=== PATIENT | female | born 1940 | race Caucasian/White ===

== ENCOUNTER 2023-04-29 16:02 | Emergency (ER) | payer MEDICARE, OTHER, SELFPAY ==
[2023-04-29 16:06] VITALS: BP 123/63
[2023-04-29 16:35] LABS: % Basophils 0.8 % (0-2); % Eosinophils 0.3 % (0-6); % Immature Granulocytes 0.6 % (0-0.5); % Lymphocytes 11.9 % (20.5-51.1); % Monocytes 7.8 % (1.7-9.3); % Neutrophils 78.6 % (42.2-75.2); Absolute Basophils 0.1 10^3/uL (0-0.2); Absolute Immature Granulocytes 0.1 10^3/uL (0-0.05); Absolute Lymphocytes 1.1 10^3/uL (1.2-3.4); Absolute Monocytes 0.7 10^3/uL (0.1-0.6); Absolute Neutrophils 7.4 10^3/uL (1.4-6.5); Hematocrit 37.6 % (37.0-47.0); Hemoglobin 12.2 g/dL (12.0-16.0); Mean Corp Hgb Conc. 32.4 g/dL (33.0-37.0); Mean Corpuscular Hgb 29.8 pg (27.0-31.0); Mean Corpuscular Volume 91.7 fL (81.0-99.0); Mean Platelet Volume 9.8 fL (7.4-10.4); Nucleated Red Blood Cells % 0 %; Platelet Count 305 10^3/uL (130-400); Red Cell Dist. Width 14.9 % (11.5-14.5); White Blood Cell Count 9.5 10^3/uL (4.8-10.8)
[2023-04-29 16:47] LABS: ALT (SGPT) 20 U/L (0-35); AST (SGOT) 37 U/L (14-36); Albumin 4.5 g/dl (3.5-5.0); Alkaline Phosphatase 100 U/L (38-126); Blood Urea Nitrogen 12 mg/dl (7-17); Calcium 9.3 mg/dl (8.4-10.2); Carbon Dioxide 21 mmol/L (22-30); Chloride 101 mmol/L (98-107); Glucose 126 mg/dl (70-99); Lipase 121 U/L (23-300); Potassium 3.8 mmol/L (3.5-5.1); Sodium 135 mmol/L (135-145); Total Bilirubin 0.6 mg/dl (0.2-1.3); Total Protein 6.8 g/dl (6.3-8.2); eGFR > 60.00
--- NOTE | 2023-04-29 17:27 | ED.GENMED ---
History of Present Illness
General
Chief Complaint: Breathing Problem
Source: patient
Time Seen by Provider: 04/29/23 17:11
Travel History
Have you had any contact with someone who has COVID-19?: No
Do you have any symptoms of coronavirus? Fever > 100 degrees, chills, cough, shortness of breath, sore throat, loss of taste or smell, muscle aches, or headache?: No
History of Present Illness
History of Present Illness:
82-year-old female presents to the emergency room complaining of abdominal pain and frequent belching that occurs after she eats. Over the past month or so the patient has noted the symptoms to be quite pronounced after every meal. Today she had
lunch with her daughter who was dismayed by her room level of discomfort after eating. Patient states that the discomfort does not seem to be related to any particular type of food but just when she eats anything solid. She is able to tolerate
liquids that much problem. She does have a history of significant reflux. Patient denies any nausea or vomiting. Pain is located in the upper abdomen and radiates to the chest.
Past History
Past History
ED Past Medical History: COPD (Chronic bronchitis)
Social History
Tobacco: Non-smoker
Alcohol: None
Drug: None
Living: with family
Phy Exam
Physical Exam
Physical Exam:
General: Awake, Alert, Oriented X3. No acute distress.
Vitals: unremarkable
Head: Atraumatic
Eyes: Pupils equal, EOMI
Throat: Airway intact, no exudates
Neck: Trachea midline
Lungs: Clear and equal b/l
Heart: Regular rate, no murmurs
Abd: Soft, mild tenderness palpation upper abdomen, No pulsatile mass
Neuro: Nonfocal
Skin: Warm, dry, no rash
Extremities: pulses equal b/l, no edema
Scores
Heart Failure Risk
Heart Failure Risk Score: Not Applicable
Course
Orders/Labs/Results
Orders:
Orders
04/29/23 16:11
Electrocardiogram (*1) Urgent
Reason for Study: Shortness of Breath
EKG- Treatment ONCE
04/29/23 16:19
Complete Blood Count/With Diff Urgent
Comprehensive Metabolic Panel Urgent
Lipase Urgent
04/29/23 17:24
Famotidine [Pepcid] 20 mg IV NOW STA
Mag Hydrox/Al Hydrox/Simeth [Maalox] 30 ml Phenobarb/Hyoscy/Atropine/Scop [] 10 ml Viscous Lidocaine 2% [Xylocaine Viscous Cup] 10 ml PO NOW
Ondansetron Injectable [Zofran] 4 mg IV NOW STA
04/29/23 17:26
CT Abd/Pel (IV only)-DH only Urgent
Comment:
Reason For Exam: abdominal pain, nausea
04/29/23 17:37
Mag Hydrox/Al Hydrox/Simeth [Maalox] 30 ml .ROUTE .STK-MED ONE
Phenobarb/Hyoscy/Atropine/Scop [] 10 ml .ROUTE .STK-MED ONE
Viscous Lidocaine 2% [Xylocaine Viscous Cup] 15 ml .ROUTE .STK-MED ONE
04/29/23 19:22
Sucralfate Suspension [Carafate Suspension] 1 gm PO NOW STA
Abnormal Lab Results
04/29/23
16:19
RBC 4.10 L 10^6/uL
(4.20-5.40)
MCHC 32.4 L g/dL
(33.0-37.0)
RDW 14.9 H %
(11.5-14.5)
Abs Immat Gran (auto) 0.1 H 10^3/uL
(0-0.05)
Absolute Neuts (auto) 7.4 H 10^3/uL
(1.4-6.5)
Absolute Lymphs (auto) 1.1 L 10^3/uL
(1.2-3.4)
Absolute Monos (auto) 0.7 H 10^3/uL
(0.1-0.6)
Immature Gran % 0.6 H %
(0-0.5)
Neutrophils % 78.6 H %
(42.2-75.2)
Lymphocytes % 11.9 L %
(20.5-51.1)
Carbon Dioxide 21 L mmol/L
(22-30)
Glucose 126 H mg/dl
(70-99)
AST 37 H U/L
(14-36)
04/29/23 16:19
04/29/23 16:19
Vital Signs
Initial and Last Documented VS:
Initial Vital Signs
Temp Pulse Resp BP Pulse Ox
98.2 F 80 16 123/63 98
04/29/23 16:06 04/29/23 16:06 04/29/23 16:06 04/29/23 16:06 04/29/23 16:06
Last Documented Vital Signs
Temp Pulse Resp BP Pulse Ox
98.2 F 74 16 140/68 99
04/29/23 16:06 04/29/23 19:27 04/29/23 19:27 04/29/23 19:27 04/29/23 19:27
MDM/Problems Addressed
Differential Diagnosis Includes:
Severe gastritis, severe GERD, gastric outlet obstruction
MDM/Problems Addressed:
Patient presents with significant pain and belching. Abdominal exam is fairly benign. Labs are unremarkable. Imaging shows no acute abnormality. Patient has a large hiatal hernia as well as findings concerning for esophagitis. This is something
that has been noted in the past. Radiology recommends direct visualization to exclude neoplasm.
*Pulse Oximetry
Patient hypoxic: no
*EKG
Interpreted by ED Provider?: Yes
Interpretation: normal
Heart Rate: 74
Rate: normal
Rhythm: other (Atrial sensed, ventricularly paced)
QRS Pattern: left bundle branch block
Ischemia: no ischemia
*Cigarette Examiner Interpretation
Rate: normal
Rhythm: sinus
*Critical Care Note
Total Time (30-74mins, 75-104mins- exclusive of procedures): Not Applicable
ED Attending Note
-
Portions of this chart may have been created with voice recognition software.� Occasional wrong word or��sound alike� substitutions may have occurred due to the inherent limitations of voice recognition software.
Discharge Plan
Departure
Patient Disposition: Home (Routine Discharge)
Date of Disposition: 04/29/23
Time of Disposition: 19:32
Patient with high blood pressure during this ER visit?: Yes
Condition: Good
Discharge Problem:
GERD with esophagitis
Instructions: Esophagitis
Prescriptions:
New
pantoprazole 40 mg tablet,delayed release (DR/EC)
40 mg PO DAILY Qty: 30 0RF
sucralfate [Carafate] 1 gram tablet
1 g PO ACHS 28 Days Qty: 112 0RF
No Action
atorvastatin 10 mg Tablet
10 mg PO QPM
donepezil 10 mg Tablet
10 mg PO DAILY@1700
sertraline 100 mg Tablet
100 mg PO DAILY@0900
spironolactone 25 mg Tablet
25 mg PO DAILY
levothyroxine 88 mcg Tablet
88 mcg PO DAILY
metoprolol succinate [Toprol XL] 25 mg Tablet Extended Release 24 Hr
25 mg PO DAILY
albuterol sulfate 90 mcg/actuation Hfa Aerosol Inhaler
1 inh INHALATION R Q4 PRN (Reason: asthma)
Entresto 49-51 mg Tablet
1 tab PO BID
multivitamin [TAB A ESTRELLITA] Tablet
1 tab PO DAILY
pantoprazole 40 mg Tablet,Delayed Release (Dr/Ec)
40 mg PO DAILY
ibuprofen 200 mg Tablet
200 mg PO Q8H PRN (Reason: joint aches/pain)
aspirin 81 mg Tablet,Chewable
81 mg PO DAILY
furosemide 20 mg Tablet
20 mg PO DAILY
fluticasone propion-salmeterol 100-50 mcg/dose Blister With Device
1 inh INHALATION R BID
bupropion HCl 150 mg Tablet Extended Release 24 Hr
150 mg PO BID@0900,1700
Rx Instructions:
Listed on Paperwork as Bupropion XL
memantine 10 mg Tablet
10 mg PO BID@0900,1700
Spiriva Respimat 2.5 mcg/actuation Mist
2 inh INHALATION R DAILY
potassium chloride 20 mEq Tablet Extended Release
20 meq PO DAILY
Jardiance 10 mg Tablet
10 mg PO DAILY
Referrals:
Bernardo Saavedra MD [Family Provider] -
Interventions
Interventions:
*Risk Screen - Suicide Last Done: 04/29/23 17:29
*General Assessment Last Done: 04/29/23 17:29
*Neglect/Abuse Screening Last Done: 04/29/23 17:29
ED- Fall Risk Assessment Last Done: 04/29/23 19:46
*ED COVID-19 Vaccine History Last Done: 04/29/23 16:06
*Nursing Disposition Last Done: 04/29/23 19:46
ED- Cardiac Assessment Last Done: 04/29/23 17:30
ED- Pulmonary Assessment Last Done: 04/29/23 17:30
[2023-04-29 17:33] VITALS: BP 117/66
[2023-04-29] MEDS: PEPCID 20 MG IV (17:41)
[2023-04-29] MEDS: MAALOX 50 PO (17:41)
[2023-04-29] MEDS: ZOFRAN 4 MG IV (17:41)
[2023-04-29] MEDS: CARAFATE SUSPENSION 1 GM PO (19:24)
[2023-04-29 19:27] VITALS: BP 140/68
--- NOTE | 2023-05-09 09:56 | OID.L.PAT ---
Pulmonary Nodule Pat Letter
- -
05/09/23
JACOB BOSS
[address]
[place] [facility] [place], [place] [address]
Rosalee JAMES,
A pulmonary nodule was seen on an imaging study done by [facility]. This was reviewed by the [facility] Pulmonary Nodule Advisory Board and the following recommendation was made:
Recommendation: Follow up Chest CT - now
If you have any questions, please do not hesitate to contact your primary care physician. If you are in need of a Physician, you can go to [email or web address] and click on 'Find a Provider'. Type 'Family Medicine' in the search.
Oncology Nurse Navigator
[facility]
[phone]
--- NOTE | 2023-05-09 09:57 | OID.L.REC ---
Pulmonary Nodule Follow Up
- Recommendation
05/09/23
Pulmonary Nodule Review Recommendations
Your patient, JACOB BOSS, had a pulmonary nodule seen on a CT Abdomen/Pelvis done on 04/29/23 in the [facility] Emergency Room.
This was reviewed by the [facility] Pulmonary Nodule Advisory Board and the following recommendation was made:
Recommendation: Follow up Chest CT - now
If you have any questions please do not hesitate to contact us.
Sincerely,
Oncology Nurse Navigator
[facility]
[phone]
== END 2023-04-29 19:56 | disposition home or self-care (01) ==
LOC: EMR 16:02
PROVIDERS: EMERGENCY PHYSICIAN Emergency Medicine; FAMILY PHYSICIAN Internal Medicine
DX: K21.00 Gastro-esophageal reflux disease with esophagitis, without bleeding (principal); R03.0 Elevated blood-pressure reading, without diagnosis of hypertension; I44.7 Left bundle-branch block, unspecified; K44.9 Diaphragmatic hernia without obstruction or gangrene; Z79.82 Long term (current) use of aspirin; J44.9 Chronic obstructive pulmonary disease, unspecified
CPT/HCPCS: 99285; 96375; 96374; 74177; 80053; 83690; 85025; 93005; Q9967

== ENCOUNTER 2023-05-23 23:55 | Inpatient (IN) | payer MEDICARE, OTHER, SELFPAY ==
[2023-05-23 19:28] VITALS: BP 145/85; BMI 40.0
[2023-05-23 19:29] VITALS: BP 145/85
[2023-05-23 19:55] LABS: % Basophils 0.6 % (0-2); % Eosinophils 1.5 % (0-6); % Immature Granulocytes 0.6 % (0-0.5); % Lymphocytes 15.9 % (20.5-51.1); % Monocytes 11.7 % (1.7-9.3); % Neutrophils 69.7 % (42.2-75.2); Absolute Eosinophils 0.1 10^3/uL (0-0.7); Absolute Lymphocytes 1.1 10^3/uL (1.2-3.4); Absolute Monocytes 0.8 10^3/uL (0.1-0.6); Hematocrit 35.3 % (37.0-47.0); Hemoglobin 11.3 g/dL (12.0-16.0); Mean Corpuscular Hgb 28.6 pg (27.0-31.0); Mean Corpuscular Volume 89.4 fL (81.0-99.0); Nucleated Red Blood Cells % 0 %; Platelet Count 259 10^3/uL (130-400); Red Blood Cell Count 3.95 10^6/uL (4.20-5.40); Red Cell Dist. Width 14.5 % (11.5-14.5); White Blood Cell Count 7.2 10^3/uL (4.8-10.8)
[2023-05-23 20:00] VITALS: BP 139/66
[2023-05-23 20:12] LABS: ALT (SGPT) 18 U/L (0-35); AST (SGOT) 35 U/L (14-36); Albumin 4.2 g/dl (3.5-5.0); Alkaline Phosphatase 126 U/L (38-126); Blood Urea Nitrogen 19 mg/dl (7-17); Calcium 9.2 mg/dl (8.4-10.2); Carbon Dioxide 26 mmol/L (22-30); Chloride 101 mmol/L (98-107); Estimated Creatinine Clearance 39 ml/min; Glucose 114 mg/dl (70-99); Potassium 3.8 mmol/L (3.5-5.1); Sodium 134 mmol/L (135-145); Total Bilirubin 0.5 mg/dl (0.2-1.3); Total Protein 6.4 g/dl (6.3-8.2); eGFR 49.86
[2023-05-23 21:00] VITALS: BP 139/67
[2023-05-23 22:00] VITALS: BP 144/65
--- NOTE | 2023-05-23 22:24 | EDRN ---
Pt.'s [employer] pacemaker interrogated per verbal MD orders.
--- NOTE | 2023-05-23 22:39 | ED.GENMED ---
History of Present Illness
General
Chief Complaint: Change Level of Consciousness
Source: patient and family
Exam Limitations: dementia
Time Seen by Provider: 05/23/23 22:00
Travel History
Have you had any contact with someone who has COVID-19?: No
Do you have any symptoms of coronavirus? Fever > 100 degrees, chills, cough, shortness of breath, sore throat, loss of taste or smell, muscle aches, or headache?: No
History of Present Illness
History of Present Illness:
This is an 82-year-old female presents with family who is concerned because her daughter states that she came to see her and she was sitting with her friends. Patient's daughter states that usually they dispersed by them but she was having fun and
mention she was having a good time. She then changed in level of consciousness and looked like she slumped over and then her daughter saw her defibrillator kickoff. The patient offers no complaints and does not recall the event. The patient's
daughter states that it also went off a few weeks ago. Patient does not recall that event either. Patient currently denies chest pain or shortness of breath.
Past History
Past History
ED Past Medical History: CHF, COPD (Chronic bronchitis), GERD, HTN and Other (Cardiomyopathy, ICD/pacemaker, obesity, dementia, anxiety, depression)
Social History
Tobacco: Non-smoker
Drug: None
Living: with family
Phy Exam
Physical Exam
Physical Exam:
CONSTITUTIONAL Patient alert and oriented to person. Well-appearing. Vital signs reviewed.
HEAD atraumatic, normocephalic.
EYES eyelids normal to inspection, Extraocular muscles intact, Conjunctiva normal, Sclera normal.
NECK normal range of motion, Trachea midline, no jugular venous distention.
RESPIRATORY CHEST No respiratory distress noted, Chest expansion equal, Bilateral breath sounds clear.
CARDIOVASCULAR regular rate and rhythm, Heart sounds normal.
ABDOMEN No distention.
BACK normal inspection, no obvious deformities
UPPER EXTREMITY range of motion normal, Motor strength normal, no cyanosis, no edema.
LOWER EXTREMITY range of motion normal, Motor strength normal, no cyanosis, no edema.
NEURO Speech normal, No focal motor deficits, poor memory, cranial Nerves intact to screening exam.
SKIN skin warm, dry, and normal in color.
Course
Orders/Labs/Results
Orders:
Orders
05/23/23 19:30
Electrocardiogram (*1) Urgent
Reason for Study: Syncope
EKG- Treatment ONCE
05/23/23 19:37
CMP [Comprehensive Metabolic Panel] Urgent
Complete Blood Count/With Diff Urgent
05/23/23 22:02
Urinalysis Reflex To Culture Urgent
Abnormal Lab Results
05/23/23
19:37
RBC 3.95 L 10^6/uL
(4.20-5.40)
Hgb 11.3 L g/dL
(12.0-16.0)
Hct 35.3 L %
(37.0-47.0)
MCHC 32.0 L g/dL
(33.0-37.0)
Absolute Lymphs (auto) 1.1 L 10^3/uL
(1.2-3.4)
Absolute Monos (auto) 0.8 H 10^3/uL
(0.1-0.6)
Immature Gran % 0.6 H %
(0-0.5)
Lymphocytes % 15.9 L %
(20.5-51.1)
Monocytes % 11.7 H %
(1.7-9.3)
Sodium 134 L mmol/L
(135-145)
BUN 19 H mg/dl
(7-17)
Creatinine 1.1 H mg/dL
(0.6-1.0)
Glucose 114 H mg/dl
(70-99)
05/23/23 19:37
05/23/23 19:37
Vital Signs
Initial and Last Documented VS:
Initial Vital Signs
Temp Pulse Resp BP Pulse Ox
97.9 F 60 16 145/85 97
05/23/23 19:28 05/23/23 19:28 05/23/23 19:28 05/23/23 19:28 05/23/23 19:28
Last Documented Vital Signs
Temp Pulse Resp BP Pulse Ox
97.9 F 71 25 144/65 93
05/23/23 19:28 05/23/23 22:30 05/23/23 22:30 05/23/23 22:00 05/23/23 22:15
MDM/Problems Addressed
MDM/Problems Addressed:
VF, ICD firing, chronic dementia
*Pulse Oximetry
Patient hypoxic: no
*EKG
Interpreted by ED Provider?: Yes
Interpretation: abnormal
Rhythm: av sequential
Ischemia: non-specific ST changes
*Filler Shredder Machine Interpretation
Rate: normal
Heart Rate: 60
Rhythm: av sequential
*Critical Care Note
Total Time (30-74mins, 75-104mins- exclusive of procedures): Not Applicable
Data Reviewed
Review of Other/Old Records Reveals: Discharge Summary (Prior discharge summary from October 2021 reviewed)
Source: patient
Prescriptions/Medications Considered But Not Given:
Considered IV amiodarone but patient already on amiodarone. Will discuss with cardiology
Patient Management
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
Escalation/DeEscalation of care consider admission/obs:
Multiple shocks recently in this 82-year-old female. Case discussed with cardiology. For now we will admit. She is currently stable. I was able to read a note by Dr. Randolph that seems to point to the idea that there will be very conservative
management. It is a little concerning she is getting so many shocks.
Update Note
Update Note:
[employer] report :
-9 treated VF episodes, 6 shocks since december
-today shocked at 6:40p, also yesterday and the day before. today in VF. with over and under sensing.
-also treated on 05/18,, 03/23.
ED Attending Note
-
Portions of this chart may have been created with voice recognition software.� Occasional wrong word or��sound alike� substitutions may have occurred due to the inherent limitations of voice recognition software.
Discharge Plan
Departure
Patient Disposition: Admit
Date of Disposition: 05/23/23
Time of Disposition: 22:56
Admit to: Telemetry
Presentation/result/management discussed w/ accepting MD/DO: Hospitalist
Discharge Problem:
Paroxysmal ventricular fibrillation, chronic cardiomyopathy
Prescriptions:
No Action
atorvastatin 10 mg Tablet
10 mg PO QPM
donepezil 10 mg Tablet
10 mg PO DAILY@1700
spironolactone 25 mg Tablet
12.5 mg PO DAILY
metoprolol succinate [Toprol XL] 25 mg Tablet Extended Release 24 Hr
25 mg PO HS
albuterol sulfate 90 mcg/actuation Hfa Aerosol Inhaler
1 inh INHALATION R Q4 PRN (Reason: asthma)
Entresto 49-51 mg Tablet
1 tab PO BID
multivitamin [TAB A ESTRELLITA] Tablet
1 tab PO DAILY
pantoprazole 40 mg Tablet,Delayed Release (Dr/Ec)
40 mg PO DAILY
ibuprofen 200 mg Tablet
200 mg PO Q8H PRN (Reason: joint aches/pain)
aspirin 81 mg Tablet,Chewable
81 mg PO DAILY
furosemide 20 mg Tablet
20 mg PO DAILY
fluticasone propion-salmeterol 100-50 mcg/dose Blister With Device
1 inh INHALATION R BID
memantine 10 mg Tablet
10 mg PO BID@0900,1700
Spiriva Respimat 2.5 mcg/actuation Mist
2 inh INHALATION R DAILY
potassium chloride 20 mEq Tablet Extended Release
20 meq PO DAILY
Jardiance 10 mg Tablet
10 mg PO DAILY
sucralfate [Carafate] 1 gram tablet
1 g PO ACHS 28 Days Qty: 112 0RF
amiodarone 200 mg Tablet
200 mg PO DAILY
acetaminophen 650 mg Tablet Extended Release
1,300 mg PO BID
levothyroxine 100 mcg Tablet
100 mcg PO DAILY
magnesium hydroxide [Milk of Magnesia] 400 mg/5 mL Suspension
30 ml PO DAILY PRN (Reason: constipation)
lidocaine 5 % Adhesive Patch,Medicated
1 patch TOPICAL DAILY
Rx Instructions:
pply to lower back
duloxetine 30 mg Capsule,Delayed Release(Dr/Ec)
90 mg PO DAILY
Referrals:
Bernardo Saavedra MD [Family Provider] -
Interventions
Interventions:
*General Assessment Last Done: 05/23/23 19:28
*ED COVID-19 Vaccine History Last Done: 05/23/23 19:28
ED- Cardiac Assessment Last Done: 05/23/23 19:40
ED- Neurological Assessment Last Done: 05/23/23 19:40
ED-Psychological Assessment Last Done: 05/23/23 21:23
ED- Pulmonary Assessment Last Done: 05/23/23 19:40
[2023-05-23 23:00] VITALS: BP 154/62
[2023-05-23] MEDS: PACERONE 200 MG PO (23:25)
--- NOTE | 2023-05-23 23:52 | HPS.HSE ---
Addendum entered and electronically signed by Yahaira Harris MD 05/24/23 00:08:
Patient seen and examined independently with PA. 82-year-old female past medical history of HFrEF, nonischemic cardiomyopathy, V. tach/V-fib status post ICD, daily alcohol use, hypertension, hypothyroidism, GERD, dementia, obesity,
anxiety/depression, brought in because she was sitting and suddenly slumped over and defibrillator shocked her. This is also happened a few weeks ago. Patient currently denies any symptoms.
EKG shows dual paced rhythm. Interrogation of ICD shows episode of V-fib today. There have been 9 V-fib episodes, 13 V. tach episodes. Device appears to be over sensing on the ventricular lead. Continue amiodarone with extra dose. Cardiology
consulted. Replete potassium to keep potassium greater than 4, magnesium greater than 2.
Alcohol withdrawal protocol.
Original Note:
Family Physician
-
Family Physician: Bernardo Saavedra
Chief Complaint
-
Syncope
History of Present Illness
Patient is an 82 y/o female with PMH of dementia, CHF, and recurrent episodes of ventricular tachycardia and ventricular fibrillation and has ICD/pacemaker who presents following an episode of change of level of consciousness. Patient is limited
historian, daughter at bedside provided most of history. Patient had a syncopal episode today while sitting in a chair. With the acute change her daughter brought her to the emergency department for evaluation. Interrogation of her device revealed
that patient was shocked today at 6:40p, also yesterday and the day before which occurred overnight. She has had 9 treated VF episodes and 6 shocks since December. Daughter says patient drinks liquor daily and has encouraged patient to reduce alcohol
consumption in attempt to reduce these episodes. Patient is denies chest pain, SOB, palpitations, and lower extremity edema.
Medical History
Past Medical History
Past Medical History: Reports Other
Additional Past Medical History:
Chronic Systolic Heart Failure
Non-Ischemic Cardiomyopathy
Essential Hypertension
COPD
Dementia
Depression
Hypothyroidism
GERD
Past Surgical History: Reports Other
Additional Past Surgical History:
Hysterectomy
Pacemaker
Social History
Tobacco: Non-smoker
Alcohol: Daily
Family History
Family History: Not pertinent
Allergies / Home Medications
Allergies reflects when Allergies were last updated in [facility].
Home Medications with original date entered in [facility]
Allergy/Medication List:
Allergies
Allergy/AdvReac Type Severity Reaction Status Date / Time
No Known Drug Allergies Allergy Unknown Verified 05/23/23 19:35
Home Medications
albuterol sulfate 90 mcg/actuation aerosol inhaler 1 inh inhalation R Q4 PRN asthma 11/11/21
atorvastatin 10 mg tablet 10 mg PO QPM High cholesterol 11/11/21
donepezil 10 mg tablet 10 mg PO DAILY@1700 dementia 11/11/21
metoprolol succinate 25 mg tablet,extended release 24 hr (Toprol XL) 25 mg PO HS Blood pressure 11/11/21
sacubitril 49 mg-valsartan 51 mg tablet (Entresto) 1 tab PO BID Heart Failure 11/11/21
spironolactone 25 mg tablet 12.5 mg PO DAILY Fluid retention/Swelling 11/11/21
aspirin 81 mg chewable tablet 81 mg PO DAILY 09/13/22
empagliflozin 10 mg tablet (Jardiance) 10 mg PO DAILY 09/13/22
fluticasone 100 mcg-salmeterol 50 mcg/dose blistr powdr for inhalation 1 inh inhalation R BID 09/13/22
furosemide 20 mg tablet 20 mg PO DAILY 09/13/22
ibuprofen 200 mg tablet 200 mg PO Q8H PRN joint aches/pain 09/13/22
memantine 10 mg tablet 10 mg PO BID@0900,1700 09/13/22
multivitamin 1 tab PO DAILY 09/13/22
pantoprazole 40 mg tablet,delayed release 40 mg PO DAILY 09/13/22
potassium chloride 20 mEq tablet,extended release 20 meq PO DAILY 09/13/22
tiotropium bromide 2.5 mcg/actuation mist for inhalation (Spiriva Respimat) 2 inh inhalation R DAILY 09/13/22
sucralfate 1 gram tablet (Carafate) 1 g PO ACHS 4 weeks #112 tabs 04/29/23
acetaminophen 650 mg tablet,extended release 1,300 mg PO BID 05/23/23
amiodarone 200 mg tablet 200 mg PO DAILY 05/23/23
duloxetine 30 mg capsule,delayed release 90 mg PO DAILY 05/23/23
levothyroxine 100 mcg tablet 100 mcg PO DAILY 05/23/23
lidocaine 5 % topical patch 1 patch topical DAILY 05/23/23
magnesium hydroxide 400 mg/5 mL oral suspension (Milk of Magnesia) 30 ml PO DAILY PRN constipation 05/23/23
Review of Systems
-
Unable to obtain full review of systems at this time due to: Dementia
Physical Exam
Vital Signs
Vital Signs
Temp Pulse Resp BP Pulse Ox
97.9 F 60 25 154/62 93
05/23/23 19:28 05/23/23 23:25 05/23/23 22:30 05/23/23 23:25 05/23/23 22:15
Physical Exam
General: Comfortable and Conversant
HEENT: Anicteric and Moist mucous membranes
Respiratory: Clear and Non Labored Respirations
Cardiac: S1/S2 and Regular Rhythm
GI: Soft and Non Tender
Rectal: Deferred by Provider
Musculoskeletal: No Clubbing, No Cyanosis and No Edema
Skin: Warm and Dry
Neuro: Awake, Alert and Nonfocal/grossly intact
Psych: Apparent Dementia
Laboratory Results
-
05/23/23 19:37
05/23/23 19:37
Laboratory Results
Total Bilirubin 0.5 mg/dl (0.2-1.3) 03/04/24 19:37
AST 35 U/L (14-36) 05/23/23 19:37
ALT 18 U/L (0-35) 05/23/23 19:37
Alkaline Phosphatase 126 U/L (38-126) 05/23/23 19:37
Data Reviewed
-
Lab Data: Labs Reviewed by me
Impression/Plan
-
Recurrent VT/VF Event requiring defibrillation
-Pacemaker interrogation revealed 9 episodes of VF treated with shock (most recent today) and 13 episodes of NSVT
-Consult Cardiology
-Monitor closely in IVU
-Continue amiodarone
-Keep potassium greater than 4 and magnesium greater than 2
Chronic Systolic Heart Failure
-Continue Lasix and Spironolactone
-Continue Entresto
Essential Hypertension
-Continue Toprol XL
Hyperlipidemia
-Continue atorvastatin
COPD, no acute exacerbation
-Continue fluticasone/salmeterol and Spiriva
Dementia
-Continue Aricept and Namenda
-Monitor for mood/behavior changes during hospitalization
Depression
-Continue duloxetine
Hypothyroidism
-Continue levothyroxine
GERD
-Continue Protonix
DVT proph: SC Heparin
Code Status: Full Code
[2023-05-24] VITALS (12 sets, daily range): BP systolic 115–152; BP diastolic 52–84; BMI 39.0
[2023-05-24] MEDS: KCL ELIXIR 20 MEQ PO (00:40)
[2023-05-24 01:18] LABS: Urine Albumin Negative (Neg - Trace); Urine Bilirubin Negative (Negative); Urine Character Slightly Cloudy (Clear); Urine Color Yellow; Urine Glucose 3+ (Negative); Urine Ketone 1+ (Negative); Urine Leukocyte Trace (Negative); Urine Nitrite Positive (Negative); Urine Occult Blood Negative (Negative); Urine Specific Gravity 1.015 (<1.030); Urine Urobilinogen 1+ (Neg - 1+)
[2023-05-24 01:25] LABS: Urine Squamous Cell >30 /LPF (Few)
[2023-05-24 01:26] LABS: Urine Red Blood Cell 0-2 /HPF (0-2)
[2023-05-24 01:27] LABS: Urine Bacteria Many (Negative)
--- NOTE | 2023-05-24 02:12 | PTCARENOTE ---
Received pt from ED RN. Pt is AAOx2 (time), MSAS per protocol (pt states she drinks 1 drink daily), confused/forgetful. AV paced on the monitor. On RA O2 sat 95%, lungs clear. Pw in place for incont. Skin c/d/i. CHG bath provided. Bed alarm in
place. Pt is laying comfortable in bed with call in reach.
[2023-05-24] MEDS: SYNTHROID 100 MCG PO (05:44)
[2023-05-24 06:28] LABS: Hematocrit 32.3 % (37.0-47.0); Hemoglobin 10.2 g/dL (12.0-16.0); Mean Corp Hgb Conc. 31.6 g/dL (33.0-37.0); Mean Corpuscular Hgb 28.7 pg (27.0-31.0); Mean Corpuscular Volume 90.7 fL (81.0-99.0); Mean Platelet Volume 10.1 fL (7.4-10.4); Platelet Count 233 10^3/uL (130-400); Red Blood Cell Count 3.56 10^6/uL (4.20-5.40); Red Cell Dist. Width 14.2 % (11.5-14.5); White Blood Cell Count 5.6 10^3/uL (4.8-10.8)
[2023-05-24 06:39] LABS: APTT 29.7 Sec (23.4-35.0)
[2023-05-24 06:54] LABS: Blood Urea Nitrogen 15 mg/dl (7-17); Calcium 8.9 mg/dl (8.4-10.2); Carbon Dioxide 24 mmol/L (22-30); Chloride 105 mmol/L (98-107); Estimated Creatinine Clearance 53 ml/min; Glucose 106 mg/dl (70-99); Potassium 3.8 mmol/L (3.5-5.1); Sodium 135 mmol/L (135-145); eGFR > 60.00
[2023-05-24 07:11] LABS: INR 1.02; PT 13.2 Sec (11.4-14.6)
[2023-05-24] MEDS: ALDACTONE 12.5 MG PO (07:36)
[2023-05-24] MEDS: LASIX 20 MG PO (07:36)
[2023-05-24] MEDS: CYMBALTA DELAYED RELEASE 90 MG PO (07:36)
[2023-05-24] MEDS: ENTRESTO 49 MG/51 MG 1 TAB PO ×2 (07:36→19:42)
[2023-05-24] MEDS: JARDIANCE 10 MG PO (07:37)
[2023-05-24] MEDS: CARAFATE 1 GRAM PO ×4 (07:37→21:46)
[2023-05-24] MEDS: LIDOCAINE 4% PATCH 1 PATCH TOPICAL (07:37)
[2023-05-24] MEDS: FOLVITE 1 MG PO (07:37)
[2023-05-24] MEDS: PROTONIX 40 MG PO (07:37)
[2023-05-24] MEDS: KCL 20 MEQ PO (07:37)
[2023-05-24] MEDS: PACERONE 200 MG PO ×3 (07:37→21:46)
[2023-05-24] MEDS: THIAMINE INJECTION 200 MG IV ×2 (07:38→19:42)
[2023-05-24] MEDS: HEPARIN 5000 UNITS SC (07:38)
[2023-05-24] MEDS: SPIRIVA RESPIMAT 2.5 MCG 2 PUFF INH (08:23)
[2023-05-24] MEDS: ADVAIR HFA 45/21 MCG INHALER 2 PUFF INH ×2 (08:24→19:55)
--- NOTE | 2023-05-24 08:28 | W.PN.HOSP.TC ---
Today's Communication/Plan
-
see A/P
Assessment / Plan
Assessment / Plan
82 y/o female with PMH of dementia, CHF, and recurrent episodes of ventricular tachycardia and ventricular fibrillation and has ICD/pacemaker who presented following an episode of change of level of consciousness. Patient is limited historian,
daughter at bedside provided most of history. Patient had a syncopal episode on DOA while sitting in a chair.� With the acute change, her daughter brought her to the emergency department for evaluation. Interrogation of her device revealed that
patient was shocked on DOA at 6:40pm, also the 2 days prior. She has had 9 treated VF episodes and 6 shocks since December. Daughter says patient drinks liquor daily and has encouraged patient to reduce alcohol consumption in attempt to reduce these
episodes. Patient denied to chest pain, SOB, palpitations, and lower extremity edema.
A/P:
# Recurrent VT/VF events requiring defibrillation
ICD interrogation revealed 9 episodes of VF treated with shock (most recent on DOA) and 13 episodes of NSVT
Consult Cardiology
Continue COMPOSITION WEATHERBOARD INSTALLER amiodarone
Aim to keep potassium greater than 4 and magnesium greater than 2
No tele event noted
# Chronic alcohol drinking
Cont Alcohol withdrawal protocol for in case of withdrawal
# Chronic Systolic Heart Failure
# Essential Hypertension
Continue COMPOSITION WEATHERBOARD INSTALLER Lasix, Toprol, Spironolactone, Entresto, Jardiance
# Hyperlipidemia
Continue atorvastatin
# COPD, no acute exacerbation
Continue fluticasone/salmeterol and Spiriva
# Dementia
Pt is awake, cannot remember the President
Continue Aricept and Namenda
Monitor for mood/behavior changes during hospitalization
# Depression
Continue duloxetine
# Hypothyroidism
Continue levothyroxine
# GERD
Continue Protonix
DVT proph: Lovenox SQ
Code Status: Full Code
DW daughter at bedside
DW RN
Anticipated Discharge: 24 - 48 hours
Subjective/Interval History
-
Date of Service: May 24, 2023
Objective Data
-
Labs:
Laboratory Results
05/24/23
05:43
WBC 5.6
Hgb 10.2 L
Hct 32.3 L
Plt Count 233
PT 13.2
INR 1.02
APTT 29.7
Sodium 135
Potassium 3.8
Chloride 105
Carbon Dioxide 24
BUN 15
Creatinine 0.8
Glucose 106 H
Calcium 8.9
Vital Signs:
Vital Signs
Temp Pulse Resp BP Pulse Ox
36.7 C 60 10 118/52 93
05/24/23 04:18 05/24/23 06:00 05/24/23 06:00 05/24/23 06:00 05/24/23 06:00
I&O
05/23/23 05/24/23 05/25/23
06:59 06:59 06:59
Intake Total 200 / 200
Output Total 230 / 230
Balance -30 / -30
Review of Systems
-
All other systems: Reviewed and negative
Physical Exam
-
General: Well Developed, Well Nourished, No Apparent Distress, Comfortable, Conversant and Obese; Negative Respiratory Distress
HEENT: Normocephalic, Atraumatic, Nose Appears Normal and Ears Appear Normal; Negative Oxygen
Respiratory: Clear to Auscultation and Non Labored Respirations; Negative Accessory Resp Muscle Use
Cardiac: Regular Rhythm and S1/S2
GI: Soft, Nontender, Nondistended and Normal Bowel Sounds
Skin: Warm and Dry
Neuro: Awake, Alert and Oriented
Psych: Calm
Data Reviewed
-
Labs: Labs Reviewed by me
[2023-05-24] MEDS: NAMENDA 10 MG PO ×2 (10:10→18:00)
--- NOTE | 2023-05-24 10:34 | PTCARENOTE ---
Assumed care of patient at beginning of this shift from previous RN. Ox2, forgetful to time. Monitor showing av-paced, a-paced rhythm. Patient c/o reflux after taking morning meds that was relieved after some chapo collin. Ordered echo today.
Patient's daughter at bedside and updated on plan of care. See worklist for full assessment and vital signs; see MAR for med administration.
[2023-05-24 11:19] LABS: NT-proBNP 838 pg/ml; Troponin I < 0.012 ng/ml
--- NOTE | 2023-05-24 11:34 | CM ---
CM met with pt and aber/Jazzy
Pt was alert and oriented during meeting
Pt resides at [facility]
Notes independence with ambulation and personal care without any ADs
Denies use of DMEs
Pt has hx with [facility] manages and administers all medications
PCP- Bernardo Saavedra
Rx- [facility]
Call with nursing/Marion at [facility]
She confirmed all info
Notes pt can return at a 1 person assist with services through [facility]
If two people or more, will require SNF on dc
CM consult for ETOH use
Pt notes she typically drink about 2 drinks each evening of liquor
Dtr has removed all alcohol from her room and pt has not had a drink in approx a week
Pt declined [facility] resources at this time, dtr will assist with sobriety support
Discharge Disposition- return to [facility], watch for VN needs
--- NOTE | 2023-05-24 14:24 | CON.CAR ---
Addendum entered and electronically signed by Catalino Dotson DO 05/24/23 15:21:
I saw and examined the patient.
The Store Sales Manager's note was reviewed and I agree with the note.
Comment:
Plan:
HPI: DHER last night after a witnessed ICD shock for VT and now cardiology has been consulted. Patient previously lived in [place] and moved locally to live at [facility] around 04/2021. Prior to following with our office the patient had a h/o NICM
with nonobstructive CAD by cath in 2018 in [place]. Patient had a Medtronic SENIOR MEDICAL WRITER-D placed and her EF was as low as 10-15% at that time, but by most recent echo 11/17/21 her EF had improved to 50-55%. CM regimen includes Toprol XL and spironolactone.
Patient then had an ICD shock 03/01/23, but according to patient's daughter and the memory care staff the patient felt fine. Patient was loaded with amiodarone 200 mg BID at that time. Patient then had another episode of VT that terminated with ATP
on 03/13/23 and then VT requiring ICD shock on 03/15/24. Patient had her amiodarone increased back to BID. Patient now with additional ICD shocks 05/18/23, 05/19/23, 05/22/23 and 05/23/23 despite amiodarone load and ongoing 200 mg daily dosing. Potassium
3.8 on admission and magnesium 2.0. Troponin undetectable x1. Patient lives in the memory care section of [facility] and has a group of friends, her daughter helps with making medical decisions.
Plan:
With recurrent VT with appropriate ICD shocks discussed increasing Amiodarone 200 mg TID.
Check echo. Hx recovered CM. Cont GDMT.
Appears euvolemic, cont oral lasix.
Electrolytes normal. Troponin negative and EKG without ischemic changes.
Medtronic device interrogation.
Reviewed code status and pt daughter would like to continue with therapies and with full code.
Pt was encouraged to reduce alcohol intake.
Original Note:
Consultation
Consultation Request
Date/Time Consultation Requested: 05/24/23
Date/Time Consultation Performed: 05/24/23
Requesting Provider: Dr. Donnelly
Performing Provider: Dr. Dotson
Reason for Consultation: Recurrent VT and shocks
Medical History
-
History of Present Illness:
[facility] after a witnessed ICD shock for VT and now cardiology has been consulted. Patient previously lived in [place] and moved locally to live at [facility] around 04/2021. Prior to following with our office the patient had
a h/o NICM with nonobstructive CAD by cath in 2019 in [place]. Patient had a Medtronic SENIOR MEDICAL WRITER-D placed and her EF was as low as 10-15% at that time, but by most recent echo 11/17/21 her EF had improved to 50-55%. CM regimen includes Toprol XL and
spironolactone. Patient then had an ICD shock 03/01/23, but according to patient's daughter and the memory care staff the patient felt fine. Patient was loaded with amiodarone 200 mg BID at that time. Patient then had another episode of VT that
terminated with ATP on 03/13/23 and then VT requiring ICD shock on 03/15/24. Patient had her amiodarone increased back to BID. Patient now with additional ICD shocks 05/18/23, 05/19/23, 05/22/23 and 05/23/23 despite amiodarone load and ongoing 200 mg
daily dosing. Potassium 3.8 on admission and magnesium 2.0. Troponin undetectable x1. Patient lives in the memory care section of [facility] and has a group of friends, her daughter helps with making medical decisions.
PMH:
Recurrent VT/VF and ICD shocks
shocked for VT 03/01/23, 03/15/24, 05/18/23, 05/19/23, 05/22/23, 05/23/23
Medtronic SENIOR MEDICAL WRITER-D
NICM EF previously as low as 30-35% by echo 09/2020, then improved to 50-55% by echo 11/17/21
Nonobstructive CAD by cath in [place] 2018
Chronic HFimpEF
Daily ETOH
HTN
Hyperlipidemia
Echo 11/17/21: EF 50-55%, apical septal wall motion abnormality from pacing, normal RV
Plan:
-
Past Medical History
Past Medical History: Other (in HPI)
Past Surgical History: Cardiac (ICD), Gynecological (hysterectomy) and Orthopedic
Social History
Tobacco: Non-Smoker
Alcohol: Daily (one shot a day)
Drug: None
Living: Assisted Living (memory care)
Family History
Family History: CAD
Allergies / Home Medications
Allergy/AdvReac Type Severity Reaction Status Date / Time
No Known Drug Allergies Allergy Unknown Verified 05/23/23 19:35
Medication Instructions Recorded Confirmed Type
albuterol sulfate 90 mcg/actuation 1 inh inhalation R Q4 PRN asthma 11/11/21 05/23/23 History
aerosol inhaler
atorvastatin 10 mg tablet 10 mg PO QPM High cholesterol 11/11/21 05/23/23 History
donepezil 10 mg tablet 10 mg PO DAILY@1700 dementia 11/11/21 05/23/23 History
metoprolol succinate 25 mg 25 mg PO HS Blood pressure 11/11/21 05/23/23 History
tablet,extended release 24 hr
(Toprol XL)
sacubitril 49 mg-valsartan 51 mg 1 tab PO BID Heart Failure 11/11/21 05/23/23 History
tablet (Entresto)
spironolactone 25 mg tablet 12.5 mg PO DAILY Fluid 11/11/21 05/23/23 History
retention/Swelling
aspirin 81 mg chewable tablet 81 mg PO DAILY Blood Clot 09/13/22 05/23/23 History
Prevention/Tx
empagliflozin 10 mg tablet 10 mg PO DAILY Diabetes 09/13/22 05/23/23 History
(Jardiance)
fluticasone 100 mcg-salmeterol 50 1 inh inhalation R BID 09/13/22 05/23/23 History
mcg/dose blistr powdr for Lung/Breathing Issues
inhalation
furosemide 20 mg tablet 20 mg PO DAILY Fluid 09/13/22 05/23/23 History
Retention/Swelling
ibuprofen 200 mg tablet 200 mg PO Q8H PRN joint aches/pain 09/13/22 05/23/23 History
memantine 10 mg tablet 10 mg PO BID@0900,1700 09/13/22 05/23/23 History
Neurological Condition
multivitamin 1 tab PO DAILY Supplement 09/13/22 05/23/23 History
pantoprazole 40 mg tablet,delayed 40 mg PO DAILY Gastrointestinal 09/13/22 05/23/23 History
release Issue
potassium chloride 20 mEq 20 meq PO DAILY Electrolyte 09/13/22 05/23/23 History
tablet,extended release Repletion
tiotropium bromide 2.5 2 inh inhalation R DAILY 09/13/22 05/23/23 History
mcg/actuation mist for inhalation Lung/Breathing Issues
(Spiriva Respimat)
sucralfate 1 gram tablet (Carafate) 1 g PO ACHS 4 weeks #112 tabs 04/29/23 05/23/23 Rx
acetaminophen 650 mg 1,300 mg PO BID Pain 05/23/23 05/23/23 History
tablet,extended release
amiodarone 200 mg tablet 200 mg PO DAILY Heart 05/23/23 05/23/23 History
Disease/Condition
duloxetine 30 mg capsule,delayed 90 mg PO DAILY Pain 05/23/23 05/23/23 History
release
levothyroxine 100 mcg tablet 100 mcg PO DAILY Thyroid 05/23/23 05/23/23 History
lidocaine 5 % topical patch 1 patch topical DAILY Pain 05/23/23 05/23/23 History
magnesium hydroxide 400 mg/5 mL 30 ml PO DAILY PRN constipation 05/23/23 05/23/23 History
oral suspension (Milk of Magnesia)
Review of Systems
-
History Source: Patient and Family (daughter)
All other systems: Negative unless noted
Physical Exam
Vital Signs
Temp Pulse Resp BP Pulse Ox
98.3 F 77 20 129/65 94
05/24/23 12:00 05/24/23 14:00 05/24/23 14:00 05/24/23 14:00 05/24/23 14:00
GEN: NAD. AAO to person, place and situation
HEENT: supple, anicteric, mmm
LUNGS: CTA B/L, no wheezes/rales
CV: Reg, S1/S2, no murmur
ABD: soft, BS+, NT/ND
EXT: No clubbing, cyanosis, lesions or edema B/L
NEURO: Gross non-focal
SKIN: Warm, dry and pink. No rash
Lab Results
05/24/23 05:43
05/24/23 05:43
Troponin I < 0.012 ng/ml 05/24/23 10:44
Xcu-A-Vfsxwpidgop Pept 838 pg/ml 05/24/23 10:44
Impression / Plan
-
PCP: Dr. Bernardo Saavedra
Cardiology: Dr. SNEHA Randolph
Impression:
Recurrent VT/VF and ICD shocks
shocked for VT 03/01/23, 03/15/24, 05/18/23, 05/19/23, 05/22/23 and 05/23/23
Medtronic SENIOR MEDICAL WRITER-D
NICM EF previously as low as 30-35% by echo 09/2020, then improved to 50-55% by echo 11/17/21
Nonobstructive CAD by cath in [place] 2018
Chronic HFimpEF
Daily ETOH
HTN
Hyperlipidemia
Echo 11/17/21: EF 50-55%, apical septal wall motion abnormality from pacing, normal RV
Plan:
-[facility] after a witnessed ICD shock for VT and now cardiology has been consulted. Patient previously lived in [place] and moved locally to live at [facility] around 04/2021. Prior to following with our office the patient
had a h/o NICM with nonobstructive CAD by cath in 2019 in [place]. Patient had a Medtronic SENIOR MEDICAL WRITER-D placed and her EF was as low as 10-15% at that time, but by most recent echo 11/17/21 her EF had improved to 50-55%. CM regimen includes Toprol XL and
spironolactone. Patient then had an ICD shock 03/01/23, but according to patient's daughter and the memory care staff the patient felt fine. Patient was loaded with amiodarone 200 mg BID at that time. Patient then had another episode of VT that
terminated with ATP on 03/13/23 and then VT requiring ICD shock on 03/15/24. Patient had her amiodarone increased back to BID. Patient now with additional ICD shocks 05/18/23, 05/19/23, 05/22/23 and 05/23/23 despite amiodarone load and ongoing 200 mg
daily dosing. Potassium 3.8 on admission and magnesium 2.0. Troponin undetectable x1. Patient lives in the [facility] care section of [facility] and has a group of friends, her daughter helps with making medical decisions.
-Recurrent VT with appropriate ICD shocks. Lytes were normal. Troponin undetectable despite shock and no ischemic changes on ECG reviewed by me.
-Check echo
-Increase amiodarone to 200 mg TID
-Will ask Medtronic rep if any programming changes can be made, but this is her 6th shock since 03/01/23 and her device has been interrogated in the office.
-Patient is a full code.
-EF was up to 50% by last echo in [place] in 2021 before she moved locally. Cont GDMT with Entresto 49/51 mg BID, Toprol XL 25 mg daily and spironolactone 12.5 mg daily.
-Cont usual dose of Lasix 20 mg PO daily. No evidence of acute HF.
--- NOTE | 2023-05-24 16:01 | CARDSERVLU ---
Echocardiogram with [facility] completed after protocol screening completed. Allergies verified.
Patent IV site: __RAC___
IV site flushed with 0.9% NaCl pre and post administration.
Diluted bolus method utilized to enhance visualization of ventricular san.
Total volume given: __5__ mL
Patient tolerated all procedures well without complications.
[2023-05-24 17:11] LABS: Troponin I < 0.012 ng/ml
[2023-05-24] MEDS: LIPITOR 10 MG PO (18:00)
[2023-05-24] MEDS: ARICEPT 10 MG PO (18:00)
[2023-05-24] MEDS: LOVENOX 40 MG SC (18:01)
[2023-05-24] MEDS: TOPROL XL 25 MG PO (21:46)
[2023-05-25] VITALS (22 sets, daily range): BP systolic 102–169; BP diastolic 39–128; PULSE 74; BMI 38.2
--- NOTE | 2023-05-25 02:29 | PTCARENOTE ---
Pt confused, experiencing episodes of disorientation. Pt set off bed alarm twice attempting to go to the bathroom independently, reoriented by this RN. Pt remains bedrest to reduce cardiac strain. Pw device in place. Call carrera within reach. Bed
alarm remains in place for pt safety.
[2023-05-25 05:37] LABS: Hematocrit 31.8 % (37.0-47.0); Hemoglobin 10.4 g/dL (12.0-16.0); Mean Corp Hgb Conc. 32.7 g/dL (33.0-37.0); Mean Corpuscular Hgb 29.1 pg (27.0-31.0); Mean Corpuscular Volume 89.1 fL (81.0-99.0); Mean Platelet Volume 9.7 fL (7.4-10.4); Platelet Count 207 10^3/uL (130-400); Red Blood Cell Count 3.57 10^6/uL (4.20-5.40); Red Cell Dist. Width 14.2 % (11.5-14.5); White Blood Cell Count 6.3 10^3/uL (4.8-10.8)
[2023-05-25] MEDS: CARAFATE 1 GRAM PO ×4 (05:47→21:08)
[2023-05-25] MEDS: SYNTHROID 100 MCG PO (05:48)
[2023-05-25 06:04] LABS: Blood Urea Nitrogen 15 mg/dl (7-17); Calcium 9.3 mg/dl (8.4-10.2); Carbon Dioxide 25 mmol/L (22-30); Chloride 100 mmol/L (98-107); Estimated Creatinine Clearance 53 ml/min; Glucose 124 mg/dl (70-99); Magnesium 1.9 mg/dl (1.6-2.3); Potassium 3.7 mmol/L (3.5-5.1); Sodium 135 mmol/L (135-145); eGFR > 60.00
--- NOTE | 2023-05-25 08:00 | PTCARENOTE ---
Assumed care of patient at 0645. Assessment completed and documented in shift assessment.
Patient is AAOX2-3. Forgetful at times. V-Paced. Peripheral IV L AC Patent. Daughter at bedside.
[2023-05-25] MEDS: ADVAIR HFA 45/21 MCG INHALER 2 PUFF INH ×2 (08:09→21:19)
[2023-05-25] MEDS: SPIRIVA RESPIMAT 2.5 MCG 2 PUFF INH (08:09)
--- NOTE | 2023-05-25 08:11 | W.PN.HOSP.TC ---
Addendum entered and electronically signed by Odalis Donnelly MD 05/25/23 15:28:
# Chronic HFpEF
Original Note:
Today's Communication/Plan
-
see A/P
Assessment / Plan
Assessment / Plan
82 y/o female with PMH of dementia, CHF, and recurrent episodes of ventricular tachycardia and ventricular fibrillation and has ICD/pacemaker who presented following an episode of change of level of consciousness. Patient is limited historian,
daughter at bedside provided most of history. Patient had a syncopal episode on DOA while sitting in a chair.� With the acute change, her daughter brought her to the emergency department for evaluation. Interrogation of her device revealed that
patient was shocked on DOA at 6:40pm, also the 2 days prior. She has had 9 treated VF episodes and 6 shocks since December. Daughter says patient drinks liquor daily and has encouraged patient to reduce alcohol consumption in attempt to reduce these
episodes. Patient denied to chest pain, SOB, palpitations, and lower extremity edema.
A/P:
# Recurrent VT/VF events requiring defibrillation
ICD interrogation revealed 9 episodes of VF treated with shock (most recent on DOA) and 13 episodes of NSVT
Continue amiodarone, increased to 200 mg TID.
Aim to keep potassium greater than 4 and magnesium greater than 2
No tele event noted
Echo: Normal left ventricular size, wall thickness and systolic function. No regional wall motion abnormalities are seen. EF 55-60%.
Cardiology following
# Chronic alcohol drinking
Cont alcohol withdrawal protocol for in case of withdrawal
# Chronic Systolic Heart Failure
# Essential Hypertension
Continue PROPERTY MANAGEMENT ACCOUNTANT Lasix, Toprol, Spironolactone, Entresto, Jardiance
# Hyperlipidemia
Continue atorvastatin
# COPD, no acute exacerbation
Continue fluticasone/salmeterol and Spiriva
# Dementia
Pt is awake, cannot remember the President
Continue Aricept and Namenda
Monitor for mood/behavior changes during hospitalization
# Depression
Continue duloxetine
# Hypothyroidism
Continue levothyroxine
# GERD
Continue Protonix
DVT proph: Lovenox SQ
Code Status: Full Code
Anticipated Discharge: > 48 hours
Subjective/Interval History
-
Date of Service: May 25, 2023
Objective Data
-
Labs:
Laboratory Results
05/25/23
05:10
WBC 6.3
Hgb 10.4 L
Hct 31.8 L
Plt Count 207
Sodium 135
Potassium 3.7
Chloride 100
Carbon Dioxide 25
BUN 15
Creatinine 0.8
Glucose 124 H
Calcium 9.3
Vital Signs:
Vital Signs
Temp Pulse Resp BP Pulse Ox
36.7 C 61 17 133/70 91
05/25/23 07:45 05/25/23 06:00 05/25/23 06:00 05/25/23 06:00 05/25/23 02:00
I&O
05/24/23 05/25/23 05/26/23
06:59 06:59 06:59
Intake Total 200 / 200 960 / 960
Output Total 230 / 230 1450 / 1450
Balance -30 / -30 -490 / -490
Review of Systems
-
All other systems: Reviewed and negative
Physical Exam
-
General: Well Developed, Well Nourished, No Apparent Distress, Comfortable, Conversant and Obese; Negative Respiratory Distress
HEENT: Normocephalic, Atraumatic, Nose Appears Normal and Ears Appear Normal; Negative Oxygen
Respiratory: Clear to Auscultation and Non Labored Respirations; Negative Accessory Resp Muscle Use
Cardiac: Regular Rhythm and S1/S2
GI: Soft, Nontender, Nondistended and Normal Bowel Sounds
Skin: Warm and Dry
Neuro: Awake, Alert and Oriented
Psych: Calm and Intact Judgement/Insight
Data Reviewed
-
Labs: Labs Reviewed by me
[2023-05-25] MEDS: NAMENDA 10 MG PO ×2 (09:02→17:05)
[2023-05-25] MEDS: LASIX 20 MG PO (09:02)
[2023-05-25] MEDS: ENTRESTO 49 MG/51 MG 1 TAB PO ×2 (09:02→21:07)
[2023-05-25] MEDS: CYMBALTA DELAYED RELEASE 90 MG PO (09:02)
[2023-05-25] MEDS: JARDIANCE 10 MG PO (09:02)
[2023-05-25] MEDS: PROTONIX 40 MG PO (09:02)
[2023-05-25] MEDS: FOLVITE 1 MG PO (09:02)
[2023-05-25] MEDS: ALDACTONE 12.5 MG PO (09:03)
[2023-05-25] MEDS: KCL 20 MEQ PO (09:03)
[2023-05-25] MEDS: LIDOCAINE 4% PATCH 1 PATCH TOPICAL (09:03)
[2023-05-25] MEDS: THIAMINE INJECTION 200 MG IV ×2 (09:03→21:06)
[2023-05-25] MEDS: PACERONE 200 MG PO ×3 (09:08→22:31)
--- NOTE | 2023-05-25 10:20 | W.PN.CARDCBS ---
Today's Communication / Plan
-
Continue amiodarone 200 mg 3 times daily while inpatient.
On discharge 200 mg twice daily.
Echo stable.
Check EKG tomorrow.
Given potassium is on the lower end of normal range start potassium 10 mEq daily. Follow as an outpatient.
If stable tomorrow on telemetry and with EKG from a cardiac point of view may be discharged.
Impression / Plan
-
PCP: Dr. Bernardo Saavedra
Cardiology: Dr. SNEHA Randolph
Impression:
Recurrent VT/VF and ICD shocks
shocked for VT 03/01/23, 03/15/24, 05/18/23, 05/19/23, 05/22/23 and 05/23/23
Medtronic RN ANGIOGRAPHY-D
NICM EF previously as low as 30-35% by echo 09/2020, then improved to 50-55% by echo 11/17/21
Nonobstructive CAD by cath in [place] 2018
Chronic HFimpEF
Daily ETOH
HTN
Hyperlipidemia
Echo 11/17/21: EF 50-55%, apical septal wall motion abnormality from pacing, normal RV
Echo 05/25/2023: Normal left ventricular size, wall thickness and systolic function. No regional wall motion abnormalities are seen. LV ejection fraction is 55-60% . Mild tricuspid regurgitation.
Plan:
-Recurrent VT with appropriate ICD shocks. Electrolytes were normal. Potassium is on the lower end of normal and I will add low-dose potassium to her regimen. Troponin undetectable despite shock and no ischemic changes on ECG reviewed by me.
-Echocardiogram stable.
-During admission we have increased amiodarone to 200 mg TID on discharge 200 mg twice daily will be patient's dose. We will continue to reassess as an outpatient. Check EKG in a.m. If stable can be discharged from a cardiac point of view
05/26/2023.
-Device has been interrogated by rep and otherwise stable.
-Patient is a full code.
-Continue GDMT with Entresto 49/51 mg BID, Toprol XL 25 mg daily and spironolactone 12.5 mg daily.
-Cont usual dose of Lasix 20 mg PO daily. No evidence of acute HF.
-Patient came to [facility] after a witnessed ICD shock for VT and cardiology has been consulted. Patient previously lived in [place] and moved locally to live at [facility] around 04/2021. Prior to following with our office the patient had a h/o NICM
with nonobstructive CAD by cath in 2019 in [place]. Patient had a Medtronic RN ANGIOGRAPHY-D placed and her EF was as low as 10-15% at that time, but by most recent echo 11/17/21 her EF had improved to 50-55%. CM regimen includes Toprol XL and spironolactone.
Patient then had an ICD shock 03/01/23, but according to patient's daughter and the [facility] care staff the patient felt fine. Patient was loaded with amiodarone 200 mg BID at that time. Patient then had another episode of VT that terminated with ATP
on 03/13/23 and then VT requiring ICD shock on 03/15/24. Patient had her amiodarone increased back to BID. Patient now with additional ICD shocks 05/18/23, 05/19/23, 05/22/23 and 05/23/23 despite amiodarone load and ongoing 200 mg daily dosing. Potassium
3.8 on admission and magnesium 2.0. Troponin undetectable x1. Patient lives in the [facility] section of [facility] and has a group of friends, her daughter helps with making medical decisions.
Progress Note - Road Supervisor
Subjective
Date of Service: May 25, 2023
She denies chest pain and palpitations. Daughter at the bedside.
Objective
Labs:
05/25/23 05:10
05/25/23 05:10
Labs
Hgb 10.4 g/dL (12.0-16.0) L 05/25/23 05:10
Hct 31.8 % (37.0-47.0) L 05/25/23 05:10
Plt Count 207 10^3/uL (130-400) 05/25/23 05:10
PT 13.2 Sec (11.4-14.6) 05/24/23 05:43
INR 1.02 05/24/23 05:43
APTT 29.7 Sec (23.4-35.0) 05/24/23 05:43
Sodium 135 mmol/L (135-145) 05/25/23 05:10
Potassium 3.7 mmol/L (3.5-5.1) 05/25/23 05:10
BUN 15 mg/dl (7-17) 05/25/23 05:10
Creatinine 0.8 mg/dL (0.6-1.0) 05/25/23 05:10
Glucose 124 mg/dl (70-99) H 05/25/23 05:10
Troponins
05/24/23 05/24/23 05/25/23
10:44 16:34 00:45
Troponin I < 0.012 < 0.012 Cancelled
Vital Signs and I&O:
Vital Signs
Temp Pulse Resp BP Pulse Ox
98.1 F 60 20 130/49 95
05/25/23 07:45 05/25/23 09:08 05/25/23 08:12 05/25/23 09:08 05/25/23 08:12
Vital Signs
Temp Pulse Resp BP Pulse Ox
98.1 F 60 20 130/49 95
05/25/23 07:45 05/25/23 09:08 05/25/23 08:12 05/25/23 09:08 05/25/23 08:12
Intake & Output
05/23/23 05/24/23 05/25/23 05/26/23
06:59 06:59 06:59 06:59
Intake Total 200 / 200 960 / 960
Output Total 230 / 230 1450 / 1450
Balance -30 / -30 -490 / -490
Physical Exam
Physical Exam
General: Well developed, well nourished in NAD.
Heart: Non displaced PMI, RRR, no murmurs, No S3, S4, no rubs.
Lungs: Clear to auscultation bilaterally, no wheeze, rhonchi, rubs bilaterally,
normal expiratory phase.
Extremities: No clubbing, cyanosis or edema bilaterally.
--- NOTE | 2023-05-25 14:18 | CM ---
Addendum entered by Lakisha Kemp 05/25/23 16:28:
Per request from [facility], Case Management referral form was faxed to [facility] (#[phone]) to review if they are able to manage patient's post acute rehab needs
Addendum entered by Lakisha Kemp 05/25/23 16:09:
met with patient and daughter at bedside to discuss PT's recommendation for SNF; list of facilities provided.
[facility]ail [facility] will need to follow up tomorrow to obtain preferences
Addendum entered by Lakisha Kemp 05/25/23 16:02:
PT recommends SNF when stable for discharge; will discuss with patient and provide list of facilities
Original Note:
Patient known to [facility]; referral and clinicals sent per request via [employer]
--- NOTE | 2023-05-25 15:02 | PN.CDI ---
CDI
- -
CDI:
Physician Documentation Request
Admit Date: 05/23/23 23:55
Dear Doctor Cony,
Please review the following and provide your response in the progress notes.
Clinical Indicators:
- 3/ PN 'Chronic Systolic Heart Failure'
- 05/23 Echo EF 55-60%
- 05/24 Cardiology 'Chronic HFimpEF'
Please provide further specificity regarding the most likely type and acuity of CHF you are evaluating, treating or monitoring.
Chronic HFpEF
Chronic HFrEF
Other
Use of terms such as suspected, likely, concern for, or probable (associated with a specific diagnosis that is being evaluated, monitored, or treated as if it exists) are acceptable and can be coded in the inpatient setting, when documented at the
time of discharge.
Thank you,
Matias Anne RN
CDI Specialist
Please use your independent medical judgment in providing your response.
[2023-05-25] MEDS: ATIVAN 1 MG PO (17:04)
[2023-05-25] MEDS: ARICEPT 10 MG PO (17:05)
[2023-05-25] MEDS: LOVENOX 40 MG SC (17:05)
[2023-05-25] MEDS: LIPITOR 10 MG PO (17:05)
--- NOTE | 2023-05-25 19:00 | PTCARENOTE ---
Assumed care. Patient alert to name, confused to place and month, fine tremors. V-paced in the 70's. New IV access placed in right forearm, labs collected. Oxygen 2 liters NC, denies SOB,lungs CTA. Purwick in place. Bed alarm is audible. Daughter at
bedside
--- NOTE | 2023-05-25 19:21 | PTCARENOTE ---
Pt noted to have vtach/vfib on tele monitor. BP 169/87, RN made Dr Lockhart aware. Received new orders, see MAR for details. Pt able to answer questions now, does not remember episode. Report given to SHAVONNE Orozco.
[2023-05-25] MEDS: CORDARONE 103 MG IV (19:35)
[2023-05-25 19:51] LABS: Blood Urea Nitrogen 16 mg/dl (7-17); Calcium 9.1 mg/dl (8.4-10.2); Carbon Dioxide 25 mmol/L (22-30); Chloride 100 mmol/L (98-107); Estimated Creatinine Clearance 53 ml/min; Glucose 116 mg/dl (70-99); Magnesium 1.9 mg/dl (1.6-2.3); Potassium 3.7 mmol/L (3.5-5.1); Sodium 132 mmol/L (135-145); eGFR > 60.00
[2023-05-25] MEDS: CORDARONE 518 MG IV (19:51)
[2023-05-25] MEDS: KCL 40 MEQ PO (21:08)
[2023-05-25] MEDS: MAGNESIUM SULFATE 102 GRAMS IV (21:29)
--- NOTE | 2023-05-25 21:40 | PTCARENOTE ---
Amino bolus infused and drip started per MAY. Replaced potassium and Magnesium bolus infusing. V-paced in the 70's, VSS
[2023-05-25] MEDS: KCL PO (21:44)
[2023-05-26] VITALS (7 sets, daily range): BP systolic 90–156; BP diastolic 54–74; BMI 38.2
[2023-05-26] MEDS: TOPROL XL PO (02:03)
[2023-05-26 04:41] LABS: Hematocrit 32.7 % (37.0-47.0); Hemoglobin 10.5 g/dL (12.0-16.0); Mean Corp Hgb Conc. 32.1 g/dL (33.0-37.0); Mean Corpuscular Hgb 28.3 pg (27.0-31.0); Mean Corpuscular Volume 88.1 fL (81.0-99.0); Mean Platelet Volume 9.9 fL (7.4-10.4); Platelet Count 214 10^3/uL (130-400); Red Blood Cell Count 3.71 10^6/uL (4.20-5.40); Red Cell Dist. Width 14.4 % (11.5-14.5); White Blood Cell Count 5.5 10^3/uL (4.8-10.8)
[2023-05-26 05:09] LABS: Blood Urea Nitrogen 14 mg/dl (7-17); Calcium 9.2 mg/dl (8.4-10.2); Carbon Dioxide 25 mmol/L (22-30); Chloride 100 mmol/L (98-107); Estimated Creatinine Clearance 60 ml/min; Glucose 128 mg/dl (70-99); Magnesium 2.5 mg/dl (1.6-2.3); Potassium 4.1 mmol/L (3.5-5.1); Sodium 134 mmol/L (135-145); eGFR > 60.00
[2023-05-26] MEDS: SYNTHROID 100 MCG PO (07:08)
[2023-05-26] MEDS: SPIRIVA RESPIMAT 2.5 MCG 2 PUFF INH (08:28)
[2023-05-26] MEDS: ADVAIR HFA 45/21 MCG INHALER 2 PUFF INH ×2 (08:28→20:51)
[2023-05-26] MEDS: CARAFATE 1 GRAM PO ×4 (08:31→22:37)
--- NOTE | 2023-05-26 08:59 | W.PN.HOSP.TC ---
Today's Communication/Plan
-
see A/P
Assessment / Plan
Assessment / Plan
82 y/o female with PMH of dementia, CHF, and recurrent episodes of ventricular tachycardia and ventricular fibrillation and has ICD/pacemaker who presented following an episode of change of level of consciousness. Patient is limited historian,
daughter at bedside provided most of history. Patient had a syncopal episode on DOA while sitting in a chair.� With the acute change, her daughter brought her to the emergency department for evaluation. Interrogation of her device revealed that
patient was shocked on DOA at 6:40pm, also the 2 days prior. She has had 9 treated VF episodes and 6 shocks since December. Daughter says patient drinks liquor daily and has encouraged patient to reduce alcohol consumption in attempt to reduce these
episodes. Patient denied to chest pain, SOB, palpitations, and lower extremity edema.
A/P:
# Recurrent VT/VF events requiring defibrillation
ICD interrogation revealed 9 episodes of VF treated with shock (most recent on DOA) and 13 episodes of NSVT
Pt again went into VT and was shocked overnight 3/
PO Amiodarone switched to drip, cont per Card
Aim to keep potassium greater than 4 and magnesium greater than 2
Echo: Normal left ventricular size, wall thickness and systolic function. No regional wall motion abnormalities are seen. Recovered EF to 55-60% (apparently was at 5% per daughter)
Cardiology following
# Chronic alcohol drinking
Cont alcohol withdrawal protocol for in case of withdrawal
# Chronic Systolic Heart Failure
# Essential Hypertension
Continue STRADDLE BUG DRIVER Lasix, Toprol, Spironolactone, Entresto, Jardiance
# Hyperlipidemia
Continue atorvastatin
# COPD, no acute exacerbation
Continue fluticasone/salmeterol and Spiriva
# Dementia
Pt is awake, cannot remember the President
Continue Aricept and Namenda
Monitor for mood/behavior changes during hospitalization
# Depression
Continue duloxetine
# Hypothyroidism
Continue levothyroxine
# GERD
Continue Protonix
DVT proph: Lovenox SQ
Code Status: Full Code
DW daughter at bedside
Anticipated Discharge: > 48 hours
Subjective/Interval History
-
Date of Service: May 26, 2023
Objective Data
-
Labs:
Laboratory Results
05/26/23
03:40
WBC 5.5
Hgb 10.5 L
Hct 32.7 L
Plt Count 214
Sodium 134 L
Potassium 4.1
Chloride 100
Carbon Dioxide 25
BUN 14
Creatinine 0.7
Glucose 128 H
Calcium 9.2
Vital Signs:
Vital Signs
Temp Pulse Resp BP Pulse Ox
36.7 C 75 18 116/59 96
05/26/23 07:26 05/26/23 08:37 05/26/23 08:37 05/26/23 03:32 05/26/23 08:37
I&O
05/25/23 05/26/23 05/27/23
06:59 06:59 06:59
Intake Total 960 / 960 400 / 400
Output Total 1450 / 1450 1100 / 1100
Balance -490 / -490 -700 / -700
Review of Systems
-
All other systems: Reviewed and negative
Physical Exam
-
General: Well Developed, Well Nourished, No Apparent Distress, Comfortable, Conversant and Obese; Negative Respiratory Distress
HEENT: Normocephalic, Atraumatic, Nose Appears Normal and Ears Appear Normal; Negative Oxygen
Respiratory: Clear to Auscultation and Non Labored Respirations; Negative Accessory Resp Muscle Use
Cardiac: Regular Rhythm and S1/S2
GI: Soft, Nontender, Nondistended and Normal Bowel Sounds
Skin: Warm and Dry
Neuro: Awake, Alert and Oriented
Psych: Calm and Intact Judgement/Insight
Data Reviewed
-
Labs: Labs Reviewed by me
--- NOTE | 2023-05-26 09:24 | W.CARD.DEVCH ---
Cardiac Device Check
-
Device: Implanted Cardioverter-Defibrillator
Monument Letterer: [employer] (LEARNING DEVELOPER-D)
Device interrogated by rep in room with me present. Device clock is off by 7 hours, device thinks it is 0100, but it is actually 1800. Device performs threshold testing at 0100 and it appears that VT/VF events happen at 0100, 0130, 0200, 0300.
Threshold testing if it cannot be performed at 0100 then it will try again at 0130, 0200 etc. Device reprogrammed to increase base rate to 80 and threshold testing turned off. VT event/threshold testing timing abnormality reported to [employer]
company by device rep.
--- NOTE | 2023-05-26 09:27 | W.PN.UPDATE ---
Update Note
Progress Note Update
RN informed that pt has mentioned about DNR DNI.
Code status checked with pt and daughter at bedside.
They confirmed that pt would like to be DNR DNI. Code status changed to DNR DNI.
--- NOTE | 2023-05-26 09:34 | CM ---
Reviewed chart. Mrs. Mahan was transferred to IVU. Met with Mrs. Mahan and her daughter to review discharge plans. Reviewed with them the recommendation of SNF/Rehab. Daughter states she received a text from [email or web address] who states
they reviewed Mrs. Mahan current functional level and feel SNF/Rehab would be best. Daughter has selected the following SNF/Rehab. to check on bed availability: [facility], [facility], [facility] and [facility]
Center. Telephone call to [facility] admission to make the referral. Sent referral. Telephone call to [facility] Admission. Left message. Sent referral. Telephone call to [facility] admissions. [facility] may have a bed if the person
who they offered the bed to yesterday declines the bed. Awaiting call back from [facility]. Sent the referral. Telephone call to [facility] Admission to make the referral. Left message. Sent referral. Awaiting call back to see if any of the
above SNF's can accept for short term SNF/Rehab. Medical work-up in progress. The discharge plan is to go to SNF/Rehab. if bed available when medically stable.
[2023-05-26] MEDS: NAMENDA 10 MG PO ×2 (09:53→17:04)
[2023-05-26] MEDS: ALDACTONE 12.5 MG PO (09:53)
[2023-05-26] MEDS: FOLVITE 1 MG PO (09:53)
[2023-05-26] MEDS: KCL 20 MEQ PO ×2 (09:54→16:57)
[2023-05-26] MEDS: JARDIANCE 10 MG PO (09:54)
[2023-05-26] MEDS: PROTONIX 40 MG PO (09:55)
[2023-05-26] MEDS: LASIX 20 MG PO (09:55)
[2023-05-26] MEDS: ENTRESTO 49 MG/51 MG 1 TAB PO ×2 (09:55→20:29)
[2023-05-26] MEDS: CYMBALTA DELAYED RELEASE 90 MG PO (09:56)
[2023-05-26] MEDS: LIDOCAINE 4% PATCH 1 PATCH TOPICAL (09:56)
[2023-05-26] MEDS: THIAMINE INJECTION 200 MG IV ×2 (09:57→20:29)
[2023-05-26] MEDS: PACERONE PO (10:09)
--- NOTE | 2023-05-26 10:56 | W.PN.CARDCBS ---
Addendum entered and electronically signed by Vianey Olivares MD 05/26/23 12:26:
Have reviewed device interrogation with [employer] customer account representative and also with electrophysiology. All of her VT/VF events are occurring in a program manner.
Arrhythmia is felt to be possibly triggered by capture management of her device.
After discussion at this time capture management was discontinued.
Amiodarone was discontinued
Okay to continue Aricept
Hold on cardiac catheterization for now and continue to follow
Would follow for arrhythmias over the weekend.
Will discuss with patient and her daughter.
Original Note:
Today's Communication / Plan
-
Stop amiodarone and avoid
Increase base heart rate on device to 80 bpm
Avoid QT prolonging medication and would like to stop Aricept defer to primary service for help on this.
Cardiac catheterization tomorrow
Impression / Plan
-
PCP: Dr. Bernardo Saavedra
Cardiology: Dr. SNEHA Randolph
Impression:
Recurrent VT/VF and ICD shocks (muchwhich now are polymorphic and degenerating quickly into VF)
shocked for VT 03/01/23, 03/15/24, 05/18/23, 05/19/23, 05/22/23 and 05/23/23. And now 05/25/2023
[employer] SERVICE AIDE-D
NICM EF previously as low as 30-35% by echo 09/2020, then improved to 50-55% by echo 11/17/21
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
Chronic HFimpEF
Daily ETOH
HTN
Hyperlipidemia
Mild short-term memory loss lives at assisted living.
Echo 11/17/21: EF 50-55%, apical septal wall motion abnormality from pacing, normal RV
Echo 05/25/2023: Normal left ventricular size, wall thickness and systolic function. No regional wall motion abnormalities are seen. LV ejection fraction is 55-60% . Mild tricuspid regurgitation.
Plan:
-Recurrent VT (polymorphic appears torsades recently) with appropriate ICD shocks. She had another event 05/25/2023 in the evening with polymorphic VT requiring ICD shock. In review of all device interrogations patient previously with ventricular
tachycardia requiring ATP and shock. She was started on amiodarone in February 2023 and since this time we have been seeing more polymorphic VT. It is possible after review with electrophysiology and mild QT prolongation that this is secondary to
amiodarone and the combination of Aricept.
Stop amiodarone and avoid
Increase base heart rate to 80 bpm, device interrogation
Continue to replete electrolytes, currently stable
If antiarrhythmic drug needed in the future consider mexiletine
Cardiac catheterization to rule out ischemia. By report nonobstructive disease in 2019 in [place] we are working on getting official report.
Would like to discontinue Aricept and will confer with primary service she has been on this a long time. Recently this past year Namenda added.
Plan was discussed with nursing at great length. Discussed with the EP and catheterization physicians. ICD in place.
Discussed with patient's daughter at great length and the patient and they agree with plan.
-Echocardiogram stable.
-Device therapy is active but patient currently DNR otherwise.
-Continue GDMT with Entresto 49/51 mg BID, Toprol XL 25 mg daily and spironolactone 12.5 mg daily. She has history of heart failure with improved ejection fraction nonischemic cardiomyopathy. Ejection fraction has been normal.
-Cont usual dose of Lasix 20 mg PO daily. No evidence of acute HF.
-Short-term memory loss noted she lives at assisted living and is able to be involved with decision making.
-Patient came to [facility] after a witnessed ICD shock for VT and cardiology has been consulted. Patient previously lived in [place] and moved locally to live at [facility] around 04/2021. Prior to following with our office the patient had a h/o NICM
with nonobstructive CAD by cath in 2019 in [place]. Patient had a [employer] SERVICE AIDE-D placed and her EF was as low as 10-15% at that time, but by most recent echo 11/17/21 her EF had improved to 50-55%. CM regimen includes Toprol XL and spironolactone.
Patient then had an ICD shock 03/01/23, but according to patient's daughter and the [facility] care staff the patient felt fine. Patient was loaded with amiodarone 200 mg BID at that time. Patient then had another episode of VT that terminated with ATP
on 03/13/23 and then VT requiring ICD shock on 03/15/24. Patient had her amiodarone increased back to BID. Patient now with additional ICD shocks 05/18/23, 05/19/23, 05/22/23 and 05/23/23 despite amiodarone load and ongoing 200 mg daily dosing. Potassium
3.8 on admission and magnesium 2.0. Troponin undetectable x1. Patient lives in the [facility] section of [facility] and has a group of friends, her daughter helps with making medical decisions.
Progress Note - Nurse Obgyn
Subjective
Date of Service: May 26, 2023
No complaints currently. Denies chest pain and palpitations.
Objective
Labs:
05/26/23 03:40
05/26/23 03:40
Labs
Hgb 10.5 g/dL (12.0-16.0) L 05/26/23 03:40
Hct 32.7 % (37.0-47.0) L 05/26/23 03:40
Plt Count 214 10^3/uL (130-400) 05/26/23 03:40
PT 13.2 Sec (11.4-14.6) 05/24/23 05:43
INR 1.02 05/24/23 05:43
APTT 29.7 Sec (23.4-35.0) 05/24/23 05:43
Sodium 134 mmol/L (135-145) L 05/26/23 03:40
Potassium 4.1 mmol/L (3.5-5.1) 05/26/23 03:40
BUN 14 mg/dl (7-17) 05/26/23 03:40
Creatinine 0.7 mg/dL (0.6-1.0) 05/26/23 03:40
Glucose 128 mg/dl (70-99) H 05/26/23 03:40
Troponins
05/24/23 05/24/23 05/25/23
10:44 16:34 00:45
Troponin I < 0.012 < 0.012 Cancelled
Vital Signs and I&O:
Vital Signs
Temp Pulse Resp BP Pulse Ox
98.1 F 75 18 116/59 96
05/26/23 07:26 05/26/23 08:37 05/26/23 08:37 05/26/23 03:32 05/26/23 08:37
Vital Signs
Temp Pulse Resp BP Pulse Ox
98.1 F 75 18 116/59 96
05/26/23 07:26 05/26/23 08:37 05/26/23 08:37 05/26/23 03:32 05/26/23 08:37
Intake & Output
05/24/23 05/25/23 05/26/23 05/27/23
06:59 06:59 06:59 06:59
Intake Total 200 / 200 960 / 960 400 / 400
Output Total 230 / 230 1450 / 1450 1100 / 1100
Balance -30 / -30 -490 / -490 -700 / -700
Physical Exam
Physical Exam
General: Well developed, well nourished in NAD.
Heart: Non displaced PMI, RRR, no murmurs, No S3, S4, no rubs.
Lungs: Clear to auscultation bilaterally, no wheeze, rhonchi, rubs bilaterally,
normal expiratory phase.
Abdomen: Normal bowel sounds, soft, non-tender, non-distended.
Extremities: No clubbing, cyanosis or edema bilaterally.
Neuro: Grossly nonfocal, awake, alert and oriented x3.
[2023-05-26] MEDS: ARICEPT 10 MG PO (16:56)
[2023-05-26] MEDS: LIPITOR 10 MG PO (16:57)
[2023-05-26] MEDS: LOVENOX 40 MG SC (16:58)
[2023-05-26] MEDS: TOPROL XL 25 MG PO (22:37)
[2023-05-27] VITALS (7 sets, daily range): BP systolic 103–144; BP diastolic 64–103; BMI 38.1
--- NOTE | 2023-05-27 00:25 | PTCARENOTE ---
Patient more awake and alert today, better spirits. AV paced HR in the 80's. Oxygen removed 93% on room air. Call carrera in reach
[2023-05-27 03:51] LABS: Hematocrit 34.3 % (37.0-47.0); Hemoglobin 10.8 g/dL (12.0-16.0); Mean Corp Hgb Conc. 31.5 g/dL (33.0-37.0); Mean Corpuscular Hgb 28.6 pg (27.0-31.0); Mean Corpuscular Volume 90.7 fL (81.0-99.0); Mean Platelet Volume 9.9 fL (7.4-10.4); Platelet Count 238 10^3/uL (130-400); Red Blood Cell Count 3.78 10^6/uL (4.20-5.40); Red Cell Dist. Width 14.4 % (11.5-14.5); White Blood Cell Count 6.2 10^3/uL (4.8-10.8)
[2023-05-27] MEDS: DESENEX/MITRAZOL/ZEASORB 1 APPLIC TOPICAL ×3 (04:00→19:56)
[2023-05-27 04:12] LABS: Blood Urea Nitrogen 15 mg/dl (7-17); Calcium 9.2 mg/dl (8.4-10.2); Carbon Dioxide 23 mmol/L (22-30); Chloride 103 mmol/L (98-107); Estimated Creatinine Clearance 53 ml/min; Glucose 119 mg/dl (70-99); Magnesium 2.5 mg/dl (1.6-2.3); Potassium 4.8 mmol/L (3.5-5.1); Sodium 132 mmol/L (135-145); eGFR > 60.00
[2023-05-27] MEDS: SYNTHROID 100 MCG PO (05:49)
[2023-05-27] MEDS: ADVAIR HFA 45/21 MCG INHALER 2 PUFF INH ×2 (07:15→20:29)
[2023-05-27] MEDS: SPIRIVA RESPIMAT 2.5 MCG 2 PUFF INH (07:15)
--- NOTE | 2023-05-27 08:59 | W.PN.HOSP.TC ---
Today's Communication/Plan
-
see A/P
Assessment / Plan
Assessment / Plan
82 y/o female with PMH of dementia, CHF, and recurrent episodes of ventricular tachycardia and ventricular fibrillation and has ICD/pacemaker who presented following an episode of change of level of consciousness. Patient is limited historian,
daughter at bedside provided most of history. Patient had a syncopal episode on DOA while sitting in a chair.� With the acute change, her daughter brought her to the emergency department for evaluation. Interrogation of her device revealed that
patient was shocked on DOA at 6:40pm, also the 2 days prior. She has had 9 treated VF episodes and 6 shocks since December. Daughter says patient drinks liquor daily and has encouraged patient to reduce alcohol consumption in attempt to reduce these
episodes. Patient denied to chest pain, SOB, palpitations, and lower extremity edema.
A/P:
# Recurrent VT/VF events requiring defibrillation
ICD interrogation revealed 9 episodes of VF treated with shock (most recent on DOA) and 13 episodes of NSVT
Apparently all of her VT/VF events are occurring in a program manner. Arrhythmia is felt to be possibly triggered by capture management of her device. Capture management was discontinued.
IV /PO Amiodarone was discontinued by card
Okay to continue Aricept
Hold on cardiac catheterization for now and continue to follow
Follow for arrhythmias over the weekend.
Echo: Normal left ventricular size, wall thickness and systolic function. No regional wall motion abnormalities are seen. Recovered EF to 55-60% (apparently was at 5% per daughter)
Cardiology following
# Chronic alcohol drinking
Cont alcohol withdrawal protocol for in case of withdrawal
# Chronic Systolic Heart Failure
# Essential Hypertension
Continue STACKING MACHINE OPERATOR Lasix, Toprol, Spironolactone, Entresto, Jardiance
# Hyperlipidemia
Continue atorvastatin
# COPD, no acute exacerbation
Continue fluticasone/salmeterol and Spiriva
# Dementia
Pt is awake, cannot remember the President
Continue Aricept and Namenda
Monitor for mood/behavior changes during hospitalization
# Depression
Continue duloxetine
# Hypothyroidism
Continue levothyroxine
# GERD
Continue Protonix
DVT proph: Lovenox SQ
Code Status: Full Code
DW RN
Anticipated Discharge: > 48 hours
Subjective/Interval History
-
Date of Service: May 27, 2023
Objective Data
-
Labs:
Laboratory Results
05/27/23
03:35
WBC 6.2
Hgb 10.8 L
Hct 34.3 L
Plt Count 238
Sodium 132 L
Potassium 4.8
Chloride 103
Carbon Dioxide 23
BUN 15
Creatinine 0.8
Glucose 119 H
Calcium 9.2
Vital Signs:
Vital Signs
Temp Pulse Resp BP Pulse Ox
36.6 C 80 18 103/69 95
05/27/23 07:24 05/27/23 07:27 05/27/23 07:24 05/27/23 07:27 05/27/23 07:24
I&O
05/26/23 05/27/23 05/28/23
06:59 06:59 06:59
Intake Total 400 / 400 240 / 240
Output Total 1100 / 1100 2049
Balance -700 / -700 -1810 / -1810
Review of Systems
-
All other systems: Reviewed and negative
Physical Exam
-
General: Well Developed, Well Nourished, No Apparent Distress, Comfortable, Conversant and Obese; Negative Respiratory Distress
HEENT: Normocephalic, Atraumatic, Nose Appears Normal and Ears Appear Normal; Negative Oxygen
Respiratory: Clear to Auscultation and Non Labored Respirations; Negative Accessory Resp Muscle Use
Cardiac: Regular Rhythm and S1/S2
GI: Soft, Nontender, Nondistended and Normal Bowel Sounds
Skin: Warm and Dry
Neuro: Awake, Alert and Oriented
Psych: Calm and Intact Judgement/Insight
Data Reviewed
-
Labs: Labs Reviewed by me
[2023-05-27] MEDS: CARAFATE 1 GRAM PO ×4 (09:03→22:07)
[2023-05-27] MEDS: CYMBALTA DELAYED RELEASE 90 MG PO (09:41)
[2023-05-27] MEDS: ALDACTONE 12.5 MG PO (09:42)
[2023-05-27] MEDS: VITAMIN B1 100 MG PO ×2 (09:42→19:56)
[2023-05-27] MEDS: ENTRESTO 49 MG/51 MG 1 TAB PO ×2 (09:42→19:55)
[2023-05-27] MEDS: LASIX 20 MG PO (09:42)
[2023-05-27] MEDS: PROTONIX 40 MG PO (09:42)
[2023-05-27] MEDS: FOLVITE 1 MG PO (09:43)
[2023-05-27] MEDS: JARDIANCE 10 MG PO (09:43)
[2023-05-27] MEDS: NAMENDA 10 MG PO ×2 (09:43→17:06)
[2023-05-27] MEDS: KCL 20 MEQ PO ×2 (09:44→18:13)
[2023-05-27] MEDS: LIDOCAINE 4% PATCH 1 PATCH TOPICAL (09:45)
--- NOTE | 2023-05-27 10:32 | W.PN.CARDCBS ---
Addendum entered and electronically signed by Doni Conn MD 05/27/23 15:26:
I saw and examined the patient.
The SALES OPERATIONS DIRECTOR or PA's note was reviewed and I agree with the note.
Comment: General: Well developed, well nourished in NAD.
Neck: Supple, no JVD, HJR, carotids +2 B/L, no bruits bilaterally.
Heart: Non displaced PMI, RRR, no murmurs, No S3, S4, no rubs.
Lungs: Scattered rhonchi at the bases
Extremities: No clubbing, cyanosis or edema bilaterally.
Neuro: Grossly nonfocal, awake, alert and oriented x3.
No further VT/VF noted on telemetry. Continue to follow off of amiodarone. Discussed with daughter by phone as well. Daughter feels uncomfortable with her going home and wishes to her to be reserved over the weekend.
Original Note:
Today's Communication / Plan
-
amio discontinued
capture mgmt feature turned off 05/25
av paced on tele overnight, follow
Impression / Plan
-
PCP: Dr. Bernardo Saavedra
Cardiology: Dr. SNEHA Randolph
Impression:
Recurrent VT/VF and ICD shocks (muchwhich now are polymorphic and degenerating quickly into VF)
shocked for VT 03/01/23, 03/15/24, 05/18/23, 05/19/23, 05/22/23 and 05/23/23. And now 05/25/2023
[employer]onic BOTTOM SANDER-D
NICM EF previously as low as 30-35% by echo 09/2020, then improved to 50-55% by echo 11/17/21
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
Chronic HFimpEF
Daily ETOH
HTN
Hyperlipidemia
Mild short-term memory loss lives at assisted living.
Echo 11/17/21: EF 50-55%, apical septal wall motion abnormality from pacing, normal RV
Echo 05/25/2023: Normal left ventricular size, wall thickness and systolic function. No regional wall motion abnormalities are seen. LV ejection fraction is 55-60% . Mild tricuspid regurgitation.
Plan:
-She presented with recurrent polymorphic VT/torsades with appropriate ICD shocks. All of her VT/VF events were noted to occur in a program manner. Arrhythmia felt to be triggered by capture management of her device and dysfunction was
discontinued 05/26/23
-Amiodarone also discontinued as episodes appear to have started after amio initiated
-No VT overnight. Remains in AV paced rhythm. continue to follow on telemetry
-Continue Toprol, Entresto, spironolactone given history of nonischemic cardiomyopathy with subsequent recovery in EF. EF 55-60% by echo 05/25/23.
-Cont usual dose of Lasix 20 mg PO daily. No evidence of acute HF.
-Device therapy is active but patient currently DNR otherwise.
-Short-term memory loss noted she lives at assisted living and is able to be involved with decision making.
-Patient came to [facility] after a witnessed ICD shock for VT and cardiology has been consulted. Patient previously lived in [place] and moved locally to live at [facility] around 04/2021. Prior to following with our office the patient had a h/o NICM
with nonobstructive CAD by cath in 2019 in [place]. Patient had a [employer] BOTTOM SANDER-D placed and her EF was as low as 10-15% at that time, but by most recent echo 11/17/21 her EF had improved to 50-55%. CM regimen includes Toprol XL and spironolactone.
Patient then had an ICD shock 03/01/23, but according to patient's daughter and the memory care staff the patient felt fine. Patient was loaded with amiodarone 200 mg BID at that time. Patient then had another episode of VT that terminated with ATP
on 03/13/23 and then VT requiring ICD shock on 03/15/24. Patient had her amiodarone increased back to BID. Patient now with additional ICD shocks 05/18/23, 05/19/23, 05/22/23 and 05/23/23 despite amiodarone load and ongoing 200 mg daily dosing. Potassium
3.8 on admission and magnesium 2.0. Troponin undetectable x1. Patient lives in the memory care section of [facility] and has a group of friends, her daughter helps with making medical decisions.
Progress Note - Pigment Presser
Subjective
Date of Service: May 27, 2023
no complaints this morning.
Objective
Labs:
05/27/23 03:35
05/27/23 03:35
Labs
Hgb 10.8 g/dL (12.0-16.0) L 05/27/23 03:35
Hct 34.3 % (37.0-47.0) L 05/27/23 03:35
Plt Count 238 10^3/uL (130-400) 05/27/23 03:35
PT 13.2 Sec (11.4-14.6) 05/24/23 05:43
INR 1.02 05/24/23 05:43
APTT 29.7 Sec (23.4-35.0) 05/24/23 05:43
Sodium 132 mmol/L (135-145) L 05/27/23 03:35
Potassium 4.8 mmol/L (3.5-5.1) 05/27/23 03:35
BUN 15 mg/dl (7-17) 05/27/23 03:35
Creatinine 0.8 mg/dL (0.6-1.0) 05/27/23 03:35
Glucose 119 mg/dl (70-99) H 05/27/23 03:35
Troponins
05/24/23 05/24/23 05/25/23
10:44 16:34 00:45
Troponin I < 0.012 < 0.012 Cancelled
Vital Signs and I&O:
Vital Signs
Temp Pulse Resp BP Pulse Ox
97.9 F 80 18 103/69 95
05/27/23 07:24 05/27/23 07:27 05/27/23 07:24 05/27/23 07:27 05/27/23 07:24
Vital Signs
Temp Pulse Resp BP Pulse Ox
97.9 F 80 18 103/69 95
05/27/23 07:24 05/27/23 07:27 05/27/23 07:24 05/27/23 07:27 05/27/23 07:24
Intake & Output
05/25/23 05/26/23 05/27/23 05/28/23
07:59 07:59 07:59 07:59
Intake Total 960 / 960 400 / 400 240 / 240
Output Total 1450 / 1450 1100 / 1100 2049 / 2049
Balance -490 / -490 -700 / -700 -1810 / -1810
Physical Exam
Physical Exam
GEN: No distress, awake, alert, oriented x3
HEENT: supple, anicteric, mmm, eomi
LUNGS: CTA B/L, no wheezes/rales
CV: Reg, S1/S2, no murmur
ABD: soft, BS+, NT/ND
EXT: No cyanosis, clubbing, edema
NEURO: Gross non-focal
SKIN: Warm, pink, dry. No rash
--- NOTE | 2023-05-27 14:24 | CM ---
Reviewed chart. Met with Mrs. Mahan and her daughter to review discharge plans. [facility] and [facility] maybe able to offer a bed early next week. Daughter states [facility] [place] her back. Telephone call to
[facility] to see what they will need to see if they can take her directly back. Will need updated physical and occupational therapy evaluations to see to [facility] to review. Medical work-up in progress. The
discharge plan is to go to SNF/Rehab. versus return back to [facility] with [facility] services when medically stable.
[2023-05-27 14:53] LABS: Glucose - Point of Care 138 mg/dl (70-99)
--- NOTE | 2023-05-27 14:58 | W.PN.UPDATE ---
Update Note
Progress Note Update
CTSP as c/o B/L facial and hand tingling as well as some diaphoresis noted by nursing staff. Telemetry reviewed, remains in AV paced rhythm, no arrhythmias noted. Blood pressure stable, pulse ox stable at 97% on room air, blood sugar stable at
138. equal strength B/L, no focal motor or sensory deficits noted on exam. Supplemental oxygen provided for comfort. Patient believes it was secondary to the Diet Coke she drank with lunch, she thinks she had this feeling before with drinking soda.
Provided reassurance. Patient reported symptoms improving. Will monitor. Discussed with nursing as well as daughter at bedside.
--- NOTE | 2023-05-27 15:14 | PTCARENOTE ---
Pt had episode of feeling tingling in bilat arms and face. Assisted back to bed, BP 134/74, pt A-V paced at 80 on monitor. O2 sat 96% on RA. Pt appears slightly tachypneic but denies SOB, RR=22. Neuro check WNL. Pt has equal and strong bilat arm and
leg strength. Her smile is slightly assymetrical but that is her baseline, daughter is at bedside and confirms that. Accucheck WNL. Ama Muniz aware and came to see Pt. Pt thinks it may be anxiety or the fact that she just drank a diet coke.
[2023-05-27] MEDS: MAALOX 30 ML PO (16:28)
[2023-05-27] MEDS: ARICEPT 10 MG PO (17:06)
[2023-05-27] MEDS: LOVENOX 40 MG SC (18:13)
[2023-05-27] MEDS: LIPITOR 10 MG PO (18:13)
[2023-05-27] MEDS: TOPROL XL 25 MG PO (22:06)
[2023-05-28] VITALS (7 sets, daily range): BP systolic 107–168; BP diastolic 58–91; PULSE 80; O2SAT 96; BMI 37.5
--- NOTE | 2023-05-28 00:29 | PTCARENOTE ---
Pt.'s monitor alarming pacer not capturing, rate down to 73, multiple times tonight (baseline rhythm AV paced at 80). Pt. asymptomatic, VSS, resting in bed quietly. Tele strip shown to TRINITY Squires, who confirmed that pacer is capturing but QRS
morphology differs (smaller), monitor not reading QRS complex. Otherwise pt. states she feels well, gets OOB and ambulates with minimal assist (bed alarm as pt. is forgetful).
[2023-05-28 03:57] LABS: Hematocrit 36.7 % (37.0-47.0); Hemoglobin 11.7 g/dL (12.0-16.0); Mean Corp Hgb Conc. 31.9 g/dL (33.0-37.0); Mean Corpuscular Hgb 28.7 pg (27.0-31.0); Mean Corpuscular Volume 90.2 fL (81.0-99.0); Mean Platelet Volume 9.8 fL (7.4-10.4); Platelet Count 268 10^3/uL (130-400); Red Blood Cell Count 4.07 10^6/uL (4.20-5.40); Red Cell Dist. Width 14.3 % (11.5-14.5); White Blood Cell Count 10.6 10^3/uL (4.8-10.8)
[2023-05-28 04:34] LABS: Blood Urea Nitrogen 19 mg/dl (7-17); Calcium 10.2 mg/dl (8.4-10.2); Carbon Dioxide 26 mmol/L (22-30); Chloride 95 mmol/L (98-107); Estimated Creatinine Clearance 52 ml/min; Glucose 118 mg/dl (70-99); Magnesium 2.5 mg/dl (1.6-2.3); Potassium 4.2 mmol/L (3.5-5.1); Sodium 133 mmol/L (135-145); eGFR > 60.00
[2023-05-28] MEDS: SYNTHROID 100 MCG PO (07:36)
[2023-05-28] MEDS: CARAFATE 1 GRAM PO ×2 (07:37→11:45)
--- NOTE | 2023-05-28 08:29 | W.PN.CARDCBS ---
Addendum entered and electronically signed by Doni Conn MD 05/28/23 12:02:
I saw and examined the patient.
The RETAIL ASSISTANT STORE MANAGER or PA's note was reviewed and I agree with the note.
Comment: General: Well developed, well nourished in NAD.
Neck: Supple, no JVD, HJR, carotids +2 B/L, no bruits bilaterally.
Heart: Non displaced PMI, RRR, no murmurs, No S3, S4, no rubs.
Lungs: Clear to auscultation bilaterally, no wheeze, rhonchi, rubs bilaterally,
normal expiratory phase.
Extremities: No clubbing, cyanosis or edema bilaterally.
Neuro: Grossly nonfocal, awake, alert and oriented x3.
No further VT. Continue to follow on telemetry. Discussed with nursing and primary service
Original Note:
Today's Communication / Plan
-
No recurrence of VT overnight. Follow on telemetry
Impression / Plan
-
PCP: Dr. Bernardo Saavedra
Cardiology: Dr. SNEHA Randolph
Impression:
Recurrent VT/VF and ICD shocks (muchwhich now are polymorphic and degenerating quickly into VF)
shocked for VT 03/01/23, 03/15/24, 05/18/23, 05/19/23, 05/22/23 and 05/23/23. And now 05/25/2023
Medtronic KILN MECHANIC-D
NICM EF previously as low as 30-35% by echo 09/2020, then improved to 50-55% by echo 11/17/21
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
Chronic HFimpEF
Daily ETOH
HTN
Hyperlipidemia
Mild short-term memory loss lives at assisted living.
Echo 11/17/21: EF 50-55%, apical septal wall motion abnormality from pacing, normal RV
Echo 05/25/2023: Normal left ventricular size, wall thickness and systolic function. No regional wall motion abnormalities are seen. LV ejection fraction is 55-60% . Mild tricuspid regurgitation.
Plan:
-She presented with recurrent polymorphic VT/torsades with appropriate ICD shocks. All of her VT/VF events were noted to occur in a program manner. Arrhythmia felt to be triggered by capture management of her device and dysfunction was
discontinued 05/26/23
-Amiodarone also discontinued as episodes appear to have started after amio initiated
-remains without VT overnight. in AV paced rhythm. continue to follow on telemetry
-K/mag stable
-Also without any recurrence of facial/hand tingling overnight.
-Continue Toprol, Entresto, spironolactone given history of nonischemic cardiomyopathy with subsequent recovery in EF. EF 55-60% by echo 05/25/23.
-Cont usual dose of Lasix 20 mg PO daily. No evidence of acute HF.
-Device therapy is active but patient currently DNR otherwise.
-Short-term memory loss noted she lives at assisted living and is able to be involved with decision making.
-d/w nursing
-[facility] after a witnessed ICD shock for VT and cardiology has been consulted. Patient previously lived in [place] and moved locally to live at [facility] around 04/2021. Prior to following with our office the patient had a h/o NICM
with nonobstructive CAD by cath in 2019 in [place]. Patient had a Medtronic KILN MECHANIC-D placed and her EF was as low as 10-15% at that time, but by most recent echo 11/17/21 her EF had improved to 50-55%. CM regimen includes Toprol XL and spironolactone.
Patient then had an ICD shock 03/01/23, but according to patient's daughter and the memory care staff the patient felt fine. Patient was loaded with amiodarone 200 mg BID at that time. Patient then had another episode of VT that terminated with ATP
on 03/13/23 and then VT requiring ICD shock on 03/15/24. Patient had her amiodarone increased back to BID. Patient now with additional ICD shocks 05/18/23, 05/19/23, 05/22/23 and 05/23/23 despite amiodarone load and ongoing 200 mg daily dosing. Potassium
3.8 on admission and magnesium 2.0. Troponin undetectable x1. Patient lives in the memory care section of [facility] and has a group of friends, her daughter helps with making medical decisions.
Progress Note - Automotive Detailer
Subjective
Date of Service: May 28, 2023
No issues reported by patient overnight.
Objective
Labs:
05/28/23 03:40
05/28/23 03:40
Labs
Hgb 11.7 g/dL (12.0-16.0) L 05/28/23 03:40
Hct 36.7 % (37.0-47.0) L 05/28/23 03:40
Plt Count 268 10^3/uL (130-400) 05/28/23 03:40
PT 13.2 Sec (11.4-14.6) 05/24/23 05:43
INR 1.02 05/24/23 05:43
APTT 29.7 Sec (23.4-35.0) 05/24/23 05:43
Sodium 133 mmol/L (135-145) L 05/28/23 03:40
Potassium 4.2 mmol/L (3.5-5.1) 05/28/23 03:40
BUN 19 mg/dl (7-17) H 05/28/23 03:40
Creatinine 0.8 mg/dL (0.6-1.0) 05/28/23 03:40
Glucose 118 mg/dl (70-99) H 05/28/23 03:40
Vital Signs and I&O:
Vital Signs
Temp Pulse Resp BP Pulse Ox
98.1 F 80 20 134/91 96
05/28/23 07:31 05/28/23 03:37 05/28/23 07:31 05/28/23 03:37 05/28/23 07:31
Vital Signs
Temp Pulse Resp BP Pulse Ox
98.1 F 80 20 134/91 96
05/28/23 07:31 05/28/23 03:37 05/28/23 07:31 05/28/23 03:37 05/28/23 07:31
Intake & Output
05/26/23 05/27/23 05/28/23 05/29/23
07:59 07:59 07:59 08:59
Intake Total 400 / 400 240 / 240
Output Total 1100 / 1100 0 / 2049 200 / 200
Balance -700 / -700 -1810 / -1810 -200 / -200
Physical Exam
Physical Exam
GEN: No distress, awake, alert, oriented x3. Sitting in chair
HEENT: supple, anicteric, mmm, eomi
LUNGS: CTA B/L, no wheezes/rales
CV: Reg, S1/S2, no murmur
ABD: soft, BS+, NT/ND
EXT: No cyanosis, clubbing, edema
NEURO: Gross non-focal
SKIN: Warm, pink, dry. No rash
[2023-05-28] MEDS: PROTONIX 40 MG PO (08:51)
[2023-05-28] MEDS: VITAMIN B1 100 MG PO (08:51)
[2023-05-28] MEDS: KCL 20 MEQ PO (08:51)
[2023-05-28] MEDS: ALDACTONE 12.5 MG PO (08:51)
[2023-05-28] MEDS: FOLVITE 1 MG PO (08:51)
[2023-05-28] MEDS: CYMBALTA DELAYED RELEASE 90 MG PO (08:52)
[2023-05-28] MEDS: JARDIANCE 10 MG PO (08:52)
[2023-05-28] MEDS: ENTRESTO 49 MG/51 MG 1 TAB PO (08:52)
[2023-05-28] MEDS: LIDOCAINE 4% PATCH TOPICAL (08:53)
[2023-05-28] MEDS: LASIX 20 MG PO (08:54)
[2023-05-28] MEDS: SPIRIVA RESPIMAT 2.5 MCG 2 PUFF INH (08:55)
[2023-05-28] MEDS: DESENEX/MITRAZOL/ZEASORB 1 APPLIC TOPICAL (08:55)
[2023-05-28] MEDS: ADVAIR HFA 45/21 MCG INHALER 2 PUFF INH (08:56)
[2023-05-28] MEDS: NAMENDA 10 MG PO (08:59)
--- NOTE | 2023-05-28 10:25 | W.PN.HOSP.TC ---
Addendum entered and electronically signed by Odalis Donnelly MD 05/28/23 16:03:
total DC time 40 min
Original Note:
Today's Communication/Plan
-
PT OT eval prior to discharge, tentatively today
Assessment / Plan
Assessment / Plan
82 y/o female with PMH of dementia, CHF, and recurrent episodes of ventricular tachycardia and ventricular fibrillation and has ICD/pacemaker who presented following an episode of change of level of consciousness. Patient is limited historian,
daughter at bedside provided most of history. Patient had a syncopal episode on DOA while sitting in a chair.� With the acute change, her daughter brought her to the emergency department for evaluation. Interrogation of her device revealed that
patient was shocked on DOA at 6:40pm, also the 2 days prior. She has had 9 treated VF episodes and 6 shocks since December. Daughter says patient drinks liquor daily and has encouraged patient to reduce alcohol consumption in attempt to reduce these
episodes. Patient denied to chest pain, SOB, palpitations, and lower extremity edema.
A/P:
# Recurrent VT/VF events requiring defibrillation
ICD interrogation revealed 9 episodes of VF treated with shock (most recent on DOA) and 13 episodes of NSVT
Apparently all of her VT/VF events are occurring in a program manner. Arrhythmia was felt to be possibly triggered by capture management of her device. Capture management was discontinued.
IV /PO Amiodarone was discontinued by card
NO further plan for cardiac catheterization.
No further arrhythmia.
Okay to continue Aricept.
Echo: Normal left ventricular size, wall thickness and systolic function. No regional wall motion abnormalities are seen. Recovered EF to 55-60% (apparently was at 5% per daughter)
Cardiology following
PT OT eval prior to discharge, tentatively today
# Chronic alcohol drinking
Cont alcohol withdrawal protocol for in case of withdrawal
# Chronic Systolic Heart Failure
# Essential Hypertension
Continue PHARMACIST APPRENTICE Lasix, Toprol, Spironolactone, Entresto, Jardiance
# Hyperlipidemia
Continue atorvastatin
# COPD, no acute exacerbation
Continue fluticasone/salmeterol and Spiriva
# Dementia
Pt is awake, cannot remember the President
Continue Aricept and Namenda
Monitor for mood/behavior changes during hospitalization
# Depression
Continue duloxetine
# Hypothyroidism
Continue levothyroxine
# GERD
Continue Protonix
DVT proph: Lovenox SQ
Code Status: Full Code
DW RN
DW daughter on the phone
Anticipated Discharge: Within 24 hours
Subjective/Interval History
-
Date of Service: May 28, 2023
Objective Data
-
Labs:
Laboratory Results
05/28/23
03:40
WBC 10.6
Hgb 11.7 L
Hct 36.7 L
Plt Count 268
Sodium 133 L
Potassium 4.2
Chloride 95 L
Carbon Dioxide 26
BUN 19 H
Creatinine 0.8
Glucose 118 H
Calcium 10.2
Vital Signs:
Vital Signs
Temp Pulse Resp BP Pulse Ox
36.7 C 80 16 134/91 96
05/28/23 07:31 05/28/23 08:59 05/28/23 08:59 05/28/23 03:37 05/28/23 07:31
I&O
05/27/23 05/28/23 05/29/23
06:59 06:59 07:59
Intake Total 240 / 240
Output Total 2049 200 / 200
Balance -1810 / -1810 -200 / -200
Review of Systems
-
All other systems: Reviewed and negative
Physical Exam
-
General: Well Developed, Well Nourished, No Apparent Distress, Comfortable, Conversant and Obese; Negative Respiratory Distress
HEENT: Normocephalic, Atraumatic, Nose Appears Normal and Ears Appear Normal; Negative Oxygen
Respiratory: Clear to Auscultation and Non Labored Respirations; Negative Accessory Resp Muscle Use
Cardiac: Regular Rhythm and S1/S2
GI: Soft, Nontender, Nondistended and Normal Bowel Sounds
Skin: Warm and Dry
Neuro: Awake, Alert and Oriented
Psych: Calm and Intact Judgement/Insight
Data Reviewed
-
Labs: Labs Reviewed by me
--- NOTE | 2023-05-28 14:34 | CM ---
Reviewed chart. . Received message from nursing Mrs. Mahan is stable for transfer back to [facility] Today. Telephone call to [facility] and spoke with Monika. Reviewed her therapy notes. Monika states she can return. Telephone call
to [facility] to updated the with discharge date. Unit sec. to fax discharge instructions. Met with Mrs. Mahan and her daughter to update them. Medical work-up in progress. The discharge plan is to return to [facility]
with resumption of [facility] when medically stable.
--- NOTE | 2023-05-28 15:25 | PTCARENOTE ---
Pt received this am with no c/o. Pt stated she had a good nights sleep. OOB to the bathroom independently. Gait steady. Pt OOB to the chair all morning. Pt walked with PT in the hallway. Pt discharged back to [facility] with her daughter. Report
called to facility. Discharge instructions given and reviewed with pt and her daughter with good understanding.
--- NOTE | 2023-05-28 15:56 | W.DCSUMMARY ---
Discharge Summary
Discharge Data
Date of Admission: 05/23/23
Date of Discharge: 05/28/23
-
Pending Results: No
Hospital Course
Principal Diagnosis:
Recurrent ventricular tachycardia (VT) /ventricular fibrillation (VF) events requiring defibrillation. Apparently all of her VT/VF events were occurring in a program manner.�Arrhythmia was felt to be possibly triggered by capture management of her
device and capture management was discontinued.
Chronic Diagnoses:�
Chronic alcohol drinking
Chronic Systolic Heart Failure
Essential Hypertension
Hyperlipidemia
COPD, no acute exacerbation
Dementia
Depression, on duloxetine
Hypothyroidism, on levothyroxine
GERD
Consultations:�
Cardiology
Procedures:�
None
Clinical course:�
This is a 82-year-old female with past medical history as stated above, who presented with recurrent episodes of ventricular tachycardia and ventricular fibrillation with ICD shocks.
Problem 1:
Recurrent VT/VF events requiring defibrillation.
Apparently all of her VT/VF events are occurring in a program manner.�Arrhythmia was felt to be possibly triggered by capture management of her device. Capture management was discontinued.
She has had no subsequent arrhythmia following discontinuation of capture management.
Amiodarone both IV and p.o. were discontinued.
Of note, her Echo was unrevealing: Normal left ventricular size, wall thickness and systolic function. No regional wall motion abnormalities are seen. Recovered EF to 55-60% (apparently was at 5% per daughter)
She can follow-up with cardiology outpatient.
As for the rest of her medical problems, they were stable during her hospital stay.
Discharge Plan
-
Patient Disposition: Fpc/SNF
Discharge Diagnosis/Procedures: Recurrent ventricular tachycardia possibly triggered by capture management of her device- capture management was discontinued and Arrhythmia resolved
Condition: Fair
Diet: As tolerated, Low Fat, Low Cholesterol and Low Sodium
Activity: As tolerated
Driving Restrictions: As prior to admission
Blood Work: BMP in 1 week with result to your PCP
Referrals:
[facility] [Other] ( )
[facility] [Other]
Neelima Abdalla CRNP [Specified Professional Personl] - 06/09/23 11:00 am (You have a cardiology follow-up appointment at the [place] office with Dr. Randolph's nurse practitioner, Neelima. Please call with questions)
Bernardo Saavedra MD [Family Provider] - in less than 1 week
Prescriptions:
Continued
atorvastatin 10 mg Tablet
10 mg PO QPM
donepezil 10 mg Tablet
10 mg PO DAILY@1700
spironolactone 25 mg Tablet
12.5 mg PO DAILY
metoprolol succinate [Toprol XL] 25 mg Tablet Extended Release 24 Hr
25 mg PO HS
albuterol sulfate 90 mcg/actuation Hfa Aerosol Inhaler
1 inh INHALATION R Q4 PRN (Reason: asthma)
Entresto 49-51 mg Tablet
1 tab PO BID
multivitamin Tablet
1 tab PO DAILY
pantoprazole 40 mg Tablet,Delayed Release (Dr/Ec)
40 mg PO DAILY
ibuprofen 200 mg Tablet
200 mg PO Q8H PRN (Reason: joint aches/pain)
aspirin 81 mg Tablet,Chewable
81 mg PO DAILY
furosemide 20 mg Tablet
20 mg PO DAILY
fluticasone propion-salmeterol 100-50 mcg/dose Blister With Device
1 inh INHALATION R BID
memantine 10 mg Tablet
10 mg PO BID@0900,1700
Spiriva Respimat 2.5 mcg/actuation Mist
2 inh INHALATION R DAILY
potassium chloride 20 mEq Tablet Extended Release
20 meq PO DAILY
Jardiance 10 mg Tablet
10 mg PO DAILY
sucralfate [Carafate] 1 gram tablet
1 g PO ACHS 28 Days Qty: 112 0RF
acetaminophen 650 mg Tablet Extended Release
1,300 mg PO BID
levothyroxine 100 mcg Tablet
100 mcg PO DAILY
magnesium hydroxide [Milk of Magnesia] 400 mg/5 mL Suspension
30 ml PO DAILY PRN (Reason: constipation)
lidocaine 5 % Adhesive Patch,Medicated
1 patch TOPICAL DAILY
Rx Instructions:
pply to lower back
duloxetine 30 mg Capsule,Delayed Release(Dr/Ec)
90 mg PO DAILY
Discontinued
amiodarone 200 mg Tablet
200 mg PO DAILY
Discharge Orders:
Discharge Patient (As Directed); Ordered 05/28/23
Ordered By: Odalis Donnelly
Discharge Date and Time
Discharge Date/Time: 05/28/23 15:26
== END 2023-05-28 15:26 | disposition home health service (06) | DRG 309 ==
LOC: IVU 23:55
PROVIDERS: Emergency Medicine; Internal Medicine Cardiovascular Disease; Physician Assistant Medical; ADMITTING PHYSICIAN Hospitalist; ATTENDING PHYSICIAN Internal Medicine; CONSULT PHYSICIAN Nuclear Medicine Nuclear Cardiology; EMERGENCY PHYSICIAN Emergency Medicine; FAMILY PHYSICIAN Internal Medicine
PROC: 4B02XTZ Measurement of Cardiac Defibrillator, External Approach (ICD-10-PCS; 2023-05-23)
DX: I47.20 Ventricular tachycardia, unspecified (principal); I42.8 Other cardiomyopathies; I50.32 Chronic diastolic (congestive) heart failure; I49.01 Ventricular fibrillation; R41.82 Altered mental status, unspecified; I07.1 Rheumatic tricuspid insufficiency; F32.A Depression, unspecified; I11.0 Hypertensive heart disease with heart failure; F03.90 Unspecified dementia, unspecified severity, without behavioral disturbance, psychotic disturbance, mood disturbance, and anxiety; E03.9 Hypothyroidism, unspecified; E78.00 Pure hypercholesterolemia, unspecified; F41.9 Anxiety disorder, unspecified; F10.90 Alcohol use, unspecified, uncomplicated; J44.89 Other specified chronic obstructive pulmonary disease; K21.9 Gastro-esophageal reflux disease without esophagitis; E66.9 Obesity, unspecified; R20.2 Paresthesia of skin; Z66 Do not resuscitate; Z79.890 Hormone replacement therapy; Z79.51 Long term (current) use of inhaled steroids; Z95.810 Presence of automatic (implantable) cardiac defibrillator
CPT/HCPCS: 80048; 80053; 81003; 81015; 82962; 83735; 83880; 84484; 85025; 85027; 85610; 85730; 87070; 87077; 87086; 87186; 93005; 93306; 94640; 97116; 97163; 97166; 99285; Q9950

== ENCOUNTER → 2023-06-07 14:06 | Outpatient (REF) | payer MEDICARE, OTHER, SELFPAY ==
[2023-06-07 15:39] LABS: ALT (SGPT) 17 U/L (0-35); AST (SGOT) 28 U/L (14-36); Albumin 4.3 g/dl (3.5-5.0); Alkaline Phosphatase 106 U/L (38-126); Blood Urea Nitrogen 17 mg/dl (7-17); Calcium 9.4 mg/dl (8.4-10.2); Carbon Dioxide 24 mmol/L (22-30); Chloride 102 mmol/L (98-107); Glucose 112 mg/dl (70-99); Potassium 3.9 mmol/L (3.5-5.1); Sodium 137 mmol/L (135-145); Total Bilirubin 0.5 mg/dl (0.2-1.3); Total Protein 6.6 g/dl (6.3-8.2); eGFR > 60.00
== END ==
LOC: REG 14:06
PROVIDERS: ATTENDING PHYSICIAN Internal Medicine
DX: Z45.02 Encounter for adjustment and management of automatic implantable cardiac defibrillator (principal); I42.8 Other cardiomyopathies; Z95.810 Presence of automatic (implantable) cardiac defibrillator; I47.20 Ventricular tachycardia, unspecified; F32.4 Major depressive disorder, single episode, in partial remission; E78.2 Mixed hyperlipidemia; E03.9 Hypothyroidism, unspecified; R91.1 Solitary pulmonary nodule; Z09 Encounter for follow-up examination after completed treatment for conditions other than malignant neoplasm
CPT/HCPCS: 36415; 80053

== ENCOUNTER → 2023-07-20 13:36 | Outpatient (REF) | payer MEDICARE, OTHER, SELFPAY ==
[2023-07-21 14:15] LABS: Blood Urea Nitrogen 15 mg/dl (7-17); Calcium 9.1 mg/dl (8.4-10.2); Carbon Dioxide 24 mmol/L (22-30); Chloride 106 mmol/L (98-107); Glucose 108 mg/dl (70-99); Sodium 136 mmol/L (135-145); eGFR > 60.00
== END ==
LOC: OLABMERCHI 13:36
PROVIDERS: ATTENDING PHYSICIAN Internal Medicine
DX: I10 Essential (primary) hypertension (principal); I50.40 Unspecified combined systolic (congestive) and diastolic (congestive) heart failure
CPT/HCPCS: 36415; 80048

== ENCOUNTER → 2023-10-13 13:47 | Outpatient (REF) | payer MEDICARE, OTHER, SELFPAY | LOC: MRI 13:47 | PROVIDERS: ATTENDING PHYSICIAN Physician Assistant | DX: M54.50 Low back pain, unspecified (principal) | CPT/HCPCS: 72148 ==

== ENCOUNTER 2023-12-06 12:43 | Inpatient (IN) | payer MEDICARE, OTHER, SELFPAY ==
[2023-12-06] VITALS (12 sets, daily range): BP systolic 101–167; BP diastolic 42–113; PULSE 84; O2SAT 96; BMI 37.1; BMI 38.1; BMI 37.9
[2023-12-06 10:06] LABS: % Basophils 0.3 % (0-2); % Eosinophils 0.4 % (0-6); % Immature Granulocytes 0.5 % (0-0.5); % Lymphocytes 3.8 % (20.5-51.1); % Monocytes 4.6 % (1.7-9.3); % Neutrophils 90.4 % (42.2-75.2); Absolute Basophils 0.1 10^3/uL (0-0.2); Absolute Eosinophils 0.1 10^3/uL (0-0.7); Absolute Immature Granulocytes 0.1 10^3/uL (0-0.05); Absolute Lymphocytes 0.6 10^3/uL (1.2-3.4); Absolute Monocytes 0.8 10^3/uL (0.1-0.6); Absolute Neutrophils 15.4 10^3/uL (1.4-6.5); Hematocrit 28.9 % (37.0-47.0); Hemoglobin 8.5 g/dL (12.0-16.0); Mean Corp Hgb Conc. 29.4 g/dL (33.0-37.0); Mean Corpuscular Hgb 20.1 pg (27.0-31.0); Mean Corpuscular Volume 68.3 fL (81.0-99.0); Mean Platelet Volume 9.4 fL (7.4-10.4); Nucleated Red Blood Cells % 0 %; Platelet Count 390 10^3/uL (130-400); Red Blood Cell Count 4.23 10^6/uL (4.20-5.40); Red Cell Dist. Width 18.7 % (11.5-14.5)
--- NOTE | 2023-12-06 10:17 | EDRN ---
labs were drawn and sent, COVID and influenza swabs sent, the pt will be getting a portable cxr, the pt is asking for water and per the provider the pt is not to have water currently, this information was explained to the pt, the pts daughter is
currently at the pts bedside, VS WNL, the pt is currently still on 2L NC Sp02 96%, the pt is resting in stretcher in the lowest position, side rails up x2, call carrera within reach, HOB elevated, no s/s of distress, will continue to monitor the pt
closely
[2023-12-06 10:19] LABS: ALT (SGPT) 16 U/L (0-35); AST (SGOT) 27 U/L (14-36); Albumin 4.6 g/dl (3.5-5.0); Alkaline Phosphatase 117 U/L (38-126); Blood Urea Nitrogen 18 mg/dl (7-17); Calcium 9.5 mg/dl (8.4-10.2); Carbon Dioxide 20 mmol/L (22-30); Chloride 97 mmol/L (98-107); Estimated Creatinine Clearance 45 ml/min; Glucose 149 mg/dl (70-99); Potassium 4.6 mmol/L (3.5-5.1); Sodium 134 mmol/L (135-145); Total Bilirubin 0.6 mg/dl (0.2-1.3); Total Protein 6.8 g/dl (6.3-8.2); eGFR > 60.00
--- NOTE | 2023-12-06 10:23 | EDRN ---
Devante PETERSEN currently at the pts bedside speaking with the pt and the pts daughter
[2023-12-06 10:30] LABS: NT-proBNP 663 pg/ml; Troponin I < 0.012 ng/ml
[2023-12-06 10:36] LABS: COVID-19 Antigen Negative (Negative)
[2023-12-06 10:42] LABS: Lactic Acid 1.8 mmol/L (0.7-2.0)
[2023-12-06] MEDS: TYLENOL 1000 MG PO (10:50)
[2023-12-06] MEDS: DUONEB 3 ML INH (10:50)
--- NOTE | 2023-12-06 11:02 | EDRN ---
the pt pressed the call carrera and this RN entered the pts room, the pts daughter stated that she didn't have a brief on and that she urinated, this RN cleaned the pt, the pt minimally urinated, a new brief and pad were placed, the pt received Tylenol
PO with no issues taking the medication, and the pt is receiving a breathing treatment, no other complaints offered, VS WNL, the pt is currently still on 2L NC with Sp02 at 96%, will continue to monitor the pt closely
--- NOTE | 2023-12-06 12:09 | ED.GENMED ---
History of Present Illness
General
Chief Complaint: Breathing Problem
Source: patient, family, ambulance crew and [facility]
Exam Limitations: none
Time Seen by Provider: 12/06/23 09:52
Nursing documentation reviewed up to this point in time: agreed with
History of Present Illness
History of Present Illness:
82-year-old female presenting from [facility] with concerns of worsening shortness of breath over the past few days. Has had ongoing productive cough over the past 2 weeks. Pulse ox apparently in the 80s on EMS arrival there.
Denies specific chest pain. Denies ongoing fever but has had fever this morning. Denies nausea vomiting leg pain.
Past History
Past History
ED Past Medical History: CHF, COPD (Chronic bronchitis), GERD, HTN and Other (Cardiomyopathy, ICD/pacemaker, obesity, dementia, anxiety, depression)
Social History
Tobacco: Non-smoker
Alcohol: None
Drug: None
Living: with family
Review of Systems
Review of Systems
Allergies reviewed?: Yes
All Other Systems: ROS reviewed and negative except as documented in HPI and ROS
Phy Exam
Physical Exam
Physical Exam:
GENERAL: Alert , in no apparent distress
EYE: pupils equal and reactive
NECK: Supple, no significant adenopathy.
ENT: o/p clr, mmm.
CARDIAC: Regular rate and rhythm .
LUNGS: Diffuse expiratory wheezing
ABDOMEN: Soft, without focal tenderness, no r/g, no cvat
NEUROLOGICAL: Alert and oriented, no focal neuro deficits
SKIN: Warm and dry, skin intact.
MUSCULOSKELETAL: No edema, well perfused.
PSYCH: Normal and appropriate interaction.
Scores
Heart Failure Risk
Heart Failure Risk Score: Not Applicable
Sepsis
Sepsis Screening
Sepsis Assessment: Sepsis
Sepsis Screen
Sepsis Screen: Sepsis
Date: 12/06/23
Time: 12:17
Course
Orders/Labs/Results
Orders:
Orders
12/06/23 09:43
Electrocardiogram (*1) Urgent
Reason for Study: Shortness of Breath
CR Chest - 2 Views Urgent
Comment:
Reason For Exam: shortness of breath with cough
12/06/23 09:45
EKG- Treatment ONCE
12/06/23 09:47
COVID-19 Antigen Urgent
Source: Nasal Swab
Complete Blood Count/With Diff Urgent
Comprehensive Metabolic Panel Urgent
NT-proBNP Urgent
Troponin I Urgent
12/06/23 10:08
Lactic Acid Urgent
Blood Culture Urgent
OLU Source: Blood/Venous
Specimen Description:
Influenza A+B Rapid Molecular Urgent
OLU Source: Nasal Swab
Specimen Description:
12/06/23 10:26
Acetaminophen [Tylenol] 1,000 mg PO NOW STA
Ipratropium/Albuterol Sulfate [Duoneb] 3 ml INH R NOW ONE
12/06/23 12:01
Azithromycin 500 mg/250 ml [Zithromax Infusion] 500 mg in 250 ml IV NOW
CefTRIAXone [Rocephin] 2,000 mg IV NOW STA
12/06/23 12:03
Dexamethasone Sod Phosphate [Decadron] 10 mg IV NOW STA
Abnormal Lab Results
12/06/23
09:47
WBC 17.0 H 10^3/uL
(4.8-10.8)
Hgb 8.5 L g/dL
(12.0-16.0)
Hct 28.9 L %
(37.0-47.0)
MCV 68.3 L fL
(81.0-99.0)
MCH 20.1 L pg
(27.0-31.0)
MCHC 29.4 L g/dL
(33.0-37.0)
RDW 18.7 H %
(11.5-14.5)
Abs Immat Gran (auto) 0.1 H 10^3/uL
(0-0.05)
Absolute Neuts (auto) 15.4 H 10^3/uL
(1.4-6.5)
Absolute Lymphs (auto) 0.6 L 10^3/uL
(1.2-3.4)
Absolute Monos (auto) 0.8 H 10^3/uL
(0.1-0.6)
Neutrophils % 90.4 H %
(42.2-75.2)
Lymphocytes % 3.8 L %
(20.5-51.1)
Sodium 134 L mmol/L
(135-145)
Chloride 97 L mmol/L
(98-107)
Carbon Dioxide 20 L mmol/L
(22-30)
BUN 18 H mg/dl
(7-17)
Glucose 149 H mg/dl
(70-99)
12/06/23 09:47
12/06/23 09:47
Vital Signs
Initial and Last Documented VS:
Initial Vital Signs
BP
141/65
12/06/23 09:45
Last Documented Vital Signs
Temp Pulse Resp BP Pulse Ox
102.1 F H 86 22 167/65 95
12/06/23 09:46 12/06/23 11:30 12/06/23 10:45 12/06/23 11:00 12/06/23 11:30
MDM/Problems Addressed
MDM/Problems Addressed:
83-year-old female presenting to the emergency department today with concerns of worsening shortness of breath fever today. Has had cough for over the past 2 weeks. Upon arrival patient was tachycardic to 102.1 white count of 17 troponin negative
EKG normal BNP without significant elevation. Seems to be most consistent with likely pneumonia and reactive airway. Patient was started on DuoNeb steroid as well as antibiotics plan to admit due to patient's advanced age and significant on this
at this time.
*Critical Care Note
Total Time (30-74mins, 75-104mins- exclusive of procedures): Not Applicable
ED Attending Note
-
Portions of this chart may have been created with voice recognition software.� Occasional wrong word or��sound alike� substitutions may have occurred due to the inherent limitations of voice recognition software.
Discharge Plan
Departure
Patient Disposition: Admit
Date of Disposition: 12/06/23
Time of Disposition: 12:16
Admit to: Telemetry
Admit to doctor: Alany
Presentation/result/management discussed w/ accepting MD/DO: Hospitalist
Condition: Good
Covid-19: Not Applicable
Discharge Problem:
Pneumonia, Wheeze
Prescriptions:
No Action
atorvastatin 10 mg Tablet
10 mg PO QPM
donepezil 10 mg Tablet
10 mg PO DAILY@1700
spironolactone 25 mg Tablet
12.5 mg PO DAILY
metoprolol succinate [Toprol XL] 25 mg Tablet Extended Release 24 Hr
25 mg PO HS
albuterol sulfate 90 mcg/actuation Hfa Aerosol Inhaler
1 inh INHALATION R Q4 PRN (Reason: asthma)
Entresto 49-51 mg Tablet
1 tab PO BID
multivitamin Tablet
1 tab PO DAILY
pantoprazole 40 mg Tablet,Delayed Release (Dr/Ec)
40 mg PO DAILY
ibuprofen 200 mg Tablet
200 mg PO Q8H PRN (Reason: joint aches/pain)
aspirin 81 mg Tablet,Chewable
81 mg PO DAILY
furosemide 20 mg Tablet
20 mg PO DAILY
fluticasone propion-salmeterol 100-50 mcg/dose Blister With Device
1 inh INHALATION R BID
memantine 10 mg Tablet
10 mg PO BID@0900,1700
Spiriva Respimat 2.5 mcg/actuation Mist
2 inh INHALATION R DAILY
potassium chloride 20 mEq Tablet Extended Release
20 meq PO DAILY
Jardiance 10 mg Tablet
10 mg PO DAILY
sucralfate [Carafate] 1 gram tablet
1 g PO ACHS 28 Days Qty: 112 0RF
acetaminophen 650 mg Tablet Extended Release
1,300 mg PO BID
levothyroxine 100 mcg Tablet
100 mcg PO DAILY
magnesium hydroxide [Milk of Magnesia] 400 mg/5 mL Suspension
30 ml PO DAILY PRN (Reason: constipation)
lidocaine 5 % Adhesive Patch,Medicated
1 patch TOPICAL DAILY
Rx Instructions:
pply to lower back
duloxetine 30 mg Capsule,Delayed Release(Dr/Ec)
90 mg PO DAILY
amiodarone 200 mg Tablet
200 mg PO DAILY
Referrals:
UNKNOWN - PT DOES,NOT KNOW [Family Provider] -
Interventions
Interventions:
*Risk Screen - Suicide Last Done: 12/06/23 09:46
*General Assessment Last Done: 12/06/23 09:46
*Neglect/Abuse Screening Last Done: 12/06/23 09:46
ED- Fall Risk Assessment Last Done: 12/06/23 09:58
*ED COVID-19 Vaccine History Last Done: 12/06/23 09:46
ED- Cardiac Assessment Last Done: 12/06/23 09:58
ED- Pulmonary Assessment Last Done: 12/06/23 09:58
Discharge Date and Time
Print Language: ROMANSH
--- NOTE | 2023-12-06 12:19 | HPS.HSE ---
Addendum entered and electronically signed by Zach Luque MD 12/06/23 13:05:
Blood consented and scanned at ER.
Original Note:
Family Physician
-
Family Physician: NOT KNOW UNKNOWN - PT DOES
Chief Complaint
-
SoB and cough
History of Present Illness
HPI
83F HX [facility] independent living Res PMH of dementia,chr HFpEF , recurrent episodes of ventricular tachycardia and ventricular fibrillation and has ICD/pacemaker evalaution for SoB:
- worsening shortness of breath over the past few days.
- ongoing productive cough over the past 2 weeks.
- POx 80s on EMS arrival there. 90s on 2 L
T 102 .1 at ER
ROS
Denies specific chest pain.
Denies ongoing fever but has had fever this morning.
Denies nausea vomiting leg pain.
Medical History
Past Medical History
Past Medical History: Reports Other
Additional Past Medical History:
Chronic Systolic Heart Failure
Non-Ischemic Cardiomyopathy
Essential Hypertension
COPD
Dementia
Depression
Hypothyroidism
GERD
Past Surgical History: Reports Other
Additional Past Surgical History:
Hysterectomy
Pacemaker
Social History
Tobacco: Non-smoker
Alcohol: Daily
Family History
Family History: Not pertinent
Allergies / Home Medications
Allergies reflects when Allergies were last updated in [employer].
Home Medications with original date entered in [employer]
Allergy/Medication List:
Allergies
Allergy/AdvReac Type Severity Reaction Status Date / Time
No Known Drug Allergies Allergy Unknown Verified 05/23/23 19:35
Home Medications
albuterol sulfate 90 mcg/actuation aerosol inhaler 1 inh inhalation R Q4 PRN asthma 11/11/21
atorvastatin 10 mg tablet 10 mg PO QPM High cholesterol 11/11/21
donepezil 10 mg tablet 10 mg PO DAILY@1700 dementia 11/11/21
metoprolol succinate 25 mg tablet,extended release 24 hr (Toprol XL) 25 mg PO HS Blood pressure 11/11/21
sacubitril 49 mg-valsartan 51 mg tablet (Entresto) 1 tab PO BID Heart Failure 11/11/21
spironolactone 25 mg tablet 12.5 mg PO DAILY Fluid retention/Swelling 11/11/21
aspirin 81 mg chewable tablet 81 mg PO DAILY 09/13/22
empagliflozin 10 mg tablet (Jardiance) 10 mg PO DAILY 09/13/22
fluticasone 100 mcg-salmeterol 50 mcg/dose blistr powdr for inhalation 1 inh inhalation R BID 09/13/22
furosemide 20 mg tablet 20 mg PO DAILY 09/13/22
ibuprofen 200 mg tablet 200 mg PO Q8H PRN joint aches/pain 09/13/22
memantine 10 mg tablet 10 mg PO BID@0900,1700 09/13/22
multivitamin 1 tab PO DAILY 09/13/22
pantoprazole 40 mg tablet,delayed release 40 mg PO DAILY 09/13/22
potassium chloride 20 mEq tablet,extended release 20 meq PO DAILY 09/13/22
tiotropium bromide 2.5 mcg/actuation mist for inhalation (Spiriva Respimat) 2 inh inhalation R DAILY 09/13/22
sucralfate 1 gram tablet (Carafate) 1 g PO ACHS 4 weeks #112 tabs 04/29/23
acetaminophen 650 mg tablet,extended release 1,300 mg PO BID 05/23/23
amiodarone 200 mg tablet 200 mg PO DAILY 05/23/23
duloxetine 30 mg capsule,delayed release 90 mg PO DAILY 05/23/23
levothyroxine 100 mcg tablet 100 mcg PO DAILY 05/23/23
lidocaine 5 % topical patch 1 patch topical DAILY 05/23/23
magnesium hydroxide 400 mg/5 mL oral suspension (Milk of Magnesia) 30 ml PO DAILY PRN constipation 05/23/23
Review of Systems
-
Unable to obtain full review of systems at this time due to: Dementia
Constitutional: Reports No Symptoms
EENT: Reports No Symptoms
Respiratory: Reports See HPI, Cough and Trouble Breathing
Cardiac: Reports No Symptoms
Abdomen/GI: Reports No Symptoms
: Reports No Symptoms
Musculoskeletal: Reports No Symptoms
Skin: Reports No Symptoms
Neurological: Reports No Symptoms
Endocrine: Reports No Symptoms
Hematologic/Lymphatic: Reports No Symptoms
Psych: Reports No Symptoms
Physical Exam
Vital Signs
Vital Signs
Temp Pulse Resp BP Pulse Ox
102.1 F H 86 22 167/65 95
12/06/23 09:46 12/06/23 11:30 12/06/23 10:45 12/06/23 11:00 12/06/23 11:30
Physical Exam
General: Well Developed, Well Nourished and No Apparent Distress
HEENT: NormoCephalic, Moist mucous membranes and Atraumatic
Respiratory: Rhonchi (mild squeaky ) and Other (symmetric AE ,coarse BS ); No Rales
Cardiac: S1/S2 and Regular Rhythm; No Murmur or Rub
GI: Soft, Non Tender, Non Distended and Normal Bowel Sounds; No Organomegaly
Rectal: Deferred by Provider
Musculoskeletal: No Clubbing, No Cyanosis and No Edema
Skin: No Rash
Neuro: Nonfocal/grossly intact
Laboratory Results
-
12/06/23 09:47
12/06/23 09:47
Laboratory Results
Lactic Acid 1.8 mmol/L (0.7-2.0) 12/06/23 10:08
Total Bilirubin 0.6 mg/dl (0.2-1.3) 12/06/23 09:47
AST 27 U/L (14-36) 12/06/23 09:47
ALT 16 U/L (0-35) 12/06/23 09:47
Alkaline Phosphatase 117 U/L (38-126) 12/06/23 09:47
Troponin I < 0.012 ng/ml 12/06/23 09:47
Data Reviewed
-
Diagnostic Radiology: Report Reviewed by me
Medical Tests (Nuc Med, Echo, EKG etc): Report Reviewed by me
Lab Data: Labs Reviewed by me
Old Records: Reviewed
Impression/Plan
-
Vital Signs
Temp Pulse Resp BP Pulse Ox
102.1 F H 86 22 167/65 95
12/06/23 09:46 12/06/23 11:30 12/06/23 10:45 12/06/23 11:00 12/06/23 11:30
Data
WCC 17
Hgb 8.5 - 11.7 on 05/28/23
MCV 68
Na 134
Cl 97
CO2 20
nl Cr eGFR > 60
NEG TPN pro BNP 663
NEG Flu A & B
NEG Covid
BCx sent
CXR : Right basilar pneumonia.
Echo: 05/24/23
Normal left ventricular size, wall thickness and systolic function. No regional wall motion abnormalities are seen. Recovered EF to 55-60% (apparently was at 5% per daughter)
EKG
Atrial-sensed ventricular-paced rhythm
ABNORMAL ECG
WHEN COMPARED WITH ECG OF 26-MAY-2023 03:44,
VENT. RATE HAS INCREASED BY 29 BPM
Confirmed by MD KENZIE, JAYLEN Seay ([id number]) on 12/06/2023 10:54:29 AM
Last hospitalist admission:
Date of Admission: 05/23/23
Date of Discharge: 05/28/23
DC Dx:
Recurrent ventricular tachycardia (VT) /ventricular fibrillation (VF) events requiring defibrillation. Apparently all of her VT/VF events were occurring in a program manner. Arrhythmia was felt to be possibly triggered by capture management of her
device and capture management was discontinued.
ASSESSMENT & PLAN
Pending Rx reconciliation
R LLL PNA presumed CAP with productive cough, fever and hi WCC
Asso. Sepsis
Asso. acute hypoxic RI being supported on 2 L NC O2
Asso. with coarse BS with slightly roncheros but not wheezy on my exam
- cont IV CFTX plus PO Azithromycin in place of IV
- Empiric IV Decadron 2mg Q12H
- Cont NC O2 titrate to keep POx > 94
- f/u BCx
- Tylenol PRN
- F/U T, WCC
New interval microcytic anemia
- No prior HX GIB
- denied Black tarry stool or BPR per daughter
- check Fe studies, B12, Folate
- Stool for HoB
- Hold ASA ( No HX stents)
HX Chronic HFpEF - recovered LVEF to 55-60 from low LVEF < 30 ? per daughter
- Not in acute HF
- on Entresto
- on Frusemide PO 20 daily , Metoprolol XL, Spironolactone
HX VT/VF events requiring defibrillation
has ICD implant
- Amiodarone was discontinued by claudia in May but still on the list - will clarify
- cont Metoprolol XL
- Known to [facility] [place] /Dr Lynn lockwood
HX ETOH use disorder
- assisted living Res
Essential Hypertension
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
Hyperlipidemia
- cont atorvastatin
HX COPD
- Continue fluticasone/salmeterol and Spiriva
HX Dementia
Pt is awake, alert, preserved social skills
- Continue Aricept and Namenda
- Monitor for mood/behavior changes during hospitalization
Depression
-cont duloxetine
Hypothyroidism
- cont LT4
HX GERD
- cont Protonix
DVT Px: SCD
Code: Full
IP TLM
[2023-12-06] MEDS: ZITHROMAX INFUSION 250 IV (12:33)
[2023-12-06] MEDS: DECADRON 10 MG IV (12:33)
[2023-12-06] MEDS: ROCEPHIN 2000 MG IV (12:33)
[2023-12-06] MEDS: NSS 500 IV (12:33)
--- NOTE | 2023-12-06 12:46 | EDRN ---
hospitalist currently at the pts bedside speaking with the pt and the pts daughter
[2023-12-06 13:06] LABS: Iron 28 ug/dl (37-170)
--- NOTE | 2023-12-06 13:08 | EDRN ---
paper report tubed up to the receiving unit
[2023-12-06 13:15] LABS: Percent Saturation 5 % (20-50); Total Iron Binding Capacity 547 ug/dl (265-497)
--- NOTE | 2023-12-06 14:00 | PTCARENOTE ---
pt admitted from ED to room 213- pt able to stand, get on standing scale, and pivot from the stretcher to the bed. pt orientedx3- very forgetful- per daughter this is her normal. pt placed on telemetry- PPM/ICD, A paced heart rate in 70s. pulses
palpable. +1 lower extremity edema. pt on 2L nasal cannula, sat 96%. lung sounds diminished, more on right than left. coarse with occasional expiratory wheezes. active bowel sounds. pt able to stand to use commode to urinate. stress incontinence.
skin intact. lidocaine patch to lower back- chronic back pain noted. admission questions completed. see worklist for full nursing assessment and interventions.
[2023-12-06] MEDS: XOPENEX 1.25 MG INHALANT SOLUTION INH ×2 (14:38→19:51)
[2023-12-06 14:39] LABS: Ferritin 11.2 ng/ml (11.1-264.0)
[2023-12-06 15:10] LABS: Folate 10.4 ng/ml (2.76-20); Vitamin B12 304 pg/ml (239-931)
[2023-12-06 15:12] LABS: Glucose - Point of Care 176 mg/dl (70-99)
--- NOTE | 2023-12-06 15:24 | PTOTSP ---
Dysphagia Evaluation
Patient with risk factors for dysphagia (i.e., dementia, COPD, GERD, ETOH use disorder) but no signs of oral/pharyngeal dysphagia at the bedside. Patient admitted with right sided PNA. If concerned for silent aspiration consider video swallow
study.
Recommend:
1. Regular, Thin liquids
2. Medications as best tolerated
3. Strategies: upright positioning, slow rate with breaks for breathing, reflux precautions
4. Oral care 3x daily
5. Consider video swallow study. No other acute tx warranted at this time.
[2023-12-06] MEDS: NOVOLOG FLEXPEN-LOW RESISTANCE 1 UNITS SC (15:35)
--- NOTE | 2023-12-06 15:54 | CM ---
Reviewed the chart notes and spoke with the patient at the bedside. The patient resides at [facility] in the Personal Care Unit. The patient has a rolling walker and rollator. The patient has had [facility] and [facility] in the past. The patient
has been to a SNF in [place] in the past. CM continues to be available to patient/family and is monitoring medical plan for needs at discharge.
Plan: Discharge plans will depend on the patient's progress. Currently on supplemental O2.
--- NOTE | 2023-12-06 16:27 | W.PN.UPDATE ---
Update Note
Progress Note Update
Speech swallow eval done at bedside by speech therapy no signs of dysphagia noted at bedside if concern for silent aspiration order video swallow.
Cholesterol-lowering diet ordered by PCP
[2023-12-06] MEDS: LIPITOR 10 MG PO (17:08)
[2023-12-06] MEDS: NAMENDA 10 MG PO (17:08)
[2023-12-06] MEDS: ARICEPT 10 MG PO (17:08)
[2023-12-06 17:11] LABS: Glucose - Point of Care 300 mg/dl (70-99)
[2023-12-06] MEDS: ENTRESTO 49 MG/51 MG 1 TAB PO (19:44)
[2023-12-06] MEDS: ROBITUSSIN 200 MG PO (19:49)
[2023-12-06] MEDS: ADVAIR HFA 45/21 MCG INHALER 2 PUFF INH (19:51)
[2023-12-06] MEDS: TYLENOL 650 MG PO (20:59)
[2023-12-06] MEDS: TOPROL XL PO (21:45)
[2023-12-06 21:49] LABS: Glucose - Point of Care 231 mg/dl (70-99)
[2023-12-06] MEDS: LIDOCAINE 4% PATCH 1 PATCH TOPICAL (23:33)
[2023-12-06] MEDS: DECADRON 2 MG IV (23:33)
[2023-12-07] VITALS (9 sets, daily range): BP systolic 101–125; BP diastolic 40–58; BMI 37.7
[2023-12-07] MEDS: TYLENOL 1000 MG PO (00:50)
--- NOTE | 2023-12-07 04:18 | DOWNTIME ---
There was a [employer] Mine Inspector Downtime on 12/07/2023 from 0100 to 12/07/2023 at 0300. Downtime documentation of patient's care, including medication administrations, has been reconciled in the electronic record per guidelines. Refer to the
patient's paper chart under the miscellaneous tab to see printed paper medication records and downtime forms.
[2023-12-07] MEDS: SYNTHROID 100 MCG PO (05:05)
[2023-12-07] MEDS: ROBITUSSIN 200 MG PO ×2 (05:07→09:18)
[2023-12-07 07:58] LABS: Glucose - Point of Care 181 mg/dl (70-99)
[2023-12-07] MEDS: XOPENEX 1.25 MG INHALANT SOLUTION INH ×3 (08:08→20:04)
[2023-12-07] MEDS: ADVAIR HFA 45/21 MCG INHALER 2 PUFF INH ×2 (08:08→20:05)
[2023-12-07 08:28] LABS: ALT (SGPT) 14 U/L (0-35); AST (SGOT) 22 U/L (14-36); Albumin 3.8 g/dl (3.5-5.0); Alkaline Phosphatase 77 U/L (38-126); Blood Urea Nitrogen 33 mg/dl (7-17); Carbon Dioxide 19 mmol/L (22-30); Chloride 99 mmol/L (98-107); Estimated Creatinine Clearance 41 ml/min; Glucose 174 mg/dl (70-99); Potassium 4.6 mmol/L (3.5-5.1); Sodium 133 mmol/L (135-145); Total Bilirubin 0.4 mg/dl (0.2-1.3); Total Protein 5.9 g/dl (6.3-8.2); eGFR 55.55
[2023-12-07 08:30] LABS: % Basophils 0.1 % (0-2); % Immature Granulocytes 0.8 % (0-0.5); % Lymphocytes 2.4 % (20.5-51.1); % Monocytes 2.6 % (1.7-9.3); % Neutrophils 94.1 % (42.2-75.2); Absolute Immature Granulocytes 0.2 10^3/uL (0-0.05); Absolute Lymphocytes 0.5 10^3/uL (1.2-3.4); Absolute Monocytes 0.5 10^3/uL (0.1-0.6); Absolute Neutrophils 18.1 10^3/uL (1.4-6.5); Anisocytosis 1+; Hemoglobin 6.8 g/dL (12.0-16.0); Hypochromasia 2+; Mean Corp Hgb Conc. 29.6 g/dL (33.0-37.0); Mean Corpuscular Hgb 20.3 pg (27.0-31.0); Mean Corpuscular Volume 68.7 fL (81.0-99.0); Normal RBC Morphology No; Nucleated Red Blood Cells % 0 %; Platelet Count 318 10^3/uL (130-400); Red Blood Cell Count 3.35 10^6/uL (4.20-5.40); Red Cell Dist. Width 18.4 % (11.5-14.5); White Blood Cell Count 19.2 10^3/uL (4.8-10.8)
[2023-12-07 08:31] LABS: Acanthocytes 1+; Ovalocytes 1+; Polychromasia 1+
[2023-12-07 08:39] LABS: Glycohemoglobin (HgbA1c) 5.9 % (4.0-5.6)
[2023-12-07] MEDS: LASIX 20 MG PO (08:45)
[2023-12-07] MEDS: CYMBALTA DELAYED RELEASE 90 MG PO (08:45)
[2023-12-07] MEDS: ENTRESTO 49 MG/51 MG 1 TAB PO ×2 (08:46→19:34)
[2023-12-07] MEDS: VIBRAMYCIN 100 MG PO ×2 (08:47→19:35)
[2023-12-07] MEDS: NAMENDA 10 MG PO ×2 (08:48→17:06)
[2023-12-07] MEDS: THERAGRAN 1 TABLET PO (08:48)
[2023-12-07] MEDS: ALDACTONE 12.5 MG PO (08:48)
[2023-12-07] MEDS: NOVOLOG FLEXPEN-LOW RESISTANCE SC ×2 (08:49→11:55)
[2023-12-07] MEDS: NSS (PRESERVATIVE FREE) 20 ML IV (09:02)
[2023-12-07] MEDS: PROTONIX IV 80 MG IV (09:02)
[2023-12-07] MEDS: PROTONIX 100 IV (09:02)
[2023-12-07 09:12] LABS: Reticulocyte Count 2.6 % (0.4-2.8)
--- NOTE | 2023-12-07 09:36 | W.PN.HOSP.TC ---
Today's Communication/Plan
-
see PN
Assessment / Plan
Assessment / Plan
83yo F with PMHx of dementia, HFrEF, GERD, asthma/COPD, diverticulosis, hypothyroidism, PSVT brought from independent living with cough, complained for sore throat, manaed for pneumoniaalso found severe IRENE and COPD exacerbation.
A/P:
#RLL pneumonia, with unspecified ]organism, concern for aspiration
Ceftriaxone/Doxy/Flagyl
Check sputum Cx if possible
Check Legionella and Strep.throat urinary Ag
Robitussin
check CT chest (with PMHx of hemothorax)
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
#Acute hypoxic insufficiency 2/2 COPD exacerbation
Steroids taper
Bronchodilators
Wean off O2
#Anemia, severe IRENE
#Hx of severe diverticulosis
Iron IV
check LDH, retics
PPI drip, GI consult
FOBT neg
hold ASA
#Chronic HFpEF
#HLD
#PSVT
#Essential HTN
#Hx of alcohol abuse
#Dementia, unspecified
#Hypothyroidism
cont home meds
#PreDM
advise low carb diet
DVT ppx SCDs
DNR/DNI
I have spent at least 59min reviewing chart, test results, communication with consultants, family and direct patient care
Anticipated Discharge: > 48 hours
Subjective/Interval History
-
Date of Service: December 07, 2023
Objective Data
-
Labs:
Laboratory Results
12/07/23 12/07/23 12/07/23
06:25 14:30 22:30
WBC 19.2 H
Hgb 6.8 L* Pending Pending
Hct 23.0 L Pending Pending
Plt Count 318
Sodium 133 L
Potassium 4.6
Chloride 99
Carbon Dioxide 19 L
BUN 33 H
Creatinine 1.0
Glucose 174 H
Calcium 9.0
Total Bilirubin 0.4
AST 22
ALT 14
Alkaline Phosphatase 77
Vital Signs:
Vital Signs
Temp Pulse Resp BP Pulse Ox
97.6 F 74 18 118/52 94
12/07/23 07:43 12/07/23 08:55 12/07/23 08:10 12/07/23 08:55 12/07/23 08:10
I&O
12/06/23 12/07/23 12/08/23
06:59 06:59 06:59
Intake Total 960 / 960
Balance 960 / 960
Review of Systems
-
History Source: Patient
EENT: Reports Sore Throat
Respiratory: Reports Cough
Physical Exam
-
General: No Apparent Distress
HEENT: Normocephalic
Respiratory: Clear to Auscultation
Cardiac: Regular Rhythm
GI: Soft, Nontender and Nondistended
Musculoskeletal: No Clubbing, No Cyanosis and No Edema
Neuro: Awake, Alert and Oriented
Psych: Calm
[2023-12-07] MEDS: ANESTHETIC LOZENGE 1 LOZENGE PO ×3 (09:41→19:48)
[2023-12-07] MEDS: TYLENOL 650 MG PO ×2 (09:42→15:07)
--- NOTE | 2023-12-07 09:45 | CON.GI ---
Addendum entered and electronically signed by Amber Gorman DO 12/07/23 14:29:
Patient seen examined independently of POWDER BLENDER AND POURER. I agree with her note with my additions below
Cindi is an 83-year-old female with history of CHF, nonischemic cardiomyopathy, hypertension COPD, dementia, large hiatal hernia, GERD on PPI who presents the emergency room from assisted living with shortness of breath and significant cough/fever of
102 concern for pneumonia. Noted to have asymptomatic iron deficiency anemia with a hemoglobin of 6.8 down from 10 at baseline. Appears to have a slow trend over the past few months. She is iron deficient with a ferritin of 11. She is microcytic
indices. Her stools are brown and heme-negative today in the emergency room. She is a large hiatal hernia as seen on CT chest today. She is on a PPI as an outpatient. She denies any dysphagia, does have reflux. No significant anorexia or weight
loss. She was having an episode of diarrhea about a month ago that has since resolved. Last endoscopic workup was in 2013 and 2017 in [place]. Daughter states a few years ago in 2020 she had some internal bleeding after a suspected fall. She is
on 81 mg aspirin and unaware of any other significant NSAIDs but possibly takes ibuprofen at home.
She denies any overt bleeding with no epistaxis, gum bleeding, vaginal bleeding, blood in her urine or stools. Says stools are brown. No significant bruising.
# Asymptomatic iron deficiency anemia with brown heme-negative stools
-- Patient has no overt bleeding, she is hemodynamically stable
-- She is absolutely iron deficient and agree with IV iron
-- She has no significant GI symptoms other than heartburn and has a known large hiatal hernia which can also be the cause of chronic iron deficiency anemia agree with PPI twice daily is fine.
-- Check hemoglobin in the morning, no plans for endoscopic workup until her pulmonary status improves.
-- Conversation with the daughter and the patient at the bedside. Currently we will be more conservative and give iron infusion, blood if needed. Will possibly proceed with endoscopy but no current desire for prep and colonoscopy per patient
-- Etiology of the iron deficiency anemia could possibly be her large hiatal hernia. Cannot rule out malignancy and all iron deficiency anemia in an adult is GI blood loss until proven otherwise
-- Okay for diet
Original Note:
Consultation
-
Date/Time Consultation Requested: 12/07/23819
Date/Time Consultation Performed: 12/07/23 09
Requesting Provider: Ke Nair MD
Performing Provider: OSVALDO Hill
Reason for Consultation: anemia
Medical History
Chief Complaint / HPI
Chief Complaint: shortness of breath
History of Present Illness:
Pt is an 83yo present with hx CHF, non ischemic CM, PSVT, HTN, COPD, dementia, HH, chronic back pain with prior surgery, depression,prior ETOH use , hypothyroidism, GERD, IBS-D, ICD/pacer presents to ER with shortness of breath and cough. In ER
noted with fever 102.1 with concern for PNA on admission. She was also noted with iron deficiency anemia with drop in hbg to 6.8 and noted brown heme neg stools. Pt with dementia but in review with family pt with hx hiatal hernia and GERD. She
is on PPI and was added Sucralfate that was stopped about 1 month ago with episode of diarrhea followed by vomiting. Daughter also admits to hx ETOH use but stopped in May with noted issues with her defibrillator. She currently denies abdominal
pain, constipation, or rectal bleeding but some limitation in exam with dementia. Last EGD ?2013 in [place] with HH, colonoscopy 2017 [place] recall as normal. Daughter also reports hx anemia a few years ago likely after a fall with internal
bleeding. She has completed CT with results pending. Occasional NSAID use but has been on BID Tylenol.
Past Medical History
Past Medical History: Arrhythmias (left bundle branch block, PSVT), CHF, COPD, GERD, HTN, Hypercholesterolemia, Hypothyroidism, Psychiatric (dementia/depression ) and Other (non ischemic Cardiomyopathy, obesity, IBS diarrhea, hiatal hernia )
Past Surgical History: Cardiac (ICD/pacer), Gynecological (hysterectomy) and Orthopedic (back surgery, knee replacement )
Social History
Tobacco: Non-Smoker
Alcohol: Former (quit in May )
Drug: None
Living: Assisted Living
Employment: Retired
Family History
Family History: Other (no family hx GI issues, colon CA or polyps)
Allergies / Home Medications
Allergy/AdvReac Type Severity Reaction Status Date / Time
No Known Drug Allergies Allergy Unknown Verified 05/23/23 19:35
�Medication �Instructions �Recorded
albuterol sulfate 90 mcg/actuation 1 inh inhalation R Q4HPRN PRN 11/11/21
aerosol inhaler asthma
atorvastatin 10 mg tablet 10 mg PO QPM High cholesterol 11/11/21
donepezil 10 mg tablet 10 mg PO QPM dementia 11/11/21
metoprolol succinate 25 mg 25 mg PO HS Blood pressure 11/11/21
tablet,extended release 24 hr
(Toprol XL)
sacubitril 49 mg-valsartan 51 mg 1 tab PO BID Heart Failure 11/11/21
tablet (Entresto)
spironolactone 25 mg tablet 12.5 mg PO DAILY Fluid 11/11/21
retention/Swelling
aspirin 81 mg chewable tablet 81 mg PO DAILY Blood Clot 09/13/22
Prevention/Tx
empagliflozin 10 mg tablet 10 mg PO DAILY Diabetes 09/13/22
(Jardiance)
fluticasone 100 mcg-salmeterol 50 1 inh inhalation R BID 09/13/22
mcg/dose blistr powdr for Lung/Breathing Issues
inhalation
furosemide 20 mg tablet 20 mg PO DAILY Fluid 09/13/22
Retention/Swelling
ibuprofen 200 mg tablet 200 mg PO Q8HPRN PRN joint 09/13/22
aches/pain
memantine 10 mg tablet 10 mg PO BID@0900,1700 09/13/22
Neurological Condition
multivitamin 1 tab PO DAILY Supplement 09/13/22
pantoprazole 40 mg tablet,delayed 40 mg PO DAILY Gastrointestinal 09/13/22
release Issue
potassium chloride 20 mEq 20 meq PO DAILY Electrolyte 09/13/22
tablet,extended release Repletion
tiotropium bromide 2.5 2 inh inhalation R DAILY 09/13/22
mcg/actuation mist for inhalation Lung/Breathing Issues
(Spiriva Respimat)
acetaminophen 650 mg 1,300 mg PO BID Pain 05/23/23
tablet,extended release
duloxetine 30 mg capsule,delayed 90 mg PO DAILY Pain 05/23/23
release
levothyroxine 100 mcg tablet 100 mcg PO DAILY Thyroid 05/23/23
lidocaine 5 % topical patch 1 patch topical DAILY lower back 05/23/23
magnesium hydroxide 400 mg/5 mL 30 ml PO DAILYPRN PRN constipation 05/23/23
oral suspension (Milk of Magnesia)
amiodarone 200 mg tablet 200 mg PO DAILY Arrhythmia 12/06/23
Review of Systems
-
History Source: Patient and Family
Constitutional: Reports Fatigue
EENT: Reports No Symptoms
Respiratory: Reports Cough and Trouble Breathing
Cardiac: Reports No Symptoms
Abdomen/GI: Reports Nausea (episodic ), Vomiting and Diarrhea
: Reports No Symptoms
Musculoskeletal: Reports Other (back pain and now new shoulder pain , denies falls )
Skin: Reports No Symptoms
Neurological: Reports Weakness
Endocrine: Reports No Symptoms
Hematologic/Lymphatic: Reports No Symptoms
Vital Signs
Temp Pulse Resp BP Pulse Ox
97.6 F 74 18 118/52 94
12/07/23 07:43 12/07/23 08:55 12/07/23 08:10 12/07/23 08:55 12/07/23 08:10
Physical Exam
Exam
General: Well Developed, Well Nourished and No Apparent Distress
HEENT: Normocephalic and Anicteric
Respiratory: Wheezes
Cardiac: Regular Rhythm
GI: Soft, Non Tender and Non Distended
Rectal: Other (brown heme neg per nursing staff )
Musculoskeletal: No Clubbing and No Cyanosis
Skin: Warm and Dry
Neuro: Awake, Alert and Other (forgetful to most questions )
Psych: Calm
Results
WBC 19.2 10^3/uL (4.8-10.8) H 12/07/23 06:25
Hgb 6.8 g/dL (12.0-16.0) L* 12/07/23 06:25
Hct 23.0 % (37.0-47.0) L 12/07/23 06:25
MCV 68.7 fL (81.0-99.0) L 12/07/23 06:25
Plt Count 318 10^3/uL (130-400) 12/07/23 06:25
Absolute Neuts (auto) 18.1 10^3/uL (1.4-6.5) H 12/07/23 06:25
Sodium 133 mmol/L (135-145) L 12/07/23 06:25
Potassium 4.6 mmol/L (3.5-5.1) 12/07/23 06:25
Chloride 99 mmol/L (98-107) 12/07/23 06:25
Carbon Dioxide 19 mmol/L (22-30) L 12/07/23 06:25
BUN 33 mg/dl (7-17) H 12/07/23 06:25
Creatinine 1.0 mg/dL (0.6-1.0) 12/07/23 06:25
Calcium 9.0 mg/dl (8.4-10.2) 12/07/23 06:25
Total Bilirubin 0.4 mg/dl (0.2-1.3) 12/07/23 06:25
AST 22 U/L (14-36) 12/07/23 06:25
ALT 14 U/L (0-35) 12/07/23 06:25
Alkaline Phosphatase 77 U/L (38-126) 12/07/23 06:25
Diagnostic Image Results:
12/05 CXR Right basilar pneumonia.
12/06 CT a/p pending
Prior GI Procedures:
EGD: in past in [facility] 2013 recall HH
Colonoscopy: 2017 in [place] recall normal
Assessment / Plan
-
Pt is an 83yo present with hx CHF, non ischemic CM, PSVT, HTN, COPD, dementia, HH, chronic back pain with prior surgery, depression,prior ETOH use , hypothyroidism, GERD, IBS-D, ICD/pacer presents to ER with shortness of breath and cough. In ER
noted with fever 102.1 with concern for PNA on admission. She was also noted with iron deficiency anemia with drop in hbg to 6.8 and noted brown heme neg stools. Pt on chronic PPI and carafate that stopped 1 month ago with episode of diarrhea with
nausea and vomiting.
-heme neg iron deficiency anemia
-hx prior anemia with possible fall with internal bleeding several years ago
-episodes of diarrhea with nausea and vomiting- IBS-D vs other
-elevated LDH
-hx GERD and hiatal hernia
-PNA with fever on admission
-hypoxemia
other med problems:
-CHF
-ICD/pacer
-ischemic CM
-chronic back pain
-depression
-PSVT
-HTN
-ETOH abuse quit May 2023
-dementia
-hypothyroidism
PLAN:etiology of IRENE with heme neg stool related to intermittent GI bleeding with HH-- Flaco lesion, PUD, AVM, mass vs other
pt also with bout of diarrhea with vomiting ? overflow with constipation vs other
agree with transfusion/IV iron
trend hbg
limit NSAID with back issues
CT A/p completed await results with prior hx fall with internal bleeding in past to exclude RP bleed
cont current rx for PNA
discussed with pt and daughter for GI work up with EGD/colon for anemia ---can consider IP if drop in hbg vs OP but will need medical optimization as current fever, PNA, hypoxemia
Pt is scheduled GI follow up at [facility] in January if work up deferred to Outpatient setting
-
-
Thank you for consultation and allowing me to participate in the patient's care. Please call the motion graphics designer GI physician during the after hours with any questions or concerns.
[2023-12-07 10:03] LABS: LDH 290 U/L (120-246)
[2023-12-07 10:51] LABS: Vitamin B12 289 pg/ml (239-931)
[2023-12-07] MEDS: SOLU-MEDROL PF 60 MG IV ×2 (10:52→17:06)
[2023-12-07 11:24] LABS: Glucose - Point of Care 203 mg/dl (70-99)
[2023-12-07] MEDS: STERILE WATER FOR INJECTION 10 ML IV (12:04)
[2023-12-07] MEDS: ROCEPHIN 1000 MG IV (12:04)
--- NOTE | 2023-12-07 13:48 | CM ---
Reviewed the chart notes and spoke with the patient and the patient's daughter at the bedside. Receiving 1 unit PRBC for hgb 6.8. Patient continues on supplement O2. CM continues to be available to patient/family and is monitoring medical plan
for needs at discharge.
Plan: Discharge plans will depend on the patient's progress. Hopefully back to [facility] with [facility].
[2023-12-07] MEDS: FERRLECIT 110 MG IV (14:58)
[2023-12-07] MEDS: FLAGYL 500 MG PO (14:58)
[2023-12-07] MEDS: ROBITUSSIN DM 5 ML PO ×2 (15:07→19:40)
--- NOTE | 2023-12-07 15:45 | PN.CDI ---
Addendum entered and electronically signed by Ke Nair MD 12/07/23 16:27:
No sepsis
Original Note:
CDI
- -
CDI:
Physician Documentation Request
Admit Date: 12/06/23 12:43
Dear Doctor Joanie,
Please review the following and provide your response in the progress notes.
Clinical Indicators:
Pt admitted with Rt LL PNA/ COPD exacerbation pt on Ceftriaxone/Doxy/Flagyl
On admission Tmax 102.1 WBC 17.0, HR 95
Documented per H&P, ' R LLL PNA presumed CAP with productive cough, fever and hi WCC Asso. Sepsis ...'
Please update the status of Sepsis documented in the H&P:
Sepsis-POA still being monitored/treated
- Systemic manifestations of infection, with 2 or more SIRS criteria which include:
- Fever >100.4 degrees F or hypothermia < 96.8 degrees F
- Leukocytosis - WBC > 12,000 or leukopenia - WBC < 4,000 or > 10% bands
- Tachycardia > 90 beats per minute
- Tachypnea - RR > 20 breaths per minute or PaCO2 , 32mmHg
Source: Merck Manual 2013
Sepsis POA -resolved
Sepsis- Ruled out
Other
Use of terms such as suspected, likely, concern for, or probable (associated with a specific diagnosis that is being evaluated, monitored, or treated as if it exists) are acceptable and can be coded in the inpatient setting, when documented at the
time of discharge.
Thank you,
Paulina Longoria RN
CDI Specialist
[place] [facility]
Please use your independent medical judgment in providing your response.
[2023-12-07] MEDS: ARICEPT 10 MG PO (17:06)
[2023-12-07] MEDS: LIPITOR 10 MG PO (17:06)
[2023-12-07 17:21] LABS: Glucose - Point of Care 309 mg/dl (70-99)
[2023-12-07] MEDS: NOVOLOG FLEXPEN-LOW RESISTANCE 4 UNITS SC (17:21)
[2023-12-07] MEDS: PROTONIX 40 MG PO (19:34)
[2023-12-07] MEDS: TOPROL XL PO (21:38)
[2023-12-07] MEDS: LIDOCAINE 4% PATCH 1 PATCH TOPICAL (21:39)
[2023-12-07 21:42] LABS: Glucose - Point of Care 198 mg/dl (70-99)
[2023-12-08] VITALS (8 sets, daily range): BP systolic 107–141; BP diastolic 38–69; PULSE 91; O2SAT 95; BMI 37.8
[2023-12-08] MEDS: FLAGYL 500 MG PO ×4 (00:11→23:49)
[2023-12-08] MEDS: ANESTHETIC LOZENGE 1 LOZENGE PO ×5 (00:14→22:34)
[2023-12-08] MEDS: ROBITUSSIN DM 5 ML PO ×5 (00:14→22:30)
[2023-12-08] MEDS: TYLENOL 650 MG PO (01:13)
[2023-12-08] MEDS: SOLU-MEDROL PF 60 MG IV ×3 (01:14→17:01)
[2023-12-08] MEDS: SYNTHROID 100 MCG PO (05:37)
[2023-12-08 07:19] LABS: Hematocrit 27.7 % (37.0-47.0); Hemoglobin 8.5 g/dL (12.0-16.0); Mean Corp Hgb Conc. 30.7 g/dL (33.0-37.0); Mean Corpuscular Volume 71.6 fL (81.0-99.0); Mean Platelet Volume 9.7 fL (7.4-10.4); Platelet Count 327 10^3/uL (130-400); Red Blood Cell Count 3.87 10^6/uL (4.20-5.40); Red Cell Dist. Width 19.2 % (11.5-14.5); White Blood Cell Count 23.3 10^3/uL (4.8-10.8)
[2023-12-08 07:22] LABS: INR 1.07; PT 13.9 Sec (11.4-14.6)
[2023-12-08 07:45] LABS: Glucose - Point of Care 191 mg/dl (70-99)
[2023-12-08 07:46] LABS: ALT (SGPT) 15 U/L (0-35); AST (SGOT) 24 U/L (14-36); Albumin 3.8 g/dl (3.5-5.0); Alkaline Phosphatase 85 U/L (38-126); Blood Urea Nitrogen 26 mg/dl (7-17); Calcium 9.3 mg/dl (8.4-10.2); Carbon Dioxide 19 mmol/L (22-30); Chloride 102 mmol/L (98-107); Estimated Creatinine Clearance 52 ml/min; Glucose 197 mg/dl (70-99); Potassium 4.4 mmol/L (3.5-5.1); Sodium 137 mmol/L (135-145); Total Bilirubin 0.5 mg/dl (0.2-1.3); Total Protein 6.1 g/dl (6.3-8.2); eGFR > 60.00
[2023-12-08] MEDS: ADVAIR HFA 45/21 MCG INHALER 2 PUFF INH ×2 (08:03→19:31)
[2023-12-08] MEDS: XOPENEX 1.25 MG INHALANT SOLUTION INH ×3 (08:04→19:30)
[2023-12-08 08:41] LABS: % Basophils 0.1 % (0-2); % Immature Granulocytes 1.6 % (0-0.5); % Lymphocytes 1.9 % (20.5-51.1); % Monocytes 3.1 % (1.7-9.3); % Neutrophils 93.3 % (42.2-75.2); Absolute Immature Granulocytes 0.4 10^3/uL (0-0.05); Absolute Lymphocytes 0.4 10^3/uL (1.2-3.4); Absolute Monocytes 0.7 10^3/uL (0.1-0.6); Absolute Neutrophils 21.7 10^3/uL (1.4-6.5); Nucleated Red Blood Cells % 0 %
--- NOTE | 2023-12-08 09:40 | W.PN.GI.CBS2 ---
Today's Communication / Plan
-
-- No recommendations other than continue the IV iron, twice daily PPI for now. Will come back in a few days and see how she is doing. If she has any significant clinically overt GI bleeding, please call us sooner
-- Discussed with daughter
Assessment / Plan
-
Pt is an 83yo present with hx CHF, non ischemic CM, PSVT, HTN, COPD, dementia, HH, chronic back pain with prior surgery, depression,prior ETOH use , hypothyroidism, GERD, IBS-D, ICD/pacer presents to ER with shortness of breath and cough. In ER
noted with fever 102.1 with concern for PNA on admission. She was also noted with iron deficiency anemia with drop in hbg to 6.8 and noted brown heme neg stools. Pt on chronic PPI and carafate that stopped 1 month ago with episode of diarrhea with
nausea and vomiting.
-heme neg iron deficiency anemia
-hx prior anemia with possible fall with internal bleeding several years ago
-episodes of diarrhea with nausea and vomiting- IBS-D vs other
-elevated LDH
-hx GERD and hiatal hernia
-PNA with fever on admission
-hypoxemia
other med problems:
-CHF
-ICD/pacer
-ischemic CM
-chronic back pain
-depression
-PSVT
-HTN
-ETOH abuse quit May 2023
-dementia
-hypothyroidism
PLAN:etiology of IRENE with heme neg stool related to intermittent GI bleeding with HH-- Flaco lesion, PUD, AVM, mass vs other
pt also with bout of diarrhea with vomiting ? overflow with constipation vs other
agree with transfusion/IV iron
trend hbg
limit NSAID with back issues
CT A/p completed await results with prior hx fall with internal bleeding in past to exclude RP bleed
cont current rx for PNA
discussed with pt and daughter for GI work up with EGD/colon for anemia ---can consider IP if drop in hbg vs OP but will need medical optimization as current fever, PNA, hypoxemia
Pt is scheduled GI follow up at [facility] in January if work up deferred to Outpatient setting
# Asymptomatic iron deficiency anemia with brown heme-negative stools
-- Patient has no overt bleeding, she is hemodynamically stable
--Hemoglobin responded well to 1 unit of blood
-- She is absolutely iron deficient and agree with IV iron daily while here
-- She has no significant GI symptoms other than heartburn and has a known large hiatal hernia which can also be the cause of chronic iron deficiency anemia agree with PPI twice daily is fine.
-- Check hemoglobin in the morning, no plans for endoscopic workup until her pulmonary status improves.
-- Conversation with the daughter and the patient at the bedside. Currently we will be more conservative and give iron infusion, blood if needed. Will possibly proceed with endoscopy but no current desire for prep and colonoscopy per patient
-- Etiology of the iron deficiency anemia could possibly be her large hiatal hernia. Cannot rule out malignancy and all iron deficiency anemia in an adult is GI blood loss until proven otherwise. Patient is not a good surgical candidate for repair
--My recommendation would be to get a unit of blood, get IV iron each day while here up to a maximum of 5 bags, then monitor hemoglobin as an outpatient. If she has significant transfusion requirements because of this anemia would then proceed to
endoscopic workup otherwise would hold off as benefits would be low. She has no overt bleeding and is even heme-negative. Would be putting her more at risk doing the procedure.
-- Okay for diet
-- Will come back in a few days to reassess. Her daughter seems to be more aggressive
Subjective
Subjective
Date of Service: December 08, 2023
Patient is off the floor for a VSE ordered by hospitalist.
Stool yesterday was brown and heme-negative
Objective
Data Reviewed
Laboratory Data:
Laboratory Results
12/08/23 06:45
12/08/23 06:45
Laboratory Results
PT 13.9 Sec (11.4-14.6) 12/08/23 06:45
INR 1.07 12/08/23 06:45
Total Bilirubin 0.5 mg/dl (0.2-1.3) 12/08/23 06:45
AST 24 U/L (14-36) 12/08/23 06:45
ALT 15 U/L (0-35) 12/08/23 06:45
Alkaline Phosphatase 85 U/L (38-126) 12/08/23 06:45
Vital Signs and I&O:
Vital Signs
Temp Pulse Resp BP Pulse Ox
98.3 F 83 18 116/41 92
12/08/23 07:23 12/08/23 08:07 12/08/23 08:07 12/08/23 07:23 12/08/23 08:07
I&O
12/07/23 12/08/23 12/09/23
06:59 06:59 06:59
Intake Total 960 / 960 1210 / 1210
Balance 960 / 960 1210 / 1210
--- NOTE | 2023-12-08 09:45 | CON.PUL ---
Consultation
Consultation Request
Date/Time Consultation Requested: 12/08/2023846
Date/Time Consultation Performed: 12/08/2023939
Requesting Provider: Dr. Nair
Performing Provider: Dr. Stevens
Reason for Consultation: Hypoxia/Pneumonia/COPD
Medical History
-
Chief Complaint: Cough/SOB
History of Present Illness:
83-year-old female non-smoker with a past medical history of chronic systolic heart failure, NICM s/p ICD, dementia, hypertension, history of V-fib, QTc prolongation, GERD and history of LBBB who presents with cough X 2 weeks + SOB. Patient lives
at [facility]. When EMS arrived she was 88% on room air and she was placed to 4 L/min and saturations improved to 96%. Her cough has been productive. In the ER she was febrile to 102.1 �F, pulse rate 92, breathing at 18
breaths/min, BP 141/65 and saturating 96% on 2 L/min nasal cannula. Initial labs showed leukocytosis to 17, anemia to 8.5, chloride 97, sodium 134, low iron saturation of 5% with elevated TIBC of 547ug/dl, negative troponin of <0.012, elevated
proBNP of 663, and COVID antigen negative. Flu A/B was also negative; blood culture was collected, and CXR showed right basilar pneumonia. She was given Tylenol in the ER, ceftriaxone/Zithromax, DuoNebs, Decadron 10 mg + IV fluids with NS 0.9% x
500cc. She was admitted to the hospitalist team and now pulmonary service consulted for additional management/recommendations.
When I saw the patient she was in her room, sitting in a chair, in no acute distress. She is a poor historian. She currently has a dry cough. She is not sure why she is taking Advair at home and says that she may have a history of asthma. She is
currently on 3 L/min nasal cannula. She overall feels okay although she says that she wants 'a new body.' She denies daily alcohol use but says that 'if she could find it, then she would drink it.' She denies ZAPATA, chest pain, abdominal pain,
nausea, fevers or chills.
PMHx: NICM s/p ICD (A sensed; V paced), chronic systolic heart failure, hypertension, dementia, history of VF, history of QTc prolongation, hyperlipidemia, hypothyroidism, GERD, history of LBBB
PSHx: Back surgery, ICD placement, bilateral knee replacement, hysterectomy
Past Medical History
Past Medical History: Other (Above as per HPI)
Past Surgical History: Other (Above as per HPI)
Social History
Tobacco: Non-smoker
Alcohol: Occasional
Drug: None
Living: Assisted Living
Family History
Family History: CAD (Mother)
Allergies / Home Medications
Allergies
Allergy/AdvReac Type Severity Reaction Status Date / Time
No Known Drug Allergies Allergy Unknown Verified 05/23/23 19:35
Home Medications
�Medication �Instructions �Recorded �Confirmed �Last Taken �Type
albuterol sulfate 90 mcg/actuation 1 inh inhalation R Q4HPRN PRN 11/11/21 12/06/23 Unknown History
aerosol inhaler asthma
atorvastatin 10 mg tablet 10 mg PO QPM High cholesterol 11/11/21 12/06/23 05/22/23 18:11 History
donepezil 10 mg tablet 10 mg PO QPM dementia 11/11/21 12/06/23 05/22/23 18:11 History
metoprolol succinate 25 mg 25 mg PO HS Blood pressure 11/11/21 12/06/23 05/22/23 18:11 History
tablet,extended release 24 hr
(Toprol XL)
sacubitril 49 mg-valsartan 51 mg 1 tab PO BID Heart Failure 11/11/21 12/06/23 05/23/23 06:47 History
tablet (Entresto)
spironolactone 25 mg tablet 12.5 mg PO DAILY Fluid 11/11/21 12/06/23 05/23/23 06:47 History
retention/Swelling
aspirin 81 mg chewable tablet 81 mg PO DAILY Blood Clot 09/13/22 12/06/23 05/23/23 06:47 History
Prevention/Tx
empagliflozin 10 mg tablet 10 mg PO DAILY Diabetes 09/13/22 12/06/23 05/23/23 06:47 History
(Jardiance)
fluticasone 100 mcg-salmeterol 50 1 inh inhalation R BID 09/13/22 12/06/23 05/23/23 06:47 History
mcg/dose blistr powdr for Lung/Breathing Issues
inhalation
furosemide 20 mg tablet 20 mg PO DAILY Fluid 09/13/22 12/06/23 05/23/23 06:47 History
Retention/Swelling
ibuprofen 200 mg tablet 200 mg PO Q8HPRN PRN joint 09/13/22 12/06/23 08/05/22 15:20 History
aches/pain
memantine 10 mg tablet 10 mg PO BID@0900,1700 09/13/22 12/06/23 05/23/23 09:14 History
Neurological Condition
multivitamin 1 tab PO DAILY Supplement 09/13/22 12/06/23 05/23/23 06:47 History
pantoprazole 40 mg tablet,delayed 40 mg PO DAILY Gastrointestinal 09/13/22 12/06/23 05/23/23 06:47 History
release Issue
potassium chloride 20 mEq 20 meq PO DAILY Electrolyte 09/13/22 12/06/23 05/23/23 06:47 History
tablet,extended release Repletion
tiotropium bromide 2.5 2 inh inhalation R DAILY 09/13/22 12/06/23 05/23/23 06:47 History
mcg/actuation mist for inhalation Lung/Breathing Issues
(Spiriva Respimat)
acetaminophen 650 mg 1,300 mg PO BID Pain 05/23/23 12/06/23 05/23/23 06:47 History
tablet,extended release
duloxetine 30 mg capsule,delayed 90 mg PO DAILY Pain 05/23/23 12/06/23 05/23/23 09:14 History
release
levothyroxine 100 mcg tablet 100 mcg PO DAILY Thyroid 05/23/23 12/06/23 05/23/23 06:47 History
lidocaine 5 % topical patch 1 patch topical DAILY lower back 05/23/23 12/06/23 05/23/23 06:47 History
magnesium hydroxide 400 mg/5 mL 30 ml PO DAILYPRN PRN constipation 05/23/23 12/06/23 Unknown History
oral suspension (Milk of Magnesia)
amiodarone 200 mg tablet 200 mg PO DAILY Arrhythmia 12/06/23 12/06/23 Unknown History
Review of Systems
-
History Source: Patient
All other systems: Negative unless noted
Vitals / Labs / Diagnostic Testing
Vital Signs
Temp Pulse Resp BP Pulse Ox
98.3 F 83 18 116/41 92
12/08/23 07:23 12/08/23 08:07 12/08/23 08:07 12/08/23 07:23 12/08/23 08:07
Lab Data
12/08/23 06:45
12/08/23 06:45
Laboratory Results
12/08/23
06:45
PT 13.9
INR 1.07
Microbiology
12/07/23 11:23 Urine Legionella Urinary Antigen - Final
Negative for Legionella pneumophila Serogroup 1 antigen.
A negative result does not rule out the possiblity of
Legionella infection due to other serogroups or species of
Legionella. Clinical correlation is recommended.
12/07/23 11:23 Urine Streptococcus pneumoniae Antigen (M - Final
Negative for Streptococcus pneumoniae antigen.
A negative result does not exclude infection with
Streptococcus pneumoniae. Clinical correlation is
recommended.
12/06/23 10:08 Blood/Venous Blood Culture - Preliminary
No Growth in 24 hours- Final report to follow
12/06/23 10:08 Nasal Swab Influenza Types A & B (LEONARDO) - Final
Negative for Influenza A & B, NAAT
Negative results must be combined with clinical observations
and patient history.
Nucleic Acid Amplification test (NAAT)performed on the
[employer] NOW platform.
Diagnostic Testing:
Physical Exam
-
HEENT: Normocephalic, Anicteric and Other (Morbidly obese/deconditioned)
Cardiovascular: S1/S2, Murmur (REUBEN heard best at RUSB) and Peripheral Edema (negative)
Respiratory: Wheeze (negative), Rales (negative) and Rhonchi (Right hemithorax and posterior lung field)
GI: Soft, Distended (Abdominal obesity), Non Tender and Normal Bowel Sounds
Neurology: Awake, Alert and Tremors (negative)
Skin: Warm and Dry
General: Respiratory Distress (negative), Comfortable, Fever (negative) and Chills (negative)
Assessment
-
Assessment: 83-year-old female non-smoker with a past medical history of chronic systolic heart failure, NICM s/p ICD, dementia, hypertension, history of V-fib, QTc prolongation, GERD and history of LBBB who presents with cough X 2 weeks + SOB.
Patient lives at [facility]. When EMS arrived she was 88% on room air and she was placed to 4 L/min and saturations improved to 96%. Her cough has been productive. In the ER she was febrile to 102.1 �F, pulse rate 92, breathing
at 18 breaths/min, BP 141/65 and saturating 96% on 2 L/min nasal cannula. Initial labs showed leukocytosis to 17, anemia to 8.5, chloride 97, sodium 134, low iron saturation of 5% with elevated TIBC of 547ug/dl, negative troponin of <0.012,
elevated proBNP of 663, and COVID antigen negative. Flu A/B was also negative; blood culture was collected, and CXR showed right basilar pneumonia. She was given Tylenol in the ER, ceftriaxone/Zithromax, DuoNebs, Decadron 10 mg + IV fluids with NS
0.9% x 500cc. She was admitted to the hospitalist team and now pulmonary service consulted for additional management/recommendations.
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
asthma/COPD
Impression:
#Cough/shortness of breath due to R-sided CAP - given her moderate-large hiatal hernia, aspiration is of concern; SOB is also in part due to symptomatic anemia
#Abnormal CT chest from 12/07/2023 with groundglass + nodular opacities in the RUL + RML with consolidation in the right lower lobe, concerning for multifocal PNA
#Acute respiratory failure with hypoxia on supplemental oxygen due to above
#Acute on chronic anemia (baseline Hb: 10.5�12g/dL) - she is stool Hemoccult negative
#IRENE
#Hyponatremia
#Hyperglycemia with history of prediabetes (HbA1c: 5.9 - 12/07/2023)
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
#Chronic QTc prolongation
#Hypothyroidism
#Chronic systolic heart failure/NICM s/p ICD
#Reported Hx of asthma/COPD on Advair
Plan:
- Continue with broad spectrum antibiotics, currently on ceftriaxone, PO flagyl + doxycycline; s/p Zithromax x 1 dose, which was stopped as QTc prolonged (513ms on 12/06/2023)
- Would plan for at least 7 days of ABx assuming she continues to improve and remains afebrile for 48 hrs prior to stopping ABx
- Check sputum Cx and follow up BCx (12/06/2023 - NGTD)
- Although she has a history of being on amiodarone which was started in February 2023, I do not see diffuse groundglass opacities or septal thickening, plus this usually comes with a nonproductive cough hence doubtful this is amiodarone pulmonary
toxicity
- Maintain SpO2 >90-94% with supplemental O2 and wean as tolerated
- Check walking pulse oximetry prior to discharge
- Aspiration precautions
- Anti-tussants prn
- She will need outpatient follow up imaging with repeat CT chest without contrast in 4-6 weeks to follow pneumonia to resolution; I will arrange for outpatient pulmonary follow up
- Continue to monitor Hb with serial CBC, and transfuse as needed to keep >7g/dl; keep plt>50k
- Last transfusion on 12/07/2023 with 1 unit PRBC with appropriate rise in Hb
- GI following
- No urgent need for endoscopy given her pneumonia we are actively treating and her hypoxia
- Follow up with GI as an outpatient
- Continue iron supplementation as per GI
- PPI
- Diet as per GI
- Advair is on her medication list however she has no prior PFTs/spirometry for me to review. She reportedly has a Hx of COPD. Will need to obtain prior medical records to confirm this
- Continue Advair 45 mcg with Xopenex TID and prn DuoNebs while inpatient, and outpatient follow-up will be arranged for full PFTs and management of her maintenance inhaler
- Given her continued SOB and hypoxia, continue systemic steroids and wean as tolerated
- Currently on solumedrol 60mg IV q8hr (started 12/06 s/p decadron 10mg IV x1 in ER on 12/05)
- Could start weaning tomorrow to 40 mg IV q8hr
- Mucolytics and anti-tussants prn
- Continue lasix and monitor I/O, trend UOP and sCr
- Continue Entresto + aldactone
- Trend sNa
- Incentive spirometer encouraged
- PT/OT
- Replete electrolytes with K>4, Mg>2
- Maintain euglycemia with goal BG >100 and <180
- prn nebulized bronchodilators
- DVT ppx - SCDs for now until Hb is stable for >48 hrs
Pulmonary service will continue to follow along.
Data:
CT Chest without contrast 12/07/2023:
Nonspecific vague groundglass opacity in the right upper and right middle lobes new in the interval since prior study (CTA chest 09/13/2022)
Some patchy right lower lobe opacification which could represent pneumonia as well as some additional bilateral lower lobe subsegmental atelectasis.
No pneumothorax or pleural effusion.
Cardiomegaly again noted.
Moderate to large hiatal hernia again noted.
CXR 12/06/2023: Right basilar pneumonia.
Total time spent today was 75 minutes for this encounter. Time includes reviewing laboratory test/imaging results, reviewing pertinent medical records, obtaining and reviewing medical history, performing an appropriate exam, ordering medications,
tests and procedures. Time also includes documentation of this encounter, coordinating patient care and communicating with other healthcare professionals. Total time does not include separately billed tests performed on this date of service.
[2023-12-08] MEDS: NAMENDA 10 MG PO ×2 (09:57→17:00)
[2023-12-08] MEDS: ALDACTONE 12.5 MG PO (09:57)
[2023-12-08] MEDS: VIBRAMYCIN 100 MG PO ×2 (09:58→20:19)
[2023-12-08] MEDS: CYMBALTA DELAYED RELEASE 90 MG PO (09:58)
[2023-12-08] MEDS: ENTRESTO 49 MG/51 MG 1 TAB PO ×2 (09:58→20:20)
--- NOTE | 2023-12-08 09:58 | W.PN.HOSP.TC ---
Today's Communication/Plan
-
cont steroids and abx
Pulm consult
Assessment / Plan
Assessment / Plan
83yo F with PMHx of dementia, HFrEF, GERD, asthma/COPD, diverticulosis, hypothyroidism, PSVT s/p AICD and PPM brought from independent living with cough, complained for sore throat, manaed for pneumoniaalso found severe IRENE and COPD exacerbation.
A/P:
#RUL, RML and RLL pneumonia, with unspecified ]organism, concern for aspiration
Ceftriaxone/Doxy/Flagyl
Check sputum Cx if possible
Legionella and Strep.throat urinary Ag neg
Robitussin
CT chest: no pneumothorax
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
#Acute hypoxic insufficiency 2/2 COPD exacerbation
Steroids taper
Bronchodilators
Wean off O2
Pulm consult
#Anemia, severe IRENE
#Hx of severe diverticulosis
Iron IV
LDH minimally elevated 2/2 acute disease
s/p 1 unit PRBC on 12/07/23
PPI BID, GI consult - will need EGD, but will pospone until resolution of current acute respiratory problems, unless over bleeding
FOBT neg
hold ASA
#Chronic HFpEF
#HLD
#PSVT s/p PPM
#Essential HTN
#Hx of alcohol abuse
#Dementia, unspecified
#Hypothyroidism
cont home meds
telemetry - no VT seen
No signs of fluid overload. proBNP less then on previous admissions and no radiographic pulmonary edema
#PreDM
advise low carb diet
DVT ppx SCDs
DNR/DNI
I have spent at least 59min reviewing chart, test results, communication with consultants, family and direct patient care
Anticipated Discharge: > 48 hours
Subjective/Interval History
-
Date of Service: December 08, 2023
Objective Data
-
Labs:
Laboratory Results
12/08/23
06:45
WBC 23.3 H
Hgb 8.5 L D
Hct 27.7 L
Plt Count 327
PT 13.9
INR 1.07
Sodium 137
Potassium 4.4
Chloride 102
Carbon Dioxide 19 L
BUN 26 H
Creatinine 0.8
Glucose 197 H
Calcium 9.3
Total Bilirubin 0.5
AST 24
ALT 15
Alkaline Phosphatase 85
Vital Signs:
Vital Signs
Temp Pulse Resp BP Pulse Ox
98.3 F 83 18 116/41 92
12/08/23 07:23 12/08/23 08:07 12/08/23 08:07 12/08/23 07:23 12/08/23 08:07
I&O
12/07/23 12/08/23 12/09/23
06:59 06:59 06:59
Intake Total 960 / 960 1210 / 1210
Balance 960 / 960 1210 / 1210
Review of Systems
-
History Source: Patient
All other systems: Reviewed and negative
Respiratory: Reports Cough and Trouble Breathing
Physical Exam
-
General: No Apparent Distress
Respiratory: Wheezes
Cardiac: Regular Rhythm
GI: Soft and Nontender
Musculoskeletal: No Clubbing, No Cyanosis and No Edema
Neuro: Awake, Alert, Oriented and AO x 3
Psych: Calm
[2023-12-08] MEDS: PROTONIX 40 MG PO ×2 (09:59→20:24)
[2023-12-08] MEDS: LASIX 20 MG PO (09:59)
[2023-12-08] MEDS: THERAGRAN 1 TABLET PO (09:59)
[2023-12-08] MEDS: NOVOLOG FLEXPEN-LOW RESISTANCE 1 UNITS SC (09:59)
--- NOTE | 2023-12-08 10:34 | PTOTSP ---
Video Swallow Study
Summary: Oral and pharyngeal stages of swallowing are within functional limits. No aspiration occurred. Esophageal sweep was unremarkable.
Recommend:
1. Regular, Thin liquids
2. Medications as best tolerated
3. Strategies: upright positioning, slow rate with breaks for breathing, reflux precautions
4. Oral care 3x daily
No other acute tx warranted at this time.
--- NOTE | 2023-12-08 11:18 | CM ---
Reviewed the chart notes and spoke with the patient's daughter at the bedside. Patient had a VSE today. Results, oral and pharyngeal stages of swallowing are within functional limits. No aspiration occurred. Esophageal sweep was unremarkable.
Pulmonary consult pending. Continues on supplemental O2 @ 3L/min. CM continues to be available to patient/family and is monitoring medical plan for needs at discharge.
Plan: Discharge back to [facility] with and [facility]. Will need VN and PT orders.
[2023-12-08] MEDS: STERILE WATER FOR INJECTION 10 ML IV (12:10)
[2023-12-08] MEDS: ROCEPHIN 1000 MG IV (12:10)
[2023-12-08 12:41] LABS: Glucose - Point of Care 324 mg/dl (70-99)
[2023-12-08] MEDS: NOVOLOG FLEXPEN-LOW RESISTANCE 4 UNITS SC (13:28)
[2023-12-08] MEDS: FERRLECIT 110 MG IV (15:25)
[2023-12-08 16:52] LABS: Glucose - Point of Care 286 mg/dl (70-99)
[2023-12-08] MEDS: ARICEPT 10 MG PO (17:00)
[2023-12-08] MEDS: LIPITOR 10 MG PO (17:00)
[2023-12-08] MEDS: NOVOLOG FLEXPEN-LOW RESISTANCE 3 UNITS SC (17:01)
[2023-12-08 21:59] LABS: Glucose - Point of Care 238 mg/dl (70-99)
[2023-12-08] MEDS: TOPROL XL 25 MG PO (22:30)
[2023-12-08] MEDS: LIDOCAINE 4% PATCH 1 PATCH TOPICAL (22:34)
[2023-12-09] MEDS: SOLU-MEDROL PF 60 MG IV (02:32)
[2023-12-09 03:55] VITALS: BP 117/52
[2023-12-09 05:29] VITALS: BMI 37.9
[2023-12-09] MEDS: SYNTHROID 100 MCG PO (06:19)
[2023-12-09 06:22] LABS: % Basophils 0.1 % (0-2); % Immature Granulocytes 3.5 % (0-0.5); % Lymphocytes 2.7 % (20.5-51.1); % Monocytes 4.1 % (1.7-9.3); % Neutrophils 89.6 % (42.2-75.2); Absolute Immature Granulocytes 0.7 10^3/uL (0-0.05); Absolute Lymphocytes 0.5 10^3/uL (1.2-3.4); Absolute Monocytes 0.8 10^3/uL (0.1-0.6); Absolute Neutrophils 17.9 10^3/uL (1.4-6.5); Hematocrit 27.9 % (37.0-47.0); Hemoglobin 8.4 g/dL (12.0-16.0); Mean Corp Hgb Conc. 30.1 g/dL (33.0-37.0); Mean Corpuscular Hgb 21.8 pg (27.0-31.0); Mean Corpuscular Volume 72.3 fL (81.0-99.0); Mean Platelet Volume 9.8 fL (7.4-10.4); Nucleated Red Blood Cells % 0 %; Platelet Count 326 10^3/uL (130-400); Red Blood Cell Count 3.86 10^6/uL (4.20-5.40); Red Cell Dist. Width 19.9 % (11.5-14.5)
[2023-12-09 06:54] LABS: ALT (SGPT) 16 U/L (0-35); AST (SGOT) 21 U/L (14-36); Albumin 3.7 g/dl (3.5-5.0); Alkaline Phosphatase 84 U/L (38-126); Blood Urea Nitrogen 26 mg/dl (7-17); Calcium 9.3 mg/dl (8.4-10.2); Carbon Dioxide 19 mmol/L (22-30); Chloride 102 mmol/L (98-107); Estimated Creatinine Clearance 52 ml/min; Glucose 176 mg/dl (70-99); Potassium 4.2 mmol/L (3.5-5.1); Sodium 138 mmol/L (135-145); Total Bilirubin 0.3 mg/dl (0.2-1.3); Total Protein 5.8 g/dl (6.3-8.2); eGFR > 60.00
[2023-12-09 07:35] VITALS: BP 114/48
[2023-12-09] MEDS: XOPENEX 1.25 MG INHALANT SOLUTION INH ×3 (07:36→20:58)
[2023-12-09] MEDS: ADVAIR HFA 45/21 MCG INHALER 2 PUFF INH ×2 (07:36→20:59)
[2023-12-09 07:37] LABS: Glucose - Point of Care 180 mg/dl (70-99)
[2023-12-09] MEDS: CYMBALTA DELAYED RELEASE 90 MG PO (08:44)
[2023-12-09] MEDS: VIBRAMYCIN 100 MG PO ×2 (08:44→19:47)
[2023-12-09] MEDS: THERAGRAN 1 TABLET PO (08:44)
[2023-12-09] MEDS: NAMENDA 10 MG PO ×2 (08:44→17:06)
[2023-12-09] MEDS: ANESTHETIC LOZENGE 1 LOZENGE PO ×2 (08:44→21:53)
[2023-12-09] MEDS: LASIX 20 MG PO (08:44)
[2023-12-09] MEDS: PROTONIX 40 MG PO ×2 (08:45→19:47)
[2023-12-09] MEDS: FLAGYL 500 MG PO (08:45)
[2023-12-09] MEDS: ALDACTONE 12.5 MG PO (08:45)
[2023-12-09] MEDS: ENTRESTO 49 MG/51 MG 1 TAB PO ×2 (08:45→19:47)
[2023-12-09] MEDS: NOVOLOG FLEXPEN-LOW RESISTANCE 1 UNITS SC ×2 (08:45→11:57)
[2023-12-09] MEDS: SOLU-MEDROL PF 40 MG IV ×2 (08:51→19:45)
[2023-12-09] MEDS: ROBITUSSIN DM 5 ML PO ×3 (08:51→21:53)
[2023-12-09 09:38] VITALS: BMI 37.9
--- NOTE | 2023-12-09 09:44 | W.PN.PUL3 ---
Today's Communication / Plan
-
Antibiotics
Steroids with taper
anti-tussants
start tessalon perles + nasal ocean spray
PT/OT - rec'd home health on 12/08/2023 eval
Trend Hb and transfuse to keep >7g/dL
PPI per GI
Aspiration precautions
Pulmonary will continue to follow along
Assessment
-
Assessment: 83-year-old female non-smoker with a past medical history of chronic systolic heart failure, NICM s/p ICD, dementia, hypertension, history of V-fib, QTc prolongation, GERD and history of LBBB who presents with cough X 2 weeks + SOB.
Patient lives at [facility]. When EMS arrived she was 88% on room air and she was placed to 4 L/min and saturations improved to 96%. Her cough has been productive. In the ER she was febrile to 102.1 �F, pulse rate 92, breathing
at 18 breaths/min, BP 141/65 and saturating 96% on 2 L/min nasal cannula. Initial labs showed leukocytosis to 17, anemia to 8.5, chloride 97, sodium 134, low iron saturation of 5% with elevated TIBC of 547ug/dl, negative troponin of <0.012,
elevated proBNP of 663, and COVID antigen negative. Flu A/B was also negative; blood culture was collected, and CXR showed right basilar pneumonia. She was given Tylenol in the ER, ceftriaxone/Zithromax, DuoNebs, Decadron 10 mg + IV fluids with NS
0.9% x 500cc. She was admitted to the hospitalist team and now pulmonary service consulted for additional management/recommendations.
Chronic conditions WET SANDER: NICM s/p ICD (A sensed; V paced), chronic systolic heart failure, hypertension, dementia, history of VF, history of QTc prolongation, hyperlipidemia, hypothyroidism, GERD, history of LBBB, depression, reported history of
asthma/COPD
Impression:
#Cough/shortness of breath due to R-sided CAP - given her moderate-large hiatal hernia, aspiration is of concern; SOB is also in part due to symptomatic anemia
#Abnormal CT chest from 12/07/2023 with groundglass + nodular opacities in the RUL + RML with consolidation in the right lower lobe, concerning for multifocal PNA
#Acute respiratory failure with hypoxia on supplemental oxygen due to above
#Acute on chronic anemia (baseline Hb: 10.5�12g/dL) - she is stool Hemoccult negative
#IRENE
#Hyponatremia - resolved
#Hyperglycemia with history of prediabetes (HbA1c: 5.9 - 12/07/2023)
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
#Chronic QTc prolongation
#Hypothyroidism
#Chronic systolic heart failure/NICM s/p ICD
#Reported Hx of asthma/COPD on Advair
Plan:
- Continue with broad spectrum antibiotics, currently on ceftriaxone, PO flagyl + doxycycline; s/p Zithromax x 1 dose, which was stopped as QTc prolonged (513ms on 12/06/2023)
- Would plan for at least 7 days of ABx assuming she continues to improve and remains afebrile for 48 hrs prior to stopping ABx
- Check sputum Cx and follow up BCx (12/06/2023 - NGTD)
- Although she has a history of being on amiodarone which was started in February 2023, I do not see diffuse groundglass opacities or septal thickening, plus this usually comes with a nonproductive cough (her cough was initially productive) hence
doubtful this is amiodarone pulmonary toxicity
- Maintain SpO2 >90-94% with supplemental O2 and wean as tolerated
- Check walking pulse oximetry prior to discharge
- Aspiration precautions
- Anti-tussants prn
- She will need outpatient follow up imaging with repeat CT chest without contrast in 4-6 weeks to follow pneumonia to resolution; I will arrange for outpatient pulmonary follow up
- Continue to monitor Hb with serial CBC, and transfuse as needed to keep >7g/dl; keep plt>50k
- Last transfusion on 12/07/2023 with 1 unit PRBC with appropriate rise in Hb
- GI following
- No urgent need for endoscopy given her pneumonia we are actively treating and her hypoxia
- Follow up with GI as an outpatient
- Continue iron supplementation as per GI
- PPI
- Diet as per GI
- Advair is on her medication list however she has no prior PFTs/spirometry for me to review. She reportedly has a Hx of COPD. Will need to obtain prior medical records to confirm this
- Continue Advair 45 mcg with Xopenex TID and prn DuoNebs while inpatient, and outpatient follow-up will be arranged for full PFTs and management of her maintenance inhaler
- Given her continued SOB and hypoxia, continue systemic steroids and wean as tolerated
- Currently on solumedrol 60mg IV q8hr (started 12/06 s/p decadron 10mg IV x1 in ER on 12/05)
- Could start weaning today to 40 mg IV q12hr
- Mucolytics and anti-tussants prn
- Start Tessalon perles and nasal ocean spray
- Continue lasix and monitor I/O, trend UOP and sCr
- Continue Entresto + aldactone
- Trend sNa
- Incentive spirometer encouraged
- PT/OT
- Replete electrolytes with K>4, Mg>2
- Maintain euglycemia with goal BG >100 and <180
- prn nebulized bronchodilators
- DVT ppx - SCDs for now until Hb is stable for >48 hrs
Pulmonary service will continue to follow along. Outpatient follow-up will be arranged.
Data:
CT Chest without contrast 12/07/2023:
Nonspecific vague groundglass opacity in the right upper and right middle lobes new in the interval since prior study (CTA chest 09/13/2022)
Some patchy right lower lobe opacification which could represent pneumonia as well as some additional bilateral lower lobe subsegmental atelectasis.
No pneumothorax or pleural effusion.
Cardiomegaly again noted.
Moderate to large hiatal hernia again noted.
CXR 12/06/2023: Right basilar pneumonia.
Total time spent today was 35 minutes for this encounter. Time includes reviewing laboratory test/imaging results, reviewing pertinent medical records, obtaining and reviewing medical history, performing an appropriate exam, ordering medications,
tests and procedures. Time also includes documentation of this encounter, coordinating patient care and communicating with other healthcare professionals. Total time does not include separately billed tests performed on this date of service.
Subjective Data
-
Date of Service:
Date of Service: December 09, 2023
Chief Complaint: Pulmonary Follow Up
Subjective:
Patient seen and evaluated today at bedside. She was sitting in chair in no acute distress. She is still coughing (dry) and says she is wheezing. No acute events reported from overnight. She is currently on 2 L/min nasal cannula. She denies
chest pain, ZAPATA, abdominal pain, fevers or chills.
Review of Systems
General: Other (Negative unless mentioned above)
Objective Data
Data Reviewed
Vital Signs / I&O / Oxygen:
Vital Signs
Temp Pulse Resp BP Pulse Ox
98.3 F 87 16 114/48 94
12/09/23 07:35 12/09/23 07:40 12/09/23 07:40 12/09/23 07:35 12/09/23 07:40
Intake and Output
12/08/23 12/09/23 12/10/23
06:59 06:59 06:59
Intake Total 1210 / 1210 850 / 850
Balance 1210 / 1210 850 / 850
SaO2 94
Nasal Cannula flow liters per 3
minute
Physical Exam
General: Respiratory Distress (negative), Comfortable and Chills (negative)
HEENT: Normocephalic and Anicteric
Cardiovascular: S1-S2 and Peripheral Edema (negative)
Respiratory: Crackles (Bilateral), Rhonchi (negative), Non-Labored Respirations and Other (Forced expiratory wheezing when coughing)
GI: Soft, Distended (Abdominal obesity), Non Tender and Normal Bowel Sounds
Neurology: Awake, Alert and Tremors (negative)
Skin: Warm, Dry and Jaundice (negative)
Labs/Micro/Reports
Lab Data
12/09/23 04:51
12/09/23 04:51
Microbiology
12/06/23 10:08 Blood/Venous Blood Culture - Preliminary
No Growth in 72 hours- Final report to follow
12/07/23 11:23 Urine Legionella Urinary Antigen - Final
Negative for Legionella pneumophila Serogroup 1 antigen.
A negative result does not rule out the possiblity of
Legionella infection due to other serogroups or species of
Legionella. Clinical correlation is recommended.
12/07/23 11:23 Urine Streptococcus pneumoniae Antigen (M - Final
Negative for Streptococcus pneumoniae antigen.
A negative result does not exclude infection with
Streptococcus pneumoniae. Clinical correlation is
recommended.
12/06/23 10:08 Nasal Swab Influenza Types A & B (LEONARDO) - Final
Negative for Influenza A & B, NAAT
Negative results must be combined with clinical observations
and patient history.
Nucleic Acid Amplification test (NAAT)performed on the
[employer] platform.
--- NOTE | 2023-12-09 11:17 | W.PN.HOSP.TC ---
Today's Communication/Plan
-
Decreased steroids
stop Flagyl
wean off O2
Assessment / Plan
Assessment / Plan
83yo F with PMHx of dementia, HFrEF, GERD, asthma/COPD, diverticulosis, hypothyroidism, PSVT s/p AICD and PPM brought from independent living with cough, complained for sore throat, managed for pneumonia also found severe IRENE and COPD exacerbation.
Had 1 unit PRBC transfused and planned by GI for outpatient EGD
A/P:
#RUL, RML and RLL pneumonia, with unspecified organism
Ceftriaxone/Doxy
Stop Flagyl since low risk for aspiration
Check sputum Cx if possible
Legionella and Strep.throat urinary Ag neg
Robitussin
CT chest: no pneumothorax
STAFF THERAPIST did VSE -no aspiration
#Acute hypoxic insufficiency 2/2 COPD exacerbation
Steroids taper
Bronchodilators
Wean off O2
Pulm consult: cont current mgmt
#Anemia, severe IRENE
#Hx of severe diverticulosis
Iron IV
LDH minimally elevated 2/2 acute disease
s/p 1 unit PRBC on 12/07/23
PPI BID, GI consult - will need EGD, but will postpone until resolution of current acute respiratory problems, unless over bleeding
FOBT neg
hold ASA
#Chronic HFpEF
#HLD
#PSVT s/p PPM
#Essential HTN
#Hx of alcohol abuse
#Dementia, unspecified
#Hypothyroidism
cont home meds
telemetry - no VT seen
No signs of fluid overload. proBNP less then on previous admissions and no radiographic pulmonary edema
#PreDM
advise low carb diet
DVT ppx SCDs
DNR/DNI
I have spent at least 39min reviewing chart, test results, communication with consultants, family and direct patient care
Anticipated Discharge: > 48 hours
Subjective/Interval History
-
Date of Service: December 09, 2023
Objective Data
-
Labs:
Laboratory Results
12/09/23
04:51
WBC 20.0 H
Hgb 8.4 L
Hct 27.9 L
Plt Count 326
Sodium 138
Potassium 4.2
Chloride 102
Carbon Dioxide 19 L
BUN 26 H
Creatinine 0.8
Glucose 176 H
Calcium 9.3
Total Bilirubin 0.3
AST 21
ALT 16
Alkaline Phosphatase 84
Vital Signs:
Vital Signs
Temp Pulse Resp BP Pulse Ox
98.3 F 87 16 114/48 94
12/09/23 07:35 12/09/23 07:40 12/09/23 07:40 12/09/23 07:35 12/09/23 07:40
I&O
12/08/23 12/09/23 12/10/23
06:59 06:59 06:59
Intake Total 1210 / 1210 850 / 850
Balance 1210 / 1210 850 / 850
Review of Systems
-
History Source: Patient
All other systems: Reviewed and negative
Respiratory: Reports Cough and Trouble Breathing
Physical Exam
-
General: No Apparent Distress
HEENT: Normocephalic and Atraumatic
Respiratory: Negative Wheezes
Cardiac: Regular Rhythm
GI: Soft, Nontender and Nondistended
Skin: Warm; Negative Dry, Rash or Ulcers
Neuro: Awake, Alert, Oriented and AO x 3
Psych: Calm
[2023-12-09 11:25] VITALS: BP 131/66
[2023-12-09 11:56] LABS: Glucose - Point of Care 157 mg/dl (70-99)
[2023-12-09] MEDS: ROCEPHIN 1000 MG IV (11:58)
[2023-12-09] MEDS: STERILE WATER FOR INJECTION 10 ML IV (11:58)
[2023-12-09] MEDS: TYLENOL 650 MG PO (12:02)
[2023-12-09] MEDS: FERRLECIT 110 MG IV (14:00)
--- NOTE | 2023-12-09 14:32 | CM ---
Reviewed the chart notes. Referral sent to [facility]. Patient continues on supplemental O2. CM continues to be available to patient/family and is monitoring medical plan for needs at discharge.
Plan: Discharge back to [facility] when medically stable on [facility] and [facility].
[2023-12-09 15:15] VITALS: BP 144/82
[2023-12-09] MEDS: DUONEB 3 ML INH (16:13)
[2023-12-09] MEDS: LIPITOR 10 MG PO (17:06)
[2023-12-09] MEDS: ARICEPT 10 MG PO (17:06)
[2023-12-09] MEDS: NOVOLOG FLEXPEN-LOW RESISTANCE 3 UNITS SC (17:10)
[2023-12-09 17:11] LABS: Glucose - Point of Care 268 mg/dl (70-99)
[2023-12-09] MEDS: TESSALON PERLES 200 MG PO ×2 (18:03→21:54)
[2023-12-09] MEDS: OCEAN, SALINE MIST 4 SPRAYS NASAL (18:11)
[2023-12-09 19:00] VITALS: BP 134/59
[2023-12-09 21:19] LABS: Glucose - Point of Care 196 mg/dl (70-99)
[2023-12-09] MEDS: TOPROL XL 25 MG PO (21:54)
[2023-12-09] MEDS: LIDOCAINE 4% PATCH 1 PATCH TOPICAL (21:55)
[2023-12-09] MEDS: OCEAN, SALINE MIST 1 SPRAYS NASAL (21:55)
[2023-12-09 23:00] VITALS: BP 130/58
[2023-12-10 02:27] VITALS: BMI 37.9
[2023-12-10 03:09] VITALS: BP 123/57
[2023-12-10] MEDS: SYNTHROID 100 MCG PO (05:43)
[2023-12-10] MEDS: ANESTHETIC LOZENGE 1 LOZENGE PO ×3 (06:44→21:27)
[2023-12-10 07:27] LABS: Glucose - Point of Care 197 mg/dl (70-99)
[2023-12-10 07:30] VITALS: BP 131/64
[2023-12-10 07:33] LABS: Hematocrit 31.2 % (37.0-47.0); Hemoglobin 9.4 g/dL (12.0-16.0); Mean Corp Hgb Conc. 30.1 g/dL (33.0-37.0); Mean Corpuscular Hgb 22.1 pg (27.0-31.0); Mean Corpuscular Volume 73.2 fL (81.0-99.0); Mean Platelet Volume 9.5 fL (7.4-10.4); Platelet Count 373 10^3/uL (130-400); Red Blood Cell Count 4.26 10^6/uL (4.20-5.40); Red Cell Dist. Width 20.2 % (11.5-14.5); White Blood Cell Count 22.7 10^3/uL (4.8-10.8)
[2023-12-10 07:58] LABS: ALT (SGPT) 19 U/L (0-35); AST (SGOT) 21 U/L (14-36); Albumin 3.8 g/dl (3.5-5.0); Alkaline Phosphatase 83 U/L (38-126); Blood Urea Nitrogen 28 mg/dl (7-17); Calcium 9.7 mg/dl (8.4-10.2); Carbon Dioxide 24 mmol/L (22-30); Chloride 100 mmol/L (98-107); Estimated Creatinine Clearance 59 ml/min; Glucose 180 mg/dl (70-99); Potassium 3.9 mmol/L (3.5-5.1); Sodium 138 mmol/L (135-145); Total Bilirubin 0.4 mg/dl (0.2-1.3); eGFR > 60.00
[2023-12-10] MEDS: ADVAIR HFA 45/21 MCG INHALER 2 PUFF INH ×2 (08:22→19:57)
[2023-12-10] MEDS: XOPENEX 1.25 MG INHALANT SOLUTION INH ×3 (08:22→19:57)
[2023-12-10] MEDS: NOVOLOG FLEXPEN-LOW RESISTANCE 1 UNITS SC (09:13)
[2023-12-10] MEDS: NAMENDA 10 MG PO ×2 (09:16→17:20)
[2023-12-10] MEDS: ALDACTONE 12.5 MG PO (09:16)
[2023-12-10] MEDS: TESSALON PERLES 200 MG PO ×3 (09:17→21:19)
[2023-12-10] MEDS: PROTONIX 40 MG PO ×2 (09:17→20:15)
[2023-12-10] MEDS: ENTRESTO 49 MG/51 MG 1 TAB PO ×2 (09:17→20:14)
[2023-12-10] MEDS: VIBRAMYCIN 100 MG PO ×2 (09:18→20:15)
[2023-12-10] MEDS: THERAGRAN 1 TABLET PO (09:18)
[2023-12-10] MEDS: LASIX 20 MG PO (09:18)
[2023-12-10] MEDS: CYMBALTA DELAYED RELEASE 90 MG PO (09:18)
[2023-12-10] MEDS: SOLU-MEDROL PF 40 MG IV ×2 (09:19→20:15)
[2023-12-10] MEDS: OCEAN, SALINE MIST 1 SPRAYS NASAL ×2 (09:20→14:42)
--- NOTE | 2023-12-10 10:41 | W.PN.PUL.V3 ---
Today's Communication / Plan
-
Continue antibiotics
Inhalers and nebulizers
Antitussives
Wean oxygen
Increase activity
Slowly reduce steroids
Assessment
-
Assessment: 83-year-old female non-smoker with a past medical history of chronic systolic heart failure, NICM s/p ICD, dementia, hypertension, history of V-fib, QTc prolongation, GERD and history of LBBB who presents with cough X 2 weeks + SOB.
Patient lives at [facility]. When EMS arrived she was 88% on room air and she was placed to 4 L/min and saturations improved to 96%. Her cough has been productive. In the ER she was febrile to 102.1 �F, pulse rate 92, breathing
at 18 breaths/min, BP 141/65 and saturating 96% on 2 L/min nasal cannula. Initial labs showed leukocytosis to 17, anemia to 8.5, chloride 97, sodium 134, low iron saturation of 5% with elevated TIBC of 547ug/dl, negative troponin of <0.012,
elevated proBNP of 663, and COVID antigen negative. Flu A/B was also negative; blood culture was collected, and CXR showed right basilar pneumonia. She was given Tylenol in the ER, ceftriaxone/Zithromax, DuoNebs, Decadron 10 mg + IV fluids with NS
0.9% x 500cc. She was admitted to the hospitalist team and now pulmonary service consulted for additional management/recommendations.
Chronic conditions LEAD MINER BLASTING: NICM s/p ICD (A sensed; V paced), chronic systolic heart failure, hypertension, dementia, history of VF, history of QTc prolongation, hyperlipidemia, hypothyroidism, GERD, history of LBBB, depression, reported history of
asthma/COPD
Impression:
#Cough/shortness of breath due to R-sided CAP - given her moderate-large hiatal hernia, aspiration is of concern; SOB is also in part due to symptomatic anemia
#Abnormal CT chest from 12/07/2023 with groundglass + nodular opacities in the RUL + RML with consolidation in the right lower lobe, concerning for multifocal PNA
#Acute respiratory failure with hypoxia on supplemental oxygen due to above
#Acute on chronic anemia (baseline Hb: 10.5�12g/dL) - she is stool Hemoccult negative
#IRENE
#Hyponatremia - resolved
#Hyperglycemia with history of prediabetes (HbA1c: 5.9 - 12/07/2023)
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
#Chronic QTc prolongation
#Hypothyroidism
#Chronic systolic heart failure/NICM s/p ICD
#Reported Hx of asthma/COPD on Advair
Plan:
Respiratory status about the same
Continue supplemental oxygen as needed
Aspiration precautions
Antitussives as needed
Saline nasal irrigations
Doubt amiodarone pulmonary toxicity
Advair
DuoNebs
Solu-Medrol wean
Cultures reviewed
Legionella and streptococcal urine antigen negative
Influenza negative
Blood cultures negative
Sputum culture pending
Continue current antibiotics for at least 7 days
Monitor leukocytosis-remains elevated
Monitor hemoglobin
Transfuse as needed
Follow-up with GI as an outpatient-no urgent need for endoscopy
Diet per GI
PPI
Diuresis as tolerated
Monitor renal function, electrolytes, intake/output, lower extremity edema and weight
Replace electrolytes as needed
She will need outpatient follow up imaging with repeat CT chest without contrast in 4-6 weeks to follow pneumonia to resolution; I will arrange for outpatient pulmonary follow up
Outpatient follow-up will be arranged for full PFTs and management of her maintenance inhaler
Data:
CT Chest without contrast 12/07/2023:
Nonspecific vague groundglass opacity in the right upper and right middle lobes new in the interval since prior study (CTA chest 09/13/2022)
Some patchy right lower lobe opacification which could represent pneumonia as well as some additional bilateral lower lobe subsegmental atelectasis.
No pneumothorax or pleural effusion.
Cardiomegaly again noted.
Moderate to large hiatal hernia again noted.
CXR 12/06/2023: Right basilar pneumonia.
Subjective Data
-
Date of Service:
Date of Service: December 10, 2023
Chief Complaint: Pulmonary Follow Up and Dyspnea Follow Up
Subjective:
better, no complaint of increasing shortness of breath, chest pain, abdominal pain
Review of Systems
General: Other (Per HPI)
Objective Data
Data Reviewed
Vital Signs / I&O:
Vital Signs
Temp Pulse Resp BP Pulse Ox
98.8 F 74 20 131/64 93
12/10/23 07:30 12/10/23 09:16 12/10/23 08:31 12/10/23 09:16 12/10/23 08:31
Intake and Output
12/09/23 12/10/23 12/11/23
06:59 06:59 06:59
Intake Total 850 / 850 1250 / 1250
Balance 850 / 850 1250 / 1250
SaO2: 93
Nasal Cannula flow liters per minute: 2
Physical Exam
General: Respiratory Distress (negative), Comfortable and Chills (negative)
HEENT: Normocephalic and Anicteric
Cardiovascular: S1-S2 and Peripheral Edema (negative)
Respiratory: Crackles (Bilateral), Rhonchi (negative), Non-Labored Respirations and Other (Forced expiratory wheezing when coughing)
GI: Soft, Distended (Abdominal obesity), Non Tender and Normal Bowel Sounds
Neurology: Awake, Alert and Tremors (negative)
Skin: Warm, Dry and Jaundice (negative)
Labs/Micro/Reports
Lab Data
12/10/23 06:59
12/10/23 06:59
Microbiology
12/06/23 10:08 Blood/Venous Blood Culture - Preliminary
No Growth in 4 days- Final report to follow
12/07/23 11:23 Urine Legionella Urinary Antigen - Final
Negative for Legionella pneumophila Serogroup 1 antigen.
A negative result does not rule out the possiblity of
Legionella infection due to other serogroups or species of
Legionella. Clinical correlation is recommended.
12/07/23 11:23 Urine Streptococcus pneumoniae Antigen (M - Final
Negative for Streptococcus pneumoniae antigen.
A negative result does not exclude infection with
Streptococcus pneumoniae. Clinical correlation is
recommended.
[2023-12-10 11:09] VITALS: BMI 37.9
--- NOTE | 2023-12-10 11:36 | W.PN.HOSP.TC ---
Today's Communication/Plan
-
Cont Abx and steroids
Lasix once
Wean off O2
Check proBNP
Assessment / Plan
Assessment / Plan
83yo F with PMHx of dementia, HFrEF, GERD, asthma/COPD, diverticulosis, hypothyroidism, PSVT s/p AICD and PPM brought from independent living with cough, complained for sore throat, managed for pneumonia also found severe IRENE and COPD exacerbation.
Had 1 unit PRBC transfused and planned by GI for outpatient EGD
A/P:
#RUL, RML and RLL pneumonia, with unspecified organism
Ceftriaxone/Doxy
Stop Flagyl since low risk for aspiration
Check sputum Cx if possible
Legionella and Strep.throat urinary Ag neg
Robitussin
CT chest: no pneumothorax
SCHOOL PHOTOGRAPHS DETAILER did VSE -no aspiration
#Acute hypoxic insufficiency 2/2 COPD exacerbation
#cannot exclude mild superimposed acute on chronic HFrEF exacerbation
Lasix, follow electrolytes
Steroids taper
Bronchodilators
Wean off O2
Pulm consult: cont current mgmt
#Anemia, severe IRENE
#Hx of severe diverticulosis
Iron IV
LDH minimally elevated 2/2 acute disease
s/p 1 unit PRBC on 12/07/23
PPI BID, GI consult - will need EGD, but will postpone until resolution of current acute respiratory problems, unless over bleeding
FOBT neg
hold ASA
#Chronic HFpEF
#HLD
#PSVT s/p PPM
#Essential HTN
#Hx of alcohol abuse
#Dementia, unspecified
#Hypothyroidism
cont home meds
telemetry - no VT seen
No signs of fluid overload. proBNP less then on previous admissions and no radiographic pulmonary edema
#PreDM
advise low carb diet
DVT ppx SCDs
DNR/DNI
I have spent at least 39min reviewing chart, test results, communication with consultants, family and direct patient care
Anticipated Discharge: > 48 hours
Subjective/Interval History
-
Date of Service: December 10, 2023
Objective Data
-
Labs:
Laboratory Results
12/10/23
06:59
WBC 22.7 H
Hgb 9.4 L
Hct 31.2 L
Plt Count 373
Sodium 138
Potassium 3.9
Chloride 100
Carbon Dioxide 24
BUN 28 H
Creatinine 0.7
Glucose 180 H
Calcium 9.7
Total Bilirubin 0.4
AST 21
ALT 19
Alkaline Phosphatase 83
Vital Signs:
Vital Signs
Temp Pulse Resp BP Pulse Ox
98.8 F 74 20 131/64 93
12/10/23 07:30 12/10/23 09:16 12/10/23 08:31 12/10/23 09:16 12/10/23 11:09
I&O
12/09/23 12/10/23 12/11/23
06:59 06:59 06:59
Intake Total 850 / 850 1250 / 1250
Balance 850 / 850 1250 / 1250
Review of Systems
-
History Source: Patient
All other systems: Reviewed and negative
Respiratory: Reports Cough and Trouble Breathing
Physical Exam
-
General: No Apparent Distress
HEENT: Normocephalic
Respiratory: Crackles; Negative Wheezes
GI: Soft, Nontender and Nondistended
Neuro: Awake, Alert, Oriented and AO x 3
Psych: Calm
[2023-12-10 11:45] VITALS: BP 120/67
[2023-12-10 12:30] LABS: Glucose - Point of Care 206 mg/dl (70-99)
[2023-12-10] MEDS: STERILE WATER FOR INJECTION 10 ML IV (12:35)
[2023-12-10] MEDS: ROCEPHIN 1000 MG IV (12:35)
[2023-12-10] MEDS: LASIX 40 MG IV (12:37)
[2023-12-10] MEDS: NOVOLOG FLEXPEN-LOW RESISTANCE 4 UNITS SC (12:39)
[2023-12-10] MEDS: TYLENOL 650 MG PO ×2 (12:46→20:15)
[2023-12-10 13:05] LABS: NT-proBNP 858 pg/ml
[2023-12-10] MEDS: ROBITUSSIN DM 5 ML PO (14:43)
[2023-12-10] MEDS: FERRLECIT 110 MG IV (14:44)
[2023-12-10 15:48] VITALS: BP 118/55
[2023-12-10] MEDS: ARICEPT 10 MG PO (17:19)
[2023-12-10] MEDS: LIPITOR 10 MG PO (17:20)
[2023-12-10 17:23] LABS: Glucose - Point of Care 224 mg/dl (70-99)
[2023-12-10] MEDS: NOVOLOG FLEXPEN-LOW RESISTANCE 2 UNITS SC (17:23)
[2023-12-10] MEDS: OCEAN, SALINE MIST NASAL ×2 (17:26→21:28)
[2023-12-10 19:24] VITALS: BP 105/63
[2023-12-10] MEDS: TOPROL XL 25 MG PO (21:15)
[2023-12-10] MEDS: LIDOCAINE 4% PATCH 1 PATCH TOPICAL (21:19)
[2023-12-10] MEDS: ANESTHETIC LOZENGE PO (21:21)
[2023-12-10 22:03] LABS: Glucose - Point of Care 223 mg/dl (70-99)
[2023-12-10 23:35] VITALS: BP 112/56
[2023-12-11 03:13] VITALS: BP 115/48
[2023-12-11] MEDS: SYNTHROID 100 MCG PO (05:51)
[2023-12-11] MEDS: ANESTHETIC LOZENGE 1 LOZENGE PO ×4 (05:55→20:01)
[2023-12-11 06:00] VITALS: BMI 37.9
--- NOTE | 2023-12-11 07:17 | W.PN.PUL.V3 ---
Today's Communication / Plan
-
Wean oxygen
Intensify mucolytic's
Antitussives
Check sputum culture
Consider broadening antibiotics
Gentle diuresis
Increase steroids
Assessment
-
Assessment: 83-year-old female non-smoker with a past medical history of chronic systolic heart failure, NICM s/p ICD, dementia, hypertension, history of V-fib, QTc prolongation, GERD and history of LBBB who presents with cough X 2 weeks + SOB.
Patient lives at [facility]. When EMS arrived she was 88% on room air and she was placed to 4 L/min and saturations improved to 96%. Her cough has been productive. In the ER she was febrile to 102.1 �F, pulse rate 92, breathing
at 18 breaths/min, BP 141/65 and saturating 96% on 2 L/min nasal cannula. Initial labs showed leukocytosis to 17, anemia to 8.5, chloride 97, sodium 134, low iron saturation of 5% with elevated TIBC of 547ug/dl, negative troponin of <0.012,
elevated proBNP of 663, and COVID antigen negative. Flu A/B was also negative; blood culture was collected, and CXR showed right basilar pneumonia. She was given Tylenol in the ER, ceftriaxone/Zithromax, DuoNebs, Decadron 10 mg + IV fluids with NS
0.9% x 500cc. She was admitted to the hospitalist team and now pulmonary service consulted for additional management/recommendations.
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
asthma/COPD
Impression:
#Cough/shortness of breath due to R-sided CAP - given her moderate-large hiatal hernia, aspiration is of concern; SOB is also in part due to symptomatic anemia
#Abnormal CT chest from 12/07/2023 with groundglass + nodular opacities in the RUL + RML with consolidation in the right lower lobe, concerning for multifocal PNA
#Acute respiratory failure with hypoxia on supplemental oxygen due to above
#Acute on chronic anemia (baseline Hb: 10.5�12g/dL) - she is stool Hemoccult negative
#IRENE
#Hyponatremia - resolved
#Hyperglycemia with history of prediabetes (HbA1c: 5.9 - 12/07/2023)
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
#Chronic QTc prolongation
#Hypothyroidism
#Chronic systolic heart failure/NICM s/p ICD
#Reported Hx of asthma/COPD on Advair
Plan:
Respiratory status has not improved significantly-continues to have chest congestion, mostly nonproductive cough though occasionally productive and shortness of breath
Continue supplemental oxygen as needed-attempt to wean
Assess discharge supplemental oxygen needs prior to discharge
Aspiration precautions
Maximize Mucinex
Antitussives as needed added
Mucus clearing devices added
Saline nasal irrigations
Doubt amiodarone pulmonary toxicity
Advair
DuoNebs
Xhya-[id number]-[id number] to 60 mg IV every 8 hours with persistent wheezing and coughing
Cultures reviewed
Legionella and streptococcal urine antigen negative
Influenza negative
Blood cultures negative
Sputum culture-pending
Rapid strep test-pending
Continue current antibiotics for at least 7 days-consider broadening with persistent leukocytosis, discolored sputum-reviewed with primary team-await sputum culture
Monitor leukocytosis and temperature curve-remains elevated
Follow hemoglobin
Transfuse as needed
Follow-up with GI as an outpatient-no urgent need for endoscopy
Diet per GI
PPI
Continue diuresis as tolerated
Monitor renal function, electrolytes, intake/output, lower extremity edema and weight
Replace electrolytes as needed
Reviewed with nursing as well as primary team
She will need outpatient follow up imaging with repeat CT chest without contrast in 4-6 weeks to follow pneumonia to resolution; I will arrange for outpatient pulmonary follow up
Outpatient follow-up will be arranged for full PFTs and management of her maintenance inhaler
Data:
CT Chest without contrast 12/07/2023:
Nonspecific vague groundglass opacity in the right upper and right middle lobes new in the interval since prior study (CTA chest 09/13/2022)
Some patchy right lower lobe opacification which could represent pneumonia as well as some additional bilateral lower lobe subsegmental atelectasis.
No pneumothorax or pleural effusion.
Cardiomegaly again noted.
Moderate to large hiatal hernia again noted.
CXR 12/06/2023: Right basilar pneumonia.
Subjective Data
-
Date of Service:
Date of Service: December 11, 2023
Chief Complaint: Pulmonary Follow Up and Dyspnea Follow Up
Subjective:
Complains of increased cough, sore throat, persistent chest congestion, no chest pain, or abdominal pain
Review of Systems
General: Other ( Per HPI)
Objective Data
Data Reviewed
Vital Signs / I&O:
Vital Signs
Temp Pulse Resp BP Pulse Ox
99.0 F 86 17 115/48 96
12/11/23 03:13 12/11/23 03:13 12/11/23 03:13 12/11/23 03:13 12/11/23 03:13
Intake and Output
12/10/23 12/11/23 12/12/23
06:59 06:59 06:59
Intake Total 1250 / 1250 930 / 930
Balance 1250 / 1250 930 / 930
SaO2: 96
Nasal Cannula flow liters per minute: 2
Physical Exam
General: Respiratory Distress (negative), Comfortable and Chills (negative)
HEENT: Normocephalic and Anicteric
Cardiovascular: Regular Rhythm and Peripheral Edema (negative)
Respiratory: Crackles (Bilateral), Rhonchi (negative), Non-Labored Respirations and Other (Forced expiratory wheezing when coughing)
GI: Soft, Distended (Abdominal obesity), Non Tender and Normal Bowel Sounds
Neurology: Awake, Alert, No Motor Deficits and Tremors (negative)
Skin: Warm, Good Color, Cyanosis (n) and Jaundice (negative)
Labs/Micro/Reports
Microbiology
12/06/23 10:08 Blood/Venous Blood Culture - Preliminary
No Growth in 4 days- Final report to follow
[2023-12-11 07:24] LABS: Glucose - Point of Care 199 mg/dl (70-99)
[2023-12-11 07:29] LABS: Hematocrit 30.3 % (37.0-47.0); Hemoglobin 9.1 g/dL (12.0-16.0); Mean Corpuscular Hgb 21.3 pg (27.0-31.0); Mean Platelet Volume 9.3 fL (7.4-10.4); Platelet Count 336 10^3/uL (130-400); Red Blood Cell Count 4.27 10^6/uL (4.20-5.40); Red Cell Dist. Width 21.1 % (11.5-14.5); White Blood Cell Count 20.3 10^3/uL (4.8-10.8)
[2023-12-11 07:35] VITALS: BP 146/71
[2023-12-11] MEDS: PROTONIX 40 MG PO ×2 (08:11→19:59)
[2023-12-11] MEDS: VIBRAMYCIN 100 MG PO (08:11)
[2023-12-11] MEDS: TESSALON PERLES 200 MG PO ×3 (08:11→21:43)
[2023-12-11] MEDS: ENTRESTO 49 MG/51 MG 1 TAB PO ×2 (08:11→19:58)
[2023-12-11] MEDS: CYMBALTA DELAYED RELEASE 90 MG PO (08:11)
[2023-12-11] MEDS: THERAGRAN 1 TABLET PO (08:11)
[2023-12-11] MEDS: LASIX 20 MG PO (08:12)
[2023-12-11] MEDS: ALDACTONE 12.5 MG PO (08:12)
[2023-12-11] MEDS: SOLU-MEDROL PF 40 MG IV (08:12)
[2023-12-11] MEDS: NOVOLOG FLEXPEN-LOW RESISTANCE 1 UNITS SC (08:15)
[2023-12-11] MEDS: OCEAN, SALINE MIST 1 SPRAYS NASAL (08:18)
[2023-12-11] MEDS: ROBITUSSIN DM 5 ML PO ×3 (08:19→18:03)
--- NOTE | 2023-12-11 08:40 | W.PN.HOSP.TC ---
Today's Communication/Plan
-
Sputum Cx, rapid strep test, plan to switch to Cefepime after sputum Cx since no significant improvement
IV lasix , fluid restriction, echo
Increase Solumedrol to 60mg q8h
Tessalon
Assessment / Plan
Assessment / Plan
83yo F with PMHx of dementia, HFrEF, GERD, asthma/COPD, diverticulosis, hypothyroidism, PSVT s/p AICD and PPM brought from independent living with cough, complained for sore throat, managed for pneumonia also found severe IRENE and COPD exacerbation
with pneumonia, later developed CHF exacerbation.
Had 1 unit PRBC transfused and planned by GI for outpatient EGD.
A/P:
#RUL, RML and RLL pneumonia, with unspecified organism
Ceftriaxone/Doxy - plan to switch to Cefepime on 12/11/23 after sputum Cx since no significant improvement noted
Stop Flagyl since low risk for aspiration
Check sputum Cx if possible
Legionella and Strep.throat urinary Ag neg
Robitussin
CT chest: no pneumothorax
MANAGER NEONATAL did VSE -no aspiration
#Acute hypoxic insufficiency 2/2 COPD exacerbation
#cannot exclude mild superimposed acute on chronic HFrEF exacerbation
Lasix, follow electrolytes, daily weight
Echo
Steroids taper
Bronchodilators
Wean off O2
Pulm consult: cont current mgmt
#Anemia, severe IRENE
#Hx of severe diverticulosis
Iron IV
LDH minimally elevated 2/2 acute disease
s/p 1 unit PRBC on 12/07/23
PPI BID, GI consult - will need EGD, but will postpone until resolution of current acute respiratory problems, unless over bleeding
FOBT neg
restart ASA
#Chronic HFpEF
#HLD
#PSVT s/p PPM
#Essential HTN
#Hx of alcohol abuse
#Dementia, unspecified
#Hypothyroidism
cont home meds
telemetry - no VT seen
No signs of fluid overload. proBNP less then on previous admissions and no radiographic pulmonary edema
#PreDM
advise low carb diet
DVT ppx SCDs
DNR/DNI
I have spent at least 59min reviewing chart, test results, communication with consultants, family and direct patient care
Anticipated Discharge: > 48 hours
Subjective/Interval History
-
Date of Service: December 11, 2023
Objective Data
-
Labs:
Laboratory Results
12/11/23
06:59
WBC 20.3 H
Hgb 9.1 L
Hct 30.3 L
Plt Count 336
Sodium Pending
Potassium Pending
Chloride Pending
Carbon Dioxide Pending
BUN Pending
Creatinine Pending
Glucose Pending
Calcium Pending
Total Bilirubin Pending
AST Pending
ALT Pending
Alkaline Phosphatase Pending
Vital Signs:
Vital Signs
Temp Pulse Resp BP Pulse Ox
99.0 F 88 17 146/71 96
12/11/23 03:13 12/11/23 08:12 12/11/23 03:13 12/11/23 08:12 12/11/23 07:17
I&O
12/10/23 12/11/23 12/12/23
06:59 06:59 06:59
Intake Total 1250 / 1250 930 / 930
Balance 1250 / 1250 930 / 930
Review of Systems
-
History Source: Patient
All other systems: Reviewed and negative
Respiratory: Reports Cough and Trouble Breathing
Physical Exam
-
General: No Apparent Distress
HEENT: Normocephalic
Respiratory: Wheezes and Crackles
Cardiac: Regular Rhythm
GI: Soft, Nontender and Nondistended
Musculoskeletal: No Clubbing, No Cyanosis, Edema, Right Lower Extrem and Edema, Left Lower Extrem
Neuro: Awake, Alert, Oriented and AO x 3
Psych: Calm
[2023-12-11 08:42] LABS: ALT (SGPT) 18 U/L (0-35); AST (SGOT) 20 U/L (14-36); Albumin 3.4 g/dl (3.5-5.0); Alkaline Phosphatase 81 U/L (38-126); Blood Urea Nitrogen 32 mg/dl (7-17); Calcium 9.4 mg/dl (8.4-10.2); Carbon Dioxide 27 mmol/L (22-30); Chloride 98 mmol/L (98-107); Estimated Creatinine Clearance 52 ml/min; Glucose 193 mg/dl (70-99); Potassium 4.1 mmol/L (3.5-5.1); Sodium 137 mmol/L (135-145); Total Bilirubin 0.3 mg/dl (0.2-1.3); Total Protein 5.4 g/dl (6.3-8.2); eGFR > 60.00
[2023-12-11 08:45] LABS: Absolute Neutrophils -Man Diff 14.8 10^3/uL (1.4-6.5); Band Neutrophils 5 % (0-3); Lymphocytes 6 % (20-51); Nucleated Red Blood Cells % 0.2 %; Segmented Neutrophils 68 % (42-75)
[2023-12-11 08:46] LABS: Metamyelocytes 6 % (-); Monocytes 7 % (2-9); Myelocytes 8 % (-)
[2023-12-11] MEDS: ADVAIR HFA 45/21 MCG INHALER 2 PUFF INH ×2 (08:47→20:41)
[2023-12-11] MEDS: XOPENEX 1.25 MG INHALANT SOLUTION INH ×3 (08:47→20:42)
[2023-12-11 08:48] LABS: Anisocytosis 1+; Hypochromasia 1+; Normal RBC Morphology No; Ovalocytes Slight; Platelets Checked Yes; Total Cells Counted 100
--- NOTE | 2023-12-11 08:58 | W.PN.GI.CBS2 ---
Today's Communication / Plan
-
Please see assessment and plan for details.
Assessment / Plan
-
1. Iron deficiency anemia: Unclear source, no gross bleeding, hemoglobin has responded appropriately and remained stable. I again discussed extensively with the patient's daughter, role for endoscopic procedures is diagnostic, more so to evaluate
for malignancy. We discussed that if she did have malignancy which she want to pursue any aggressive treatments. We also discussed that she is not suitable anyway now for endoscopic procedures. She will think about this and discussed with her
mother. If she definitely wants to pursue endoscopic workup and is appropriate from a pulmonary standpoint please call us back. We will sign off for now, please call back with any further questions.
Subjective
Subjective
Date of Service: December 11, 2023
Patient feeling okay, still coughing and wheezing, no signs of bleeding per nursing.
Objective
Data Reviewed
Laboratory Data:
Laboratory Results
12/11/23 06:59
12/11/23 06:59
Laboratory Results
PT 13.9 Sec (11.4-14.6) 12/08/23 06:45
INR 1.07 12/08/23 06:45
Total Bilirubin 0.3 mg/dl (0.2-1.3) 12/11/23 06:59
AST 20 U/L (14-36) 12/11/23 06:59
ALT 18 U/L (0-35) 12/11/23 06:59
Alkaline Phosphatase 81 U/L (38-126) 12/11/23 06:59
Vital Signs and I&O:
Vital Signs
Temp Pulse Resp BP Pulse Ox
98.3 F 56 18 146/71 92
12/11/23 07:35 12/11/23 08:51 12/11/23 08:51 12/11/23 08:12 12/11/23 08:51
I&O
12/10/23 12/11/23 12/12/23
06:59 06:59 06:59
Intake Total 1250 / 1250 930 / 930
Balance 1250 / 1250 930 / 930
Physical Exam
Physical Exam
General: NAD
Abdomen: normal bowel sounds, soft, no tenderness, no masses or bruits, no ascites
[2023-12-11] MEDS: NAMENDA 10 MG PO ×2 (10:09→16:52)
[2023-12-11] MEDS: LOW STRENGTH ASPIRIN 81 MG PO (10:13)
[2023-12-11] MEDS: LASIX 40 MG IV (10:13)
[2023-12-11] MEDS: TYLENOL 650 MG PO ×3 (10:17→20:41)
[2023-12-11] MEDS: VIBRAMYCIN 260 MG IV (10:21)
[2023-12-11 11:20] VITALS: BP 108/56
[2023-12-11 12:19] LABS: Glucose - Point of Care 283 mg/dl (70-99)
[2023-12-11] MEDS: NOVOLOG FLEXPEN-LOW RESISTANCE 3 UNITS SC (13:29)
[2023-12-11] MEDS: MUCINEX 1200 MG PO ×2 (13:30→19:59)
[2023-12-11] MEDS: STERILE WATER FOR INJECTION 10 ML IV (13:31)
[2023-12-11] MEDS: ROCEPHIN 1000 MG IV (13:31)
[2023-12-11] MEDS: SOLU-MEDROL PF 60 MG IV ×2 (13:31→21:43)
[2023-12-11] MEDS: FERRLECIT 110 MG IV (13:31)
[2023-12-11] MEDS: OCEAN, SALINE MIST NASAL ×3 (13:31→21:58)
[2023-12-11 15:30] VITALS: BP 116/74
[2023-12-11 16:41] LABS: Glucose - Point of Care 200 mg/dl (70-99)
[2023-12-11] MEDS: ARICEPT 10 MG PO (16:52)
[2023-12-11] MEDS: ZOSYN 50 IV ×2 (16:53→21:47)
[2023-12-11] MEDS: NOVOLOG FLEXPEN-LOW RESISTANCE 2 UNITS SC (16:53)
[2023-12-11] MEDS: LIPITOR 10 MG PO (16:53)
[2023-12-11] MEDS: VANCOCIN 300 ML IV (18:03)
[2023-12-11] MEDS: VANCOCIN 300 MG IV (18:03)
[2023-12-11 19:10] VITALS: BP 132/59
[2023-12-11 21:14] LABS: Glucose - Point of Care 335 mg/dl (70-99)
[2023-12-11] MEDS: NOVOLOG FLEXPEN 10 UNITS SC (21:42)
[2023-12-11] MEDS: LIDOCAINE 4% PATCH 1 PATCH TOPICAL (21:43)
[2023-12-11] MEDS: TOPROL XL 25 MG PO (21:49)
--- NOTE | 2023-12-11 22:50 | PHA.VAN.IN ---
Assessment
- Assessment
Renal Function: Appears similar to baseline
Concomitant Antimicrobials: Piperacillin/tazobactam
AUC Dosing Plan
- Dosing Variables
Dosing Weight (kg): 88
Dosing CrCl (ml/min): 52
Vd coefficient (L/kg): 0.7
- Empiric Dosing
Initial / Loading Dose: Vancomycin 1500mg IV given 12/10 at 1800
Maintenance Regimen: Vancomycin 1250mg IV daily@0600- start 12/11 at 1200
Estimated AUC (mcg*h/mL): 437
Estimated Peak (mcg*h/mL): 29.8
Estimated Trough (mcg/ml): 10
Estimated Half Life (H): 14.6
- Monitoring
No levels ordered at this time: Will check levels prior to steady state.
MRSA Screen: Ordered per protocol
Pharmacokinetics Vancomycin I
- -
Patient Age: 83
Patient Sex: Female
Vancomycin Day #: 1
Indication: Pulmonary/Respiratory
Requesting Provider: Dr. Nair
Pertinent Antimicrobial Allergies:
NKDA
Height / Weight:
Height 5 ft
Actual Weight 88.088 kg
Pertinent Past Medical History: BMI ~37
- Vital Signs / Lab Results
Temp Pulse Resp BP Pulse Ox
97.6 F 86 16 132/59 94
12/11/23 19:10 12/11/23 21:49 12/11/23 20:51 12/11/23 21:49 12/11/23 20:51
Lab Results - Hematology
12/09/23 12/10/23 12/11/23
04:51 06:59 06:59
WBC 20.0 H 22.7 H 20.3 H
Band Neutrophils 5 H
Lab Results - Chemistry
12/09/23 12/10/23 12/11/23
04:51 06:59 06:59
BUN 26 H 28 H 32 H
Creatinine 0.8 0.7 0.8
Estimated Creat Clear 52 59 52
Albumin 3.7 3.8 3.4 L
Microbiology Results
12/11/23 12:13 Streptococcus Rapid Screen - Final
Throat/Pharynx Rapid Strep Screen (Group A) Negative
12/06/23 10:08 Blood Culture - Final
Blood/Venous No Growth - Final Report
[2023-12-11 23:02] VITALS: BP 120/59
[2023-12-12] VITALS (9 sets, daily range): BP systolic 100–129; BP diastolic 53–97; PULSE 81–82; O2SAT 95–97; BMI 37.7
[2023-12-12] MEDS: ANESTHETIC LOZENGE 1 LOZENGE PO ×4 (03:30→20:24)
[2023-12-12] MEDS: ZOSYN 50 IV ×4 (03:30→21:52)
[2023-12-12] MEDS: SYNTHROID 100 MCG PO (06:21)
[2023-12-12] MEDS: SOLU-MEDROL PF 60 MG IV (06:21)
[2023-12-12] MEDS: XOPENEX 1.25 MG INHALANT SOLUTION INH ×3 (07:29→19:40)
[2023-12-12] MEDS: ADVAIR HFA 45/21 MCG INHALER 2 PUFF INH (07:29)
[2023-12-12 08:07] LABS: Glucose - Point of Care 212 mg/dl (70-99)
--- NOTE | 2023-12-12 08:14 | W.PN.HOSP.TC ---
Today's Communication/Plan
-
IV antibiotics. IV steroids. IV Lasix.
Assessment / Plan
Assessment / Plan
Physical exam:
General: Acute on chronically ill
HEENT: Normocephalic, Atraumatic and Moist Mucous Membranes
Respiratory: Bilateral coarse crackles; Negative Wheezes, or Rhonchi
Cardiac: Regular Rhythm and S1/S2
GI: Soft, Nontender and Nondistended
Musculoskeletal: No Clubbing, No Cyanosis and No Edema
Neuro: Awake, Alert and Oriented
Psych: Calm
A/P:
Acute hypoxic respiratory insufficiency:
Multifactorial etiology
Off oxygen
Continue diuretics, antibiotics, steroids, bronchodilators.
Continue PT OT eval who recommended home health
Patient coming from assisted living and plan to go back.
Repeat chest x-ray PA and lateral in AM.
Discussed with daughter at bedside today on 12/11.
Acute COPD exacerbation:
On IV Solu-Medrol 60 mg every 8 hours
Bronchodilators, Xopenex
On Advair
Continue Tessalon Perles
Pulmonary on consult
Bilateral pneumonia:
Continue antibiotics, IV Zosyn and vancomycin
Previously on ceftriaxone and Doxy
Speech therapy did VSE and no aspiration.
Seen latest CT scan of the chest.
Legionella and strep, influenza, sputum culture, rapid strep test, blood cultures all negative.
Acute on chronic improved systolic/now diastolic CHF:
IV diuretics, Lasix 40 mg daily
BNP latest 858, repeat in am
Monitor strict I/O
Monitor daily weight
Monitor renal function and electrolytes
Reviewed latest echocardiogram on our system--> May of this year EF 55 to 60%
Continue guideline-directed medical therapy for heart failure (GDMT)--> on metoprolol succinate 25 mg p.o. nightly, Entresto 1 tablet twice a day, spironolactone 12.5 mg p.o. daily.
AICD in place
Fluid restriction
Salt restriction
Heart failure education
Follow up clinical response
Leukocytosis:
Steroids related and perhaps an infectious component.
Chronic iron deficiency anemia:
Status post course of IV iron
GI consulted and signed off.
On PPI twice daily.
Can follow-up with GI as outpatient if desired.
Hemoglobin 9.6 today
Dementia:
Continue donepezil 10 mg p.o. daily
Monitor behavior and mental status
DVT prophylaxis:
SCDs
CODE STATUS:
Limited DNR but AICD active.
I have spent at least 59min reviewing chart, test results, communication with consultants, family and direct patient care.
Anticipated Discharge: > 48 hours
Subjective/Interval History
-
Date of Service: December 12, 2023
Patient feels better and less shortness of breath, complains of mild mouth pain, complaints of sore throat. Afebrile.
Objective Data
-
Labs:
Laboratory Results
12/12/23
06:53
WBC Pending
Hgb Pending
Hct Pending
Plt Count Pending
Sodium Pending
Potassium Pending
Chloride Pending
Carbon Dioxide Pending
BUN Pending
Creatinine Pending
Glucose Pending
Calcium Pending
Vital Signs:
Vital Signs
Temp Pulse Resp BP Pulse Ox
98.3 F 62 14 123/63 93
12/12/23 07:30 12/12/23 07:34 12/12/23 07:34 12/12/23 07:30 12/12/23 07:34
I&O
12/11/23 12/12/23 12/13/23
06:59 06:59 06:59
Intake Total 930 / 930 1080 / 1080
Balance 930 / 930 1080 / 1080
[2023-12-12] MEDS: NOVOLOG FLEXPEN-LOW RESISTANCE 2 UNITS SC (08:43)
[2023-12-12] MEDS: CYMBALTA DELAYED RELEASE 90 MG PO (08:43)
[2023-12-12] MEDS: MUCINEX 1200 MG PO ×2 (08:43→20:14)
[2023-12-12] MEDS: ENTRESTO 49 MG/51 MG 1 TAB PO (08:43)
[2023-12-12] MEDS: PROTONIX 40 MG PO ×2 (08:43→20:14)
[2023-12-12] MEDS: LOW STRENGTH ASPIRIN 81 MG PO (08:44)
[2023-12-12] MEDS: TESSALON PERLES 200 MG PO ×3 (08:44→21:51)
[2023-12-12] MEDS: THERAGRAN 1 TABLET PO (08:44)
[2023-12-12] MEDS: LASIX 40 MG IV (08:44)
[2023-12-12] MEDS: NAMENDA 10 MG PO ×2 (08:44→15:24)
[2023-12-12] MEDS: ALDACTONE 12.5 MG PO (08:45)
--- NOTE | 2023-12-12 09:22 | W.PN.PUL3 ---
Today's Communication / Plan
-
Stable on RA, no desat with exertion with PT noted, 91% on RA
Still coughing, will increase advair strength to max dose
Taper steroids rapidly down, no wheezing noted on exam, transitioned to PO prednisone
PT/OT to follow for eval on ambulation
Continue nebs
Airway clearance continued
Assessment
-
83-year-old female non-smoker with a past medical history of chronic systolic heart failure, NICM s/p ICD, dementia, hypertension, history of V-fib, QTc prolongation, GERD and history of LBBB who presents with cough X 2 weeks + SOB. Patient lives
at [facility]. When EMS arrived she was 88% on room air and she was placed to 4 L/min and saturations improved to 96%. Her cough has been productive. In the ER she was febrile to 102.1 �F, pulse rate 92, breathing at 18
breaths/min, BP 141/65 and saturating 96% on 2 L/min nasal cannula. Initial labs showed leukocytosis to 17, anemia to 8.5, chloride 97, sodium 134, low iron saturation of 5% with elevated TIBC of 547ug/dl, negative troponin of <0.012, elevated
proBNP of 663, and COVID antigen negative. Flu A/B was also negative; blood culture was collected, and CXR showed right basilar pneumonia. She was given Tylenol in the ER, ceftriaxone/Zithromax, DuoNebs, Decadron 10 mg + IV fluids with NS 0.9% x
500cc. She was admitted to the hospitalist team and now pulmonary service consulted for additional management/recommendations.
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
asthma/COPD
Impression:
#Cough/shortness of breath due to R-sided CAP - given her moderate-large hiatal hernia, aspiration is of concern; SOB is also in part due to symptomatic anemia
#Abnormal CT chest from 12/07/2023 with groundglass + nodular opacities in the RUL + RML with consolidation in the right lower lobe, concerning for multifocal PNA
#Acute respiratory failure with hypoxia on supplemental oxygen due to above
#Acute on chronic anemia (baseline Hb: 10.5�12g/dL) - she is stool Hemoccult negative
#IRENE
#Hyponatremia - resolved
#Hyperglycemia with history of prediabetes (HbA1c: 5.9 - 12/07/2023)
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
#Chronic QTc prolongation
#Hypothyroidism
#Chronic systolic heart failure/NICM s/p ICD
#Reported Hx of asthma/COPD on Advair
Plan:
Respiratory status has not improved significantly-continues to have chest congestion, mostly nonproductive cough though occasionally productive and shortness of breath
Continue supplemental oxygen as needed-currently stable on RA
Assess discharge supplemental oxygen needs prior to discharge, does not desat with PT on exertion, 91% on RA
Aspiration precautions
Maximize Mucinex
Antitussives as needed added
Mucus clearing devices added
Saline nasal irrigations
Doubt amiodarone pulmonary toxicity
Advair
DuoNebs
Injv-[id number]-27 mg IV every 8 hours --transition to prednisone taper today
H/o asthma/COPD, on advair at home, will d/c and increase to max strength
Can continue nebs TID
Cultures reviewed
Legionella and streptococcal urine antigen negative
Influenza negative
Blood cultures negative
Sputum culture-pending
Rapid strep test-pending
Continue current antibiotics for at least 7 days-consider broadening with persistent leukocytosis, discolored sputum-reviewed with primary team
Cannot produce sputum culture
Monitor leukocytosis and temperature curve-remains elevated
Follow hemoglobin
Transfuse as needed
Follow-up with GI as an outpatient-no urgent need for endoscopy
Diet per GI
PPI
Continue diuresis as tolerated
Monitor renal function, electrolytes, intake/output, lower extremity edema and weight
Replace electrolytes as needed
Reviewed with nursing as well as primary team
She will need outpatient follow up imaging with repeat CT chest without contrast in 4-6 weeks to follow pneumonia to resolution; I will arrange for outpatient pulmonary follow up
Outpatient follow-up will be arranged for full PFTs and management of her maintenance inhaler
Data:
CT Chest without contrast 12/07/2023: Nonspecific vague groundglass opacity in the right upper and right middle lobes new in the interval since prior study (CTA chest 09/13/2022) Some patchy right lower lobe opacification which could represent
pneumonia as well as some additional bilateral lower lobe subsegmental atelectasis.No pneumothorax or pleural effusion.Cardiomegaly again noted.Moderate to large hiatal hernia again noted.
CXR 12/06/2023: Right basilar pneumonia.
Subjective Data
-
Date of Service:
Date of Service: December 12, 2023
Chief Complaint: Pulmonary Follow Up and Dyspnea Follow Up
Subjective:
No acute events ON, remains stable on RA
Family member at bedside
Complains of sore throat, coughing
Lightheaded when ambulating
Objective Data
Data Reviewed
Vital Signs / I&O / Oxygen:
Vital Signs
Temp Pulse Resp BP Pulse Ox
98.3 F 62 14 123/63 93
12/12/23 07:30 12/12/23 07:34 12/12/23 07:34 12/12/23 07:30 12/12/23 07:34
Intake and Output
12/11/23 12/12/23 12/13/23
06:59 06:59 06:59
Intake Total 930 / 930 1080 / 1080
Balance 930 / 930 1080 / 1080
SaO2 93
Nasal Cannula flow liters per 2
minute
Physical Exam
General: Respiratory Distress (negative), Comfortable and Chills (negative)
HEENT: Normocephalic and Anicteric
Cardiovascular: Regular Rhythm and Peripheral Edema (negative)
Respiratory: Crackles (Bilateral), Rhonchi (slight bilateral), Non-Labored Respirations and Other (Forced expiratory wheezing when coughing)
GI: Soft, Distended (Abdominal obesity), Non Tender and Normal Bowel Sounds
Neurology: Awake, Alert, No Motor Deficits and Tremors (negative)
Skin: Warm, Good Color, Cyanosis (n) and Jaundice (negative)
Labs/Micro/Reports
Microbiology
12/11/23 23:14 Nose Nasal Screen MRSA (PCR) - Final
MRSA not detected - performed by PCR methodology.
12/11/23 12:13 Throat/Pharynx Streptococcus Rapid Screen - Final
Rapid Strep Screen (Group A) Negative
12/06/23 10:08 Blood/Venous Blood Culture - Final
No Growth - Final Report
[2023-12-12] MEDS: OCEAN, SALINE MIST 50 SPRAYS NASAL (09:33)
[2023-12-12 09:40] LABS: Hematocrit 31.8 % (37.0-47.0); Hemoglobin 9.6 g/dL (12.0-16.0); Mean Corp Hgb Conc. 30.2 g/dL (33.0-37.0); Mean Corpuscular Hgb 22.3 pg (27.0-31.0); Mean Corpuscular Volume 73.8 fL (81.0-99.0); Platelet Count 323 10^3/uL (130-400); Red Blood Cell Count 4.31 10^6/uL (4.20-5.40); Red Cell Dist. Width 21.8 % (11.5-14.5); White Blood Cell Count 18.1 10^3/uL (4.8-10.8)
[2023-12-12 09:45] LABS: Absolute Neutrophils -Man Diff 14.1 10^3/uL (1.4-6.5); Anisocytosis 1+; Band Neutrophils 0 % (0-3); Blood Urea Nitrogen 33 mg/dl (7-17); Calcium 9.3 mg/dl (8.4-10.2); Carbon Dioxide 20 mmol/L (22-30); Chloride 99 mmol/L (98-107); Estimated Creatinine Clearance 51 ml/min; Glucose 189 mg/dl (70-99); Lymphocytes 13 % (20-51); Magnesium 2.4 mg/dl (1.6-2.3); Metamyelocytes 1 % (-); Monocytes 5 % (2-9); Myelocytes 3 % (-); Normal RBC Morphology No; Platelets Checked Yes; Potassium 3.8 mmol/L (3.5-5.1); Segmented Neutrophils 78 % (42-75); Sodium 137 mmol/L (135-145); eGFR > 60.00
[2023-12-12 09:46] LABS: Ovalocytes 1+
[2023-12-12 09:47] LABS: Total Cells Counted 100
[2023-12-12] MEDS: VANCOCIN 275 MG IV (11:25)
[2023-12-12 11:38] LABS: Glucose - Point of Care 257 mg/dl (70-99)
[2023-12-12] MEDS: OCEAN, SALINE MIST 1 SPRAYS NASAL ×3 (12:15→21:52)
[2023-12-12] MEDS: NOVOLOG FLEXPEN-LOW RESISTANCE 3 UNITS SC ×2 (12:15→17:27)
[2023-12-12] MEDS: FIRST-MOUTHWASH BLM SUSPENSION 5 ML PO ×2 (12:17→20:24)
--- NOTE | 2023-12-12 15:05 | CM ---
Reviewed the chart notes and spoke with the patient at the bedside. PT/OT recommending home health at discharge. CM continues to be available to patient/family and is monitoring medical plan for needs at discharge.
Plan: Discharge hopefully back to [facility] with home health when medically stable.
[2023-12-12] MEDS: SOLU-MEDROL PF IV (15:23)
[2023-12-12] MEDS: ARICEPT 10 MG PO (15:24)
--- NOTE | 2023-12-12 16:00 | PHA.VAN.FU ---
Vancomycin Assessment / Plan
- Assessment
Renal Function: Stable
WBC's are: Trending Down
In the past 24 hrs, patient has been: Afebrile
Concomitant Antimicrobials: piperacillin/tazobactam
- Dosing Plan
Continue: Vanc 1250mg Q24H
- Monitoring Plan
No level(s) ordered at this time: consider levels in next few days
- Follow Up
Pharmacy will continue to follow.
Vancomycin Follow UP
- -
Patient Age: 83
Patient Sex: Female
Vancomycin Day #: 2
Indication: Pulmonary/Respiratory
Requesting Provider: Dr. Nair
Pertinent Antimicrobial Allergies:
NKDA
Height / Weight:
Height 5 ft
Actual Weight 87.498 kg
Pertinent Past Medical History: BMI ~37
- Vital Signs / Lab Results
Temp Pulse Resp BP Pulse Ox
98.0 F 74 16 110/53 95
12/12/23 15:25 12/12/23 15:25 12/12/23 15:25 12/12/23 15:25 12/12/23 15:25
Lab Results - Hematology
12/10/23 12/11/23 12/12/23
06:59 06:59 06:53
WBC 22.7 H 20.3 H 18.1 H
Band Neutrophils 5 H 0 D
Lab Results - Chemistry
12/10/23 12/11/23 12/12/23
06:59 06:59 06:53
BUN 28 H 32 H 33 H
Creatinine 0.7 0.8 0.8
Estimated Creat Clear 59 52 51
Albumin 3.8 3.4 L
Microbiology Results
12/11/23 12:13 Streptococcus Screen (OLU) - Preliminary
Throat/Pharynx Culture in Progress
Streptococcus Rapid Screen - Final
Rapid Strep Screen (Group A) Negative
12/11/23 23:14 Nasal Screen MRSA (PCR) - Final
Nose MRSA not detected - performed by PCR methodology.
12/06/23 10:08 Blood Culture - Final
Blood/Venous No Growth - Final Report
[2023-12-12 17:22] LABS: Glucose - Point of Care 261 mg/dl (70-99)
[2023-12-12] MEDS: LIPITOR 10 MG PO (17:27)
[2023-12-12] MEDS: TYLENOL 650 MG PO (18:54)
[2023-12-12] MEDS: ROBITUSSIN DM 5 ML PO (18:54)
[2023-12-12] MEDS: ADVAIR HFA 230/21 MCG INHALER 2 PUFF INH (19:40)
[2023-12-12] MEDS: ENTRESTO 49 MG/51 MG PO (20:22)
[2023-12-12 21:33] LABS: Glucose - Point of Care 256 mg/dl (70-99)
[2023-12-12] MEDS: TOPROL XL 25 MG PO (21:51)
[2023-12-12] MEDS: LIDOCAINE 4% PATCH 1 PATCH TOPICAL (21:52)
[2023-12-13] VITALS (7 sets, daily range): BP systolic 106–128; BP diastolic 47–83; PULSE 77; O2SAT 94; BMI 37.0
[2023-12-13] MEDS: ZOSYN 50 IV ×4 (03:19→23:00)
[2023-12-13] MEDS: ANESTHETIC LOZENGE 1 LOZENGE PO ×3 (03:24→20:36)
[2023-12-13] MEDS: ROBITUSSIN DM 5 ML PO ×2 (03:24→09:05)
[2023-12-13] MEDS: SYNTHROID 100 MCG PO (05:43)
[2023-12-13] MEDS: VANCOCIN 275 MG IV (05:43)
[2023-12-13] MEDS: ADVAIR HFA 230/21 MCG INHALER 2 PUFF INH ×2 (07:23→19:18)
[2023-12-13] MEDS: XOPENEX 1.25 MG INHALANT SOLUTION INH ×3 (07:23→19:18)
[2023-12-13 07:35] LABS: Glucose - Point of Care 162 mg/dl (70-99)
--- NOTE | 2023-12-13 08:32 | W.PN.HOSP.TC ---
Addendum entered and electronically signed by Josesito Loja MD 12/14/23 11:57:
Pneumonia concerns for gram-negative such as Pseudomonas aeruginosa and concerns for gram-positive such as MRSA.
Original Note:
Today's Communication/Plan
-
IV antibiotics. Oral steroids and diuretics.
Assessment / Plan
Assessment / Plan
Physical exam:
General: Acute on chronically ill
HEENT: Normocephalic, Atraumatic and Moist Mucous Membranes
Respiratory: Bilateral coarse crackles; Bilateral wheezes, No Rhonchi
Cardiac: Regular Rhythm and S1/S2
GI: Soft, Nontender and Nondistended
Musculoskeletal: No Clubbing, No Cyanosis and No Edema
Neuro: Awake, Alert and Oriented
Psych: Calm
A/P:
Acute hypoxic respiratory insufficiency:
Multifactorial etiology
Off oxygen
Continue diuretics, antibiotics, steroids, bronchodilators.
Continue PT OT eval who recommended home health
Patient coming from assisted living and plan to go back.
Repeat chest x-ray PA and lateral in AM.
Discussed with daughter at bedside today on 12/11.
Acute COPD exacerbation:
On IV Solu-Medrol 60 mg every 8 hours--> tapered down to prednisone 40 mg p.o. daily
I was going to give another IV course of steroids today but discussed with pulmonary and they would prefer to keep the oral tapering.
Bronchodilators, Xopenex
On Advair
Continue Tessalon Perles
Pulmonary on consult
Bilateral pneumonia:
Continue antibiotics, IV Zosyn and vancomycin
Previously on ceftriaxone and Doxy
Speech therapy did VSE and no aspiration.
Seen latest CT scan of the chest.
Legionella and strep, influenza, sputum culture, rapid strep test, blood cultures all negative.
Acute on chronic improved systolic/now diastolic CHF:
Change IV diuretics to Lasix 40 mg orally from tomorrow
BNP latest 858, repeat in am
Monitor strict I/O
Monitor daily weight
Monitor renal function and electrolytes
Reviewed latest echocardiogram on our system--> May of this year EF 55 to 60%
Continue guideline-directed medical therapy for heart failure (GDMT)--> on metoprolol succinate 25 mg p.o. nightly, Entresto 1 tablet twice a day, spironolactone 12.5 mg p.o. daily.
AICD in place
Fluid restriction
Salt restriction
Heart failure education
Follow up clinical response
Hypokalemia:
Replete and trend
Leukocytosis:
Steroids related and perhaps an infectious component.
Chronic iron deficiency anemia:
Status post course of IV iron
GI consulted and signed off.
On PPI twice daily.
Can follow-up with GI as outpatient if desired.
Hemoglobin 10.2 today
Dementia:
Continue donepezil 10 mg p.o. daily
Monitor behavior and mental status
DVT prophylaxis:
SCDs
CODE STATUS:
Limited DNR but AICD active.
I have spent at least 55 min reviewing chart, test results, communication with consultants, family and direct patient care.
Anticipated Discharge: 24 - 48 hours
Subjective/Interval History
-
Date of Service: December 13, 2023
Patient having more cough and shortness of breath this morning. Afebrile.
Objective Data
-
Labs:
Laboratory Results
12/13/23
06:00
Hgb Pending
Hct Pending
Sodium Pending
Potassium Pending
Chloride Pending
Carbon Dioxide Pending
BUN Pending
Creatinine Pending
Glucose Pending
Calcium Pending
Vital Signs:
Vital Signs
Temp Pulse Resp BP Pulse Ox
97.7 F 83 16 111/83 97
12/13/23 07:35 12/13/23 07:35 12/13/23 07:35 12/13/23 07:35 12/13/23 07:35
I&O
12/12/23 12/13/23 12/14/23
06:59 06:59 06:59
Intake Total 1080 / 1080 1860 / 1860
Balance 1080 / 1080 1860 / 0
[2023-12-13] MEDS: THERAGRAN 1 TABLET PO (08:54)
[2023-12-13] MEDS: NOVOLOG FLEXPEN-LOW RESISTANCE 1 UNITS SC (08:54)
[2023-12-13] MEDS: TESSALON PERLES 200 MG PO ×3 (08:54→23:00)
[2023-12-13] MEDS: CYMBALTA DELAYED RELEASE 90 MG PO (08:55)
[2023-12-13] MEDS: NAMENDA 10 MG PO ×2 (08:55→15:47)
[2023-12-13] MEDS: ENTRESTO 49 MG/51 MG 1 TAB PO ×2 (08:55→20:00)
[2023-12-13] MEDS: LOW STRENGTH ASPIRIN 81 MG PO (08:55)
[2023-12-13] MEDS: PROTONIX 40 MG PO ×2 (08:55→20:37)
[2023-12-13] MEDS: ALDACTONE 12.5 MG PO (08:55)
[2023-12-13] MEDS: MUCINEX 1200 MG PO ×2 (08:55→20:36)
[2023-12-13] MEDS: DELTASONE 50 MG PO (08:55)
[2023-12-13] MEDS: FIRST-MOUTHWASH BLM SUSPENSION 5 ML PO ×2 (08:56→20:36)
[2023-12-13] MEDS: OCEAN, SALINE MIST 1 SPRAYS NASAL (08:56)
[2023-12-13] MEDS: LASIX 40 MG IV (08:56)
[2023-12-13 09:16] LABS: Hematocrit 33.6 % (37.0-47.0); Hemoglobin 10.2 g/dL (12.0-16.0)
--- NOTE | 2023-12-13 09:19 | W.PN.PUL3 ---
Today's Communication / Plan
-
Cough ongoing/nonproductive- resume spiriva and add singulair dose
Remains stable on RA, repeat CXR clear
Prednisone taper
We reviewed breathing exercises and techniques for cough, she seems to do well with this
Encouraged continued airway clearance measures, OOB/PT
Assessment
-
83-year-old female non-smoker with a past medical history of chronic systolic heart failure, NICM s/p ICD, dementia, hypertension, history of V-fib, QTc prolongation, GERD and history of LBBB who presents with cough X 2 weeks + SOB. Patient lives
at [facility]. When EMS arrived she was 88% on room air and she was placed to 4 L/min and saturations improved to 96%. Her cough has been productive. In the ER she was febrile to 102.1 �F, pulse rate 92, breathing at 18
breaths/min, BP 141/65 and saturating 96% on 2 L/min nasal cannula. Initial labs showed leukocytosis to 17, anemia to 8.5, chloride 97, sodium 134, low iron saturation of 5% with elevated TIBC of 547ug/dl, negative troponin of <0.012, elevated
proBNP of 663, and COVID antigen negative. Flu A/B was also negative; blood culture was collected, and CXR showed right basilar pneumonia. She was given Tylenol in the ER, ceftriaxone/Zithromax, DuoNebs, Decadron 10 mg + IV fluids with NS 0.9% x
500cc. She was admitted to the hospitalist team and now pulmonary service consulted for additional management/recommendations.
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
asthma/COPD
Impression:
#Cough/shortness of breath due to R-sided CAP - given her moderate-large hiatal hernia, aspiration is of concern; SOB is also in part due to symptomatic anemia
#Abnormal CT chest from 12/07/2023 with groundglass + nodular opacities in the RUL + RML with consolidation in the right lower lobe, concerning for multifocal PNA
#Acute respiratory failure with hypoxia on supplemental oxygen due to above
#Acute on chronic anemia (baseline Hb: 10.5�12g/dL) - she is stool Hemoccult negative
#IRENE
#Hyponatremia - resolved
#Hyperglycemia with history of prediabetes (HbA1c: 5.9 - 12/07/2023)
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
#Chronic QTc prolongation
#Hypothyroidism
#Chronic systolic heart failure/NICM s/p ICD
#Reported Hx of asthma/COPD on Advair
Plan:
Respiratory status has not improved significantly-continues to have chest congestion, mostly nonproductive cough though occasionally productive and shortness of breath
Continue supplemental oxygen as needed-currently stable on RA
Assess discharge supplemental oxygen needs prior to discharge, does not desat with PT on exertion, 91% on RA
Aspiration precautions
Maximize Mucinex
Antitussives as needed added
Mucus clearing devices added
Saline nasal irrigations
Doubt amiodarone pulmonary toxicity
Advair/nebs TID
Qgwz-Jcriei-64 mg IV every 8 hours --transition to prednisone taper, taper quickly to off
H/o asthma/COPD, on advair at home, will d/c and increase to max strength
Can continue nebs TID
Resume spiriva and try 1 dose of singulair
Cultures reviewed
Legionella and streptococcal urine antigen negative
Influenza negative
Blood cultures negative
Sputum culture-pending
Rapid strep test-pending
Continue current antibiotics for at least 7 days-consider broadening with persistent leukocytosis, discolored sputum-reviewed with primary team
Cannot produce sputum culture
Monitor leukocytosis and temperature curve-remains elevated
Follow hemoglobin
Transfuse as needed
Follow-up with GI as an outpatient-no urgent need for endoscopy
Diet per GI
PPI
Continue diuresis as tolerated
Monitor renal function, electrolytes, intake/output, lower extremity edema and weight
Replace electrolytes as needed
Reviewed with nursing as well as primary team
She will need outpatient follow up imaging with repeat CT chest without contrast in 4-6 weeks to follow pneumonia to resolution; I will arrange for outpatient pulmonary follow up
Outpatient follow-up will be arranged for full PFTs and management of her maintenance inhaler
Data:
CT Chest without contrast 12/07/2023: Nonspecific vague groundglass opacity in the right upper and right middle lobes new in the interval since prior study (CTA chest 09/13/2022) Some patchy right lower lobe opacification which could represent
pneumonia as well as some additional bilateral lower lobe subsegmental atelectasis.No pneumothorax or pleural effusion.Cardiomegaly again noted.Moderate to large hiatal hernia again noted.
CXR 12/06/2023: Right basilar pneumonia.
Subjective Data
-
Date of Service:
Date of Service: December 13, 2023
Chief Complaint: Pulmonary Follow Up and Dyspnea Follow Up
Subjective:
No acute events ON, remains stable on RA
Still SOB with exertion, coughing but nonproductive, unchanged
Objective Data
Data Reviewed
Vital Signs / I&O / Oxygen:
Vital Signs
Temp Pulse Resp BP Pulse Ox
97.7 F 83 16 111/83 97
12/13/23 07:35 12/13/23 07:35 12/13/23 07:35 12/13/23 07:35 12/13/23 07:35
Intake and Output
12/12/23 12/13/23 12/14/23
06:59 06:59 06:59
Intake Total 1079 / 1080 1859
Balance 1080 / 1080 1859
SaO2 97
Nasal Cannula flow liters per 2
minute
Physical Exam
General: Respiratory Distress (negative), Comfortable and Chills (negative)
HEENT: Normocephalic and Anicteric
Cardiovascular: Regular Rhythm and Peripheral Edema (negative)
Respiratory: Crackles (Bilateral), Rhonchi (slight bilateral), Non-Labored Respirations and Other (Forced expiratory wheezing when coughing)
GI: Soft, Distended (Abdominal obesity), Non Tender and Normal Bowel Sounds
Neurology: Awake, Alert, No Motor Deficits and Tremors (negative)
Skin: Warm, Good Color, Cyanosis (n) and Jaundice (negative)
Labs/Micro/Reports
Lab Data
12/13/23 08:50
Microbiology
12/11/23 12:13 Throat/Pharynx Streptococcus Screen (OLU) - Final
No Beta Hemolytic Streptococci Isolated
12/11/23 12:13 Throat/Pharynx Streptococcus Rapid Screen - Final
Rapid Strep Screen (Group A) Negative
12/11/23 23:14 Nose Nasal Screen MRSA (PCR) - Final
MRSA not detected - performed by PCR methodology.
12/06/23 10:08 Blood/Venous Blood Culture - Final
No Growth - Final Report
[2023-12-13 09:34] LABS: NT-proBNP 464 pg/ml
[2023-12-13 09:54] LABS: Blood Urea Nitrogen 34 mg/dl (7-17); Calcium 8.8 mg/dl (8.4-10.2); Carbon Dioxide 29 mmol/L (22-30); Chloride 99 mmol/L (98-107); Estimated Creatinine Clearance 45 ml/min; Glucose 129 mg/dl (70-99); Magnesium 2.2 mg/dl (1.6-2.3); Potassium 3.2 mmol/L (3.5-5.1); Sodium 136 mmol/L (135-145); eGFR > 60.00
[2023-12-13] MEDS: KCL 40 MEQ PO (10:45)
--- NOTE | 2023-12-13 11:01 | CM ---
Addendum entered by Adia Rodriguez RN 12/13/23 11:05:
Received call back from [facility] at [place], no beds available now or in the near future.
Original Note:
Reviewed the chart notes and spoke with the patient at the bedside. Patient is on room air. Patient ambulating 150' with rolling walker. CM continues to be available to patient/family and is monitoring medical plan for needs at discharge.
Plan: Discharge back to [facility] with [facility] once medically stable.
--- NOTE | 2023-12-13 12:18 | CARDSERVLU ---
Echocardiogram with [facility] completed after protocol screening completed. Allergies verified.
Patent IV site: __Right arm median antebrachial 22 G PC___
IV site flushed with 0.9% NaCl pre and post administration.
Diluted bolus method utilized to enhance visualization of ventricular san.
Total volume given: _4___ mL
Patient tolerated all procedures well without complications.
[2023-12-13 12:32] LABS: Glucose - Point of Care 219 mg/dl (70-99)
[2023-12-13] MEDS: NOVOLOG FLEXPEN-LOW RESISTANCE 2 UNITS SC (12:48)
[2023-12-13] MEDS: SINGULAIR 10 MG PO (12:48)
[2023-12-13] MEDS: SPIRIVA RESPIMAT 2.5 MCG 2 PUFF INH (13:56)
[2023-12-13] MEDS: ARICEPT 10 MG PO (15:47)
--- NOTE | 2023-12-13 16:58 | PN.CDI ---
CDI
- -
CDI:
Physician Documentation Request
Admit Date: 12/06/23 12:43
Dear Doctor Purvi,
Please review the following and provide your response in the progress notes.
Clinical Indicators:
Pt admitted with Rt LL PNA/ COPD exacerbation pt on Ceftriaxone/Doxy/Flagyl
Progress notes 12/11 &12/12, 'Bilateral pneumonia...Continue antibiotics, IV Zosyn and vancomycin Previously on ceftriaxone and Doxy Speech therapy did VSE and no aspiration....Legionella and strep, influenza, sputum culture, rapid strep test, blood
cultures all negative...'
Based on the above, could you clarify in the Progress Notes further specificity regarding the known, suspected or likely type of pneumonia you are treating (recognizing the specific organism may not be known)?
Examples
Aspiration Pneumonia - indicate substance such as food or vomitus, oils or other solids or liquids
Staph Pneumonia - indicate if MRSA or MSSA
Gram negative Pneumonia - indicate if Pseudomonas, Klebsiella or other
Other organism - specify known or suspected type
Other type
Use of terms such as suspected, likely, concern for, or probable (associated with a specific diagnosis that is being evaluated, monitored, or treated as if it exists) are acceptable and can be coded in the inpatient setting, when documented at the
time of discharge.
Thank you,
Paulina Longoria RN
CDI Specialist
[place] [facility]
Please use your independent medical judgment in providing your response.
[2023-12-13 17:14] LABS: Glucose - Point of Care 287 mg/dl (70-99)
[2023-12-13] MEDS: LIPITOR 10 MG PO (17:49)
[2023-12-13] MEDS: NOVOLOG FLEXPEN-LOW RESISTANCE 3 UNITS SC (17:50)
[2023-12-13 21:42] LABS: Glucose - Point of Care 247 mg/dl (70-99)
[2023-12-13] MEDS: TOPROL XL 25 MG PO (23:00)
[2023-12-13] MEDS: LIDOCAINE 4% PATCH 1 PATCH TOPICAL (23:00)
[2023-12-14] VITALS (8 sets, daily range): BP systolic 103–129; BP diastolic 59–81; BMI 37.9
[2023-12-14] MEDS: TYLENOL 650 MG PO ×4 (02:02→20:17)
[2023-12-14] MEDS: ANESTHETIC LOZENGE 1 LOZENGE PO ×4 (02:04→20:17)
[2023-12-14] MEDS: FIRST-MOUTHWASH BLM SUSPENSION 5 ML PO ×3 (02:04→15:34)
[2023-12-14] MEDS: ZOSYN 50 IV ×4 (03:28→22:04)
[2023-12-14] MEDS: SYNTHROID 100 MCG PO (06:07)
[2023-12-14 07:31] LABS: Glucose - Point of Care 143 mg/dl (70-99)
[2023-12-14] MEDS: SPIRIVA RESPIMAT 2.5 MCG 2 PUFF INH (07:36)
[2023-12-14] MEDS: XOPENEX 1.25 MG INHALANT SOLUTION INH ×3 (07:37→21:09)
[2023-12-14] MEDS: ADVAIR HFA 230/21 MCG INHALER 2 PUFF INH ×2 (07:37→21:09)
[2023-12-14] MEDS: NOVOLOG FLEXPEN-LOW RESISTANCE SC (08:27)
--- NOTE | 2023-12-14 08:48 | W.PN.HOSP.TC ---
Today's Communication/Plan
-
IV antibiotics. Oral steroids and diuretics.
Assessment / Plan
Assessment / Plan
Physical exam:
General: Acute on chronically ill
HEENT: Normocephalic, Atraumatic and Moist Mucous Membranes
Respiratory: Bilateral coarse crackles; No wheezes, B/L Rhonchi
Cardiac: Regular Rhythm and S1/S2
GI: Soft, Nontender and Nondistended
Musculoskeletal: No Clubbing, No Cyanosis and No Edema
Neuro: Awake, Alert and Oriented
Psych: Calm
A/P:
Acute hypoxic respiratory insufficiency:
Multifactorial etiology
Off oxygen
Continue diuretics, antibiotics, steroids, bronchodilators.
Continue PT OT eval who recommended home health
Patient coming from assisted living and plan to go back.
Repeated chest x-ray PA and lateral yesterday and it seems to be unremarkable on my view- this is interesting somewhat opacities improved rather quickly.
Discussed with daughter at bedside prior
Check Monospot test
Acute COPD exacerbation:
On Prednisone 40 mg p.o. daily, continue tapering course.
Bronchodilators, Xopenex
On Advair
Continue Tessalon Perles
Pulmonary on consult
Bilateral pneumonia, concerns for gram-negative pneumonia such as Pseudomonas and concerns for gram-positive such as Staph aureus (the latest seems to be less likely based on images and MRSA screen negative):
Continue antibiotics, IV Zosyn and vancomycin and would streamline antibiotics over the next 24 hrs
Previously on ceftriaxone and Doxy
Speech therapy did VSE and no aspiration.
Seen latest CT scan of the chest.
Legionella and strep, influenza, sputum culture, rapid strep test, blood cultures all negative.
Acute on chronic improved systolic/now diastolic CHF:
Continue oral Lasix 40 mg p.o. daily
BNP latest 858, repeat today--> 464
Monitor strict I/O
Monitor daily weight
Monitor renal function and electrolytes
Reviewed latest echocardiogram on our system--> May of this year EF 55 to 60%
Continue guideline-directed medical therapy for heart failure (GDMT)--> on metoprolol succinate 25 mg p.o. nightly, Entresto 1 tablet twice a day, spironolactone 12.5 mg p.o. daily.
AICD in place
Fluid restriction
Salt restriction
Heart failure education
Follow up clinical response
Hypokalemia:
Replete and trend
Leukocytosis:
Steroids related and perhaps an infectious component.
Chronic iron deficiency anemia:
Status post course of IV iron
GI consulted and signed off.
On PPI twice daily.
Can follow-up with GI as outpatient if desired.
Hemoglobin 10.2 today
Dementia:
Continue donepezil 10 mg p.o. daily
Monitor behavior and mental status
DVT prophylaxis:
SCDs
CODE STATUS:
Limited DNR but AICD active.
Anticipated Discharge: 24 - 48 hours
Subjective/Interval History
-
Date of Service: December 14, 2023
Patient feels better today. Still coughing and sore throat and some shortness of breath. Afebrile
Objective Data
-
Labs:
Laboratory Results
12/14/23
07:30
Sodium Pending
Potassium Pending
Chloride Pending
Carbon Dioxide Pending
BUN Pending
Creatinine Pending
Glucose Pending
Calcium Pending
Vital Signs:
Vital Signs
Temp Pulse Resp BP Pulse Ox
98.3 F 76 18 118/65 97
12/14/23 08:01 12/14/23 08:01 12/14/23 08:01 12/14/23 08:01 12/14/23 08:01
I&O
12/13/23 12/14/2324
06:59 06:59 06:59
Intake Total 1859 1360 / 1360
Output Total
Balance 1859 1357 / 1357
[2023-12-14 08:51] LABS: Blood Urea Nitrogen 33 mg/dl (7-17); Calcium 8.7 mg/dl (8.4-10.2); Carbon Dioxide 27 mmol/L (22-30); Chloride 99 mmol/L (98-107); Estimated Creatinine Clearance 52 ml/min; Glucose 122 mg/dl (70-99); Potassium 3.2 mmol/L (3.5-5.1); Sodium 138 mmol/L (135-145); eGFR > 60.00
[2023-12-14] MEDS: MUCINEX 1200 MG PO ×2 (08:59→20:16)
[2023-12-14] MEDS: LOW STRENGTH ASPIRIN 81 MG PO (08:59)
[2023-12-14] MEDS: ENTRESTO 49 MG/51 MG 1 TAB PO ×2 (08:59→20:17)
[2023-12-14] MEDS: PROTONIX 40 MG PO ×2 (08:59→20:16)
[2023-12-14] MEDS: CYMBALTA DELAYED RELEASE 90 MG PO (09:00)
[2023-12-14] MEDS: THERAGRAN 1 TABLET PO (09:00)
[2023-12-14] MEDS: ALDACTONE 12.5 MG PO (09:00)
[2023-12-14] MEDS: NAMENDA 10 MG PO ×2 (09:00→16:42)
[2023-12-14] MEDS: TESSALON PERLES 200 MG PO ×3 (09:00→22:03)
[2023-12-14] MEDS: LASIX 40 MG PO (09:00)
[2023-12-14] MEDS: DELTASONE 40 MG PO (09:00)
[2023-12-14 10:47] LABS: Hematocrit 31.6 % (37.0-47.0); Hemoglobin 9.5 g/dL (12.0-16.0); Mean Corp Hgb Conc. 30.1 g/dL (33.0-37.0); Mean Corpuscular Hgb 21.6 pg (27.0-31.0); Mean Platelet Volume 9.8 fL (7.4-10.4); Platelet Count 265 10^3/uL (130-400); Red Blood Cell Count 4.39 10^6/uL (4.20-5.40); Red Cell Dist. Width 22.7 % (11.5-14.5); White Blood Cell Count 13.4 10^3/uL (4.8-10.8)
[2023-12-14 10:58] LABS: Magnesium 2.3 mg/dl (1.6-2.3)
--- NOTE | 2023-12-14 10:59 | W.PN.PUL3 ---
Today's Communication / Plan
-
Remains stable on RA, no new complaints
Currently on IV zosyn, day 4--can likely stop at day 5 for full course
Continue prednisone taper/diuresis
Resumed on home inhaler, cough improved
Encouraged OOB/PT
Discharge planning per team, likely to SNF
We will sign off at this time, please call with questions
Assessment
-
83-year-old female non-smoker with a past medical history of chronic systolic heart failure, NICM s/p ICD, dementia, hypertension, history of V-fib, QTc prolongation, GERD and history of LBBB who presents with cough X 2 weeks + SOB. Patient lives
at [facility]. When EMS arrived she was 88% on room air and she was placed to 4 L/min and saturations improved to 96%. Her cough has been productive. In the ER she was febrile to 102.1 �F, pulse rate 92, breathing at 18
breaths/min, BP 141/65 and saturating 96% on 2 L/min nasal cannula. Initial labs showed leukocytosis to 17, anemia to 8.5, chloride 97, sodium 134, low iron saturation of 5% with elevated TIBC of 547ug/dl, negative troponin of <0.012, elevated
proBNP of 663, and COVID antigen negative. Flu A/B was also negative; blood culture was collected, and CXR showed right basilar pneumonia. She was given Tylenol in the ER, ceftriaxone/Zithromax, DuoNebs, Decadron 10 mg + IV fluids with NS 0.9% x
500cc. She was admitted to the hospitalist team and now pulmonary service consulted for additional management/recommendations.
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
asthma/COPD
Impression:
#Cough/shortness of breath due to R-sided CAP - given her moderate-large hiatal hernia, aspiration is of concern; SOB is also in part due to symptomatic anemia
#Abnormal CT chest from 12/07/2023 with groundglass + nodular opacities in the RUL + RML with consolidation in the right lower lobe, concerning for multifocal PNA
#Acute respiratory failure with hypoxia on supplemental oxygen due to above
#Acute on chronic anemia (baseline Hb: 10.5�12g/dL) - she is stool Hemoccult negative
#IRENE
#Hyponatremia - resolved
#Hyperglycemia with history of prediabetes (HbA1c: 5.9 - 12/07/2023)
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
#Chronic QTc prolongation
#Hypothyroidism
#Chronic systolic heart failure/NICM s/p ICD
#Reported Hx of asthma/COPD on Advair
Plan:
Respiratory status has not improved significantly-continues to have chest congestion, mostly nonproductive cough though occasionally productive and shortness of breath
Continue supplemental oxygen as needed-currently stable on RA
Assess discharge supplemental oxygen needs prior to discharge, does not desat with PT on exertion, 91% on RA
Aspiration precautions
Maximize Mucinex
Antitussives as needed added
Mucus clearing devices added
Saline nasal irrigations
Doubt amiodarone pulmonary toxicity
Advair/nebs TID
Htbf-Krtais-00 mg IV every 8 hours --transition to prednisone taper, taper quickly to off
H/o asthma/COPD, on advair at home, will d/c and increase to max strength
Can continue nebs TID
Resume spiriva
Tried Singulair, she did not feel a significant change, can stop
Cultures reviewed
Legionella and streptococcal urine antigen negative
Influenza negative
Blood cultures negative
Sputum culture-pending
Rapid strep test-pending
Continue current antibiotics for at 5 days-IV zosyn
Cannot produce sputum culture
Monitor leukocytosis and temperature curve-remains elevated
Follow hemoglobin
Transfuse as needed
Follow-up with GI as an outpatient-no urgent need for endoscopy
Diet per GI
PPI
Continue diuresis as tolerated
Monitor renal function, electrolytes, intake/output, lower extremity edema and weight
Replace electrolytes as needed
Reviewed with nursing as well as primary team
She will need outpatient follow up imaging with repeat CT chest without contrast in 4-6 weeks to follow pneumonia to resolution; I will arrange for outpatient pulmonary follow up
Outpatient follow-up will be arranged for full PFTs and management of her maintenance inhaler
Data:
CT Chest without contrast 12/07/2023: Nonspecific vague groundglass opacity in the right upper and right middle lobes new in the interval since prior study (CTA chest 09/13/2022) Some patchy right lower lobe opacification which could represent
pneumonia as well as some additional bilateral lower lobe subsegmental atelectasis.No pneumothorax or pleural effusion.Cardiomegaly again noted.Moderate to large hiatal hernia again noted.
CXR 12/06/2023: Right basilar pneumonia.
Subjective Data
-
Date of Service:
Date of Service: December 14, 2023
Chief Complaint: Pulmonary Follow Up and Dyspnea Follow Up
Subjective:
No new events ON, remains stable on RA
Cough seems improved but she does not feel so
Objective Data
Data Reviewed
Vital Signs / I&O / Oxygen:
Vital Signs
Temp Pulse Resp BP Pulse Ox
98.3 F 76 18 118/65 97
12/14/23 08:01 12/14/23 09:00 12/14/23 08:01 12/14/23 09:00 12/14/23 08:01
Intake and Output
12/13/23 12/14/23 12/15/23
06:59 06:59 06:59
Intake Total 1860 / 1860 1360 / 1360
Output Total 3 / 3
Balance 1860 / 1860 1357 / 1357
SaO2 97
Nasal Cannula flow liters per 2
minute
Physical Exam
General: Respiratory Distress (negative), Comfortable and Chills (negative)
HEENT: Normocephalic and Anicteric
Cardiovascular: Regular Rhythm and Peripheral Edema (negative)
Respiratory: Crackles (Bilateral), Rhonchi (slight bilateral), Non-Labored Respirations and Other (Forced expiratory wheezing when coughing)
GI: Soft, Distended (Abdominal obesity), Non Tender and Normal Bowel Sounds
Neurology: Awake, Alert, No Motor Deficits and Tremors (negative)
Skin: Warm, Good Color, Cyanosis (n) and Jaundice (negative)
Labs/Micro/Reports
Lab Data
12/14/23 07:30
12/14/23 07:30
Microbiology
12/11/23 12:13 Throat/Pharynx Streptococcus Screen (OLU) - Final
No Beta Hemolytic Streptococci Isolated
12/11/23 12:13 Throat/Pharynx Streptococcus Rapid Screen - Final
Rapid Strep Screen (Group A) Negative
12/11/23 23:14 Nose Nasal Screen MRSA (PCR) - Final
MRSA not detected - performed by PCR methodology.
12/06/23 10:08 Blood/Venous Blood Culture - Final
No Growth - Final Report
[2023-12-14] MEDS: KCL 40 MEQ PO ×2 (11:01→15:00)
[2023-12-14 11:08] LABS: % Basophils 0.1 % (0-2); % Eosinophils 0.4 % (0-6); % Immature Granulocytes 5.1 % (0-0.5); % Lymphocytes 10.1 % (20.5-51.1); % Monocytes 6.3 % (1.7-9.3); Absolute Eosinophils 0.1 10^3/uL (0-0.7); Absolute Immature Granulocytes 0.7 10^3/uL (0-0.05); Absolute Lymphocytes 1.4 10^3/uL (1.2-3.4); Absolute Monocytes 0.9 10^3/uL (0.1-0.6); Absolute Neutrophils 10.5 10^3/uL (1.4-6.5); Nucleated Red Blood Cells % 0 %
[2023-12-14 12:22] LABS: Glucose - Point of Care 227 mg/dl (70-99)
[2023-12-14] MEDS: NOVOLOG FLEXPEN-LOW RESISTANCE 2 UNITS SC (12:52)
--- NOTE | 2023-12-14 14:13 | CM ---
Addendum entered by Adia Rodriguez RN 12/14/23 14:30:
[facility]
Original Note:
Reviewed the chart notes and spoke with the patient at the bedside. Patient remains off supplemental O2. CM continues to be available to patient/family and is monitoring medical plan for needs at discharge.
Plan: Discharge back to [facility] with [facility] when medically stable.
[2023-12-14 15:50] LABS: Monotest Negative (Negative)
[2023-12-14 16:32] LABS: Glucose - Point of Care 271 mg/dl (70-99)
[2023-12-14] MEDS: NOVOLOG FLEXPEN-LOW RESISTANCE 3 UNITS SC (16:36)
[2023-12-14] MEDS: ARICEPT 10 MG PO (16:42)
[2023-12-14] MEDS: LIPITOR 10 MG PO (16:42)
[2023-12-14 22:00] LABS: Glucose - Point of Care 190 mg/dl (70-99)
[2023-12-14] MEDS: LIDOCAINE 4% PATCH 1 PATCH TOPICAL (22:03)
[2023-12-14] MEDS: TOPROL XL 25 MG PO (22:04)
[2023-12-15 03:05] VITALS: BP 112/52
[2023-12-15] MEDS: ZOSYN 50 IV ×2 (03:37→09:26)
[2023-12-15] MEDS: ANESTHETIC LOZENGE 1 LOZENGE PO ×3 (03:44→14:08)
[2023-12-15] MEDS: SYNTHROID 100 MCG PO (05:22)
[2023-12-15 06:00] VITALS: BMI 38.0
[2023-12-15 07:05] VITALS: BP 124/69
[2023-12-15] MEDS: ADVAIR HFA 230/21 MCG INHALER 2 PUFF INH (07:05)
[2023-12-15] MEDS: XOPENEX 1.25 MG INHALANT SOLUTION INH ×2 (07:06→13:15)
[2023-12-15] MEDS: SPIRIVA RESPIMAT 2.5 MCG 2 PUFF INH (07:06)
[2023-12-15 07:57] LABS: Glucose - Point of Care 131 mg/dl (70-99)
[2023-12-15] MEDS: NOVOLOG FLEXPEN-LOW RESISTANCE SC (08:43)
[2023-12-15] MEDS: PROTONIX 40 MG PO (08:44)
[2023-12-15] MEDS: ALDACTONE 12.5 MG PO (08:44)
[2023-12-15] MEDS: CYMBALTA DELAYED RELEASE 90 MG PO (08:46)
[2023-12-15] MEDS: ENTRESTO 49 MG/51 MG 1 TAB PO (08:47)
[2023-12-15] MEDS: MUCINEX 1200 MG PO (08:49)
[2023-12-15] MEDS: LOW STRENGTH ASPIRIN 81 MG PO (08:50)
[2023-12-15] MEDS: TESSALON PERLES 200 MG PO (08:50)
[2023-12-15] MEDS: NAMENDA 10 MG PO (08:50)
[2023-12-15] MEDS: THERAGRAN 1 TABLET PO (08:51)
[2023-12-15] MEDS: LASIX 40 MG PO (08:52)
[2023-12-15] MEDS: DELTASONE 40 MG PO (08:53)
--- NOTE | 2023-12-15 09:21 | W.PN.HOSP.TC ---
Today's Communication/Plan
-
steroids. diuretics. discharge planning in progress
Assessment / Plan
Assessment / Plan
Physical exam:
General: Acute on chronically ill
HEENT: Normocephalic, Atraumatic and Moist Mucous Membranes
Respiratory: Bilateral coarse rhonchi; No wheezes
Cardiac: Regular Rhythm and S1/S2
GI: Soft, Nontender and Nondistended
Musculoskeletal: No Clubbing, No Cyanosis and No Edema
Neuro: Awake, Alert and Oriented
Psych: Calm
A/P:
Acute hypoxic respiratory insufficiency:
Multifactorial etiology
Off oxygen
Continue diuretics, antibiotics, steroids, bronchodilators.
Continue PT OT eval who recommended home health
Patient coming from assisted living and plan to go back.
Repeated chest x-ray PA and lateral yesterday and it seems to be unremarkable on my view- this is interesting somewhat opacities improved rather quickly.
Discussed with daughter at bedside prior
Checked Monospot test and negative
Acute diarrhea:
Check C. difficile stools
If test negative would supportive care otherwise as appropiate
Acute COPD exacerbation:
On Prednisone 40 mg p.o. daily, continue tapering course.
Bronchodilators, Xopenex
On Advair
Continue Tessalon Perles
Pulmonary on consult
Bilateral pneumonia, concerns for gram-negative pneumonia such as Pseudomonas/Klebsiella and less concerns for gram-positive such as Staph aureus:
Stop antibiotics today.
Speech therapy did VSE and no aspiration.
Seen latest CT scan of the chest.
Legionella and strep, influenza, sputum culture, rapid strep test, blood cultures all negative.
Acute on chronic improved systolic/now diastolic CHF:
Continue oral Lasix 40 mg p.o. daily
BNP latest 858, repeated--> 464
Monitor strict I/O
Monitor daily weight
Monitor renal function and electrolytes
Reviewed latest echocardiogram on our system--> March of this year EF 55 to 60%
Continue guideline-directed medical therapy for heart failure (GDMT)--> on metoprolol succinate 25 mg p.o. nightly, Entresto 1 tablet twice a day, spironolactone 12.5 mg p.o. daily.
AICD in place
Fluid restriction
Salt restriction
Heart failure education
Follow up clinical response
Hypokalemia:
Replete and trend
Leukocytosis:
Steroids related.
Chronic iron deficiency anemia:
Status post course of IV iron
GI consulted and signed off.
On PPI twice daily.
Can follow-up with GI as outpatient if desired.
Hemoglobin 9.5 latest
Dementia:
Continue donepezil 10 mg p.o. daily
Monitor behavior and mental status
DVT prophylaxis:
SCDs
CODE STATUS:
Limited DNR but AICD active.
Anticipated Discharge: Today
Subjective/Interval History
-
Date of Service: December 15, 2023
Patient is having some diarrhea. Still some cough and shortness of breath although overall improved from prior. Afebrile
Objective Data
-
Labs:
Laboratory Results
12/15/23
09:14
Sodium Pending
Potassium Pending
Chloride Pending
Carbon Dioxide Pending
BUN Pending
Creatinine Pending
Glucose Pending
Calcium Pending
Vital Signs:
Vital Signs
Temp Pulse Resp BP Pulse Ox
98.2 F 74 16 124/69 97
12/15/23 07:05 12/15/23 08:52 12/15/23 07:09 12/15/23 08:52 12/15/23 07:09
I&O
12/14/23 12/15/23 12/16/23
06:59 06:59 06:59
Intake Total 1360 / 1360 1020 / 1020
Output Total
Balance 1357 / 1357 1019 / 1019
[2023-12-15] MEDS: TYLENOL 650 MG PO ×2 (09:33→14:08)
[2023-12-15] MEDS: KCL 20 MEQ PO (10:16)
[2023-12-15 10:50] LABS: Blood Urea Nitrogen 27 mg/dl (7-17); Calcium 8.9 mg/dl (8.4-10.2); Carbon Dioxide 30 mmol/L (22-30); Chloride 101 mmol/L (98-107); Estimated Creatinine Clearance 59 ml/min; Glucose 104 mg/dl (70-99); Potassium 3.5 mmol/L (3.5-5.1); Sodium 140 mmol/L (135-145); eGFR > 60.00
[2023-12-15 12:18] LABS: Glucose - Point of Care 195 mg/dl (70-99)
[2023-12-15] MEDS: NOVOLOG FLEXPEN-LOW RESISTANCE 1 UNITS SC (14:06)
--- NOTE | 2023-12-15 14:45 | CM ---
Addendum entered by Sally Botello RN 12/15/23 14:49:
[facility] No call back .
Original Note:
Md entered order for dc.
Spoke with pt in room .She requested to return to [facility] with [facility] . Referral in care port.
IMM reviewed signed on chart.
Spoke with dgt Carlie who just got off a p-jesus. She agrees with dc and requested to call Nitin to drive pt home [phone]
Nitin said he can drive pt to [facility] today.
No oxygen room air.
Plan: Discharge back to [facility] fax [phone] with [facility]
[2023-12-15 15:11] VITALS: BP 134/68
--- NOTE | 2023-12-15 16:42 | PTCARENOTE ---
Pt's discharge information reviewed with pt and two family members. Paperwork faxed to [facility] with a request for no call back update. Pt wheeled out for transport with family member by volunteer escort.
== END 2023-12-15 16:36 | disposition home health service (06) | DRG 193 ==
LOC: 2 NORTH 12:43
PROVIDERS: Clinical Nurse Specialist Family Health; Emergency Medicine; Internal Medicine; ADMITTING PHYSICIAN Internal Medicine; ATTENDING PHYSICIAN Hospitalist; CONSULT PHYSICIAN Internal Medicine; EMERGENCY PHYSICIAN Student in an Organized Health Care Education/Training Program; OTHER PHYSICIAN Internal Medicine Critical Care Medicine
PROC: 30233N1 Transfusion of Nonautologous Red Blood Cells into Peripheral Vein, Percutaneous Approach (ICD-10-PCS; 2023-12-07)
DX: J18.9 Pneumonia, unspecified organism (principal); I50.43 Acute on chronic combined systolic (congestive) and diastolic (congestive) heart failure; E87.1 Hypo-osmolality and hyponatremia; J44.0 Chronic obstructive pulmonary disease with (acute) lower respiratory infection; F03.93 Unspecified dementia, unspecified severity, with mood disturbance; I42.8 Other cardiomyopathies; I47.19 Other supraventricular tachycardia; J44.1 Chronic obstructive pulmonary disease with (acute) exacerbation; Z66 Do not resuscitate; I11.0 Hypertensive heart disease with heart failure; E78.00 Pure hypercholesterolemia, unspecified; D50.9 Iron deficiency anemia, unspecified; E03.9 Hypothyroidism, unspecified; K21.9 Gastro-esophageal reflux disease without esophagitis; K58.0 Irritable bowel syndrome with diarrhea; I45.81 Long QT syndrome; I44.7 Left bundle-branch block, unspecified; K44.9 Diaphragmatic hernia without obstruction or gangrene; R73.03 Prediabetes; E87.6 Hypokalemia; E66.9 Obesity, unspecified; Z68.38 Body mass index [BMI] 38.0-38.9, adult; Z11.52 Encounter for screening for COVID-19; Z96.653 Presence of artificial knee joint, bilateral; Z95.810 Presence of automatic (implantable) cardiac defibrillator; Z79.82 Long term (current) use of aspirin; Z79.84 Long term (current) use of oral hypoglycemic drugs; Z82.49 Family history of ischemic heart disease and other diseases of the circulatory system; Z79.899 Other long term (current) drug therapy; Z79.890 Hormone replacement therapy
CPT/HCPCS: 71046; 71260; 74230; 80048; 80053; 82607; 82728; 82746; 82962; 83036; 83540; 83550; 83605; 83615; 83735; 83880; 84484; 85014; 85018; 85025; 85027; 85045; 85610; 86308; 86850; 86900; 86901; 86920; 87040; 87070; 87205; 87449; 87502; 87641; 87811; 87880; 87899; 92610; 92611; 93005; 93306; 94640; 97116; 97162; 97166; 97530; 97535; 99285; J2916; P9016; Q9950; Q9967

== ENCOUNTER 2023-12-16 15:53 | Observation (INO) | payer MEDICARE, OTHER, SELFPAY ==
[2023-12-16] VITALS (7 sets, daily range): BP systolic 94–133; BP diastolic 40–78; BMI 38.3
--- NOTE | 2023-12-16 13:24 | ED.GENMED ---
History of Present Illness
General
Chief Complaint: Breathing Problem
Time Seen by Provider: 12/16/23 13:13
History of Present Illness
History of Present Illness:
Patient presents to the emergency department with lethargy and cough. She was recently admitted and discharged yesterday for pneumonia, COPD, heart failure exacerbation. She had 5 days of antibiotics and was saturating well on room air and
discharged back to assisted living. Per documentation, today she was more lethargic, felt warm though did not have a fever and cough had worsened. Patient states she feels about the same as she did when she left. Complains of sore throat and
fatigue and cough
Past History
Past History
ED Past Medical History: CHF, COPD (Chronic bronchitis), GERD, HTN and Other (Cardiomyopathy, ICD/pacemaker, obesity, dementia, anxiety, depression)
Social History
Tobacco: Non-smoker
Alcohol: None
Drug: None
Living: with family
Phy Exam
Physical Exam
Physical Exam:
GENERAL APPEARANCE: Tired appearing, nontoxic, hoarse voice
EYES lids/conjunctiva normal
EARS/NOSE/THROAT Mucous membranes moist, uvula midline, mild pharyngeal erythema, no exudates
HEAD/NECK normocephalic atraumatic, neck is supple.
RESPIRATORY respiratory effort normal, speaks in full sentences, no accessory muscle use. Lungs clear to auscultation without rhonchi, wheezes, rales
CARDIAC Regular rate and rhythm, no edema.
ABDOMINAL Soft, ND/NT.
MUSCLES/EXTREMITIES No abnormal range of motion, no swelling.
SKIN Warm, pink and dry. No rashes
NEUROLOGICAL Speech is clear and appropriate. Normal level of consciousness. 5/5 strength in all extremities.
PSYCH Normal mood and affect. Judgement/competence is appropriate
Scores
Heart Failure Risk
Heart Failure Risk Score: Not Applicable
Course
Orders/Labs/Results
Orders:
Orders
12/16/23 13:08
Chest [CR Chest - 2 Views ] Urgent
Comment:
Reason For Exam: cough
12/16/23 13:15
CBC/With Diff [Complete Blood Count/With Diff] Urgent
CMP [Comprehensive Metabolic Panel] Urgent
COVID-19 Antigen Urgent
Source: Nasal Swab
12/16/23 13:39
NT-proBNP Urgent
Influenza A+B Rapid Molecular Urgent
OLU Source: Nasal Swab
Specimen Description:
12/16/23 14:34
Furosemide [Lasix] 20 mg IV NOW STA
Potassium Chloride [KCl] 20 meq PO NOW STA
12/16/23 Dinner
Cholesterol Lowering
Fluid Restriction: 1200 mL/day (40 oz)
Cholesterol Lowering: Sodium, 2 Gram
12/16/23 15:36
Benzocaine/Menthol [Anesthetic Lozenge] 1 lozenge PO NOW STA
Benzocaine/Menthol [Anesthetic Lozenge] 1 lozenge PO Q4HPRN PRN
12/16/23 15:38
Admit/Transfer Patient As Directed
Co-Sign Provider:
Level of Care: Observation services
Assign to:: Medical/Surgical
Physician / Group: holden madrid
Diagnosis: acute bronchitis hypokalemia
Code Status As Directed
Resuscitation Status: Full Code
12/16/23 15:46
PRN Pain Medication Management As Directed
May give lesser potent ordered pain med per pt: Yes
preference::
Protocol:: Medication orders for pain may be administered in a
manner that supports deferring to patient preference
when the pt is:
- Requesting an ordered lesser potent pain medication.
Least to most potent pain medications are defined
as: acetaminophen < NSAID < tramadol < opioids
(morphine, oxycodone, hydromorphone).
- Requesting a lesser dose of the same medication IF
ORDERED.
- Requesting a less intrusive route of administration
if both routes are prescribed by the provider (PO <
IV).
12/16/23 15:53
PULMONARY CONSULT Routine
Consulting Provider: Stephanie Soares
Was physician already notified: Yes
Reason for consult: cough sore throat fatigue
12/16/23 16:53
Arterial Blood Gas Routine
%Oxygen/Room Air: on RA
12/16/23 19:51
Acetaminophen [Tylenol] 650 mg PO QID
Atorvastatin [Lipitor] 10 mg PO QPM
Donepezil HCl [Aricept] 10 mg PO QPM
Enoxaparin Sodium [Lovenox] 40 mg SC QPM
Magnesium Hydroxide [Milk of Magnesia] 30 ml PO DAILYPRN PRN
Memantine HCl [Namenda] 10 mg PO BID@0900,1700
12/16/23 19:51
Activity As Directed
Activity Level: With Assistance
Intake/ Output As Directed
Frequency: Per unit guidelines
Vital Signs As Directed
Frequency: Per unit guidelines
Weight As Directed
Frequency: Daily
Pulse Ox/spot Check [RESP] Routine
Quantity: 1
Ot Eval And Treat Routine
Pt Eval And Treat Routine
Activity Level: As Tolerated
DX Deep Vein Thrombosis Video Routine
12/16/23 20:00
Guaifenesin [Mucinex] 600 mg PO Q12
Sacubitril 49/Valsartan 51 [Entresto 49 mg/51 mg] 1 tab PO BID
fluticasone propion-salmeterol 1 inh INH R BID
12/16/23 22:00
Metoprolol Xl [Toprol Xl] 25 mg PO HS
12/17/23 05:30
Levothyroxine [Synthroid] 100 mcg PO DAILY@0530
12/17/23 06:00
Complete Blood Count/With Diff IN AM
Comprehensive Metabolic Panel IN AM
12/17/23 08:00
Aspirin Chewable [Low Strength Aspirin] 81 mg PO DAILY
Duloxetine Delayed Release [Cymbalta Delayed Release] 90 mg PO DAILY
Furosemide [Lasix] 20 mg PO DAILY
Pantoprazole [Protonix] 40 mg PO DAILY
Potassium Chloride [KCl] 20 meq PO DAILY
Prednisone [Deltasone] 40 mg PO DAILY
Spironolactone [Aldactone] 12.5 mg PO DAILY
Tiotropium [place] 2.5 Mcg [Spiriva Respimat 2.5 Mcg] DOSE puff INH R DAILY
empagliflozin [Jardiance] 10 mg PO DAILY
lidocaine 1 patch TOPICAL DAILY
Abnormal Lab Results
12/16/23
13:15
WBC 11.6 H 10^3/uL
(4.8-10.8)
Hgb 9.5 L g/dL
(12.0-16.0)
Hct 31.5 L %
(37.0-47.0)
MCV 73.3 L fL
(81.0-99.0)
MCH 22.1 L pg
(27.0-31.0)
MCHC 30.2 L g/dL
(33.0-37.0)
RDW 23.9 H %
(11.5-14.5)
Abs Immat Gran (auto) 0.2 H 10^3/uL
(0-0.05)
Absolute Neuts (auto) 9.4 H 10^3/uL
(1.4-6.5)
Absolute Monos (auto) 0.7 H 10^3/uL
(0.1-0.6)
Immature Gran % 1.3 H %
(0-0.5)
Neutrophils % 80.9 H %
(42.2-75.2)
Lymphocytes % 10.7 L %
(20.5-51.1)
Potassium 3.4 L mmol/L
(3.5-5.1)
BUN 24 H mg/dl
(7-17)
Glucose 119 H mg/dl
(70-99)
Total Protein 5.3 L g/dl
(6.3-8.2)
Albumin 3.4 L g/dl
(3.5-5.0)
12/16/23 13:15
12/16/23 13:15
Vital Signs
Initial and Last Documented VS:
Initial Vital Signs
Pulse Resp
64 16
12/16/23 13:10 12/16/23 13:10
Last Documented Vital Signs
Temp Pulse Resp BP Pulse Ox
98.8 F 70 8 116/59 98
12/16/23 13:11 12/16/23 19:15 12/16/23 19:15 12/16/23 19:00 12/16/23 19:15
*Critical Care Note
Total Time (30-74mins, 75-104mins- exclusive of procedures): Not Applicable
ED Attending Note
ED Attending Note
ED Attending Note:
Patient returns after being admitted for multifactorial hypoxic respiratory failure. She is more lethargic and coughing. He hemodynamically stable saturating well on room air. Chest x-ray showing new small left pleural effusion. BNP slightly
increased from discharge. Will diurese and bring back into the hospital
-
Portions of this chart may have been created with voice recognition software.� Occasional wrong word or��sound alike� substitutions may have occurred due to the inherent limitations of voice recognition software.
Discharge Plan
Departure
Patient Disposition: Admit
Date of Disposition: 12/16/23
Time of Disposition: 14:39
Admit to: Telemetry
Presentation/result/management discussed w/ accepting MD/DO: Hospitalist
Discharge Problem:
Pleural effusion, Cough
Interventions
Interventions:
*Risk Screen - Suicide Last Done: 12/16/23 13:11
*General Assessment Last Done: 12/16/23 13:11
*Neglect/Abuse Screening Last Done: 12/16/23 13:11
ED- Fall Risk Assessment Last Done: 12/16/23 13:11
*Nursing Disposition Last Done: 12/16/23 19:31
ED- Cardiac Assessment Last Done: 12/16/23 13:11
ED- Pulmonary Assessment Last Done: 12/16/23 13:11
Discharge Date and Time
Discharge Date/Time: 12/16/23 19:32
[2023-12-16 13:28] LABS: % Basophils 0.1 % (0-2); % Eosinophils 1.2 % (0-6); % Immature Granulocytes 1.3 % (0-0.5); % Lymphocytes 10.7 % (20.5-51.1); % Monocytes 5.8 % (1.7-9.3); % Neutrophils 80.9 % (42.2-75.2); Absolute Eosinophils 0.1 10^3/uL (0-0.7); Absolute Immature Granulocytes 0.2 10^3/uL (0-0.05); Absolute Lymphocytes 1.3 10^3/uL (1.2-3.4); Absolute Monocytes 0.7 10^3/uL (0.1-0.6); Absolute Neutrophils 9.4 10^3/uL (1.4-6.5); Hematocrit 31.5 % (37.0-47.0); Hemoglobin 9.5 g/dL (12.0-16.0); Mean Corp Hgb Conc. 30.2 g/dL (33.0-37.0); Mean Corpuscular Hgb 22.1 pg (27.0-31.0); Mean Corpuscular Volume 73.3 fL (81.0-99.0); Mean Platelet Volume 9.6 fL (7.4-10.4); Nucleated Red Blood Cells % 0 %; Platelet Count 203 10^3/uL (130-400); Red Cell Dist. Width 23.9 % (11.5-14.5); White Blood Cell Count 11.6 10^3/uL (4.8-10.8)
[2023-12-16 13:37] LABS: ALT (SGPT) 20 U/L (0-35); AST (SGOT) 28 U/L (14-36); Albumin 3.4 g/dl (3.5-5.0); Alkaline Phosphatase 72 U/L (38-126); Blood Urea Nitrogen 24 mg/dl (7-17); Calcium 8.7 mg/dl (8.4-10.2); Carbon Dioxide 29 mmol/L (22-30); Chloride 99 mmol/L (98-107); Estimated Creatinine Clearance 59 ml/min; Glucose 119 mg/dl (70-99); Potassium 3.4 mmol/L (3.5-5.1); Sodium 137 mmol/L (135-145); Total Bilirubin 0.7 mg/dl (0.2-1.3); Total Protein 5.3 g/dl (6.3-8.2); eGFR > 60.00
[2023-12-16 13:42] LABS: Anisocytosis 1+; Normal RBC Morphology No
[2023-12-16 13:43] LABS: COVID-19 Antigen Negative (Negative); Hypochromasia 2+; Microcytosis 2+
[2023-12-16 14:10] LABS: NT-proBNP 774 pg/ml
--- NOTE | 2023-12-16 14:52 | HPS.HSE ---
Family Physician
-
Family Physician: Bernardo Saavedra
Chief Complaint
-
Cough, sore throat, fatigue
History of Present Illness
83-year-old female with lethargy , sore throat and constant cough. She was discharged yesterday after a 10-day admission for hypoxia, COPD, bilateral pneumonia with CXR showing groundglass opacity right upper/right middle lobes. She completed
5-day course of Zosyn and went back to her assisted living facility. She reports she was more lethargic today felt warm but did not have a fever. She feels her cough has worsened. She denies headache, fever, chills, chest pain, palpitations,
shortness of breath, abdominal pain, nausea, vomiting, diarrhea, urinary symptoms. She is on a prednisone taper of which she is taken 2 days worth of so far since discharge
She had a recent admission 12/05 - 12/15/2023 due to acute hypoxic respiratory insufficiency multifactorial, COPD exacerbation placed on prednisone 40 mg tapering dose along with inhalers, bilateral pneumonia completed 5-day course of IV Zosyn, acute
on chronic CHF her Lasix 40 mg was continued daily with strict ZACK, fluid restriction salt restriction. Patient had VSD study with no aspiration. She legionella strep influenza sputum rapid strep blood cultures that were all negative. Patient
with past medical history of chronic systolic heart failure/diastolic heart failure, LBBB nonischemic cardiomyopathy status post ICD, HTN, V-fib, QTc prolongation, HTN, dementia, GERD, HLD, hypothyroidism, depression, COPD, chronic iron deficiency
anemia.
Medical History
Past Medical History
Past Medical History: Reports Other
Additional Past Medical History:
Chronic Systolic Heart Failure/diastolic heart failure
LBBB
Non-Ischemic Cardiomyopathy/ICD/V-fib
Essential Hypertension
COPD
Dementia
Depression
Hypothyroidism
GERD
QTc prolongation
chronic iron deficiency anemia.
Past Surgical History: Reports Other
Additional Past Surgical History:
Hysterectomy
Pacemaker/ICD
Social History
Tobacco: Non-smoker
Alcohol: Daily
Personal: Single
Living: Assisted Living ([facility] )
Employment: Retired
Family History
Family History: Not pertinent
Allergies / Home Medications
Allergies reflects when Allergies were last updated in [facility].
Home Medications with original date entered in [facility]
Allergy/Medication List:
Allergies
Allergy/AdvReac Type Severity Reaction Status Date / Time
No Known Drug Allergies Allergy Unknown Verified 05/23/23 19:35
Home Medications
albuterol sulfate 90 mcg/actuation aerosol inhaler 1 inh inhalation R Q4HPRN PRN asthma 11/11/21
atorvastatin 10 mg tablet 10 mg PO QPM High cholesterol 11/11/21
donepezil 10 mg tablet 10 mg PO QPM dementia 11/11/21
metoprolol succinate 25 mg tablet,extended release 24 hr (Toprol XL) 25 mg PO HS Blood pressure 11/11/21
sacubitril 49 mg-valsartan 51 mg tablet (Entresto) 1 tab PO BID Heart Failure 11/11/21
spironolactone 25 mg tablet 12.5 mg PO DAILY Fluid retention/Swelling 11/11/21
aspirin 81 mg chewable tablet 81 mg PO DAILY Blood Clot Prevention/Tx 09/13/22
empagliflozin 10 mg tablet (Jardiance) 10 mg PO DAILY Diabetes 09/13/22
fluticasone 100 mcg-salmeterol 50 mcg/dose blistr powdr for inhalation 1 inh inhalation R BID Lung/Breathing Issues 09/13/22
ibuprofen 200 mg tablet 200 mg PO Q8HPRN PRN joint aches/pain 09/13/22
memantine 10 mg tablet 10 mg PO BID@0900,1700 Neurological Condition 09/13/22
multivitamin 1 tab PO DAILY Supplement 09/13/22
pantoprazole 40 mg tablet,delayed release 40 mg PO DAILY Gastrointestinal Issue 09/13/22
potassium chloride 20 mEq tablet,extended release 20 meq PO DAILY Electrolyte Repletion 09/13/22
tiotropium bromide 2.5 mcg/actuation mist for inhalation (Spiriva Respimat) 1 inh inhalation R DAILY Lung/Breathing Issues 09/13/22
acetaminophen 650 mg tablet,extended release 1,300 mg PO BID Pain 05/23/23
duloxetine 30 mg capsule,delayed release 90 mg PO DAILY Pain 05/23/23
levothyroxine 100 mcg tablet 100 mcg PO DAILY@0530 Thyroid 05/23/23
lidocaine 5 % topical patch 1 patch topical DAILY lower back 05/23/23
magnesium hydroxide 400 mg/5 mL oral suspension (Milk of Magnesia) 30 ml PO DAILYPRN PRN constipation 05/23/23
prednisone 10 mg tablet See Rx Instructions .Route .COMPLEX #45 tabs 12/15/23
aluminum hydrox-magnesium carb 95 mg-358 mg/15 mL oral suspension (Acid Gone Antacid) 30 ml PO Q6HPRN PRN heartburn 12/16/23
furosemide 20 mg tablet 20 mg PO DAILY 12/16/23
Review of Systems
-
History Source: Patient and Family (Son at bedside)
A 12 point ROS was completed and negative except as noted: Yes
Constitutional: Reports Weight Gain (1 kg 1 night) and Fatigue; Denies Fever or Chills
EENT: Reports Sore Throat and Runny Nose (Constant); Denies Mouth Swelling
Respiratory: Reports Cough and Trouble Breathing (Expiratory wheezing)
Cardiac: Denies Chest Pain, Diaphoresis, Palpitations or Syncope
Abdomen/GI: Denies Abdominal Pain, Nausea, Vomiting, Diarrhea, Constipated, Bloody Stools, Black Stools or Anorexia
: Denies Dysuria, Frequency, Flank Pain, Incontinence, Difficulty Voiding, Urgency or Bleeding
Musculoskeletal: Denies Joint Pain, Joint Swelling or Edema
Skin: Denies Itching or Rash
Neurological: Reports Weakness; Denies Dizzy or Headache
Endocrine: Reports No Symptoms
Hematologic/Lymphatic: Reports No Symptoms
Psych: Reports Calm
Physical Exam
Vital Signs
Vital Signs
Temp Pulse Resp BP Pulse Ox
98.8 F 70 16 124/56 100
12/16/23 13:11 12/16/23 13:30 12/16/23 13:30 12/16/23 13:11 12/16/23 13:15
Physical Exam
General: Conversant and Obese; No Pain, Fever or Chills
HEENT: NormoCephalic, Anicteric, Moist mucous membranes, PERRLA, [place] Conjunctivae and No Ptosis; No Thrush
Respiratory: Wheezes (Expiratory bilaterally); No Rales or Rhonchi
Cardiac: S1/S2 and Regular Rhythm; No Murmur, Rub, Gallop or Peripheral Edema
GI: Soft, Non Tender, Non Distended, Normal Bowel Sounds and No Hepatosplenomegaly
Rectal: Deferred by Provider
Genito-urinary: Deferred by me
Musculoskeletal: No Clubbing, No Cyanosis and No Edema
Skin: Warm and Dry; No Rash or Jaundice
Neuro: AO x 3 (Slight memory impairment due to history of dementia is oriented to name, place, place of living, son), Cranial Nerves Intact and No Sensory Deficits; No Slurred Speech, Facial Droop, Tremors or Sedated
Psych: Calm
Laboratory Results
-
12/16/23 13:15
12/16/23 13:15
Laboratory Results
Total Bilirubin 0.7 mg/dl (0.2-1.3) 12/16/23 13:15
AST 28 U/L (14-36) 12/16/23 13:15
ALT 20 U/L (0-35) 12/16/23 13:15
Alkaline Phosphatase 72 U/L (38-126) 12/16/23 13:15
Impression/Plan
-
Impression/plan:
Observation MedSurg
#Acute on chronic bronchitis
-Persistent cough x 2 weeks
-COVID/flu negative, afebrile, normotensive
-Add Cepacol lozenges for sore throat
-Guaifenesin twice daily
-Continue Prednisone 40 mg p.o. daily will cont additional 3 day course
-Consult Pulmonary
PT/OT/case management eval lives at [facility] assisted living
CXR: Small left pleural effusion
Left lower lobe airspace disease also may be present
Left biventricular pacemaker/AICD in unchanged position
#Hypokalemia 2/2 diuretics
K3.4 will give 20 KCl
-Follow BMP
#Mild leukocytosis -recent steroids related.
WBC 11.6 down from 13.4 on 12/14/2023
- follow cbc
#Recent hypoxic respiratory insufficiency�was multifactorial
-Continue diuretics, steroids, bronchodilators.
#Chronic COPD exacerbation
On Prednisone 40 mg p.o. daily will cont additional 3 day course
-Continue bronchodilators
-Continue on Advair
-Continue guaifenesin
#Recent bilateral pneumonia
-Treated with IV Zosyn x 5 days,(Legionella and strep, influenza, sputum culture, rapid strep test, blood cultures all negative 12/02 - 12/15/2023 admission)
-Speech therapy did VSE and no aspiration recent admit
#Chronic systolic CHF /NEW diastolic CHF 12/06/2023
-Daily weights, I/O, fluid restriction, salt restriction
WT 89 kg > 88 kg yesterday 12/15/2023
BNP 774> 464 on 12/13/2023
-Patient was given IV Lasix 20 mg single dose in ER
-Continue oral Lasix 40 mg p.o. daily
-Continue metoprolol succinate 25 mg p.o. nightly, Entresto 1 tablet twice a day, spironolactone 12.5 mg p.o. daily
2D echo May of this year EF 55 to 60%
#Ischemic cardiomyopathy
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
-Continue Jardiance 10 mg daily
#Chronic iron deficiency anemia
#Status post course of IV iron 12/05 - 12/14/2023
-GI did evaluate recent admission
-Continue PPI twice daily
-Can follow-up with GI as outpatient if desired.
-Hemoglobin 9.5 latest
#Dementia
-Continue donepezil 10 mg p.o. daily
-Monitor behavior and mental status
#Recent diarrhea- resolved
C. difficile was negative
#Hypothyroidism
Continue levothyroxine 100 mcg p.o. daily
#Chronic lower back pain
-Continue Lidoderm patch to lower back
-Continue Tylenol 650 mg scheduled 4 times daily
DVT prophylaxis:
sq lovenox
Full code patient has AICD once CPR if that fails and intubation son was present at bedside during discussion
--- NOTE | 2023-12-16 14:53 | W.PN.UPDATE ---
Update Note
Progress Note Update
This serves as an addendum to the H&P dictated by Chelle Espinosa on 12/16/2023.
I saw and examined the patient.
The [employer] or PA's note was reviewed and I agree with the note.
Comment:
Patient 83 years old female history of COPD, CHF, anemia, dementia, presented to the hospital cough and shortness of breath and recurrent respiratory failure. Patient was here in the hospital recently with cough and shortness of breath and
completed a course of IV broad-spectrum antibiotics, she was intravenously diuresed and switched to oral diuretics, she also received IV steroid and was switched to oral steroids tapering course. Pulmonary cleared her for discharge. She was
discharged but then she came back with similar complaints.
Physical exam:
General: Acutely ill
HEENT: Normocephalic, Atraumatic and Moist Mucous Membranes
Respiratory: Coarse crackles; some wheezes, no Rales or Rhonchi
Cardiac: Regular Rhythm and S1/S2
GI: Soft, Nontender and Nondistended
Musculoskeletal: No Clubbing, No Cyanosis and No Edema
Neuro: Awake, Alert and Oriented
Psych: Calm
A/P:
Acute hypoxic respiratory insufficiency/failure--> another course of steroids, bronchodilator, diuretics, not sure if she would benefit from antibiotics at this point. Pulmonary consult. Will obtain a CT of the chest without contrast. Will also
start her on nystatin orally. Will give further recommendations based on clinical course.
[2023-12-16] MEDS: KCL 20 MEQ PO (15:01)
[2023-12-16] MEDS: LASIX 20 MG IV (15:01)
--- NOTE | 2023-12-16 15:50 | CON.PUL ---
Consultation
Consultation Request
Date/Time Consultation Requested: 12/16/23
Date/Time Consultation Performed: 12/16/23
Performing Provider: Fany
Reason for Consultation: Cough
Medical History
-
History of Present Illness:
Patient is an 83-year-old female with previous history of chronic systolic heart failure, NICM s/p ICD, dementia, hypertension, history of V-fib, QTc prolongation, GERD and history of LBBB who presents from [facility] with cough and lethargy per
son. She was recently admitted and discharged from on 12/15/23 for similar complaints and treated for PNA, acute hypoxemic respiratory failure, chronic HF. Son notes that he found her at her apartment with lethargy, difficult to arouse.
She feels her SOB and cough are at the same level, no change.
She had previously completed a course of steroids and abx which did not affect her cough.
She had CT Chest 12/07/23 which showed nonspecific vague groundglass opacity in the right upper and right middle lobes and some additional bilateral lower lobe subsegmental atelectasis.
VSE was performed 12/08/23 which was normal.
She had been on maximal treatment for cough as well, which did not change her level of coughing.
.
Past Medical History
Past Medical History: Other (see list below)
Social History
Tobacco: Non-smoker
Alcohol: None
Drug: None
Family History
Family History: Reviewed & Not Pertinent
Allergies / Home Medications
Allergies
Allergy/AdvReac Type Severity Reaction Status Date / Time
No Known Drug Allergies Allergy Unknown Verified 05/23/23 19:35
Home Medications
�Medication �Instructions �Recorded �Confirmed �Last Taken �Type
albuterol sulfate 90 mcg/actuation 1 inh inhalation R Q4HPRN PRN 11/11/21 12/16/23 Unknown History
aerosol inhaler asthma
atorvastatin 10 mg tablet 10 mg PO QPM High cholesterol 11/11/21 12/16/23 05/22/23 18:11 History
donepezil 10 mg tablet 10 mg PO QPM dementia 11/11/21 12/16/23 05/22/23 18:11 History
metoprolol succinate 25 mg 25 mg PO HS Blood pressure 11/11/21 12/16/23 05/22/23 18:11 History
tablet,extended release 24 hr
(Toprol XL)
sacubitril 49 mg-valsartan 51 mg 1 tab PO BID Heart Failure 11/11/21 12/16/23 05/23/23 06:47 History
tablet (Entresto)
spironolactone 25 mg tablet 12.5 mg PO DAILY Fluid 11/11/21 12/16/23 05/23/23 06:47 History
retention/Swelling
aspirin 81 mg chewable tablet 81 mg PO DAILY Blood Clot 09/13/22 12/16/23 05/23/23 06:47 History
Prevention/Tx
empagliflozin 10 mg tablet 10 mg PO DAILY Diabetes 09/13/22 12/16/23 05/23/23 06:47 History
(Jardiance)
fluticasone 100 mcg-salmeterol 50 1 inh inhalation R BID 09/13/22 12/16/23 05/23/23 06:47 History
mcg/dose blistr powdr for Lung/Breathing Issues
inhalation
ibuprofen 200 mg tablet 200 mg PO Q8HPRN PRN joint 09/13/22 12/16/23 08/05/22 15:20 History
aches/pain
memantine 10 mg tablet 10 mg PO BID@0900,1700 09/13/22 12/16/23 05/23/23 09:14 History
Neurological Condition
multivitamin 1 tab PO DAILY Supplement 09/13/22 12/16/23 05/23/23 06:47 History
pantoprazole 40 mg tablet,delayed 40 mg PO DAILY Gastrointestinal 09/13/22 12/16/23 05/23/23 06:47 History
release Issue
potassium chloride 20 mEq 20 meq PO DAILY Electrolyte 09/13/22 12/16/23 05/23/23 06:47 History
tablet,extended release Repletion
tiotropium bromide 2.5 1 inh inhalation R DAILY 09/13/22 12/16/23 05/23/23 06:47 History
mcg/actuation mist for inhalation Lung/Breathing Issues
(Spiriva Respimat)
acetaminophen 650 mg 1,300 mg PO BID Pain 05/23/23 12/16/23 05/23/23 06:47 History
tablet,extended release
duloxetine 30 mg capsule,delayed 90 mg PO DAILY Pain 05/23/23 12/16/23 05/23/23 09:14 History
release
levothyroxine 100 mcg tablet 100 mcg PO DAILY@0530 Thyroid 05/23/23 12/16/23 05/23/23 06:47 History
lidocaine 5 % topical patch 1 patch topical DAILY lower back 05/23/23 12/16/23 05/23/23 06:47 History
magnesium hydroxide 400 mg/5 mL 30 ml PO DAILYPRN PRN constipation 05/23/23 12/16/23 Unknown History
oral suspension (Milk of Magnesia)
prednisone 10 mg tablet See Rx Instructions .Route 12/15/23 12/16/23 Unknown Rx
.COMPLEX #45 tabs
aluminum hydrox-magnesium carb 95 30 ml PO Q6HPRN PRN heartburn 12/16/23 12/16/23 Unknown History
mg-358 mg/15 mL oral suspension
(Acid Gone Antacid)
furosemide 20 mg tablet 20 mg PO DAILY 12/16/23 12/16/23 Unknown History
Review of Systems
-
History Source: Patient
All other systems: Negative unless noted
Vitals / Labs / Diagnostic Testing
Vital Signs
Temp Pulse Resp BP Pulse Ox
98.8 F 70 16 109/58 100
12/16/23 13:11 12/16/23 15:01 12/16/23 13:30 12/16/23 15:01 12/16/23 13:15
Lab Data
12/16/23 13:15
12/16/23 13:15
Microbiology
12/16/23 13:39 Nasal Swab Influenza Types A & B (LEONARDO) - Final
Negative for Influenza A & B, NAAT
Negative results must be combined with clinical observations
and patient history.
Nucleic Acid Amplification test (NAAT)performed on the
[employer] platform.
Diagnostic Testing:
Physical Exam
-
HEENT: Normocephalic, Anicteric, Moist Mucous Membranes and Other (upper airway wheezing, not audible in chest)
Cardiovascular: S1/S2, Regular Rhythm and Other
Respiratory: Clear and Non-Labored Respirations
GI: Soft, Non Distended and Non Tender
Neurology: Awake, Alert and No Motor Deficits
Skin: Warm and Dry
General: Comfortable and Other (NAD, obese/sedentary appearance)
Assessment
-
Patient is an 83-year-old female with previous history of chronic systolic heart failure, NICM s/p ICD, dementia, hypertension, history of V-fib, QTc prolongation, GERD and history of LBBB who presents from [facility] with cough and lethargy per
son. She was recently admitted and discharged from on 12/15/23 for similar complaints and treated for PNA, acute hypoxemic respiratory failure, chronic HF. Son notes that he found her at her apartment with lethargy, difficult to arouse. She is
sent to ER from [place]. CXR with similar appearance to prior, stable on RA. She feels her SOB and cough are at the same level, no change. We are consulted for eval.
Chronic cough
Chronic SOB-multifactorial
Abnormal CT chest from 12/07/2023 with groundglass + nodular opacities in the RUL + RML with consolidation in the right lower lobe, concerning for multifocal PNA
Recently adm and treated with steroids/abx, discharged 12/15/23
Lethargy/weakness
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
NICM s/p ICD (A sensed; V paced)
Chronic systolic heart failure
Hypertension
Dementia
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
History of QTc prolongation
Hyperlipidemia
Hypothyroidism
GERD
History of LBBB
Depression
IRENE
History of prediabetes (HbA1c: 5.9 - 12/07/2023)
Hx of asthma/COPD on Advair
Obesity BMI 38
Plan:
Respiratory status has not changed since last admission, she remains stable on RA
Continues to have chest congestion, mostly nonproductive cough w/ SOB
Upper airway wheezing audible, on exam/clear below
Prior assessment for supplemental oxygen needs prior to discharge: O2 cristofer 91% on RA
PNA treatment on prior admission:
She had previously completed a course of steroids and abx which did not affect her cough
She had CT Chest 12/07/23 which showed nonspecific vague groundglass opacity in the RU/RML and bilateral lower lobe subsegmental atelectasis
VSE was performed 12/08/23 which was normal
Sputum culture showing normal chandana 12/14/23
She had been on maximal treatment for cough as well, which did not change her level of coughing.
I think her SOB is multifactorial given her extended cardiac and pulmonary history, with BMI/sedentary lifestyle
She had been improving on last admission with PT/OT regularly and using IS/Acapella
I do not think repeating similar testing as prior admission will locate something new
Risk factors for OSAS are present, given lethargy can check ABG
If indicated will try PAP
Outpatient sleep study recommended
Continue home inhalers including Advair/nebs TID
No indication for steroids, would not resume
Observation for now
Repeat cultures can be obtained first before resuming abx
Prior cultures reviewed
Legionella and streptococcal urine antigen negative
Influenza negative
Blood cultures negative
Sputum culture-negative
Monitor leukocytosis and temperature curve
Resume cardiac meds, proBNP not significantly elevated
Observation again
Reviewed with patient and son at bedside
She may do better at SNF before discharge home
We will follow
Data:
CT Chest without contrast 12/07/2023: Nonspecific vague groundglass opacity in the right upper and right middle lobes new in the interval since prior study (CTA chest 09/13/2022) Some patchy right lower lobe opacification which could represent
pneumonia as well as some additional bilateral lower lobe subsegmental atelectasis.No pneumothorax or pleural effusion.Cardiomegaly again noted.Moderate to large hiatal hernia again noted.
CXR 12/16/23- IMPRESSION: 1. Small left pleural effusion. 2. Left lower lobe airspace disease may also be present.
CXR 12/06/2023: Right basilar pneumonia.
ECHO 12/13/23- Normal left ventricular chamber size. Normal left ventricular systolic function. Left ventricular ejection fraction is 55% by visual assessment. Mild concentric left ventricular hypertrophy.
Pacer wire seen in right ventricle. Structurally normal mitral valve without significant stenosis or regurgitation. Trace tricuspid regurgitation. Estimated pulmonary artery pressure of 20-25 mmHg assuming a right atrial pressure of 3 mmHg. The
IVC was not well visualized.
-----
Total time spent on this consultation __75__ includes review of history, physical exam, medications, laboratory data, personal review of imaging, extensive review of outpatient records, discussion with care team and respiratory therapy.
[2023-12-16 17:16] LABS: B.E. 4.1 mmol/L; HCO3 26.7 mmol/L (21-28); PCO2 32 mmHg (32-35); PO2 82 mmHg (83-108); pH 7.53 (7.35-7.45)
[2023-12-16] MEDS: ANESTHETIC LOZENGE 1 LOZENGE PO ×2 (17:49→20:48)
[2023-12-16] MEDS: MYCOSTATIN ORAL SUSPENSION 5 ML PO ×2 (20:46→23:45)
[2023-12-16] MEDS: TYLENOL 650 MG PO (20:47)
[2023-12-16] MEDS: ARICEPT 10 MG PO (20:47)
[2023-12-16] MEDS: LOVENOX 40 MG SC (20:47)
[2023-12-16] MEDS: MUCINEX 600 MG PO (20:47)
[2023-12-16] MEDS: LIPITOR 10 MG PO (20:47)
[2023-12-16] MEDS: ADVAIR HFA 45/21 MCG INHALER 2 PUFF INH (21:22)
[2023-12-16] MEDS: ENTRESTO 49 MG/51 MG 1 TAB PO (22:00)
[2023-12-16] MEDS: TOPROL XL 25 MG PO (22:00)
[2023-12-16] MEDS: NAMENDA 10 MG PO (22:06)
[2023-12-17] MEDS: ANESTHETIC LOZENGE 1 LOZENGE PO ×4 (02:58→20:15)
[2023-12-17] MEDS: SYNTHROID 100 MCG PO (05:24)
[2023-12-17 06:00] VITALS: BMI 37.3
[2023-12-17 07:15] VITALS: BP 118/55
[2023-12-17] MEDS: SPIRIVA RESPIMAT 2.5 MCG 1 PUFF INH (07:24)
[2023-12-17] MEDS: ADVAIR HFA 45/21 MCG INHALER 2 PUFF INH ×2 (07:24→20:10)
[2023-12-17 08:00] LABS: % Basophils 0.1 % (0-2); % Eosinophils 1.3 % (0-6); % Immature Granulocytes 1.1 % (0-0.5); % Lymphocytes 8.9 % (20.5-51.1); % Monocytes 7.4 % (1.7-9.3); % Neutrophils 81.2 % (42.2-75.2); Absolute Eosinophils 0.1 10^3/uL (0-0.7); Absolute Immature Granulocytes 0.1 10^3/uL (0-0.05); Absolute Lymphocytes 0.9 10^3/uL (1.2-3.4); Absolute Monocytes 0.8 10^3/uL (0.1-0.6); Absolute Neutrophils 8.3 10^3/uL (1.4-6.5); Hematocrit 29.2 % (37.0-47.0); Mean Corp Hgb Conc. 30.8 g/dL (33.0-37.0); Mean Corpuscular Hgb 23.3 pg (27.0-31.0); Mean Corpuscular Volume 75.6 fL (81.0-99.0); Mean Platelet Volume 10.6 fL (7.4-10.4); Nucleated Red Blood Cells % 0 %; Platelet Count 167 10^3/uL (130-400); Red Blood Cell Count 3.86 10^6/uL (4.20-5.40); White Blood Cell Count 10.2 10^3/uL (4.8-10.8)
[2023-12-17 08:15] LABS: ALT (SGPT) 20 U/L (0-35); AST (SGOT) 23 U/L (14-36); Albumin 3.1 g/dl (3.5-5.0); Alkaline Phosphatase 69 U/L (38-126); Blood Urea Nitrogen 24 mg/dl (7-17); Calcium 8.4 mg/dl (8.4-10.2); Carbon Dioxide 29 mmol/L (22-30); Chloride 100 mmol/L (98-107); Estimated Creatinine Clearance 51 ml/min; Glucose 97 mg/dl (70-99); Potassium 3.7 mmol/L (3.5-5.1); Sodium 137 mmol/L (135-145); Total Bilirubin 0.8 mg/dl (0.2-1.3); eGFR > 60.00
[2023-12-17] MEDS: MUCINEX 600 MG PO ×3 (09:04→20:23)
[2023-12-17] MEDS: NAMENDA 10 MG PO ×2 (09:05→16:21)
[2023-12-17] MEDS: FARXIGA 10 MG PO (09:05)
[2023-12-17] MEDS: TYLENOL 650 MG PO ×4 (09:05→21:57)
[2023-12-17] MEDS: LOW STRENGTH ASPIRIN 81 MG PO (09:05)
[2023-12-17] MEDS: CYMBALTA DELAYED RELEASE 90 MG PO (09:05)
[2023-12-17] MEDS: KCL 20 MEQ PO (09:06)
[2023-12-17] MEDS: DELTASONE 40 MG PO (09:06)
[2023-12-17] MEDS: ALDACTONE 12.5 MG PO (09:06)
[2023-12-17] MEDS: LIDOCAINE 4% PATCH 1 PATCH TOPICAL (09:06)
[2023-12-17] MEDS: PROTONIX 40 MG PO (09:07)
[2023-12-17] MEDS: ENTRESTO 49 MG/51 MG 1 TAB PO ×2 (09:07→20:23)
[2023-12-17] MEDS: MYCOSTATIN ORAL SUSPENSION 5 ML PO ×4 (09:07→21:57)
[2023-12-17] MEDS: LASIX 20 MG PO (09:07)
--- NOTE | 2023-12-17 09:32 | W.PN.HOSP.TC ---
Today's Communication/Plan
-
Oral steroids. Oral diuretics. PT OT eval
Assessment / Plan
Assessment / Plan
Physical exam:
General: Acute on chronically ill
HEENT: Normocephalic, Atraumatic and Moist Mucous Membranes
Respiratory: Clear to Auscultation; Negative Wheezes, Rales or Rhonchi
Cardiac: Regular Rhythm and S1/S2
GI: Soft, Nontender and Nondistended
Musculoskeletal: No Clubbing, No Cyanosis and No Edema
Neuro: Awake, Alert and Oriented
Psych: Calm
A/P:
Acute hypoxic respiratory insufficiency:
Multifactorial etiology
Off oxygen
Continue diuretics, steroids, bronchodilators.
Continue PT OT eval who recommended home health
Seen CT scan of the chest and nonspecific findings as before
No need for antibiotics
Patient coming from assisted living and plan to possible skilled rehab
Acute COPD recent exacerbation and recent bilateral pneumonia:
On Prednisone 40 mg p.o. daily, continue tapering course. No need for escalation at the moment.
Bronchodilators, Xopenex
On Advair
Continue Tessalon Perles
Pulmonary on consult and appreciated input
Finished course of antibiotics for pneumonia.
Seen and evaluated CT scan of the chest
Acute on chronic improved systolic/now diastolic CHF:
Continue oral Lasix 20 mg p.o. daily
BNP latest 858, repeated--> 464
Monitor strict I/O
Monitor daily weight
Monitor renal function and electrolytes
Reviewed latest echocardiogram on our system--> May of this year EF 55 to 60%
Continue guideline-directed medical therapy for heart failure (GDMT)--> on metoprolol succinate 25 mg p.o. nightly, Entresto 1 tablet twice a day, spironolactone 12.5 mg p.o. daily.
AICD in place
Fluid restriction
Salt restriction
Heart failure education
Follow up clinical response
Hypokalemia:
Replete and trend
Leukocytosis:
Steroids related.
Chronic iron deficiency anemia:
Status post course of IV iron on last admission
GI consulted and signed off on last admission.
On PPI twice daily.
Can follow-up with GI as outpatient if desired.
Hemoglobin stable
Oral candidiasis:
Continue oral nystatin
Continue Magic mouthwash
Dementia:
Continue donepezil 10 mg p.o. daily
Monitor behavior and mental status
DVT prophylaxis:
SCDs
CODE STATUS:
Limited DNR but AICD active.
Anticipated Discharge: 24 - 48 hours
Subjective/Interval History
-
Date of Service: December 17, 2023
Still having cough and mouth pain. Less shortness of breath.
Objective Data
-
Labs:
Laboratory Results
12/17/23
06:35
WBC 10.2
Hgb 9.0 L
Hct 29.2 L
Plt Count 167
Sodium 137
Potassium 3.7
Chloride 100
Carbon Dioxide 29
BUN 24 H
Creatinine 0.8
Glucose 97
Calcium 8.4
Total Bilirubin 0.8
AST 23
ALT 20
Alkaline Phosphatase 69
Vital Signs:
Vital Signs
Temp Pulse Resp BP Pulse Ox
98.1 F 70 14 118/55 94
12/17/23 07:15 12/17/23 07:29 12/17/23 07:29 12/17/23 07:15 12/17/23 07:29
I&O
12/16/23 12/17/23 12/18/23
06:59 06:59 06:59
Intake Total 240 / 240
Balance 240 / 240
--- NOTE | 2023-12-17 10:01 | W.PN.PUL3 ---
Today's Communication / Plan
-
Advair + Spiriva
OCS with taper
PT/OT
Keep SpO2 >90-94% and check ambulatory pulse oximetry prior to discharge
Mucolytics and cough drops
Assessment
-
Patient is an 83-year-old female with previous history of chronic systolic heart failure, NICM s/p ICD, dementia, hypertension, history of V-fib, QTc prolongation, GERD and history of LBBB who presents from [facility] with cough and lethargy per
son. She was recently admitted and discharged from on 12/15/23 for similar complaints and treated for PNA, acute hypoxemic respiratory failure, chronic HF. Son notes that he found her at her apartment with lethargy, difficult to arouse. She is
sent to ER from [place]. CXR with similar appearance to prior, stable on RA. She feels her SOB and cough are at the same level, no change. We are consulted for eval.
Impression:
Chronic cough - multifactorial -at this point it seems like it is postinfectious given her recent pneumonia
Abnormal CT chest from 12/07/2023 with groundglass + nodular opacities in the RUL + RML with consolidation in the right lower lobe, concerning for multifocal PNA
Recently adm and treated with steroids/abx, discharged 12/15/23
Lethargy/weakness
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
NICM s/p ICD (A sensed; V paced)
Chronic systolic heart failure
Hypertension
Dementia
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
History of QTc prolongation
Hyperlipidemia
Hypothyroidism
GERD
History of LBBB
Depression
IRENE
History of prediabetes (HbA1c: 5.9 - 12/07/2023)
Hx of asthma/COPD on Advair
Obesity BMI 38
Plan:
Respiratory status has not changed since last admission, she remains stable on RA
Continues to have chest congestion, mostly nonproductive cough w/ SOB
Upper airway wheezing audible, on exam/clear below --> currently no wheezing as of 12/16
Prior assessment for supplemental oxygen needs prior to discharge: O2 cristofer 91% on RA
PNA treatment on prior admission:
She had previously completed a course of steroids and abx which did not affect her cough
She had CT Chest 12/07/23 which showed nonspecific vague groundglass opacity in the RU/RML and bilateral lower lobe subsegmental atelectasis
VSE was performed 12/08/23 which was normal
Sputum culture showing normal chandana 12/14/23
She had been on maximal treatment for cough as well, which did not change her level of coughing.
I think her SOB is multifactorial given her extended cardiac and pulmonary history, with BMI/sedentary lifestyle
She had been improving on last admission with PT/OT regularly and using IS/Acapella
I do not think repeating similar testing as prior admission will locate something new
Risk factors for OSAS are present, given lethargy can check ABG
If indicated will try PAP
Outpatient sleep study recommended
Continue home inhalers including Advair/nebs TID
Patient on oral corticosteroids with 40 mg prednisone daily - taper as tolerated
No need for antibiotics given that CT chest on 12/16/2023 shows resolving RUL/RLL pneumonia compared to prior CT on 12/07/2023
Prior cultures reviewed
Legionella and streptococcal urine antigen negative
Influenza negative
Blood cultures NGTD (from 12/06/2023)
Sputum culture from 12/14/2023 - NGTD
Monitor leukocytosis and temperature curve
Resume cardiac meds, proBNP not significantly elevated
Observation again
Dr. Soares reviewed with patient and son at bedside
She may do better at SNF before discharge home; rec'd PT/OT
We will follow
Data:
CT Chest without contrast 12/07/2023: Nonspecific vague groundglass opacity in the right upper and right middle lobes new in the interval since prior study (CTA chest 09/13/2022) Some patchy right lower lobe opacification which could represent
pneumonia as well as some additional bilateral lower lobe subsegmental atelectasis.No pneumothorax or pleural effusion.Cardiomegaly again noted.Moderate to large hiatal hernia again noted.
CXR 12/16/23- IMPRESSION: 1. Small left pleural effusion. 2. Left lower lobe airspace disease may also be present.
CXR 12/06/2023: Right basilar pneumonia.
ECHO 12/13/23- Normal left ventricular chamber size. Normal left ventricular systolic function. Left ventricular ejection fraction is 55% by visual assessment. Mild concentric left ventricular hypertrophy.
Pacer wire seen in right ventricle. Structurally normal mitral valve without significant stenosis or regurgitation. Trace tricuspid regurgitation. Estimated pulmonary artery pressure of 20-25 mmHg assuming a right atrial pressure of 3 mmHg. The
IVC was not well visualized.
-----
Total time spent today was 38 minutes for this encounter. Time includes reviewing laboratory test/imaging results, reviewing pertinent medical records, obtaining and reviewing medical history, performing an appropriate exam, ordering medications,
tests and procedures. Time also includes documentation of this encounter, coordinating patient care and communicating with other healthcare professionals. Total time does not include separately billed tests performed on this date of service.
Subjective Data
-
Date of Service:
Date of Service: December 17, 2023
Chief Complaint: Pulmonary Follow Up
Subjective:
Patient seen and evaluated at bedside. She says her throat hurts. She is currently on room air saturating 95%. She denies chest pain, ZAPATA, nausea, fevers or chills.
Review of Systems
General: Other (Negative unless mentioned above)
Objective Data
Data Reviewed
Vital Signs / I&O / Oxygen:
Vital Signs
Temp Pulse Resp BP Pulse Ox
98.1 F 70 14 118/55 94
12/17/23 07:15 12/17/23 07:29 12/17/23 07:29 12/17/23 07:15 12/17/23 07:29
Intake and Output
12/16/23 12/17/23 12/18/23
06:59 06:59 06:59
Intake Total 240 / 240
Balance 240 / 240
SaO2 94
Physical Exam
General: Respiratory Distress (negative), Comfortable, Chills (negative) and Sweats (negative)
HEENT: Normocephalic and Anicteric
Cardiovascular: S1-S2, Peripheral Edema (Trace lower extremity (R >L)) and Other (Distant heart sound)
Respiratory: Wheeze (negative), Crackles (Bilateral) and Rhonchi (Bilateral)
GI: Soft, Distended (Abdominal obesity), Non Tender and Normal Bowel Sounds
Neurology: Awake, Alert and Tremors (negative)
Skin: Warm, Dry, Cyanosis (negative) and Jaundice (negative)
Labs/Micro/Reports
Lab Data
12/17/23 06:35
12/17/23 06:35
Laboratory Results
12/16/23
16:53
pH 7.53 H
pCO2 32
pO2 82 L
HCO3 26.7
O2 Delivery Level
Microbiology
12/16/23 13:39 Nasal Swab Influenza Types A & B (LEONARDO) - Final
Negative for Influenza A & B, NAAT
Negative results must be combined with clinical observations
and patient history.
Nucleic Acid Amplification test (NAAT)performed on the
[employer] platform.
[2023-12-17 14:30] VITALS: PULSE 92; O2SAT 96
--- NOTE | 2023-12-17 14:59 | CM ---
CM met with pt bedside and chart review
Pt admitted to from 12/05-12/14 and home with [facility]
Pt a PCU resident at [facility]
Ambulates with a WW or rollator
PCP- Bernardo Saavedra
Rx- Josh
PT eval pending
OT recs SNF vs [facility]
Call with dtr per pt request- she is currently in [place]
Referred to Medicare.[email or web address] and she will review to SNF choices if SNF is needed on dc
Pt is OBS- NGUYEN reviewed with pt
Copy provided
Pt has qualifying stay from 12/05-12/14
[facility]
[2023-12-17 15:00] VITALS: BP 113/57
[2023-12-17] MEDS: FIRST-MOUTHWASH BLM SUSPENSION 5 ML PO ×2 (16:21→22:24)
[2023-12-17] MEDS: LIPITOR 10 MG PO (17:30)
[2023-12-17] MEDS: LOVENOX 40 MG SC (17:30)
[2023-12-17] MEDS: ARICEPT 10 MG PO (17:30)
[2023-12-17] MEDS: TOPROL XL 25 MG PO (21:57)
[2023-12-17 23:01] VITALS: BP 118/59
[2023-12-18 05:56] VITALS: BMI 37.4
[2023-12-18] MEDS: SYNTHROID 100 MCG PO (05:57)
[2023-12-18] MEDS: FIRST-MOUTHWASH BLM SUSPENSION 5 ML PO (05:58)
[2023-12-18] MEDS: ANESTHETIC LOZENGE 1 LOZENGE PO ×3 (05:58→23:09)
[2023-12-18] MEDS: SPIRIVA RESPIMAT 2.5 MCG 1 PUFF INH (07:10)
[2023-12-18] MEDS: ADVAIR HFA 45/21 MCG INHALER 2 PUFF INH ×2 (07:10→20:02)
[2023-12-18 07:15] VITALS: BP 107/49
[2023-12-18 08:02] LABS: Blood Urea Nitrogen 23 mg/dl (7-17); Calcium 8.8 mg/dl (8.4-10.2); Carbon Dioxide 26 mmol/L (22-30); Chloride 99 mmol/L (98-107); Estimated Creatinine Clearance 59 ml/min; Glucose 109 mg/dl (70-99); Potassium 3.8 mmol/L (3.5-5.1); Sodium 136 mmol/L (135-145); eGFR > 60.00
--- NOTE | 2023-12-18 08:56 | W.PN.HOSP.TC ---
Today's Communication/Plan
-
Advair and Spiriva. Oral steroids. Discharge planning
Assessment / Plan
Assessment / Plan
Physical exam:
General: Acute on chronically ill
HEENT: Normocephalic, Atraumatic and Moist Mucous Membranes
Respiratory: Clear to Auscultation; Negative Wheezes, Rales or Rhonchi
Cardiac: Regular Rhythm and S1/S2
GI: Soft, Nontender and Nondistended
Musculoskeletal: No Clubbing, No Cyanosis and No Edema
Neuro: Awake, Alert and Oriented
Psych: Calm
A/P:
Acute hypoxic respiratory insufficiency:
Multifactorial etiology
Off oxygen
Continue diuretics, steroids, bronchodilators.
Continue PT OT eval who recommended home health
Seen CT scan of the chest and nonspecific findings as before
No need for antibiotics
Patient coming from assisted living and plan to possible skilled rehab
Discussed with family prior
Assess for home oxygen needs upon discharge
COPD/Pneumonia:
Completed course antibiotics prior to admission.
On Prednisone 40 mg p.o. daily, continue tapering course. No need for escalation at the moment rather we will start tapering from tomorrow on.
Bronchodilators, Xopenex
On Advair and Spiriva
Continue Tessalon Perles
Pulmonary on consult and appreciated input
Seen and evaluated CT scan of the chest
Acute on chronic improved systolic/now diastolic CHF:
Continue oral Lasix 20 mg p.o. daily
BNP latest 858, repeated--> 464
Monitor strict I/O
Monitor daily weight
Monitor renal function and electrolytes
Reviewed latest echocardiogram on our system--> May of this year EF 55 to 60%
Continue guideline-directed medical therapy for heart failure (GDMT)--> on metoprolol succinate 25 mg p.o. nightly, Entresto 1 tablet twice a day, spironolactone 12.5 mg p.o. daily.
AICD in place
Fluid restriction
Salt restriction
Heart failure education
Follow up clinical response
Hypokalemia:
Replete and trend
Leukocytosis:
Steroids related.
Trended down appropriately.
Chronic iron deficiency anemia:
Status post course of IV iron on last admission
GI consulted and signed off on last admission.
On PPI twice daily.
Can follow-up with GI as outpatient if desired.
Hemoglobin stable
Oral candidiasis:
Continue oral nystatin
Continue Magic mouthwash
Dementia:
Continue donepezil 10 mg p.o. daily
Monitor behavior and mental status
DVT prophylaxis:
SCDs
CODE STATUS:
Limited DNR but AICD active.
Anticipated Discharge: 24 - 48 hours
Subjective/Interval History
-
Date of Service: December 18, 2023
Patient less cough and shortness of breath. Less mouth soreness. Afebrile
Objective Data
-
Labs:
Laboratory Results
12/18/23
06:44
Sodium 136
Potassium 3.8
Chloride 99
Carbon Dioxide 26
BUN 23 H
Creatinine 0.7
Glucose 109 H
Calcium 8.8
Vital Signs:
Vital Signs
Temp Pulse Resp BP Pulse Ox
98.4 F 72 18 107/49 96
12/18/23 07:15 12/18/23 07:15 12/18/23 07:15 12/18/23 07:15 12/18/23 07:15
I&O
12/17/23 12/18/23 12/19/23
06:59 06:59 06:59
Intake Total 240 / 240 960 / 960
Balance 240 / 240 960 / 960
[2023-12-18] MEDS: TYLENOL 650 MG PO ×4 (09:05→22:59)
[2023-12-18] MEDS: ALDACTONE 12.5 MG PO (09:05)
[2023-12-18] MEDS: DELTASONE 40 MG PO (09:05)
[2023-12-18] MEDS: ENTRESTO 49 MG/51 MG 1 TAB PO ×2 (09:05→21:09)
[2023-12-18] MEDS: CYMBALTA DELAYED RELEASE 90 MG PO (09:05)
[2023-12-18] MEDS: LOW STRENGTH ASPIRIN 81 MG PO (09:06)
[2023-12-18] MEDS: NAMENDA 10 MG PO ×2 (09:06→17:14)
[2023-12-18] MEDS: LIDOCAINE 4% PATCH 1 PATCH TOPICAL (09:06)
[2023-12-18] MEDS: MUCINEX 600 MG PO (09:06)
[2023-12-18] MEDS: PROTONIX 40 MG PO (09:06)
[2023-12-18] MEDS: MYCOSTATIN ORAL SUSPENSION 5 ML PO ×4 (09:06→22:59)
[2023-12-18] MEDS: KCL 20 MEQ PO (09:07)
[2023-12-18] MEDS: LASIX 20 MG PO (09:07)
[2023-12-18] MEDS: FARXIGA 10 MG PO (09:16)
--- NOTE | 2023-12-18 09:39 | W.PN.PUL3 ---
Today's Communication / Plan
-
Advair + Spiriva
OCS with taper
PT/OT
Keep SpO2 >90-94% and check ambulatory pulse oximetry prior to discharge
Mucolytics and cough drops
Assessment
-
Patient is an 83-year-old female with previous history of chronic systolic heart failure, NICM s/p ICD, dementia, hypertension, history of V-fib, QTc prolongation, GERD and history of LBBB who presents from [facility] with cough and lethargy per
son. She was recently admitted and discharged from on 12/15/23 for similar complaints and treated for PNA, acute hypoxemic respiratory failure, chronic HF. Son notes that he found her at her apartment with lethargy, difficult to arouse. She is
sent to ER from [place]. CXR with similar appearance to prior, stable on RA. She feels her SOB and cough are at the same level, no change. We are consulted for eval.
Impression:
Chronic cough - multifactorial -at this point it seems like it is postinfectious given her recent pneumonia
Acute laryngitis/bronchitis
Abnormal CT chest from 12/07/2023 with groundglass + nodular opacities in the RUL + RML with consolidation in the right lower lobe, concerning for multifocal PNA
Recently adm and treated with steroids/abx, discharged 12/15/23
Lethargy/weakness
Chronic conditions [employer]:
NICM s/p ICD (A sensed; V paced)
Chronic systolic heart failure
Hypertension
Dementia
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
History of QTc prolongation
Hyperlipidemia
Hypothyroidism
GERD
History of LBBB
Depression
IRENE
History of prediabetes (HbA1c: 5.9 - 12/07/2023)
Hx of asthma/COPD on Advair
Obesity BMI 38
Plan:
Respiratory status has not changed since last admission, she remains stable on RA
Continues to have chest congestion, mostly nonproductive cough w/ SOB
Upper airway wheezing audible, on exam/clear below --> currently no wheezing as of 12/16
Prior assessment for supplemental oxygen needs prior to discharge: O2 cristofer 91% on RA
PNA treatment on prior admission:
She had previously completed a course of steroids and abx which did not affect her cough
She had CT Chest 12/07/23 which showed nonspecific vague groundglass opacity in the RU/RML and bilateral lower lobe subsegmental atelectasis
VSE was performed 12/08/23 which was normal
Sputum culture showing normal chandana 12/14/23
She had been on maximal treatment for cough as well, which did not change her level of coughing.
I think her SOB is multifactorial given her extended cardiac and pulmonary history, with BMI/sedentary lifestyle
She had been improving on last admission with PT/OT regularly and using IS/Acapella
I do not think repeating similar testing as prior admission will locate something new
Risk factors for OSAS are present, given lethargy can check ABG
If indicated will try PAP
Outpatient sleep study recommended
Continue home inhalers including Advair/nebs TID
Patient on oral corticosteroids with 40 mg prednisone daily - taper as tolerated
No need for antibiotics given that CT chest on 12/16/2023 shows resolving RUL/RLL pneumonia compared to prior CT on 12/07/2023
Prior cultures reviewed
Legionella and streptococcal urine antigen negative
Influenza negative
Blood cultures NGTD (from 12/06/2023)
Sputum culture from 12/14/2023 - NGTD
Monitor leukocytosis and temperature curve
Resume cardiac meds, proBNP not significantly elevated
Observation again
Dr. Soares reviewed with patient and son at bedside
She may do better at SNF before discharge home; rec'd PT/OT
We will follow
Data:
CT Chest without contrast 12/07/2023: Nonspecific vague groundglass opacity in the right upper and right middle lobes new in the interval since prior study (CTA chest 09/13/2022) Some patchy right lower lobe opacification which could represent
pneumonia as well as some additional bilateral lower lobe subsegmental atelectasis.No pneumothorax or pleural effusion.Cardiomegaly again noted.Moderate to large hiatal hernia again noted.
CXR 12/16/23- IMPRESSION: 1. Small left pleural effusion. 2. Left lower lobe airspace disease may also be present.
CXR 12/06/2023: Right basilar pneumonia.
ECHO 12/13/23- Normal left ventricular chamber size. Normal left ventricular systolic function. Left ventricular ejection fraction is 55% by visual assessment. Mild concentric left ventricular hypertrophy.
Pacer wire seen in right ventricle. Structurally normal mitral valve without significant stenosis or regurgitation. Trace tricuspid regurgitation. Estimated pulmonary artery pressure of 20-25 mmHg assuming a right atrial pressure of 3 mmHg. The
IVC was not well visualized.
-----
Total time spent today was 36 minutes for this encounter. Time includes reviewing laboratory test/imaging results, reviewing pertinent medical records, obtaining and reviewing medical history, performing an appropriate exam, ordering medications,
tests and procedures. Time also includes documentation of this encounter, coordinating patient care and communicating with other healthcare professionals. Total time does not include separately billed tests performed on this date of service.
Subjective Data
-
Date of Service:
Date of Service: December 18, 2023
Chief Complaint: Pulmonary Follow Up
Subjective:
Patient was seen and evaluated today at bedside. Sitting in a chair in no acute distress on room air breathing comfortably. Patient still has a dry cough but it is improving. Patient also still has throat pain. She denies chest pain, ZAPATA, nausea,
fevers or chills. She has been afebrile overnight.
Review of Systems
General: Other (Negative unless mentioned above)
Objective Data
Data Reviewed
Vital Signs / I&O / Oxygen:
Vital Signs
Temp Pulse Resp BP Pulse Ox
98.4 F 72 18 107/49 96
12/18/23 07:15 12/18/23 07:15 12/18/23 07:15 12/18/23 07:15 12/18/23 07:15
Intake and Output
12/17/23 12/18/23 12/19/23
06:59 06:59 06:59
Intake Total 240 / 240 960 / 960
Balance 240 / 240 960 / 960
SaO2 96
Physical Exam
General: Respiratory Distress (negative), Comfortable, Chills (negative) and Sweats (negative)
HEENT: Normocephalic and Anicteric
Cardiovascular: S1-S2, Peripheral Edema (+1 lower extremity edema bilaterally) and Other (Distant heart sounds)
Respiratory: Wheeze (negative), Crackles (Bilateral) and Rhonchi (Bilateral)
GI: Soft, Distended (Abdominal obesity), Non Tender and Normal Bowel Sounds
Neurology: AO x 3 and Tremors (negative)
Skin: Warm, Dry, Cyanosis (negative) and Jaundice (negative)
Labs/Micro/Reports
Lab Data
12/17/23 06:35
12/18/23 06:44
Microbiology
12/17/23 06:25 Nose MRSA Screen - Final
No Methicillin Resistant Staphylococcus aureus isolated.
12/16/23 13:39 Nasal Swab Influenza Types A & B (LEONARDO) - Final
Negative for Influenza A & B, NAAT
Negative results must be combined with clinical observations
and patient history.
Nucleic Acid Amplification test (NAAT)performed on the
[employer] NOW platform.
[2023-12-18 15:34] VITALS: BP 115/56
[2023-12-18] MEDS: ARICEPT 10 MG PO (17:12)
[2023-12-18] MEDS: LOVENOX 40 MG SC (17:13)
[2023-12-18] MEDS: LIPITOR 10 MG PO (17:13)
[2023-12-18 20:57] VITALS: BP 127/108
[2023-12-18 22:58] VITALS: BP 130/59
[2023-12-18] MEDS: TESSALON PERLES 100 MG PO (22:59)
[2023-12-18] MEDS: TOPROL XL 25 MG PO (22:59)
[2023-12-18 23:25] VITALS: BP 127/58
[2023-12-19] MEDS: SYNTHROID 100 MCG PO (05:35)
[2023-12-19 06:00] VITALS: BMI 37.2
[2023-12-19 07:00] VITALS: BP 121/60
[2023-12-19] MEDS: SPIRIVA RESPIMAT 2.5 MCG 1 PUFF INH (07:23)
[2023-12-19] MEDS: ADVAIR HFA 45/21 MCG INHALER 2 PUFF INH ×2 (07:23→20:11)
[2023-12-19] MEDS: ALDACTONE 12.5 MG PO (09:03)
[2023-12-19] MEDS: CYMBALTA DELAYED RELEASE 90 MG PO (09:03)
[2023-12-19] MEDS: ENTRESTO 49 MG/51 MG 1 TAB PO ×2 (09:03→21:36)
[2023-12-19] MEDS: DELTASONE 40 MG PO (09:03)
[2023-12-19] MEDS: FARXIGA 10 MG PO (09:04)
[2023-12-19] MEDS: LIDOCAINE 4% PATCH 1 PATCH TOPICAL (09:04)
[2023-12-19] MEDS: LASIX 20 MG PO (09:04)
[2023-12-19] MEDS: KCL 20 MEQ PO (09:04)
[2023-12-19] MEDS: LOW STRENGTH ASPIRIN 81 MG PO (09:04)
[2023-12-19] MEDS: TYLENOL 650 MG PO ×4 (09:05→21:40)
[2023-12-19] MEDS: NAMENDA 10 MG PO ×2 (09:05→16:59)
[2023-12-19] MEDS: MYCOSTATIN ORAL SUSPENSION 5 ML PO ×4 (09:05→21:40)
[2023-12-19] MEDS: MUCINEX 600 MG PO ×2 (09:05→21:36)
[2023-12-19] MEDS: PROTONIX 40 MG PO (09:05)
[2023-12-19 11:09] VITALS: BP 119/60; PULSE 75
--- NOTE | 2023-12-19 11:15 | W.PN.HOSP.TC ---
Today's Communication/Plan
-
Discharge planning
Assessment / Plan
Assessment / Plan
Gen-AAOx3, NAD
HEENT-NC, AT, anicteric, clear oral mm
Neck-supple
CV-reg, no M, +S1/S2
Lungs-decreased breath sounds, mild expiratory wheezing
Abd-soft, NT, ND
Ext-no edema
Musculoskeletal-no cyanosis, clubbing
Skin-warm and dry
Neuro-grossly non-focal
Psych-calm, cooperative
Acute hypoxic respiratory insufficiency -Multifactorial etiology, including acute bronchitis, postinfectious cough, history of COPD. Not requiring oxygen currently.
Postinfectious cough -add Acapella, incentive spirometer.
Acute laryngo-bronchitis -continue prednisone per pulmonary. Continue inhalers.
Recent pneumonia
COPD without exacerbation
Acute on chronic improved systolic/now diastolic CHF:
Continue oral Lasix 20 mg p.o. daily
BNP latest 858, repeated--> 464
Monitor strict I/O
Monitor daily weight
Monitor renal function and electrolytes
Reviewed latest echocardiogram on our system--> May of this year EF 55 to 60%
Continue guideline-directed medical therapy for heart failure (GDMT)--> on metoprolol succinate 25 mg p.o. nightly, Entresto 1 tablet twice a day, spironolactone 12.5 mg p.o. daily.
AICD in place
Fluid restriction
Salt restriction
Heart failure education
Follow up clinical response
Hypokalemia:
Replete and trend
Leukocytosis:
Steroids related.
Trended down appropriately.
Chronic iron deficiency anemia:
Status post course of IV iron on last admission
GI consulted and signed off on last admission.
On PPI twice daily.
Can follow-up with GI as outpatient if desired.
Hemoglobin stable
Oral candidiasis:
Continue oral nystatin
Continue Magic mouthwash
Dementia:
Continue donepezil 10 mg p.o. daily
Monitor behavior and mental status
DVT prophylaxis:
SCDs
CODE STATUS:
Limited DNR but AICD active.
Dispo -medically stable for discharge to SNF. Case management aware.
Anticipated Discharge: Within 24 hours
Subjective/Interval History
-
Date of Service: December 19, 2023
Patient seen and examined. Complaining of cough, sore throat. Denies shortness of breath.
Objective Data
-
Vital Signs:
Vital Signs
Temp Pulse Resp BP Pulse Ox
97.9 F 78 18 121/60 97
12/19/23 07:00 12/19/23 07:28 12/19/23 07:28 12/19/23 07:00 12/19/23 07:28
I&O
12/18/23 12/19/23 12/20/23
06:59 06:59 06:59
Intake Total 960 / 960 780 / 780
Balance 960 / 960 780 / 780
Review of Systems
-
History Source: Patient
All other systems: Reviewed and negative
--- NOTE | 2023-12-19 11:53 | CM ---
CM reviewed chart, spoke with Hospitalist. Patient seen bedside, discussed PT recommendations of VN vs SNF, patient requesting call to daughter. CM spoke with daughter, updated PT notes from today recommending VN, daughter reports patient is current
with [facility] and [facility], would like therapy to start as soon as possible. Daughter reports [place], please contact her tomorrow for discharge updates and transportation needs. CM left voicemail for nurse Avila at [facility]
with patient discharge plan/review patient. CM will continue to follow for all discharge planning needs.
Plan; return to [facility] with [facility], awaiting return call from [facility] nurse to review, confirm acceptance.
--- NOTE | 2023-12-19 11:57 | W.PN.PUL3 ---
Today's Communication / Plan
-
Cont. with current management.
symptomatic management
Discharge planning
Will sign off.
Assessment
-
Patient is an 83-year-old female with previous history of chronic systolic heart failure, NICM s/p ICD, dementia, hypertension, history of V-fib, QTc prolongation, GERD and history of LBBB who presents from [facility] with cough and lethargy per
son. She was recently admitted and discharged from on 12/15/23 for similar complaints and treated for PNA, acute hypoxemic respiratory failure, chronic HF. Son notes that he found her at her apartment with lethargy, difficult to arouse. She is
sent to ER from [place]. CXR with similar appearance to prior, stable on RA. She feels her SOB and cough are at the same level, no change. We are consulted for eval.
Impression:
Chronic cough - multifactorial -at this point it seems like it is postinfectious given her recent pneumonia
Acute laryngitis/bronchitis
Abnormal CT chest from 12/07/2023 with groundglass + nodular opacities in the RUL + RML with consolidation in the right lower lobe, concerning for multifocal PNA
Recently adm and treated with steroids/abx, discharged 12/15/23
Lethargy/weakness
Chronic conditions [employer]:
NICM s/p ICD (A sensed; V paced)
Chronic systolic heart failure
Hypertension
Dementia
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
History of QTc prolongation
Hyperlipidemia
Hypothyroidism
GERD
History of LBBB
Depression
IRENE
History of prediabetes (HbA1c: 5.9 - 12/07/2023)
Hx of asthma/COPD on Advair
Obesity BMI 38
Plan:
Clinically improved, On room air.
Upper airway wheezing audible, on exam/clear below --> Not bronchospastic on exam 12/19/2023
PNA treatment on prior admission:
She had previously completed a course of steroids and abx which did not affect her cough
She had CT Chest 12/07/23 which showed nonspecific vague groundglass opacity in the RU/RML and bilateral lower lobe subsegmental atelectasis
VSE was performed 12/08/23 which was normal
Sputum culture showing normal chandana 12/14/23
Cont. symptomatic management.
I think her SOB is multifactorial given her extended cardiac and pulmonary history, with BMI/sedentary lifestyle
She had been improving on last admission with PT/OT regularly and using IS/Acapella
No further evaluation necessary.
Risk factors for OSAS are present, ABG 12/16/2023 no evidence for hypercapnia.
Outpatient sleep study recommended
Continue home inhalers including Advair/nebs TID
Prednisone taper, decrease by 10mg every 48hr to off.
No need for antibiotics given that CT chest on 12/16/2023 shows resolving RUL/RLL pneumonia compared to prior CT on 12/07/2023
Prior cultures reviewed
Legionella and streptococcal urine antigen negative
Influenza negative
Blood cultures NGTD (from 12/06/2023)
Sputum culture from 12/14/2023 - NGTD
Monitor leukocytosis and temperature curve
continue cardiac meds, proBNP not significantly elevated
Dr. Soares reviewed with patient and son at bedside
She may do better at SNF before discharge home; rec'd PT/OT
Agree with discharge planning to SNF, will sign off.

Data:
CT Chest without contrast 12/07/2023: Nonspecific vague groundglass opacity in the right upper and right middle lobes new in the interval since prior study (CTA chest 09/13/2022) Some patchy right lower lobe opacification which could represent
pneumonia as well as some additional bilateral lower lobe subsegmental atelectasis.No pneumothorax or pleural effusion.Cardiomegaly again noted.Moderate to large hiatal hernia again noted.
CXR 12/16/23- IMPRESSION: 1. Small left pleural effusion. 2. Left lower lobe airspace disease may also be present.
CXR 12/06/2023: Right basilar pneumonia.
ECHO 12/13/23- Normal left ventricular chamber size. Normal left ventricular systolic function. Left ventricular ejection fraction is 55% by visual assessment. Mild concentric left ventricular hypertrophy.
Pacer wire seen in right ventricle. Structurally normal mitral valve without significant stenosis or regurgitation. Trace tricuspid regurgitation. Estimated pulmonary artery pressure of 20-25 mmHg assuming a right atrial pressure of 3 mmHg. The
IVC was not well visualized.
-----
Subjective Data
-
Date of Service:
Date of Service: December 19, 2023
Chief Complaint: Pulmonary Follow Up
Subjective:
No new complaints.
For Discharge to SNF today.
Review of Systems
Cardiopulmonary: Dyspnea (none at rest), Cough (n) and Sputum Production (n)
GI: Abdominal Pain (n) and Nausea (n)
Objective Data
Data Reviewed
Vital Signs / I&O / Oxygen:
Vital Signs
Temp Pulse Resp BP Pulse Ox
97.9 F 78 18 121/60 97
12/19/23 07:00 12/19/23 07:28 12/19/23 07:28 12/19/23 07:00 12/19/23 07:28
Intake and Output
12/18/23 12/19/23 12/20/23
06:59 06:59 06:59
Intake Total 960 / 960 780 / 780
Balance 960 / 960 780 / 780
SaO2 97
Physical Exam
General: Respiratory Distress (negative), Comfortable, Chills (negative) and Sweats (negative)
HEENT: Normocephalic and Anicteric
Cardiovascular: S1-S2, Peripheral Edema (+1 lower extremity edema bilaterally) and Other (Distant heart sounds)
Respiratory: Wheeze (negative), Crackles (Bilateral) and Rhonchi (Bilateral)
GI: Soft, Distended (Abdominal obesity), Non Tender and Normal Bowel Sounds
Neurology: AO x 3 and Tremors (negative)
Skin: Warm, Dry, Cyanosis (negative) and Jaundice (negative)
Labs/Micro/Reports
Lab Data
12/17/23 06:35
12/18/23 06:44
Microbiology
12/17/23 06:25 Nose MRSA Screen - Final
No Methicillin Resistant Staphylococcus aureus isolated.
12/16/23 13:39 Nasal Swab Influenza Types A & B (LEONARDO) - Final
Negative for Influenza A & B, NAAT
Negative results must be combined with clinical observations
and patient history.
Nucleic Acid Amplification test (NAAT)performed on the
[employer] NOW platform.
[2023-12-19 15:00] VITALS: BP 128/63
[2023-12-19] MEDS: ARICEPT 10 MG PO (17:00)
[2023-12-19] MEDS: LOVENOX 40 MG SC (17:00)
[2023-12-19] MEDS: LIPITOR 10 MG PO (17:00)
[2023-12-19] MEDS: TOPROL XL 25 MG PO (21:40)
[2023-12-19 23:15] VITALS: BP 118/56
[2023-12-20] MEDS: SYNTHROID 100 MCG PO (05:03)
[2023-12-20 06:00] VITALS: BMI 37.9
[2023-12-20] MEDS: SPIRIVA RESPIMAT 2.5 MCG 1 PUFF INH (07:34)
[2023-12-20] MEDS: ADVAIR HFA 45/21 MCG INHALER 2 PUFF INH (07:34)
[2023-12-20 07:35] VITALS: BP 116/56
[2023-12-20] MEDS: LIDOCAINE 4% PATCH 1 PATCH TOPICAL (09:09)
[2023-12-20] MEDS: FARXIGA 10 MG PO (09:09)
[2023-12-20] MEDS: MYCOSTATIN ORAL SUSPENSION 5 ML PO ×2 (09:09→12:23)
[2023-12-20] MEDS: TYLENOL 650 MG PO ×2 (09:10→12:23)
[2023-12-20] MEDS: ALDACTONE 12.5 MG PO (09:10)
[2023-12-20] MEDS: LASIX 20 MG PO (09:10)
[2023-12-20] MEDS: MUCINEX 600 MG PO (09:10)
[2023-12-20] MEDS: ENTRESTO 49 MG/51 MG 1 TAB PO (09:10)
[2023-12-20] MEDS: KCL 20 MEQ PO (09:10)
[2023-12-20] MEDS: NAMENDA 10 MG PO (09:10)
[2023-12-20] MEDS: LOW STRENGTH ASPIRIN 81 MG PO (09:10)
[2023-12-20] MEDS: PROTONIX 40 MG PO (09:10)
[2023-12-20] MEDS: CYMBALTA DELAYED RELEASE 90 MG PO (09:10)
[2023-12-20] MEDS: TESSALON PERLES 100 MG PO (09:33)
--- NOTE | 2023-12-20 10:04 | W.PN.HOSP.TC ---
Today's Communication/Plan
-
Taper prednisone
Discharge planning
Assessment / Plan
Assessment / Plan
Gen-AAOx3, NAD
HEENT-NC, AT, anicteric, clear oral mm
Neck-supple
CV-reg, no M, +S1/S2
Lungs-decreased breath sounds, mild expiratory wheezing
Abd-soft, NT, ND
Ext-no edema
Musculoskeletal-no cyanosis, clubbing
Skin-warm and dry
Neuro-grossly non-focal
Psych-calm, cooperative
Acute hypoxic respiratory insufficiency -Multifactorial etiology, including acute bronchitis, postinfectious cough, history of COPD. Not requiring oxygen currently.
Postinfectious cough -add Acapella, incentive spirometer.
Acute laryngo-bronchitis -continue prednisone taper per pulmonary. Continue inhalers. Taper prednisone by 10 mg every 48 hours.
Recent pneumonia
COPD without exacerbation
Acute on chronic improved systolic/now diastolic CHF:
Continue oral Lasix 20 mg p.o. daily
BNP latest 858, repeated--> 464
Monitor strict I/O
Monitor daily weight
Monitor renal function and electrolytes
Reviewed latest echocardiogram on our system--> May of this year EF 55 to 60%
Continue guideline-directed medical therapy for heart failure (GDMT)--> on metoprolol succinate 25 mg p.o. nightly, Entresto 1 tablet twice a day, spironolactone 12.5 mg p.o. daily.
AICD in place
Fluid restriction
Salt restriction
Heart failure education
Follow up clinical response
Hypokalemia:
Replete and trend
Leukocytosis:
Steroids related.
Trended down appropriately.
Chronic iron deficiency anemia:
Status post course of IV iron on last admission
GI consulted and signed off on last admission.
On PPI twice daily.
Can follow-up with GI as outpatient if desired.
Hemoglobin stable
Oral candidiasis:
Continue oral nystatin
Continue Magic mouthwash
Dementia:
Continue donepezil 10 mg p.o. daily
Monitor behavior and mental status
DVT prophylaxis:
SCDs
CODE STATUS:
Limited DNR but AICD active.
Dispo -medically stable for discharge to SNF. Case management aware.
Anticipated Discharge: Today
Subjective/Interval History
-
Date of Service: December 20, 2023
Patient seen and examined. No complaints.
Objective Data
-
Vital Signs:
Vital Signs
Temp Pulse Resp BP Pulse Ox
98.3 F 69 18 116/56 100
12/20/23 07:35 12/20/23 07:38 12/20/23 07:38 12/20/23 09:10 12/20/23 07:38
I&O
12/19/23 12/20/23 12/21/23
06:59 06:59 06:59
Intake Total 780 / 780 480 / 480
Balance 780 / 780 480 / 480
Review of Systems
-
History Source: Patient
All other systems: Reviewed and negative
[2023-12-20] MEDS: DELTASONE 30 MG PO (10:21)
--- NOTE | 2023-12-20 10:36 | CM ---
CM reviewed chart, discussed with Hospitalist, patient clear for discharge. LEOPOLDO spoke with nurse Margarita at [facility] ([phone]), able to accept patient back. CM will send return of care referral to [facility], script for PT/OT placed in patients
chart. LEOPOLDO spoke with patients son in [place], will provide transport for patient around 4:30 p.m. CM met with patient bedside, discussed plan for discharge. Update to nurse and Hospitalist.
Plan; return to [facility] with [facility], script for PT/OT for [facility]
Report: [phone]
--- NOTE | 2023-12-20 10:47 | W.DS.TRANS ---
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
-
Discharge Instructions:
Discharge Diagnosis/Procedures Postinfectious cough
Diet Low Fat,Low Cholesterol
Activity With assistance
Driving Restrictions As prior to admission
Bathing Restrictions None
Instructions:
Stand-Alone Forms:
Changes to Home Medications: No
Discharge Medications:
DC Medications w/original date entered in [employer]
albuterol sulfate 90 mcg/actuation aerosol inhaler 1 inh inhalation R Q4HPRN PRN asthma 11/11/21
atorvastatin 10 mg tablet 10 mg PO QPM High cholesterol 11/11/21
donepezil 10 mg tablet 10 mg PO QPM dementia 11/11/21
metoprolol succinate 25 mg tablet,extended release 24 hr (Toprol XL) 25 mg PO HS Blood pressure 11/11/21
sacubitril 49 mg-valsartan 51 mg tablet (Entresto) 1 tab PO BID Heart Failure 11/11/21
spironolactone 25 mg tablet 12.5 mg PO DAILY Fluid retention/Swelling 11/11/21
aspirin 81 mg chewable tablet 81 mg PO DAILY Blood Clot Prevention/Tx 09/13/22
empagliflozin 10 mg tablet (Jardiance) 10 mg PO DAILY Diabetes 09/13/22
fluticasone 100 mcg-salmeterol 50 mcg/dose blistr powdr for inhalation 1 inh inhalation R BID Lung/Breathing Issues 09/13/22
memantine 10 mg tablet 10 mg PO BID@0900,1700 Neurological Condition 09/13/22
multivitamin 1 tab PO DAILY Supplement 09/13/22
pantoprazole 40 mg tablet,delayed release 40 mg PO DAILY Gastrointestinal Issue 09/13/22
potassium chloride 20 mEq tablet,extended release 20 meq PO DAILY Electrolyte Repletion 09/13/22
tiotropium bromide 2.5 mcg/actuation mist for inhalation (Spiriva Respimat) 1 inh inhalation R DAILY Lung/Breathing Issues 09/13/22
duloxetine 30 mg capsule,delayed release 90 mg PO DAILY Pain 05/23/23
levothyroxine 100 mcg tablet 100 mcg PO DAILY@0530 Thyroid 05/23/23
lidocaine 5 % topical patch 1 patch topical DAILY lower back 05/23/23
magnesium hydroxide 400 mg/5 mL oral suspension (Milk of Magnesia) 30 ml PO DAILYPRN PRN constipation 05/23/23
furosemide 20 mg tablet 20 mg PO DAILY Fluid Retention/Swelling 12/16/23
benzocaine 6 mg-menthol 10 mg lozenges (Chloraseptic Sore Throat) 1 darion PO Q4HPRN PRN sorethroat #0 ea 12/20/23
benzonatate 100 mg capsule 100 mg PO TIDPRN PRN cough #0 caps 12/20/23
prednisone 10 mg tablet 30 mg (3 x 10 mg) PO DAILY #0 tabs 12/20/23
Home Medication Changes
Pending Results: No
[2023-12-20 15:33] VITALS: BP 131/58
== END 2023-12-20 17:23 | disposition home health service (06) ==
LOC: 4 WEST ACU 15:53
PROVIDERS: Clinical Nurse Specialist Family Health; Emergency Medicine; ADMITTING PHYSICIAN Hospitalist; ATTENDING PHYSICIAN Hospitalist; CONSULT PHYSICIAN Internal Medicine; EMERGENCY PHYSICIAN Emergency Medicine; FAMILY PHYSICIAN Internal Medicine
DX: R05.9 Cough, unspecified (principal); R06.02 Shortness of breath; R53.83 Other fatigue; J20.9 Acute bronchitis, unspecified; E66.9 Obesity, unspecified; F32.A Depression, unspecified; F03.93 Unspecified dementia, unspecified severity, with mood disturbance; K21.9 Gastro-esophageal reflux disease without esophagitis; J44.0 Chronic obstructive pulmonary disease with (acute) lower respiratory infection; F41.9 Anxiety disorder, unspecified; E87.6 Hypokalemia; I11.0 Hypertensive heart disease with heart failure; I50.22 Chronic systolic (congestive) heart failure; J90 Pleural effusion, not elsewhere classified; D72.829 Elevated white blood cell count, unspecified; I25.5 Ischemic cardiomyopathy; G89.29 Other chronic pain; M54.50 Low back pain, unspecified; I44.7 Left bundle-branch block, unspecified; T50.2X5A Adverse effect of carbonic-anhydrase inhibitors, benzothiadiazides and other diuretics, initial encounter; J98.4 Other disorders of lung; I70.90 Unspecified atherosclerosis; K44.9 Diaphragmatic hernia without obstruction or gangrene; B37.0 Candidal stomatitis; R09.02 Hypoxemia; R06.89 Other abnormalities of breathing; E03.9 Hypothyroidism, unspecified; E78.5 Hyperlipidemia, unspecified; D50.9 Iron deficiency anemia, unspecified; Z86.79 Personal history of other diseases of the circulatory system; Z95.810 Presence of automatic (implantable) cardiac defibrillator; Z79.52 Long term (current) use of systemic steroids; Z87.01 Personal history of pneumonia (recurrent); Z79.51 Long term (current) use of inhaled steroids; Z79.890 Hormone replacement therapy; Z79.84 Long term (current) use of oral hypoglycemic drugs; Z68.38 Body mass index [BMI] 38.0-38.9, adult; Z11.52 Encounter for screening for COVID-19; Z60.2 Problems related to living alone
CPT/HCPCS: 71046; 71250; 80048; 80053; 82805; 83880; 85025; 87070; 87502; 87811; 94640; 96374; 97116; 97162; 97166; 99285; G0378

== ENCOUNTER → 2024-02-02 10:00 | Outpatient (REF) | payer MEDICARE, OTHER, SELFPAY ==
[2024-02-02 11:00] LABS: % Basophils 1.3 % (0-2); % Eosinophils 4.6 % (0-6); % Immature Granulocytes 0.6 % (0-0.5); % Lymphocytes 17.2 % (20.5-51.1); % Monocytes 9.1 % (1.7-9.3); % Neutrophils 67.2 % (42.2-75.2); Absolute Basophils 0.1 10^3/uL (0-0.2); Absolute Eosinophils 0.3 10^3/uL (0-0.7); Absolute Lymphocytes 1.2 10^3/uL (1.2-3.4); Absolute Monocytes 0.6 10^3/uL (0.1-0.6); Absolute Neutrophils 4.5 10^3/uL (1.4-6.5); Hematocrit 35.3 % (37.0-47.0); Hemoglobin 10.9 g/dL (12.0-16.0); Mean Corp Hgb Conc. 30.9 g/dL (33.0-37.0); Mean Corpuscular Hgb 26.9 pg (27.0-31.0); Mean Corpuscular Volume 87.2 fL (81.0-99.0); Mean Platelet Volume 9.9 fL (7.4-10.4); Nucleated Red Blood Cells % 0 %; Platelet Count 220 10^3/uL (130-400); Red Blood Cell Count 4.05 10^6/uL (4.20-5.40); Red Cell Dist. Width 25.6 % (11.5-14.5); Reticulocyte Count 2.2 % (0.4-2.8); White Blood Cell Count 6.7 10^3/uL (4.8-10.8)
[2024-02-02 11:36] LABS: ALT (SGPT) 14 U/L (0-35); AST (SGOT) 24 U/L (14-36); Albumin 3.7 g/dl (3.5-5.0); Alkaline Phosphatase 91 U/L (38-126); Blood Urea Nitrogen 17 mg/dl (7-17); Calcium 9.5 mg/dl (8.4-10.2); Carbon Dioxide 26 mmol/L (22-30); Chloride 101 mmol/L (98-107); Glucose 118 mg/dl (70-99); Iron 58 ug/dl (37-170); Potassium 4.4 mmol/L (3.5-5.1); Sodium 137 mmol/L (135-145); Total Bilirubin 0.3 mg/dl (0.2-1.3); Total Protein 5.6 g/dl (6.3-8.2); eGFR > 60.00
[2024-02-02 11:46] LABS: Percent Saturation 14 % (20-50); Total Iron Binding Capacity 399 ug/dl (265-497)
[2024-02-02 11:50] LABS: IgA < 50 mg/dl (70-400)
[2024-02-02 12:12] LABS: Ferritin 28.3 ng/ml (11.1-264.0)
[2024-02-03 21:11] LABS: Endomysial IgA Antibody Titer <1:10 (<1:10)
== END ==
LOC: OLABMERCHI 10:00
PROVIDERS: ATTENDING PHYSICIAN Internal Medicine
DX: E78.2 Mixed hyperlipidemia (principal); K21.9 Gastro-esophageal reflux disease without esophagitis; D50.9 Iron deficiency anemia, unspecified; I42.8 Other cardiomyopathies; J18.9 Pneumonia, unspecified organism
CPT/HCPCS: 36415; 80053; 82728; 82784; 83516; 83540; 83550; 85025; 85045; 86231

== ENCOUNTER → 2024-02-21 09:54 | Outpatient (REF) | payer MEDICARE, OTHER, SELFPAY | LOC: RAD 09:54 | PROVIDERS: ATTENDING PHYSICIAN Nurse Practitioner Gerontology; FAMILY PHYSICIAN Internal Medicine | DX: K21.9 Gastro-esophageal reflux disease without esophagitis (principal); D64.9 Anemia, unspecified | CPT/HCPCS: 74246 ==

== ENCOUNTER 2024-08-07 03:37 | Emergency (ER) | payer MEDICARE, OTHER, SELFPAY ==
[2024-08-07] VITALS (7 sets, daily range): BP systolic 98–126; BP diastolic 54–87; BMI 38.4
--- NOTE | 2024-08-07 03:58 | ED.GENMED ---
History of Present Illness
<Laura Trejo PA-C - Last Filed: 08/07/24 09:52>
General
Chief Complaint: Abdominal Symptoms
Source: patient
Exam Limitations: none
Time Seen by Provider: 08/07/24 03:57
Nursing documentation reviewed up to this point in time: agreed with
History of Present Illness
History of Present Illness:
This is a 83 year-old female with a past medical history of CHF, dementia, hypertension, hyperlipidemia, Gerd, who presents to the emergency apartment today with concerns of belching. Patient reports that she comes from [facility]. She reports that
she has dementia, and so because of that she does not recall the details of what happened but reports that she woke up in the middle of the night with a brief episode of abdominal pain. She called her daughter with the symptoms. She was apparently
diaphoretic at this time as reported by staff. She reports that abdominal pain lasted two minutes, and she describes it as gas pain. Patient seats that the pain was in her upper abdomen. Patient takes pantoprazole daily. Patient currently denies any
abdominal pain, but she continues to have belching. Patient states that this is due to her Gerd. She denies any nausea vomiting. She denies any chest pain or shortness of breath. Daughter is present with patient. Patient has no complains at this
time other than persistent belching.
Past History
<Laura Trejo PA-C - Last Filed: 08/07/24 09:52>
Past History
ED Past Medical History: CHF, COPD (Chronic bronchitis), GERD, HTN and Other (Cardiomyopathy, ICD/pacemaker, obesity, dementia, anxiety, depression)
Social History
Tobacco: Non-smoker
Alcohol: None
Drug: None
Living: with family
Review of Systems
<Laura Trejo PA-C - Last Filed: 08/07/24 09:52>
Review of Systems
All Other Systems: ROS reviewed and negative except as documented in HPI and ROS
Phy Exam
<Laura Trejo PA-C - Last Filed: 08/07/24 09:52>
Physical Exam
Physical Exam:
General: Patient is well appearing and in no acute distress; non-toxic
Skin: Warm and dry, no rashes or lesions
Head: Normocephalic, atraumatic
Eyes: Sclera non-icteric. EOMs intact.
Cardiac: Heart regular rate and rhythm, no murmurs, no tenderness to palpation of the external chest wall
Peripheral Vascular: No lower extremity swelling or edema
Pulm: Normal respiratory effort, no wheezes, rales, rhonchi
Abdomen: No abdominal tenderness to palpation, no epigastric tenderness
Neuro: CN II-XII intact, no focal neurologic deficits.
Psychiatric: Appropriate mood and affect.
Course
<Laura Trejo PA-C - Last Filed: 08/07/24 09:52>
Orders/Labs/Results
Orders:
Orders
08/07/24 03:41
EKG [Electrocardiogram (*1)] Urgent
Reason for Study: Other
Other Reason for Exam: indegestion
EKG- Treatment ONCE
08/07/24 04:01
Complete Blood Count/With Diff Urgent
Comprehensive Metabolic Panel Urgent
Lipase Urgent
Comment: ADD ON
Troponin I Urgent
08/07/24 04:07
Famotidine [Pepcid] 20 mg IV NOW STA
Pantoprazole [Protonix IV] 40 mg IV NOW STA
08/07/24 04:10
Sucralfate [Carafate] 1 gram PO NOW STA
08/07/24 04:57
pacemaker [Interrogate Pacemaker- Treatment] ONCE
08/07/24 07:00
Electrocardiogram (*1) Urgent
Reason for Study: Chest Pain
08/07/24 07:09
Add On- LAB Urgent
Tests Added?: lipase
08/07/24 07:31
Troponin I Urgent
Abnormal Lab Results
08/07/24
04:01
MCHC 32.5 L g/dL
(33.0-37.0)
RDW 15.0 H %
(11.5-14.5)
Abs Immat Gran (auto) 0.1 H 10^3/uL
(0-0.05)
Absolute Monos (auto) 0.7 H 10^3/uL
(0.1-0.6)
Immature Gran % 1.1 H %
(0-0.5)
Lymphocytes % 16.5 L %
(20.5-51.1)
Monocytes % 9.5 H %
(1.7-9.3)
BUN 20 H mg/dl
(7-17)
Glucose 141 H mg/dl
(70-99)
Alkaline Phosphatase 145 H U/L
(38-126)
08/07/24 04:01
08/07/24 04:01
Vital Signs
Initial and Last Documented VS:
Initial Vital Signs
Temp Pulse Resp BP Pulse Ox
98.0 F 75 15 107/56 96
08/07/24 03:43 08/07/24 03:43 08/07/24 03:43 08/07/24 03:43 08/07/24 03:43
Last Documented Vital Signs
Temp Pulse Resp BP Pulse Ox
98.0 F 72 20 100/85 95
08/07/24 03:43 08/07/24 08:15 08/07/24 08:15 08/07/24 08:00 08/07/24 07:15
Aguilarlt;Adriana Cardoso PA-C - Last Filed: 08/07/24 08:40>
Orders/Labs/Results
Orders:
Orders
08/07/24 03:41
EKG [Electrocardiogram (*1)] Urgent
Reason for Study: Other
Other Reason for Exam: indegestion
EKG- Treatment ONCE
08/07/24 04:01
Complete Blood Count/With Diff Urgent
Comprehensive Metabolic Panel Urgent
Lipase Urgent
Comment: ADD ON
Troponin I Urgent
08/07/24 04:07
Famotidine [Pepcid] 20 mg IV NOW STA
Pantoprazole [Protonix IV] 40 mg IV NOW STA
08/07/24 04:10
Sucralfate [Carafate] 1 gram PO NOW STA
08/07/24 04:57
pacemaker [Interrogate Pacemaker- Treatment] ONCE
08/07/24 07:00
Electrocardiogram (*1) Urgent
Reason for Study: Chest Pain
08/07/24 07:09
Add On- LAB Urgent
Tests Added?: lipase
08/07/24 07:31
Troponin I Urgent
Abnormal Lab Results
08/07/24
04:01
MCHC 32.5 L g/dL
(33.0-37.0)
RDW 15.0 H %
(11.5-14.5)
Abs Immat Gran (auto) 0.1 H 10^3/uL
(0-0.05)
Absolute Monos (auto) 0.7 H 10^3/uL
(0.1-0.6)
Immature Gran % 1.1 H %
(0-0.5)
Lymphocytes % 16.5 L %
(20.5-51.1)
Monocytes % 9.5 H %
(1.7-9.3)
BUN 20 H mg/dl
(7-17)
Glucose 141 H mg/dl
(70-99)
Alkaline Phosphatase 145 H U/L
(38-126)
08/07/24 04:01
08/07/24 04:01
Vital Signs
Initial and Last Documented VS:
Initial Vital Signs
Temp Pulse Resp BP Pulse Ox
98.0 F 75 15 107/56 96
08/07/24 03:43 08/07/24 03:43 08/07/24 03:43 08/07/24 03:43 08/07/24 03:43
Last Documented Vital Signs
Temp Pulse Resp BP Pulse Ox
98.0 F 72 20 100/85 95
08/07/24 03:43 08/07/24 08:15 08/07/24 08:15 08/07/24 08:00 08/07/24 07:15
<Laura Trejo PA-C - Last Filed: 08/07/24 09:52>
MDM/Problems Addressed
Differential Diagnosis Includes:
ddx include GERD, gastritis, gastroenteritis, ACS
MDM/Problems Addressed:
This is a 83 year-old female with a past medical history of CHF, dementia, hypertension, hyperlipidemia, Gerd, who presents to the emergency apartment today with concerns of belching. Patient reports that she comes from [facility]. She also had a
transient episode of diaphoresis and upper abdominal pain. She is currently pain free. She states that this is her GERD symptoms and is requesting to be discharge. On my PE, she is well appearing, in no acute distress, actively belching, no
abdominal tenderness, no chest wall tenderness. Labs reviewed CBC/CMP unremarkable. EKG x2 with no ischemic changes. Troponin initial normal, repeat undetectable. Pacemaker evaluation shows no evidence of dysrhythmia. Patient stable for discharge.
Did note some improvement with carafate/pecid. Return precautions discussed.
Chronic conditions affecting care:
asthma, CHF, hlp, htn
<Laura Trejo PA-C - Last Filed: 08/07/24 09:52>
*Pulse Oximetry
Patient hypoxic: no
*EKG
Interpreted by ED Provider?: Yes
EKG Intrepretation Date: 08/07/24
Rate: normal
Rhythm: sinus and ventricular paced
Ischemia: no ischemia
*Critical Care Note
Total Time (30-74mins, 75-104mins- exclusive of procedures): Not Applicable
Data Reviewed
Review of Other/Old Records Reveals: Records
<Adriana Cardoso PA-C - Last Filed: 08/07/24 08:40>
Update Note
Update Note:
I assumed care of patient awaiting repeat troponin/EKG and lipase results. Lipase WNL. EKG shows paced rhythm and repeat troponin is undetectable. Patient is asymptomatic on reassessment and continues to deny any chest or abdominal pain. Abdominal
exam remains benign. Patient stable for discharge. Strict ED return precautions reviewed. Patient in agreement with plan and eager to go home.
ED Attending Note
<Laura Trejo PA-C - Last Filed: 08/07/24 09:52>
-
Portions of this chart may have been created with voice recognition software.� Occasional wrong word or��sound alike� substitutions may have occurred due to the inherent limitations of voice recognition software.
Discharge Plan
Departure
Patient Disposition: Home (Routine Discharge)
Date of Disposition: 08/07/24
Time of Disposition: 08:26
Patient with high blood pressure during this ER visit?: No
Condition: Good
Discharge Problem:
Belching, Hiatal hernia with GERD
Instructions: Acid reflux and GERD in adults, BLOOD PRESSURE
Prescriptions:
No Action
atorvastatin 10 mg Tablet
10 mg PO QPM
spironolactone 25 mg Tablet
12.5 mg PO DAILY
metoprolol succinate [Toprol XL] 25 mg Tablet Extended Release 24 Hr
25 mg PO HS
albuterol sulfate 90 mcg/actuation Hfa Aerosol Inhaler
2 inh INHALATION R Q4HPRN PRN (Reason: asthma)
Entresto 49-51 mg Tablet
1 tab PO BID
multivitamin Tablet
1 tab PO DAILY
pantoprazole 40 mg Tablet,Delayed Release (Dr/Ec)
40 mg PO DAILY
aspirin 81 mg Tablet,Chewable
81 mg PO DAILY
fluticasone propion-salmeterol 100-50 mcg/dose Blister With Device
1 inh INHALATION R BID
memantine 10 mg Tablet
10 mg PO BID@0900,1700
Spiriva Respimat 2.5 mcg/actuation Mist
2 inh INHALATION R DAILY
potassium chloride 20 mEq Tablet Extended Release
20 meq PO DAILY
Jardiance 10 mg Tablet
10 mg PO DAILY
levothyroxine 100 mcg Tablet
100 mcg PO DAILY
lidocaine 5 % Adhesive Patch,Medicated
1 patch TOPICAL DAILY
duloxetine 30 mg Capsule,Delayed Release(Dr/Ec)
120 mg PO DAILY
furosemide 20 mg Tablet
20 mg PO DAILY
Acid Gone Antacid 95-358 mg/15 mL Suspension
30 ml PO Q6HPRN PRN (Reason: gerd)
famotidine [Pepcid] 40 mg Tablet
40 mg PO QPM
acetaminophen [Tylenol Extra Strength] 500 mg Tablet
1,000 mg PO DAILYPRN PRN (Reason: mild pain)
acetaminophen 650 mg Tablet Extended Release
1,300 mg PO Q12H
magnesium hydroxide [Milk of Magnesia] 400 mg/5 mL Suspension
2,400 mg PO DAILYPRN PRN (Reason: constipation)
ferrous sulfate 325 mg (65 mg iron) Tablet
325 mg PO QPM
ibuprofen [Advil] 200 mg Tablet
600 - 800 mg PO DAILYPRN PRN (Reason: if tylenol does not work)
diclofenac sodium [Voltaren] 1 % Gel
2 g TOPICAL TID
donepezil 23 mg Tablet
23 mg PO HS
Referrals:
Bernardo Saavedra MD [Family Provider] -
Activity Restrictions/Additional Instructions:
Please follow-up with your primary care provider. Please continue your pantoprazole.
Your pacemaker interrogation showed no evidence of pacer terminated episodes.
PLEASE RETURN EMERGENCY DEPARTMENT SHOULD YOU DEVELOP CHEST PAIN, ABDOMINAL PAIN, SHORTNESS OF BREATH, LIGHTHEADEDNESS, DIZZINESS, OR ANY OTHER SIGNS OR SYMPTOMS WORRISOME TO YOU.
Interventions
Interventions:
*Risk Screen - Suicide Last Done: 08/07/24 03:43
*General Assessment Last Done: 08/07/24 03:43
*Neglect/Abuse Screening Last Done: 08/07/24 03:43
*ED- Fall Risk Assessment Last Done: 08/07/24 03:43
*ED COVID-19 Vaccine History Last Done: 08/07/24 03:43
*Nursing Disposition Last Done: 08/07/24 08:40
[id number] Assessment Last Done: 08/07/24 03:43
Discharge Date and Time
Discharge Date/Time: 08/07/24 08:40
Print Language: SERBIAN
[2024-08-07 04:15] LABS: % Basophils 0.9 % (0-2); % Eosinophils 1.6 % (0-6); % Immature Granulocytes 1.1 % (0-0.5); % Lymphocytes 16.5 % (20.5-51.1); % Monocytes 9.5 % (1.7-9.3); % Neutrophils 70.4 % (42.2-75.2); Absolute Basophils 0.1 10^3/uL (0-0.2); Absolute Eosinophils 0.1 10^3/uL (0-0.7); Absolute Immature Granulocytes 0.1 10^3/uL (0-0.05); Absolute Lymphocytes 1.2 10^3/uL (1.2-3.4); Absolute Monocytes 0.7 10^3/uL (0.1-0.6); Absolute Neutrophils 5.2 10^3/uL (1.4-6.5); Hematocrit 41.9 % (37.0-47.0); Hemoglobin 13.6 g/dL (12.0-16.0); Mean Corp Hgb Conc. 32.5 g/dL (33.0-37.0); Mean Corpuscular Hgb 30.7 pg (27.0-31.0); Mean Corpuscular Volume 94.6 fL (81.0-99.0); Mean Platelet Volume 9.8 fL (7.4-10.4); Nucleated Red Blood Cells % 0 %; Platelet Count 206 10^3/uL (130-400); Red Blood Cell Count 4.43 10^6/uL (4.20-5.40); White Blood Cell Count 7.4 10^3/uL (4.8-10.8)
[2024-08-07] MEDS: CARAFATE 1 GRAM PO (04:18)
[2024-08-07] MEDS: PEPCID 20 MG IV (04:19)
[2024-08-07] MEDS: PROTONIX IV 40 MG IV (04:19)
[2024-08-07 04:37] LABS: ALT (SGPT) 18 U/L (0-35); AST (SGOT) 25 U/L (14-36); Albumin 4.4 g/dl (3.5-5.0); Alkaline Phosphatase 145 U/L (38-126); Blood Urea Nitrogen 20 mg/dl (7-17); Calcium 9.3 mg/dl (8.4-10.2); Carbon Dioxide 27 mmol/L (22-30); Chloride 106 mmol/L (98-107); Estimated Creatinine Clearance 52 ml/min; Glucose 141 mg/dl (70-99); Potassium 4.3 mmol/L (3.5-5.1); Sodium 139 mmol/L (135-145); Total Bilirubin 0.4 mg/dl (0.2-1.3); Total Protein 6.4 g/dl (6.3-8.2); eGFR > 60.00
[2024-08-07 04:47] LABS: Troponin I 0.021 ng/ml
[2024-08-07 07:38] LABS: Lipase 122 U/L (23-300)
[2024-08-07 08:08] LABS: Troponin I < 0.012 ng/ml
== END 2024-08-07 08:40 | disposition home or self-care (01) ==
LOC: EMR 03:37
PROVIDERS: Physician Assistant; EMERGENCY PHYSICIAN Emergency Medicine; FAMILY PHYSICIAN Internal Medicine
DX: J44.89 Other specified chronic obstructive pulmonary disease (principal); K21.9 Gastro-esophageal reflux disease without esophagitis; R14.2 Eructation; I11.0 Hypertensive heart disease with heart failure; I50.9 Heart failure, unspecified; E78.5 Hyperlipidemia, unspecified; F03.94 Unspecified dementia, unspecified severity, with anxiety
CPT/HCPCS: 99284; 96374; 96375; 80053; 83690; 84484; 85025; 93005

== ENCOUNTER → 2024-12-18 11:05 | Outpatient (REF) | payer MEDICARE, OTHER, SELFPAY ==
[2024-12-18 11:51] LABS: Hematocrit 42.3 % (37.0-47.0); Hemoglobin 13.8 g/dL (12.0-16.0); Mean Corp Hgb Conc. 32.6 g/dL (33.0-37.0); Mean Corpuscular Volume 93.2 fL (81.0-99.0); Nucleated Red Blood Cells % 0 %; Platelet Count 263 10^3/uL (130-400); Red Cell Dist. Width 13.5 % (11.5-14.5)
[2024-12-18 12:13] LABS: ALT (SGPT) 17 U/L (0-35); AST (SGOT) 25 U/L (14-36); Albumin 4.7 g/dl (3.5-5.0); Alkaline Phosphatase 94 U/L (38-126); Blood Urea Nitrogen 17 mg/dl (7-17); Calcium 9.7 mg/dl (8.4-10.2); Carbon Dioxide 25 mmol/L (22-30); Chloride 103 mmol/L (98-107); Glucose 152 mg/dl (70-99); Potassium 4.4 mmol/L (3.5-5.1); Sodium 136 mmol/L (135-145); Total Protein 6.8 g/dl (6.3-8.2); eGFR > 60.00
[2024-12-18 12:42] LABS: TSH 5.08 uIU/ml (0.47-4.68)
== END ==
LOC: REG 11:05
PROVIDERS: ATTENDING PHYSICIAN Internal Medicine
DX: E03.9 Hypothyroidism, unspecified (principal); I50.22 Chronic systolic (congestive) heart failure
CPT/HCPCS: 36415; 80053; 84443; 85025